=== PATIENT | male | born 1955 | race Caucasian/White ===

== ENCOUNTER 2024-01-09 12:30 | Outpatient (AMB) | payer OTHER, MEDICAID, SELFPAY ==
--- NOTE | 2024-01-09 12:41 | AM.OFFWIN_ITS ---
Intake Vital Signs 01/09/24 12:49 Height 5 ft 4 in Weight 212 lb BMI 36.4 BP 108/58 L Blood Pressure Location Lt brachial Position Sitting Pulse 68 Pulse Source Pulse Oximeter Temp 98.3 F Temp Source Oral Pulse Oximetry (%) 94 Oxygen Delivery Method Room Air Intake Visit Reasons: blurry vision Intake Note: Blurry vision. Blood sugar was 67 this morning. Daughter gave him sugar and lunch and glucose was 107 Accompanied by: Daughter Allergies shrimp Allergy (Unknown, Verified 01/09/24 12:43) Vomiting HPI HPI Comments History of Present Illness Details This is a 68-year-old male with a past medical history of type 2 diabetes, hypertension, hyperlipidemia and stroke presenting via the walk-in for blurry vision. Patient's daughter interprets. He was in his usual state of health until this morning at 10:45am. He noticed symptoms when he woke up. He called his daughter who rushed over to his house. She says his blood pressure was normal. She checked his blood sugar, and it was 67 so she made him a meal. Blood sugar went up to 107 and is currently 164. Vision did not improve after eating. He has 5/10 eye pain on the outside corners of the eyes. Both eyes are blurry though the right is worse than the left. No discharge. Both eyes appear redder than usual. No head or eye trauma. He wears glasses. He does not use contacts. Last seen by an eye doctor at [facility] for his glasses prescription. Upon further questioning he recalls somebody telling him he may have glaucoma in the past and he was supposed to see a retinal specialist, but they did not end up following through due to an insurance issue. Patient denies fevers, chills, headache, new weakness, new speech difficulty, new facial drooping or numbness or tingling. He has residual effects from a stroke 13 years ago including weakness of the right upper and lower extremity, some aphasia and facial asymmetry. No changes to this baseline per patient and daughter. ROS: Constitutional: No fevers or chills Eyes: No double vision, vision loss or discharge, see HPI ENT: No ear pain or congestion, sore throat or sinus congestion. Respiratory: No shortness of breath Cardiovascular: No chest pain Gastrointestinal: No nausea or vomiting. Neurologic: No headache, dizziness, syncope, see HPI Skin: No rash Physical exam: Constitutional: Alert, in no distress. Brace on right knee. Uses cane to walk. Eyes: +Aniscoria and sluggish right pupillary response to light (patient says right pupil has been like this since his stroke). Eyes are hyperemic. No periorbital swelling. No discharge. Extraocular muscles intact. Ear, Nose and Throat: Canals clear. TMs normal. Normal nasal mucosa. No nasal discharge. No oral lesions. Neck: Supple, Full range of motion. No lymphadenopathy. Respiratory: Clear to auscultation. Cardiovascular: S1 S2 regular. No murmurs. Neurologic: Facial asymmetry noted (drooping of the right side of the mouth) which again they say is baseline since his stroke. Hand tour consultant strength 4/5 bilaterally. Clear speech. Extremities: Warm and well perfused. FOR[facility]LY [facility], 1928[facility] Medical History (Updated 01/09/24 @ 13:38 by SAMINA Keating) Blurry vision, bilateral Blurry vision Physical Exam Vital Signs: Last Vital Signs Temp 98.3 F 01/09/24 12:49 Pulse 68 01/09/24 12:49 BP 108/58 L 01/09/24 12:49 Pulse Ox 94 01/09/24 12:49 Oxygen Delivery Method Room Air 01/09/24 12:49 BMI result Body Mass Index 36.4 Assessment & Plan Assessment & Plan (1) Blurry vision, bilateral: Code(s): H53.8 - Other visual disturbances (2) Pain of both eyes: Code(s): H57.13 - Ocular pain, bilateral (3) Eye redness: Code(s): H57.89 - Other specified disorders of eye and adnexa Plan I explained to the patient his daughter that these symptoms warrant emergent ophthalmological consult. Differential includes acute glaucoma, optic neuritis, infection. They report chronic neuro deficits are at baseline and symptoms are bilateral so I do not suspect acute CVA at this time. They are agreeable to go to [facility] ED for further evaluation. Coding Level of Care Code New Pt Level 4 (79885) Diagnoses Blurry vision, bilateral H53.8 Pain of both eyes H57.13 Eye redness H57.89
[2024-01-09 12:49] VITALS: BP 108/58; PULSE 68; TEMP 36.8; O2SAT 94; BMI 36.4
== END 2024-01-09 16:00 | disposition home or self-care (01) ==
PROVIDERS: Visit Provider Physician Assistant Medical
DX: H53.8 Other visual disturbances (principal); H57.13 Ocular pain, bilateral; H57.89 Other specified disorders of eye and adnexa; E11.649 Type 2 diabetes mellitus with hypoglycemia without coma
CPT/HCPCS: 82948; 99204

== ENCOUNTER 2024-02-10 11:06 | Outpatient (AMB) | payer OTHER, MEDICAID, SELFPAY ==
[2024-02-10 11:08] VITALS: BP 118/70; PULSE 54; O2SAT 96; BMI 35.9
--- NOTE | 2024-02-10 11:08 | A.OFFPC_ITS ---
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 Food Service Steward Required: Yes Food Service Steward Language: Correctional Food Service Supervisor Name: Daughter Accompanied by: Daughter Allergies shrimp Allergy (Unknown, Verified 02/10/24 11:12) Vomiting Tobacco use date assessed: 02/10/24 Fall risk assessment: 1 Fall in past year Last assessed Fall Risk: 02/10/24 Dental Screening Dental Screen Date: 02/10/24 Did you have a dental visit in the last 12 months?: Yes Did you have a dental problem in the last 6 months where you did not have access to dental care?: Yes Was dental information given to patient?: Patient has dentist HPI HPI Comments History of Present Illness Details This is a 68-year-old male with a past medical history of type 2 diabetes, hypertension, hyperlipidemia and stroke presenting for follow up Type 2 diabetes: On metformin 500ng twice daily, NPH, jardiance, acarbose. A1C 6.7%. CV: On norvasc, chlorthalidone, lisinopril. metoprolol. Controlled today. Denies chest pain, dizziness. Recent vision changes as noted in previous visit He was in his usual state of health until this morning at 10:45am. He noticed symptoms when he woke up. He called his daughter who rushed over to his house. She says his blood pressure was normal. She checked his blood sugar, and it was 67 so she made him a meal. Blood sugar went up to 107 and is currently 164. Vision did not improve after eating. He has 5/10 eye pain on the outside corners of the eyes. Both eyes are blurry though the right is worse than the left. No discharge. Both eyes appear redder than usual. No head or eye trauma. He wears glasses. He does not use contacts. Last seen by an eye doctor at [facility] for his glasses prescription. Upon further questioning he recalls somebody telling him he may have glaucoma in the past and he was supposed to see a retinal specialist, but they did not end up following through due to an insurance issue. Patient denies fevers, chills, headache, new weakness, new speech difficulty, new facial drooping or numbness or tingling. He has residual effects from a stroke 13 years ago including weakness of the right upper and lower extremity, some aphasia and facial asymmetry. No changes to this baseline per patient and daughter. ROS CONSTITUTIONAL: Denies weight loss, fever and chills. HEENT: Denies changes in vision and hearing. RESPIRATORY: Denies SOB and cough. CV: Denies palpitations and CP GI: Denies abdominal pain, nausea, vomiting and diarrhea. : Denies dysuria and urinary frequency. MSK: Denies new myalgia and joint pain. SKIN: Denies rash and pruritus. NEUROLOGICAL: Denies headache PSYCHIATRIC: Denies recent changes in mood. PHYSICAL EXAM: GENERAL: Alert and oriented x 3. NAD EYES: EOMI. Anicteric. HENT: Moist mucous membranes. No scleral icterus. No cervical lymphadenopathy. LUNGS: Clear to auscultation bilaterally. CARDIOVASCULAR: Regular rate and rhythm. No murmur. No JVD. ABDOMEN: Soft, non-tender +bs EXTREMITIES: No edema. Non-tender. SKIN: No rashes or lesions. Warm. NEUROLOGIC: No focal neurological deficits. CN II-XII grossly intact PSYCHIATRIC: Cooperative. Appropriate mood and affect FORMERLY [facility], [facility]–1983 Medical History Blurry vision, bilateral Blurry vision Surgical History Hx of hernia repair Hx of arthroscopy of left knee Social History Household Members: None Housing: Apartment Alcohol intake: never Patient Tobacco Use Status: Never used Tobacco e-Cigarette/Vaping Use: Never Used Current occupational status: retired Cognitive needs: No Hearing needs: No Vision needs: Yes Questionnaire PHQ-9 Over the last 2 weeks, how often have you been bothered by any of the following problems? 1. Little interest or pleasure in doing things: not at all 2. Feeling down, depressed, or hopeless: not at all 3. Trouble falling or staying asleep, or sleeping too much: not at all 4. Feeling tired or having little energy: not at all 5. Poor appetite or overeating: not at all 6. Feeling bad about yourself - or that you are a failure or have let yourself or your family down: not at all 7. Trouble concentrating on things, such as reading the newspaper or watching television: not at all 8. Moving or speaking so slowly that other people could have noticed. Or the opposite - being so fidgety or restless that you have been moving around a lot more than usual: not at all 9. Thoughts that you would be better off or of hurting yourself in some way: not at all Total score: 0 Depression Screening Interpretation: Negative (neg) Depression Screening Done: Yes 32701 - PHQ-9 Billing: Yes Source: Developed by Drs. David Troncoso, Maria Elena Montaño, Silvestre Shields and colleagues, with an educational taran from [employer]. Thrive Questionnaire I am a: Patient What is your living situation today?: I have a steady place to live Within the past 12 months, did the food you bought not last and you didn't have the money to get more?: Never true Within the past 12 months, did you worry whether your food would run out before you got money to buy more?: Never true Do you have trouble paying for medicines?: No Do you have trouble getting transportation to medical appointments?: No Do you have trouble paying your heating and electricity bill?: No Do you have trouble taking care of your child, family member or friend?: No Do you have trouble with day-to-day activities such as bathing, preparing meals, shopping, managing finances, etc.?: No Are you currently unemployed and looking for a job?: No Are you interested in more education?: No THRIVE Score: 0 AUDIT C Alcohol Use Questionnaire (AUDIT-C) 1. How often do you have a drink containing alcohol?: Never 3. How often do you have six or more drinks on one occasion?: Never Total Score: 0 LALA-7 AMB Questionnaire LALA-7 Date LALA - 7 assessed: 02/10/24 Feeling nervous, anxious, or on edge: 0 = Not at all Not being able to stop or control worryin = Not at all Worrying too much about different things: 0 = Not at all Trouble relaxin = Not at all Being so restless that it is hard to sit still: 0 = Not at all Becoming easily annoyed or irritable: 0 = Not at all Feeling afraid as if something awful might happen: 0 = Not at all Total LALA-7 score (0-4 normal; 5-9 mild; 10-14 moderate; 15-21 severe): 0 Source: Developed by Drs. David Troncoso, Maria Elena Montaño, Silvestre Shields and colleagues, with an educational taran from [employer]. LALA-7 Assessment Billing LALA-7 Assessment Tool: LALA-7 Assessment 60312 Physical exam (Primary Care) Vital Signs: Last Vital Signs Pulse 54 02/10/24 11:08 BP 118/70 02/10/24 11:08 Pulse Ox 96 02/10/24 11:08 Oxygen Delivery Method Room Air 02/10/24 11:08 BMI result Body Mass Index 35.9 Tobacco/Smoking Status: Tobacco use Status Tobacco use date assessed 02/10/24 02/10/24 11:19 Patient Tobacco Use Status Never used Tobacco 02/10/24 11:19 e-Cigarette/Vaping Use Never Used 02/10/24 11:19 PHQ-9: PHQ-9 Score PHQ-9: Total score 0 02/10/24 11:43 Depression Screening Interpretation: Negative (neg) Results AMB Hemoglobin A1c AMB Hemoglobin A1c 6.7 % Last Edit by Queenie Menezes CMA on 02/10/24 11:43 Results Reviewed Results Reviewed: Laboratory Last Values Hgb A1c (Clinic) 6.7 % (4.0-6.0) H 02/10/24 11:26 Assessment and Plan Assessment & Plan (1) Insulin long-term use: Code(s): Z79.4 - residential (current) use of insulin (2) Type 2 diabetes mellitus: Code(s): E11.9 - Type 2 diabetes mellitus without complications Qualifiers: Diabetes mellitus fpc insulin use: with fpc use Diabetes mellitus complication status: with neurologic complications Diabetes mellitus complication detail: with other neurological complication Qualified Code(s): E11.49 - Type 2 diabetes mellitus with other diabetic neurological complication; Z79.4 - watermelon inspector (current) use of insulin (3) Hypertension: Code(s): I10 - Essential (primary) hypertension Qualifiers: Hypertension type: primary hypertension Qualified Code(s): I10 - Essential (primary) hypertension (4) CAD (coronary artery disease): Code(s): I25.10 - Atherosclerotic heart disease of [place] coronary artery without angina pectoris Qualifiers: Coronary Disease-Associated Artery/Lesion type: [place] artery [place] vs. transplanted heart: [place] heart Associated angina: unspecified whether angina present Qualified Code(s): I25.10 - Atherosclerotic heart disease of [place] coronary artery without angina pectoris Orders: Orders AMB Hemoglobin A1c 02/10/24 E11.9 - Type 2 diabetes mellitus without complications Complete Blood Count Auto Diff 3 Months I25.10 - Atherosclerotic heart disease of [place] coronary artery without angina pectoris, I10 - Essential (primary) hypertension, E11.9 - Type 2 diabetes mellitus without complications, Z79.4 - residential (current) use of insulin Comprehensive Met. Panel 3 Months I25.10 - Atherosclerotic heart disease of [place] coronary artery without angina pectoris, I10 - Essential (primary) hypertension, E11.9 - Type 2 diabetes mellitus without complications, Z79.4 - residential (current) use of insulin Lipid Panel 3 Months I25.10 - Atherosclerotic heart disease of [place] coronary artery without angina pectoris, I10 - Essential (primary) hypertension, E11.9 - Type 2 diabetes mellitus without complications, Z79.4 - residential (current) use of insulin Microalbumin, Random (w Creat) 3 Months I25.10 - Atherosclerotic heart disease of [place] coronary artery without angina pectoris, I10 - Essential (primary) hypertension, E11.9 - Type 2 diabetes mellitus without complications, Z79.4 - residential (current) use of insulin Referrals Ophthalmology Referral Z79.4 - watermelon inspector (current) use of insulin, E11.9 - Type 2 diabetes mellitus without complications, I10 - Essential (primary) hypertension, I25.10 - Atherosclerotic heart disease of [place] coronary artery without angina pectoris Podiatry Referral L60.2 - Onychogryphosis Medications: New OneTouch Delica Plus Lancet (lancets) Four times daily 100 ea 3RF NS E11.9 - Type 2 diabetes mellitus without complications OneTouch Ultra Test (blood sugar diagnostic) four times daily 100 ea 3RF NS E11.9 - Type 2 diabetes mellitus without complications Discontinued OneTouch Ultra Test Discontinued Reason: Entered in error ONE TOUCH ULTRA TEST STRIPS four times daily 100 ea 3RF NS E11.9 - Type 2 diabetes mellitus without complications Coding Level of Care Code Est Pt Level 5 (81858) Diagnoses Insulin long-term use Z79.4 Type 2 diabetes mellitus with other neurologic complication, with long-term current use of insulin E11.49; Z79.4 Diabetes mellitus ferry terminal agent insulin use: with fpc use Diabetes mellitus complication status: with neurologic complications Diabetes mellitus complication detail: with other neurological complication Primary hypertension I10 Hypertension type: primary hypertension Coronary artery disease involving [place] coronary artery of [place] heart, unspecified whether angina present I25.10 Coronary Disease-Associated Artery/Lesion type: [place] artery [place] vs. transplanted heart: [place] heart Associated angina: unspecified whether angina present Additional Codes LALA-7 Assessment Billing - LALA-7 Assessment Tool: LALA-7 Assessment [id number] ([id number])
== END 2024-02-10 12:00 | disposition home or self-care (01) ==
PROVIDERS: PCP Internal Medicine; Visit Provider Internal Medicine
DX: E11.9 Type 2 diabetes mellitus without complications (principal)
CPT/HCPCS: 83036; 99214

== ENCOUNTER 2024-03-19 14:58 | Outpatient (AMB) | payer OTHER, MEDICAID, SELFPAY ==
--- NOTE | 2024-03-19 15:12 | A.OFFPC_ITS ---
Vital Signs 03/19/24 15:13 Height 5 ft 4 in Weight 209 lb 2 oz BMI 35.9 BP 136/70 Blood Pressure Location Lt brachial Position Sitting Respiration 14 Pulse 68 Pulse Source Pulse Oximeter Pulse Oximetry (%) 95 Oxygen Delivery Method Room Air Intake Visit Reasons: Small mass in upper left quadrant Intake Note: Mass on upper left quadrant Allergies shrimp Allergy (Unknown, Verified 03/19/24 15:12) Vomiting Tobacco use date assessed: 02/10/24 Dental Screening Dental Screen Date: 02/10/24 HPI HPI Comments History of Present Illness Details This is a 68-year-old male with a past medical history of coronary artery disease, hypertension and insulin-dependent type 2 diabetes presenting for evaluation of a ?mass? in his left upper quadrant. He is with his daughter who interprets. 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 The patient noticed a tender lump on the left lower chest about a week ago. He says it is near the scar of a prior lipoma removal about 10 years ago. It only hurts him if he presses on it. Otherwise he feels fine. No shortness a of breath, redness, trauma, nausea, vomiting. He is eating and drinking normally. Diabetes is well-controlled with a hemoglobin A1c of 6.7% 02/10/2024. ROS: Constitutional: No fevers or chills Respiratory: No shortness of breath Cardiovascular: No chest pain Gastrointestinal: No anorexia, nausea, vomiting or diarrhea. No abdominal pain or blood in stool. Skin: No rash Physical exam: Constitutional: Alert, in no distress. Neck: Supple, Full range of motion. No lymphadenopathy. Respiratory: Clear to auscultation. Cardiovascular: S1 S2 regular. No murmurs. Chest: Healed scar on left anterior low chest. Along the lateral scar and just below it the soft tissues are firm/lumpy but no discrete mass is felt today. This are is tender to palpation. No erythema, warmth or palpable fluid collection. [facility] [place] Medical History (Updated 03/19/24 @ 15:25 by SAMINA Keating) Swelling, mass, or lump in chest Blurry vision, bilateral Blurry vision Surgical History Hx of hernia repair Hx of arthroscopy of left knee Social History Household Members: None Housing: Apartment Alcohol intake: never Patient Tobacco Use Status: Never used Tobacco e-Cigarette/Vaping Use: Never Used Current occupational status: retired Cognitive needs: No Hearing needs: No Vision needs: Yes Questionnaire LALA-7 AMB Questionnaire LALA-7 Date LALA - 7 assessed: 02/10/24 Source: Developed by Drs. David Troncoso, Maria Elena Montaño, Silvestre Shields and colleagues, with an educational taran from [employer]. Physical exam (Primary Care) Vital Signs: Last Vital Signs Pulse 68 03/19/24 15:13 Resp 14 03/19/24 15:13 BP 136/70 03/19/24 15:13 Pulse Ox 95 03/19/24 15:13 Oxygen Delivery Method Room Air 03/19/24 15:13 BMI result Body Mass Index 35.9 Tobacco/Smoking Status: Tobacco use Status Tobacco use date assessed 02/10/24 03/19/24 15:12 Patient Tobacco Use Status Never used Tobacco 03/19/24 15:12 e-Cigarette/Vaping Use Never Used 03/19/24 15:12 Assessment and Plan Assessment & Plan (1) Swelling, mass, or lump in chest: Code(s): R22.2 - Localized swelling, mass and lump, trunk Plan: Differential includes recurrent lipoma versus scar tissue. U/S ordered and given to MA to fax to [facility] (patient's preference). Instructed to call if there is increased pain, redness or other change to symptoms. He agreed. T/C referral to plastic surgery vs general surgery pending results. Patient has a follow up scheduled with PCP in May. Orders: Orders US chest 03/19/24 R22.2 - Localized swelling, mass and lump, trunk Coding Level of Care Code Est Pt Level 3 (85482) Complex EM visit Add On G2211 Diagnoses Swelling, mass, or lump in chest R22.2
[2024-03-19 15:13] VITALS: BP 136/70; PULSE 68; RESP 14; O2SAT 95; BMI 35.9
== END 2024-03-19 17:11 | disposition home or self-care (01) ==
PROVIDERS: PCP Internal Medicine; Visit Provider Physician Assistant Medical
DX: R22.2 Localized swelling, mass and lump, trunk (principal)

== ENCOUNTER → 2024-03-19 14:58 | Outpatient (BNVA) | payer OTHER, MEDICAID, SELFPAY | PROVIDERS: PCP Internal Medicine; Visit Provider Physician Assistant Medical ==

== ENCOUNTER 2024-04-22 14:49 | Outpatient (REF) | payer MEDICARE, MEDICAID, SELFPAY | END 2024-04-22 14:50 | disposition home or self-care (01) | LOC: HO.BBR 14:49 | PROVIDERS: PCP Internal Medicine; Visit Provider Internal Medicine | DX: D45 Polycythemia vera (principal) | CPT/HCPCS: 85014; 85018; 99195 ==

== ENCOUNTER 2024-05-19 14:54 | Outpatient (AMB) | payer OTHER, MEDICAID, SELFPAY ==
--- NOTE | 2024-05-19 14:58 | MHC.PC.OV ---
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 A1C 7.5% from 6.7%. Neuropathy stable on gabapentin CV: On norvasc, chlorthalidone, lisinopril. metoprolol. Controlled today. Denies chest pain, dizziness. Recent vision changes as noted in previous visit. No interval MSK: Was following with ortho and getting [id number] steroid injections. He would like referral to continue doing so Colonoscopy: ROS CONSTITUTIONAL: Denies weight loss, fever and chills. HEENT: Denies changes in vision and hearing. RESPIRATORY: Denies SOB and cough. CV: Denies palpitations and CP GI: Denies abdominal pain, nausea, vomiting and diarrhea. : Denies dysuria and urinary frequency. MSK: Denies new myalgia and joint pain. SKIN: Denies rash and pruritus. NEUROLOGICAL: Denies headache PSYCHIATRIC: Denies recent changes in mood. PHYSICAL EXAM: GENERAL: Alert and oriented x 3. NAD EYES: EOMI. Anicteric. HENT: Moist mucous membranes. No scleral icterus. No cervical lymphadenopathy. LUNGS: Clear to auscultation bilaterally. CARDIOVASCULAR: Regular rate and rhythm. No murmur. No JVD. ABDOMEN: Soft, non-tender +bs EXTREMITIES: No edema. Non-tender. SKIN: No rashes or lesions. Warm. NEUROLOGIC: No focal neurological deficits. CN II-XII grossly intact PSYCHIATRIC: Cooperative. Appropriate mood and affect [facility] Medical History (Updated 05/20/24 @ 09:41 by Laxmi Christianson MD) Swelling, mass, or lump in chest Blurry vision, bilateral Blurry vision Surgical History Hx of hernia repair Hx of arthroscopy of left knee Social History (Updated 05/19/24 @ 15:08 by Vilma Chavez CMA) Household Members: None Housing: Apartment Alcohol intake: never Patient Tobacco Use Status: Never used Tobacco e-Cigarette/Vaping Use: Never Used Current occupational status: retired Cognitive needs: No Hearing needs: No Vision needs: Yes Questionnaire PHQ-9 Over the last 2 weeks, how often have you been bothered by any of the following problems? 1. Little interest or pleasure in doing things: not at all 2. Feeling down, depressed, or hopeless: not at all 3. Trouble falling or staying asleep, or sleeping too much: not at all 4. Feeling tired or having little energy: not at all 5. Poor appetite or overeating: not at all 6. Feeling bad about yourself - or that you are a failure or have let yourself or your family down: not at all 7. Trouble concentrating on things, such as reading the newspaper or watching television: not at all 8. Moving or speaking so slowly that other people could have noticed. Or the opposite - being so fidgety or restless that you have been moving around a lot more than usual: not at all 9. Thoughts that you would be better off or of hurting yourself in some way: not at all Total score: 0 Source: Developed by Drs. David Troncoso, Maria Elena Montaño, Silvestre Shields and colleagues, with an educational taran from [employer]. Thrive Questionnaire I am a: Patient What is your living situation today?: I have a steady place to live Within the past 12 months, did the food you bought not last and you didn't have the money to get more?: Sometimes True Within the past 12 months, did you worry whether your food would run out before you got money to buy more?: Never true Do you have trouble paying for medicines?: No Do you have trouble getting transportation to medical appointments?: No Do you have trouble paying your heating and electricity bill?: No Do you have trouble taking care of your child, family member or friend?: No Do you have trouble with day-to-day activities such as bathing, preparing meals, shopping, managing finances, etc.?: Yes Are you currently unemployed and looking for a job?: No Are you interested in more education?: No Please select the resources that you would like help with: None Currently or been in a relationship where the following occur: No concerns reported THRIVE Score: 1 AUDIT C Alcohol Use Questionnaire (AUDIT-C) 1. How often do you have a drink containing alcohol?: Never Total Score: 0 LALA-7 AMB Questionnaire LALA-7 Date LALA - 7 assessed: 02/10/24 Feeling nervous, anxious, or on edge: 0 = Not at all Not being able to stop or control worryin = Not at all Worrying too much about different things: 0 = Not at all Trouble relaxin = Not at all Being so restless that it is hard to sit still: 0 = Not at all Becoming easily annoyed or irritable: 0 = Not at all Feeling afraid as if something awful might happen: 0 = Not at all Total LALA-7 score (0-4 normal; 5-9 mild; 10-14 moderate; 15-21 severe): 0 Source: Developed by Drs. David Troncoso, Maria Elena Montaño, Silvestre Shields and colleagues, with an educational taran from [employer]. Physical exam (Primary Care) Vital Signs: Last Vital Signs Pulse 64 05/19/24 15:09 BP 124/66 05/19/24 15:09 Pulse Ox 96 05/19/24 15:09 Oxygen Delivery Method Room Air 05/19/24 15:09 BMI result Body Mass Index 36.3 Tobacco/Smoking Status: Tobacco use Status Tobacco use date assessed 02/10/24 05/19/24 14:59 Patient Tobacco Use Status Never used Tobacco 05/19/24 15:08 e-Cigarette/Vaping Use Never Used 05/19/24 15:08 PHQ-9: PHQ-9 Score PHQ-9: Total score 0 05/20/24 09:35 Currently or been in a relationship where the following occur: No concerns reported Coding Level of Care Code Est Pt Level 4 (41364) Complex EM visit Add On G2211 Diagnoses Type 2 diabetes mellitus with other neurologic complication, with long-term current use of insulin E11.49; Z79.4 Diabetes mellitus complication detail: with other neurological complication Diabetes mellitus complication status: with neurologic complications Diabetes mellitus residential insulin use: with geospatial intelligence analyst use Insulin long-term use Z79.4 Chronic pain of right knee M25.561; G89.29 Chronicity: chronic Assessment & Plan Assessment & Plan (1) Type 2 diabetes mellitus: Code(s): E11.9 - Type 2 diabetes mellitus without complications Category: Medical Qualifiers: Diabetes mellitus complication detail: with other neurological complication Diabetes mellitus complication status: with neurologic complications Diabetes mellitus residential insulin use: with residential use Qualified Code(s): E11.49 - Type 2 diabetes mellitus with other diabetic neurological complication; Z79.4 - podiatric technician (current) use of insulin Plan: suboptimal control with this recent A1C. Advised to increase his insulin to 30mg twice daily. (2) Insulin long-term use: Code(s): Z79.4 - podiatric technician (current) use of insulin Category: Medical Plan: see above Annual eye exams or more frequently as recommended. Neuropathy stable on current medications (3) Right knee pain: Code(s): M25.561 - Pain in right knee Category: Medical Qualifiers: Chronicity: chronic Qualified Code(s): M25.561 - Pain in right knee; G89.29 - Other chronic pain Plan: referral to orthopedics placed Orders: Orders Hemoglobin A1c 05/19/24 E11.49 - Type 2 diabetes mellitus with other diabetic neurological complication, Z79.4 - podiatric technician (current) use of insulin AMB Hemoglobin A1c 05/19/24 E11.49 - Type 2 diabetes mellitus with other diabetic neurological complication, Z79.4 - podiatric technician (current) use of insulin CT chest wo IV con 05/19/24 R22.2 - Localized swelling, mass and lump, trunk Referrals Orthopedics Referral M25.561 - Pain in right knee Medications: New gabapentin 300 mg PO TID 270 caps 3RF metoprolol succinate ER 50 mg PO DAILY 90 tabs 3RF Refilled acarbose 25 mg PO DAILY 90 tabs 3RF acetaminophen ER (Arthritis Pain Relief (acetaminophen) ER) 650 mg PO Q12H 100 tabs 3RF 90 days amlodipine 5 mg PO DAILY 90 tabs 3RF 90 days atorvastatin 40 mg PO DAILY 90 tabs 3RF chlorthalidone 50 mg PO DAILY 90 tabs 3RF lisinopril 40 mg PO DAILY 90 tabs 3RF 90 days cyanocobalamin (vitamin B-12) 1,000 mcg PO DAILY 90 tabs 3RF Humulin 70/30 U-100 Insulin 100 unit/mL (70-30) (insulin NPH and regular human) 30 units (0.3 mL) subcut BID 54 mL 3RF 90 days NS E11.49 - Type 2 diabetes mellitus with other diabetic neurological complication, Z79.4 - residential (current) use of insulin Jardiance (empagliflozin) 25 mg PO DAILY 90 tabs 3RF NS E11.49 - Type 2 diabetes mellitus with other diabetic neurological complication, Z79.4 - podiatric technician (current) use of insulin metformin 500 mg PO BID 180 tabs 3RF
[2024-05-19 15:09] VITALS: BP 124/66; PULSE 64; O2SAT 96; BMI 36.3
== END 2024-05-19 15:35 | disposition home or self-care (01) ==
PROVIDERS: PCP Internal Medicine; Visit Provider Internal Medicine
DX: E11.49 Type 2 diabetes mellitus with other diabetic neurological complication (principal); Z79.4 Long term (current) use of insulin; M25.561 Pain in right knee; G89.29 Other chronic pain

== ENCOUNTER 2024-06-30 10:40 | Outpatient (AMB) | payer OTHER, MEDICAID, SELFPAY ==
--- NOTE | 2024-06-30 10:54 | A.OFFVIS_ITS ---
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 The patient describes his pain as sharp in nature. Did undergo right knee arthroscopic surgery approximately 20 years ago. He got fairly good relief from that surgery initially. The patient states that he has gotten several cortisone injections given into his right knee over the last few years. He gets fairly good relief from the injections. He does walk with a cane. He wishes to hold off on further surgery for as long as possible. He has tried Tylenol which gives him only mild relief. He has also done physical therapy which aggravated his pain. Profiler Required: No Allergies shrimp Allergy (Unknown, Verified 06/30/24 10:58) Vomiting Medication List - Last Reconciled 06/30/24 by Arcadio Luu MD acarbose 25 mg PO DAILY acetaminophen ER (Arthritis Pain Relief (acetaminophen) ER) 650 mg PO Q12H 90 days amlodipine 5 mg PO DAILY 90 days atorvastatin 40 mg PO DAILY blood sugar diagnostic (Copanion Verio test strips) As directed to check blood glucose chlorthalidone 50 mg PO DAILY cyanocobalamin (vitamin B-12) 1,000 mcg PO DAILY gabapentin 300 mg PO TID Humulin 70/30 U-100 Insulin 100 unit/mL (70-30) (insulin NPH and regular human) 30 units (0.3 mL) subcut BID 90 days NS insulin syringe,safety needle (BD SafetyGlide Insulin Syringe) four times daily insulin syringe-needle U-100 (BD Insulin Syringe Ultra-Fine) four times daily Jardiance (empagliflozin) 25 mg PO DAILY NS lisinopril 40 mg PO DAILY 90 days metformin 500 mg PO BID metoprolol succinate ER 50 mg PO DAILY OneTouch Delica Plus Lancet (lancets) Four times daily NS triamcinolone acetonide 40 mg IM DAILY [facility] Medical History (Updated 06/30/24 @ 11:29 by Arcadio Luu MD) Swelling, mass, or lump in chest Blurry vision, bilateral Blurry vision Surgical History Hx of hernia repair Hx of arthroscopy of left knee Social History (Updated 05/19/24 @ 15:08 by Vilma Chavez CMA) Household Members: None Housing: Apartment Alcohol intake: never Patient Tobacco Use Status: Never used Tobacco e-Cigarette/Vaping Use: Never Used Current occupational status: retired Cognitive needs: No Hearing needs: No Vision needs: Yes Physical Exam Vital Signs: BMI result Body Mass Index 36.2 Const Other: Well-nourished well-developed very friendly male awake alert and oriented x3 in no acute distress Extrem Other: Bilateral lower extremity examination shows good capillary refill, no skin lesions noted, normal sensation light touch Right knee examination shows a minimal effusion, palpable crepitus with range of motion, pain with range of motion, no instability Office Procedures AMB Joint Injection/Aspiration Joint Injection/Aspiration Primary Site: right knee Prep: site was prepped using aseptic technique Injected: 40 mg of, DepoMedrol and 1% plain lidocaine Procedure: The patient tolerated the procedure well Coding - Large joint Procedure code (CPT) selection complete Results Reviewed Results Reviewed: X-rays of the patient's right knee show joint space narrowing, subchondral sclerosis, no acute bony abnormalities Assessment & Plan Assessment & Plan (1) Arthritis of right knee: Code(s): M17.11 - Unilateral primary osteoarthritis, right knee Category: Medical Plan Karsten presents with progressively worsening right knee pain due to degenerative joint disease. Risks and benefits of a right knee cortisone injection were discussed at length with the patient. The patient wished to proceed. He tolerated the injection well. He will continue with his home exercise program. He will contact me prior to his follow-up appointment in 6 months should any questions or concerns arise. Feel free to call me at any time should questions regarding his orthopedic management arise. Thank you very much for asking me to see this very friendly patient. I spent 21 minutes in reviewing the patient's records and imaging studies, seeing the patient and documenting in the medical record. Orders: Orders XR knee RT 3V Today G89.29 - Other chronic pain, M25.561 - Pain in right knee AMB Joint Injection/Aspiration Today M17.11 - Unilateral primary osteoarthritis, right knee Coding Level of Care Code New Pt Level 3 (92292) Complex EM visit Add On G2211 Diagnoses Arthritis of right knee M17.11 CPT Codes Coding - Large joint: 65207 - Large joint ([id number])
[2024-06-30 10:58] VITALS: BMI 36.2
--- OUTSIDE RECORDS SUMMARY | 2024-06-30 10:59 | XMS_ITS | Continuity of Care Document ---
Author Organization [facility] Address [address] [place] [address] Phone Care Team Providers Care Tufter Hand Name Role Phone Z-Converted, Provider Unavailable Unavailabl e Advance Directives Directive Yes / No Effective Date File Name No Information Encounters Encounter Description Practice Location Reason(s) For Visit Diagnoses Date Provider Providers Copied on Encounter [facility], [address] [place] [address],[address], [place], [place], [id number], [place] tel:[phone] 2 [facility] Unspecified chest pain Sep-2 8200 6 Z-Convert ed Provider. . Family History Family Member Type Diagnosis Age At Onset No Information Payers Payer name Insurance type Covered democrat ID Authoriza tion(s) No Information Social History [...]
== END 2024-06-30 11:22 | disposition home or self-care (01) ==
PROVIDERS: PCP Internal Medicine; Visit Provider Orthopaedic Surgery
DX: M17.11 Unilateral primary osteoarthritis, right knee (principal)
CPT/HCPCS: 20610; 99203

== ENCOUNTER 2024-06-30 12:48 | Outpatient (REF) | payer MEDICARE, MEDICAID, SELFPAY ==
--- NOTE | ~2024-06-30 | XR_ITS ---
EXAMINATION: XR KNEE 3 VIEWS RIGHT HISTORY: M25.561 - Pain in right knee COMPARISON: There are no prior studies available for comparison. FINDINGS: Three views of the right knee are submitted. Osseous mineralization is normal. A linear lucency is seen in the lateral aspect of the patella which demonstrates corticated margins and may represent an old fracture. The bones are otherwise intact. There is no dislocation. There is mild tricompartmental osteoarthritis. There are vascular calcifications. There is no joint effusion. XR/XR knee RT 3V IMPRESSION: Possible chronic fracture deformity of the patella. Clinical correlation is recommended. Mild tricompartmental osteoarthritis. Electronically signed by: David Bowen MD 07/07/2024 03:20 PM EST
--- OUTSIDE RECORDS SUMMARY | 2024-07-02 13:44 | XMS_ITS | Continuity of Care Document ---
Author Organization [facility] Address [address] [place] [address] Phone Care Team Providers Care Business Services Intern Name Role Phone Z-Converted, Provider Unavailable Unavailabl e Advance Directives Directive Yes / No Effective Date File Name No Information Encounters Encounter Description Practice Location Reason(s) For Visit Diagnoses Date Provider Providers Copied on Encounter [facility], [address] [place] [address],[address], [place], [place], [id number], [place] tel:[phone] 2 [facility] Unspecified chest pain Sep-2 8200 6 [...]
== END 2024-06-30 12:49 | disposition home or self-care (01) ==
LOC: HO.HOSX 12:48
PROVIDERS: Visit Provider Orthopaedic Surgery
DX: M25.561 Pain in right knee (principal); G89.29 Other chronic pain; M17.11 Unilateral primary osteoarthritis, right knee
CPT/HCPCS: 20610; 73562; J1010; J2003

== ENCOUNTER 2024-07-23 14:38 | Outpatient (REF) | payer MEDICARE, MEDICAID, SELFPAY ==
--- NOTE | ~2024-07-23 | CT_ITS ---
CLINICAL HISTORY: R22.2 - Localized swelling, mass and lump, trunk CT chest with contrast Comparison: None Findings: The heart size is normal. The visualized thyroid and mediastinum are unremarkable. The lungs are clear. The appearance of the liver suggests fatty infiltration. There are possible bilateral Bosniak 1 renal cysts. Consider nonemergent sonography for confirmation. The visualized upper abdomen is otherwise unremarkable. The bones are intact. IMPRESSION: 1. No acute findings in the chest. 2. Hepatic steatosis. This document has been electronically signed by: Brad Cantu MD on 07/25/2024 07:18:44
[2024-07-23] MEDS: iohexoL 350 MG/ML 100 ML INFUS..BTL IV (17:20)
[2024-07-23 18:19] LABS: Creatinine Urine 107.57 mg/dL
== END 2024-07-23 14:39 | disposition home or self-care (01) ==
LOC: HO.BBR 14:38
PROVIDERS: PCP Internal Medicine; Visit Provider Internal Medicine
DX: D45 Polycythemia vera (principal); R22.2 Localized swelling, mass and lump, trunk; I25.10 Atherosclerotic heart disease of native coronary artery without angina pectoris; I10 Essential (primary) hypertension; E11.9 Type 2 diabetes mellitus without complications; Z79.4 Long term (current) use of insulin
CPT/HCPCS: 71260; 82043; 82570; 85018; 99195

== ENCOUNTER 2024-07-23 15:21 | Outpatient (REF) | payer MEDICARE, MEDICAID, SELFPAY ==
[2024-07-23 15:35] LABS: MANUAL DIFF FLAG NO
[2024-07-23 15:49] LABS: Basophils Absolute Auto 0.1 X10*3/uL (0.0-0.2); Basophils Percent Auto 0.8 % (0-2); Eosinophils Absolute Auto 0.4 X10*3/uL (0.0-0.4); Eosinophils Percent Auto 4.4 % (0-4); Hematocrit 50.9 % (42.0-52.0); Hemoglobin 16.5 g/dl (14.0-18.0); Imm Gran Abs Auto 0.03 X10*3/uL (0.00-0.03); Imm Gran Pct Auto 0.3 % (0.0-0.4); Lymphocytes Absolute Auto 2.2 X10*3/uL (1.2-4.9); Lymphocytes Percent Auto 22.1 % (20-40); Mean Corpuscular HGB Conc 32.4 g/dl (31.0-36.0); Mean Corpuscular Hemoglobin 27.7 pg (27.0-33.0); Mean Corpuscular Volume 85.5 fL (80.0-98.0); Mean Platelet Volume 10.3 fL (9.4-12.4); Monocytes Absolute Auto 1.2 X10*3/uL (0.1-1.2); Monocytes Percent Auto 12.5 % (2-11); Neutrophils Absolute Auto 5.9 x10*3/uL (2.0-8.3); Neutrophils Percent Auto 59.9 % (45-73); Platelet Count 221 X10*3/uL (160-400); Red Blood Count 5.95 X10*6/uL (4.60-5.80); Red Cell Distribution Width 14.6 % (11.0-16.0); White Blood Count 9.9 X10*3/uL (4.8-10.8)
[2024-07-23 16:14] LABS: Alanine Aminotransferase 33 U/L (0-40); Albumin Level 4.2 g/dL (3.5-5.0); Alkaline Phosphatase 92 U/L (39-117); Anion Gap 10 (12-20); Aspartate Amino Transferase 21 U/L (5-37); Bilirubin Total 0.4 mg/dL (0.0-1.0); Blood Urea Nitrogen 23 mg/dL (9-16); Calcium 9.4 mg/dL (8.4-10.2); Carbon Dioxide 30 mmol/L (22-29); Chloride 102 mmol/L (96-108); Cholesterol 116 mg/dL (<200); Estimated Glomerular Filt Rate 54; Glucose Random 184 mg/dL (60-115); HDL Cholesterol 47 mg/dL (>40); LDL Cholesterol Calculated 43 mg/dL (<100); Potassium 3.9 mmol/L (3.3-5.1); Sodium 138 mmol/L (135-145); Total Protein 7.5 g/dL (6.5-8.0); Triglycerides 132 mg/dL (<150)
[2024-07-23 16:27] LABS: Estimated Average Glucose 166 mg/dL; Hemoglobin A1C 245.9842 umol/L; Hemoglobin A1c % 7.4 % (<6.0); Total Hemoglobin (HGBA1C) 4256.7254 umol/L
[2024-07-23] MEDS: iohexoL 350 MG/ML 100 ML INFUS..BTL IV (18:30)
== END 2024-07-23 15:22 | disposition home or self-care (01) ==
LOC: HO.CT 15:21
PROVIDERS: PCP Internal Medicine; Visit Provider Internal Medicine
DX: R22.2 Localized swelling, mass and lump, trunk (principal); I25.10 Atherosclerotic heart disease of native coronary artery without angina pectoris; I10 Essential (primary) hypertension; E11.49 Type 2 diabetes mellitus with other diabetic neurological complication; Z79.4 Long term (current) use of insulin
CPT/HCPCS: 36415; 80053; 80061; 83036; 85025; Q9967

== ENCOUNTER → 2024-07-23 15:47 | Outpatient (BNV) | payer MEDICARE, MEDICAID, SELFPAY | PROVIDERS: PCP Internal Medicine; Visit Provider Specialist | DX: R22.2 Localized swelling, mass and lump, trunk (principal) | CPT/HCPCS: 71260 ==

== ENCOUNTER → 2024-08-04 15:28 | Outpatient (BNVA) | payer MEDICARE, MEDICAID, SELFPAY | PROVIDERS: PCP Internal Medicine; Visit Provider Internal Medicine | DX: I10 Essential (primary) hypertension (principal); E78.5 Hyperlipidemia, unspecified; E11.49 Type 2 diabetes mellitus with other diabetic neurological complication; Z86.73 Personal history of transient ischemic attack (TIA), and cerebral infarction without residual deficits; R07.9 Chest pain, unspecified; R22.2 Localized swelling, mass and lump, trunk; Z79.4 Long term (current) use of insulin | CPT/HCPCS: 96127; 99212 ==

== ENCOUNTER → 2024-08-18 14:44 | Outpatient (BNVA) | payer OTHER, MEDICAID, SELFPAY | PROVIDERS: PCP Internal Medicine; Visit Provider Internal Medicine ==

== ENCOUNTER 2024-09-15 14:37 | Outpatient (AMB) | payer OTHER, MEDICAID, SELFPAY ==
--- NOTE | 2024-09-15 14:52 | A.OFFVIS_ITS ---
Vital Signs 3 09/15/24 15:06 Height 5 ft 4 in Weight 212 lb 6 oz BMI 36.5 BP 145/69 H Blood Pressure Location Lt brachial Position Sitting Pulse 78 Intake Visit Reasons: Localized swelling, mass and lump, trunk Intake Note: Patient is seen in office for evaluation and treatment of a lipoma. 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 by: Daughter Allergies shrimp Allergy (Unknown, Verified 09/15/24 15:05) Vomiting Medication List - Last Reconciled 09/15/24 by Juan Burch MD acarbose 25 mg PO DAILY acetaminophen ER (Arthritis Pain Relief (acetaminophen) ER) 650 mg PO Q12H 90 days amlodipine 5 mg PO DAILY 90 days atorvastatin 40 mg PO DAILY blood sugar diagnostic (FINDING ROVERTouch Verio test strips) As directed to check blood glucose chlorthalidone 50 mg PO DAILY cyanocobalamin (vitamin B-12) 1,000 mcg PO DAILY Dexcom G7 General Clerk (blood-glucose meter,continuous) As directed NS Dexcom G7 Sensor (blood-glucose sensor) every 10 days NS gabapentin 300 mg PO TID Humulin 70/30 U-100 Insulin 100 unit/mL (70-30) (insulin NPH and regular human) 30 units (0.3 mL) subcut BID 90 days NS insulin syringe,safety needle (BD SafetyGlide Insulin Syringe) four times daily insulin syringe-needle U-100 (BD Insulin Syringe Ultra-Fine) four times daily Jardiance (empagliflozin) 25 mg PO DAILY NS lisinopril 40 mg PO DAILY 90 days metformin 500 mg PO BID metoprolol succinate ER 50 mg PO DAILY OneTouch Delica Plus Lancet (lancets) Four times daily NS triamcinolone acetonide 40 mg IM DAILY HPI Comments Details: 68-year-old male patient presenting for evaluation of a lump located in the left chest wall. He reports a previous lipoma excision x2 at this location approximately 20 years ago at [facility]. He was well until approximately 6 months ago when he began to note pain in the left rib region. He reports swelling in this location and pain whenever the site is palpated. He feels the pain is getting worse and would like to have the lesion excised. He underwent evaluation with an ultrasound and CT of the chest neither of which showed any lesion in the location. He denies any skin changes of bleeding, redness or discharge. He denies a history of trauma of the location. He does have a history of a CVA with right-sided weakness. He also underwent cardiac stenting in his currently on baby aspirin daily. [facility] Medical History Swelling, mass, or lump in chest Blurry vision, bilateral Blurry vision Surgical History Hx of hernia repair Hx of arthroscopy of left knee Social History Household Members: None Housing: Apartment Alcohol intake: never Patient Tobacco Use Status: Never used Tobacco e-Cigarette/Vaping Use: Never Used Current occupational status: retired Cognitive needs: No Hearing needs: No Vision needs: Yes Review of Systems Const Unobtainable due to mental condition Physical Exam Const General: no acute distress Nutritional Appearance: well nourished Orientation/consciousness: patient oriented x3 Chest Chest/axillae images: 2 1. Area of previous excision below the left nipple. A slight area of fullness is noted below this with significant tenderness to palpation. No overlying skin changes are noted. GI Inspection: Yes normal to inspection and Yes Abdominal panniculus present Palpation (GI): Soft to palpation, not firm and nontender Skin General skin exam: no rashes or lesions noted Neuro General: patient oriented x3 Extrem General: Yes no clubbing, cyanosis or edema Assessment & Plan Assessment & Plan (1) Lipoma of anterior chest wall: Code(s): D17.1 - Benign lipomatous neoplasm of skin and subcutaneous tissue of trunk Category: Medical Plan 68-year-old male patient presenting with a previous history of a lipoma in the left anterior chest wall now with new symptoms of swelling and pain in the anterior chest wall at the same location. Patient has requested excision of this possible recurrent lipoma. I recommended an excision under local anesthesia as a minor surgery and after discussion of the procedure, risks, and alternatives, he consents to the surgery. Coding Level of Care Code New Pt Level 4 (19001) Diagnoses Lipoma of anterior chest wall D17.1
[2024-09-15 15:06] VITALS: BP 145/69; PULSE 78; BMI 36.5
--- OUTSIDE RECORDS SUMMARY | 2024-09-15 17:24 | XMS_ITS | Clinical Summary ---
Author Organization [facility] Address [address] [place] [address] Phone Care Team Providers Care Solder [employer]er [employer] Name Role Phone Laxmi Christianson MD Primary Care Provider [phone] Allergies Active Allergy Reactions Criticality Noted Date Comments Shrimp 04/02/2023 Medications metFORMIN (GLUCOPHAGE) 500 mg tablet TAKE 1 TABLET BY MOUTH TWICE DAILY WITH MEALS 180 tablet 4 Active atorvastatin (LIPITOR) 40 mg tablet TAKE 1 TABLET BY MOUTH DAILY 90 tablet 4 Active aspirin 81 mg EC tablet TAKE 1 TABLET BY MOUTH EVERY DAY 4 Active amLODIPine (NORVASC) 5 mg tablet Take 1 Tablet by mouth daily. 4 Active acarbose (PRECOSE) 25 mg tablet Take 1 Tablet by mouth daily. 4 Active empagliflozin (Jardiance) 25 mg tablet Take 25 mg by mouth daily. 4 Active cyanocobalamin (VITAMIN B-12) 1,000 mcg tablet Take 1 Tablet by mouth daily. 4 Active lisinopril (PRINIVIL,ZESTR IL) 40 mg tablet Take 1 Tablet by mouth daily. 4 Active insulin NPH-insulin regular (HumuLIN 70/30 U-100 Insulin) 100 unit/mL (70-30) injection 30 units BID 4 10/25/19 25 Active chlorthalidone (HYGROTON) 50 mg tablet Take 1 Tablet by mouth daily. 4 Active insulin syringe-needle U-100 0.3 mL 31 gauge x 5/16 syringe Use one syringe twice a day as directed 4 Active acetaminophen (TYLENOL 8 HOUR) 650 mg 8 hr tablet Take 1 Tablet by mouth 2 times daily. 4 Active gabapentin (NEURONTIN) 300 mg capsule Take 1 Capsule by mouth 3 times daily. 4 Active blood-glucose meter (ONETOUCH VERIO METER MISC) 1 Kit by Does not apply route daily. BC-99 Use to check blood sugar daily Dx code: E11.9 3 Active lancets 33 gauge misc 1 Each by Does not apply route daily. BC-99 Use to test blood sugar daily Dx code: E11.9 3 Active blood glucose control high,low (FreeStyle Control) solution Use to calibrate each new bottle of strips. E 11.9 3 Active metoprolol succinate (TOPROL-XL) 50 mg 24 hr tablet Take 1 tablet (50 mg total) by mouth 1 (one) time each day. Active Active Problems Problem Noted Date Diagnosed Date Class 2 severe obesity due t o excess calories with serious comorbidity and body mass index (BMI) of 35.0 to 35.9 in adult 06/04/2024 CAD (coronary artery disease) 04/02/2023 Overview (06/04/2024): Stents 2006 and 2008. LAD, RCA, LCX Assessment & Plan (08/05/2024 3:19 PM EST): Remote history of coronary disease. Supposedly stents in 2006 and 2008 in the LAD RCA and circumflex. We do not have records. He is asymptomatic we again discussed the need to contact us if he develops any further chest pain or discomfort or dyspnea. Patient is on appropriate medical therapy and risk factor modifications in place Orders: Ambulatory referral to Cardiology ECG 12 lead Essential (primary) hypertension 04/02/2023 Assessment & Plan (08/05/2024 3:19 PM EST): Patient is on aggressive medical management for hypertension blood pressure is borderline elevated systolically but no change in therapy at this time Mixed hyperlipidemia 04/02/2023 Assessment & Plan (08/05/2024 3:19 PM EST): Lipids are well-controlled at this time no change in treatment The above note was prepared with the help of voice recognition software. Please excuse any grammatical or spelling errors that may have occurred Osteoarthritis, knee 04/02/2023 Type 2 diabetes mellitus without complications 1 Encounters Date Type Department Care Team Description 08/18/2024 8:30 AM EST Office Visit [facility] Hematology Oncology [address] [place] [phone] Nohemi Ann MD Polycythemia (Primary Dx); Myeloproliferative neoplasm ([facility]/HCC) 08/05/2024 3:00 PM EST Office Visit [facility] Cardiology [address] [place] [phone] Scotty Naylor MD Essential (primary) hypertension (Primary Dx); CAD (coronary artery disease); Mixed hyperlipidemia from Last 3 Months Immunizations Name Administration Dates Next Due Influenza trivalent, 0.5mL ( Fluad) 65yo and older 06/28/2023 Moderna SARS-CoV-2 COVID-19, mRNA, LNP-S, preservative free 10/20/2021,05/18/2021,10/10/2020,2020 Surgical History Surgery Date Site/Laterality Comments CARDIAC CATHETERIZATION Left PROCEDURE: HISTORICAL CARDIAC CATH; COMMENT: 2008 Medical History Medical History Date Comments Essential (primary) hypertension DX:Essential (primary) hypertension Type 2 diabetes mellitus wit hout complications ([facility]) DX:Type 2 diabetes mellitus without complications ([facility]) CAD (coronary artery disease) DX :CAD (coronary artery disease); COMMENT: Stents 2006 and 2008. LAD, RCA, LCX Mixed hyperlipidemia DX:Mixed hy perlipidemia Osteoarthritis, knee DX:Osteoart hritis, knee Polycythemia vera (CMS/HCC) DX:P olycythemia vera (HCC) CVA (cerebral vascular accid ent) (CMS/HCC) 2021 DX:CVA (cerebral vascular ac cident) (HCC) Family History Medical History Relation Name Comments Throat cancer Brother 1 + trachea Coronary artery disease Brother 2 Diabetes Brother 2 No Known Problems Daughter 1 estranged Diabetes Daughter 2 Hypertension Father CABG Mother Diabetes Mother Hypertension Mother Colon cancer Sister 1 No Known Problems Sister 2 No Known Problems Son 1 estranged Diabetes Son 2 Relation Name Status Comments Brother 1 Brother 2 Daughter 1 Alive Daughter 2 Alive Father Maternal Grandfather Maternal Grandmother Mother Paternal Grandfather Paternal Grandmother Sister 1 Sister 2 Alive Son 1 Alive Son 2 Alive Social History Tobacco Use Types Packs/Day Years Used Date Smoking Tobacco: Never Smokeless Tobacco: Never Tobacco Cessation:Counseling Given: Not Answered Alcohol Use Standard Drinks/Week Comments Not Currently 0 (1 standard drink = 0.6 oz pur e alcohol) NO Sex and Gender Information Value Date Recorded Sex Assigned at Not on file Legal Sex Male 8:21 PM EST Gender Identity Not on file Sexual Orientation Not on file Obstetrics History Last Filed Vital Signs Vital Sign Reading Time Taken Comments Blood Pressure 139/67 08/18/2024 8:35 AM EST Pulse 74 08/18/2024 8:35 AM EST Temperature 36.8 ??C (98.3 ??F) 08/18/2024 8:35 AM ES T Respiratory Rate - - Oxygen Saturation 98% 08/18/2024 8:35 AM EST Inhaled Oxygen Concentration - - Weight 95.7 kg (211 lb) 08/18/2024 8:35 AM EST Height 162.6 cm (5' 4 ) 08/05/2024 2:40 PM EST Body Mass Index 36.22 08/05/2024 2:40 PM EST Plan of Treatment Upcoming Encounters Date Type Department Care Team (Late st Contact Info) Description 03/08/2025 3:45 PM EDT Office Visit [facility] Hematology Oncology [address] [place] [phone] Nohemi Ann MD [address] [place] [address] Health Maintenance Due Date Last Done Comments DTaP,Tdap,and Td Vaccines (1 - Tdap) 1973 Pneumococcal Vaccine: 50+ Years (1 of 2 - PCV) 1973 Zoster Vaccines (1 of 2) 1973 RSV Immunization Patients 60+ Years Old (1 - Risk 60-74 years 1-dose series) 2014 Colorectal Cancer Screening: Colonoscopy 07/25/2023 Depression Screening 07/25/2023 Falls Risk Assessment 07/25/2023 Medicare Annual Wellness Visit 07/25/2023 Social Influencers of Health Screening 07/25/2023 COVID-19 Vaccine ( season) 2024 10/20/2021, 05/18/2021, 10/10/2020, Additional history exists Influenza Vaccine (#1) 2024 06/28/2023 Diabetes: Blood Sugar Control Test (HGBA1C) 03/21/2024 09/19/2023 Diabetes: Annual Urine Albumin-Creatinine Ratio (uACR) 06/06/2024 06/06/2023 Diabetes: Annual Foot Exam 06/06/2024 06/06/2023 Diabetes: Annual Retina Eye Exam 06/25/2024 06/25/2023 Diabetes: Annual GFR (Glomerular Filtration Rate) 08/13/2025 08/13/2024, 04/04/2023 Hypertension/CHF/CAD Annual BMP Blood Test 08/13/2025 08/13/2024, 04/04/2023 Cholesterol Screening (Lipid Panel) 04/04/2028 04/04/2023 Hepatitis C Screening Completed 06/28/2023 HIB Vaccines Aged Out No longer eligi ble based on patient's age to complete this topic HPV Vaccines Aged Out No longer eligi ble based on patient's age to complete this topic Hepatitis A Vaccines Aged Out No long er eligible based on patient's age to complete this topic Hepatitis B Vaccines Aged Out No long er eligible based on patient's age to complete this topic IPV Vaccines Aged Out No longer eligi ble based on patient's age to complete this topic MMR Vaccines Aged Out No longer eligi ble based on patient's age to complete this topic Meningococcal ACWY Vaccine Aged Out N o longer eligible based on patient's age to complete this topic Meningococcal B Vacine Aged Out No lo nger eligible based on patient's age to complete this topic RSV Immunization Patients Under 20 months Aged Out No longer eligible based on patient's age to complete this topic Varicella Vaccines Aged Out No longer eligible based on patient's age to complete this topic Procedures Procedure Name Priority Date/Time Associated Diagnosis Comments ..MISCELLANEOUS REFERENCE LAB TEST 08/25/2024 RETICULOCYTE COUNT Routine 08/13/2024 1: 59 PM EST PV (polycythemia vera) ([facility]/HCC) ERYTHROPOIETIN Routine 08/13/2024 1:59 PM EST PV (polycythemia vera) (CMS/HCC) COMPLETE BLOOD COUNT Routine 08/13/2024 1:59 PM EST PV (polycythemia vera) (CMS/HCC) COMPREHENSIVE METABOLIC PANEL Routine 08/13/2024 1:59 PM EST PV (polycythemia vera) ([facility]) ECG 12-LEAD Routine 08/05/2024 2:49 PM EST CAD (coronary artery disease) HEMOGLOBIN A1C Routine 09/19/2023 HEPATITIS C SCREENING Routine 06/28/2023 DIABETES EYE EXAM Routine 06/25/2023 URINE ALBUMIN CREATININE RATIO Routine 06/06/2023 DIABETES FOOT EXAM Routine 06/06/2023 LIPID PANEL Routine 04/04/2023 from Last 3 Months or Most Recently Relevant to Health Maintenance Results * Miscellaneous reference lab test (08/25/2024) us Provider Onbase MD LAB BLOOD ORDERABLES Final Re sult * (ABNORMAL) Erythropoietin (08/13/2024 1:59 PM EST) Erythropoietin 19.2(H) 2.6 - 18.5 mIU/mL 08/17/2024 2:55 PM EST [facility] Comment: Test performed at [facility], [address], [place], [place] ??[address] ? [phone] Crissy Keller MD, PhD - Auto Parts Manager Blood Venous blood specimen / Unknown Venipuncture / Unknown 08/13/2024 1:59 PM EST 08/13/2024 4:39 PM EST Nohemi Ann MD LAB BLOOD ORDERABLES Final R esult [facility] [address] [place] [address] * (ABNORMAL) Reticulocyte count (08/13/2024 1:59 PM EST) [facility] Retic Ct Abs 0.100(H) 0.030 - 0.090 M/mcL LAB HEMETOLOGY METHOD 08/13/2024 4:52 PM EST [facility] Retic Ct Pct 1.7 0.7 - 1.7 % LAB HEMETOLOGY METHOD 08/13/2024 4:52 PM EST [facility] Immature Retic Fract 16.9(H) 2.3 - 15.9 % LAB HEMETOLOGY METHOD 08/13/2024 4:52 PM EST [facility] Reticulocyte Hemoglobin 27.3(L) >29.0 pcg LAB HEMETOLOGY METHOD 08/13/2024 4:52 PM EST [facility] Blood Venous blood specimen / Unknown Venipuncture / Unknown 08/13/2024 1:59 PM EST 08/13/2024 4:40 PM EST Nohemi Ann MD LAB BLOOD ORDERABLES Final R esult [facility] [address] [place] [address], * (ABNORMAL) Complete blood count (08/13/2024 1:59 PM EST) [facility] WBC 8.2 4.8 - 10.8 K/mcL LAB HEMETOLOGY METHOD 08/13/2024 4:[address] [facility] RBC 5.80(H) 4.50 - 5.50 M/mcL LAB HEMETOLOGY METHOD 08/13/2024 4:[address] [facility] Hemoglobin 15.7 13.5 - 17.5 g/dL LAB HEMETOLOGY METHOD 08/13/2024 4:[address] [facility] Hematocrit 50.1 42.0 - 54.0 % LAB HEMETOLOGY METHOD 08/13/2024 4:[address] [facility] MCV 86.8 79.0 - 98.0 FL LAB HEMETOLOGY METHOD 08/13/2024 4:[address] [facility] MCH 27.2 27.0 - 32.0 pcg LAB HEMETOLOGY METHOD 08/13/2024 4:[address] [facility] MCHC 31.3(L) 32.0 - 37.0 g/dL LAB HEMETOLOGY METHOD 08/13/2024 4:[address] [facility] RDW 14.6 11.0 - 15.0 % LAB HEMETOLOGY METHOD 08/13/2024 4:[address] [facility] Platelets 258 130 - 400 K/mcL LAB HEMETOLOGY METHOD 08/13/2024 4:[address] [facility] MPV 11.5(H) 7.0 - 11.0 FL LAB HEMETOLOGY METHOD 08/13/2024 4:[address] [facility] NRBC 0.0 <1.0 % LAB HEMETOLOGY METHOD 08/13/2024 4:[address] [facility] NRBC Absolute 0.00 <0.10 K/mcL LAB HEMETOLOGY METHOD 08/13/2024 4:[address] [facility] Blood Venous blood specimen / Unknown Venipuncture / Unknown 08/13/2024 1:59 PM EST 08/13/2024 4:40 PM EST Nohemi Ann MD LAB BLOOD ORDERABLES Final R esult [facility] [address] [place] [address], * (ABNORMAL) Comprehensive metabolic panel (08/13/2024 1:59 PM EST) Sodium 139 133 - 145 mmol/L LAB CHEMISTRY METHOD 08/13/2024 5:[address] [facility] Potassium 3.7 3.5 - 5.5 mmol/L LAB CHEMISTRY METHOD 08/13/2024 5:[address] [facility] Chloride 100 96 - 110 mmol/L LAB CHEMISTRY METHOD 08/13/2024 5:[address] [facility] CO2 34(H) 21 - 32 mmol/L LAB CHEMISTRY METHOD 08/13/2024 5:[address] [facility] Anion Gap 5 3 - 11 LAB CHEMISTRY METHOD 08/13/2024 5:[address] [facility] Glucose 174(H) 70 - 100 mg/dL LAB CHEMISTRY METHOD 08/13/2024 5:[address] [facility] BUN 29(H) 5 - 25 mg/dL LAB CHEMISTRY METHOD 08/13/2024 5:[address] [facility] Creatinine 1.31(H) 0.70 - 1.30 mg/dL LAB CHEMISTRY METHOD 08/13/2024 5:[address] [facility] eGFR 59(L) >=60 mL/min/1. 73m2 LAB CHEMISTRY METHOD 08/13/2024 5:[address] [facility] Comment:Calculation based on the??Chronic Kidney Disease Epidemiology Collaboration (CKD-EPI) equation refit??without adjustment for race. BUN/Creatinine Ratio 22.1 LAB CHEMISTRY METHOD 08/13/2024 5:[address] [facility] Calcium 9.7 8.5 - 10.5 mg/dL LAB CHEMISTRY METHOD 08/13/2024 5:[address] [facility] AST (SGOT) 15 10 - 42 unit/L LAB CHEMISTRY METHOD 08/13/2024 5:[address] [facility] ALT (SGPT) 32 10 - 60 unit/L LAB CHEMISTRY METHOD 08/13/2024 5:[address] [facility] Alkaline Phosphatase 102 42 - 121 unit/L LAB CHEMISTRY METHOD 08/13/2024 5:[address] [facility] Total Protein 7.4 6.0 - 8.0 g/dL LAB CHEMISTRY METHOD 08/13/2024 5:[address] [facility] Albumin 3.9 3.2 - 5.0 g/dL LAB CHEMISTRY METHOD 08/13/2024 5:[address] [facility] Total Bilirubin 0.3 0.0 - 1.4 mg/dL LAB CHEMISTRY METHOD 08/13/2024 5:[address] [facility] Blood Venous blood specimen / Unknown Venipuncture / Unknown 08/13/2024 1:59 PM EST 08/13/2024 4:39 PM EST us Nohemi Ann MD LAB BLOOD ORDERABLES Final R esult [facility] [address] [place] [address], * ECG 12 lead (08/05/2024 2:49 PM EST) Ventricular Rate ECG 65 BPM GEMUSE Atrial Rate 65 BPM GEMUSE P-R Interval 190 ms GEMUSE QRS Duration 84 ms GEMUSE Q-T Interval 374 ms GEMUSE QTc 388 ms GEMUSE P Wave Erick 52 degrees GEMUSE R Erick 78 degrees GEMUSE T Erick 31 degrees GEMUSE ECG Interpretation Sinus rhythm with occasional Premature ventricular complexes Poor R wave progression Abnormal ECG No previous ECGs available Confirmed by Ludivina NAYLOR JAMES ([id number]) on 08/05/2024 3:20:56 PM GEMUSE 08/05/2024 2:49 PM EST 08/05/2024 3:20 PM EST Result [facility] Scotty Naylor MD ECG ORDERABLES Final Result GEMUSE * Hemoglobin A1c (09/19/2023) [facility] Hemoglobin A1C 6.3 <=6.5 % Blood Venous blood specimen / Unknown Result [facility] Provider LAB BLOOD ORDERABLES Love l Result * Hepatitis C Screening (06/28/2023) [facility] Hepatitis C Screening Abstracted Result [facility] Provider HEALTH MAINTENANCE Final Result * Diabetes Eye Exam (06/25/2023) [facility] Diabetes: Annual Retina Eye Exam Abstracted Result [facility] Provider HEALTH MAINTENANCE Final Result * Urine Albumin Creatinine Ratio (06/06/2023) [facility] Urine Albumin Creatinine Ratio Abstracted Result [facility] Provider HEALTH MAINTENANCE Final Result * Diabetes Foot Exam (06/06/2023) [facility] Diabetes: Annual Foot Exam Abstracted Result [facility] HEALTH MAINTENANCE Final Result * Lipid panel (04/04/2023) [facility] LDL/HDL Ratio 2 0 - 4 Triglycerides 63 0 - 150 mg/dL Cholesterol 104 0 - 200 mg/dL HDL 43 >=40 mg/dL LDL Cholesterol 49 0 - 100 mg/dL Blood Venous blood specimen / Unknown Result [facility] Provider LAB BLOOD ORDERABLES Love l Result from Last 3 Months or Most Recently Relevant to Health Maintenance Insurance MEDICAID - [place] [employer] MEDICARE Care Teams S[employer] Relationship Specialty Start Date End Date Laxmi Christianson MD PCP - General Endocrinology 08/05/24
--- OUTSIDE RECORDS SUMMARY | 2024-09-15 17:24 | XMS_ITS | Clinical Summary ---
Author Organization [employer] Address [address] [place] [address] Care Team Providers Care Neurology Teacher Name Role Phone Unavailable Primary Care Provider Unavailabl e Allergies Active Allergy Reactions Criticality Noted Date Comments Shrimp Flavor Agent (Non-Screening) 09/24/2023 Medications amLODIPine (Norvasc) 5 MG tablet Take 5 mg by mouth in the morning. 4 Active Aspirin Low Dose 81 MG EC tablet Take 81 mg by mouth in the morning. 3 Active atorvastatin (Lipitor) 40 MG tablet Take 40 mg by mouth in the morning. 4 Active chlorthalidone (Hygroton) 50 MG tablet Take 50 mg by mouth in the morning. 4 Active Jardiance 25 MG Take 25 mg by mouth in the morning. 4 Active gabapentin (Neurontin) 300 MG capsule Take 300 mg by mouth 3 times daily. 3 Active HumuLIN 70/30 (70-30) 100 UNIT/ML injection INJECT 30 UNITS SUBCUTANEOUSLY TWICE DAILY DIRECTED 4 Active lisinopril 40 MG tablet Take 40 mg by mouth in the morning. 4 Active metFORMIN (Glucophage) 500 MG tablet Take 500 mg by mouth with breakfast and with evening meal. 4 Active metoprolol succinate XL (Toprol-XL) 50 MG 24 hr tablet Take 50 mg by mouth in the morning. 4 Active hydroxyurea (Hydrea) 500 MG capsule Take 500 mg by mouth 2 times daily. 4 Active acarbose (Precose) 25 MG tablet Take 25 mg by mouth in the morning. 3 Active cyanocobalamin (Vitamin B-12) 1000 MCG tablet Take 1,000 mcg by mouth in the morning. 4 Active Social History Tobacco Use Types Packs/Day Years Used Date Smoking Tobacco: Never Smokeless Tobacco: Never Tobacco Cessation:Counseling Given: Not Answered Sex and Gender Information Value Date Recorded Sex Assigned at Male 08/26/2023 10:20 AM EST Legal Sex Male 10:13 AM EST Gender Identity Male 08/26/2023 10:20 AM EST Sexual Orientation Choose not to disclose 2023 10:20 AM EST Last Filed Vital Signs Vital Sign Reading Time Taken Comments Blood Pressure 138/74 03/12/2024 2:51 PM EDT Pulse 64 09/24/2023 1:15 PM EDT Temperature - - Respiratory Rate - - Oxygen Saturation - - Inhaled Oxygen Concentration - - Weight - - Height - - Body Mass Index - - Plan of Treatment Health Maintenance Due Date Last Done Comments CT Colonography 1954 Colonoscopy 1954 Colorectal Cancer Screening 1954 Dental Prophylaxis 1954 Depression Screening 1954 FIT DNA/Cologuard 1954 FIT 1954 FOBT 1954 Lipid Panel 1954 SDOH Screening 1954 Sigmoidoscopy 1954 Alcohol/Substance Use Screening 1966 Hepatitis C Screening 1972 DTaP/Tdap/Td Vaccines (1 - Tdap) 1973 Pneumococcal Vaccine: 50+ Years (1 of 1 - PCV) 2004 Zoster Vaccines (1 of 2) 2004 COVID-19 Vaccine (5 - season) 2024 10/20/2021, 05/18/2021, 10/10/2020, Additional history exists Influenza Vaccine (#1) 2024 06/28/2023 Dental Oral Exam 03/27/2024 09/24/2023 Dental X-Ray: Bitewings 09/24/2024 09/24/2023 Tobacco Screening 03/12/2025 03/12/2024 Dental X-Ray: Full Mouth 09/24/2026 09/24/2023 RSV Patients and Patients Aged 60 years or older (1 - 1-dose 75+ series) 2029 HIB Vaccines Aged Out No longer eligi [...] patient's age to complete this topic Meningococcal Vaccine Aged Out No altagracia norris eligible based on patient's age to complete this topic RSV under 20 months Aged Out No longe r eligible based on patient's age to complete this topic Rotavirus Vaccines Aged Out No longer eligible based on patient's age to complete this topic Procedures Procedure Name Priority Date/Time Associated Diagnosis Comments INTRAORAL - COMPLETE SERIES OF RADIOGRAPHIC IMAGES Routine 09/24/2023 1:00 PM EDT COMPREHENSIVE ORAL EVALUATION - NEW OR ESTABLISHED PATIENT Routine 09/24/2023 1:00 PM EDT from Last 3 Months or Most Recently Relevant to Health Maintenance Insurance DENTAL [facility] D[facility] - N FULL (MEDICAID)
--- OUTSIDE RECORDS SUMMARY | 2024-09-15 17:24 | XMS_ITS | Encounter Summary ---
Author Organization [facility] Address [address] [place] [address] Care Team Providers Care Payable Processor Name Role Phone Laxmi Christianson MD Primary Care Provider [phone] Reason for Visit * Reason Comments Follow-up Encounter Details Date Type Department Care Team (Late st Contact Info) Description 08/18/2024 8:30 AM EST Office Visit [facility] Hematology Oncology [address] [place] [phone] Nohemi Ann MD [address] [place] [address] Polycythemia (Primary Dx); Myeloproliferative neoplasm (CMS/HCC) Social History Tobacco Use Types Packs/Day Years [...] on file Sexual Orientation Not on file documented as of this encounter Last Filed Vital Signs Vital Sign Reading Time Taken Comments Blood Pressure 139/67 08/18/2024 8:35 AM EST Pulse 74 08/18/2024 8:35 AM EST Temperature 36.8 ??C (98.3 ??F) 08/18/2024 8:35 AM ES T Respiratory Rate - - Oxygen Saturation 98% 08/18/2024 8:35 AM EST Inhaled Oxygen Concentration - - Weight 95.7 kg (211 lb) 08/18/2024 8:35 AM EST Height - - Body Mass Index 36.22 08/05/2024 2:40 PM EST documented in this encounter Progress Notes * Nohemi Ann MD - 08/18/2024 8:30 AM EST ONC CANCER FOLLOW UP CHIEF COMPLAINT: Follow-up IDENTIFIER:Karsten Estes is a 68 y.o. male. 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 Patient has been on peripheral marker every 3 months and taking baby aspirin. Patient had multiple medical issues including hypertension dyslipidemia type 2 diabetes and had CVA, patient is lately doing very well lately ROS: Has been feeling well Tolerating therapeutic phlebotomy without any problem No chest pain No shortness of breath No headache No unusual visual symptom or any neurological symptom PAST MEDICAL HISTORY: Patient Active Problem List Diagnosis CAD (coronary artery disease) Essential (primary) hypertension Mixed hyperlipidemia Osteoarthritis, knee Type 2 diabetes mellitus without complications ([facility]/HCC) Class 2 severe obesity due to excess calories with serious comorbidity and body mass index (BMI) of35.0 to 35.9 in adult ([facility]) Past Medical History: Diagnosis Date CAD (coronary artery disease) DX:CAD (coronary artery disease); COMMENT: Stents 2006 and 2008. LAD, RCA, LCX CVA (cerebral vascular accident) (CMS/HCC) 2021 DX:CVA (cerebral vascular accident) ([facility]) Essential (primary) hypertension DX:Essential (primary) hypertension Mixed hyperlipidemia DX:Mixed hyperlipidemia Osteoarthritis, knee DX:Osteoarthritis, knee Polycythemia vera (CMS/HCC) DX:Polycythemia vera (HCC) Type 2 diabetes mellitus without complications (CMS/HCC) DX:Type 2 diabetes mellitus without complications (HCC) SOCIAL HISTORY: Social History Tobacco Use Smoking status: Never Smokeless tobacco: Never Substance Use Topics Alcohol use: Not Currently Comment: NO FAMILY HISTORY: Family History Problem Relation Name Age of Onset Diabetes Mother Hypertension Mother CABG Mother Hypertension Father Colon cancer Sister No Known Problems Sister Throat cancer Brother + trachea Coronary artery disease Brother Diabetes Brother No Known Problems Son estranged Diabetes Son No Known Problems Daughter estranged Diabetes Daughter Family Status Relation Name Status Mother Father Sister Sister Alive Brother Brother Son Alive Son Alive Daughter Alive Daughter Alive MGM MGF PGM PGF No partnership data on file Current Outpatient Medications: acarbose (PRECOSE) 25 mg tablet, Take 1 Tablet by mouth daily., Disp: , Rfl: acetaminophen (TYLENOL 8 HOUR) 650 mg 8 hr tablet, Take 1 Tablet by mouth 2 times daily., Disp: , Rfl: amLODIPine (NORVASC) 5 mg tablet, Take 1 Tablet by mouth daily., Disp: , Rfl: aspirin 81 mg EC tablet, TAKE 1 TABLET BY MOUTH EVERY DAY, Disp: , Rfl: atorvastatin (LIPITOR) 40 mg tablet, TAKE 1 TABLET BY MOUTH DAILY, Disp: 90 tablet, Rfl: 0 blood glucose control high,low (FreeStyle Control) solution, Use to calibrate each new bottle of strips. E 11.9, Disp: , Rfl: blood-glucose meter (ONETOUCH VERIO METER [facility]), 1 Kit by Does not apply route daily. Use tocheck blood sugar daily Dx code: E11.9, Disp: , Rfl: chlorthalidone (HYGROTON) 50 mg tablet, Take 1 Tablet by mouth daily., Disp: , Rfl: cyanocobalamin (VITAMIN B-12) 1,000 mcg tablet, Take 1 Tablet by mouth daily., Disp: , Rfl: empagliflozin (Jardiance) 25 mg tablet, Take 25 mg by mouth daily., Disp: , Rfl: gabapentin (NEURONTIN) 300 mg capsule, Take 1 Capsule by mouth 3 times daily., Disp: , Rfl: insulin NPH-insulin regular (HumuLIN 70/30 U-100 Insulin) 100 unit/mL (70-30) injection, 30 units BID, Disp: , Rfl: insulin syringe-needle U-100 0.3 mL 31 gauge x 5/16 syringe, Use one syringe twice a day as directed, Disp: , Rfl: lancets 33 gauge [facility], 1 Each by Does not apply route daily. Use to test blood sugar daily Dx code: E11.9, Disp: , Rfl: lisinopril (PRINIVIL,ZESTRIL) 40 mg tablet, Take 1 Tablet by mouth daily., Disp: , Rfl: metFORMIN (GLUCOPHAGE) 500 mg tablet, TAKE 1 TABLET BY MOUTH TWICE DAILY WITH MEALS, Disp: 180 tablet, Rfl: 0 metoprolol succinate (TOPROL-XL) 50 mg 24 hr tablet, Take 1 tablet (50 mg total) by mouth 1 (one) time each day., Disp: , Rfl: Allergies Allergen Reactions Shrimp PHYSICAL EXAM: Visit Vitals BP 139/67 (BP Location: Left arm, Patient Position: Sitting, BP Cuff Size: Large adult) Pulse 74 Temp 36.8 ??C (98.3 ??F) (Temporal) Wt 95.7 kg (211 lb) SpO2 98% BMI 36.22 kg/m?? Smoking Status Never BSA 2 m?? APPEARANCE: Alert and oriented in no acute distress EYES: nonicteric sclera pink conjunctiva ORAL CAVITY: No erythema or exudates NECK: Neck supple, no significant adenopathy, HEART: normal S1 and S2 LUNG: clear to auscultation bilaterally LYMPH NODES: No palpable superficial adenopathy ABDOMEN: Obese soft, nontender and no organomegaly appreciated EXTREMITIES: No edema erythema tenderness NEURO: Oriented X 3, slight weakness of right extremities but significant improvement in motor strength LABS: WBC 8.2, hemoglobin 15.7 g, hematocrit 50.1% and platelet count 250 BUN 29 creatinine 1.31 0-15, SGPT 32 and alk phos 102 with normal total bilirubin 0.3 IMPRESSION: 1. Polycythemia 2. Myeloproliferative neoplasm (CMS/HCC) 68-year-old Hebrew-speaking man, history physical done with the help of interpretation who diagnosed with myeloproliferative neoplasm more than decade ago in [place] and he had a bone marrow biopsy for elevated hemoglobin hematocrit, patient has no history of smoking, patient has been on therapy phlebotomy every 3 months and taking areas., Patient used to be on hydroxyurea for many years discontinued, patient blood count has been very stable I explained patient about his myeloproliferativeneoplasm in detail, I also explained importance of therapeutic phlebotomy and baby aspirin PLAN: Patient will continue therapeutic erythema Patient continue baby aspirin every day Patient will continue to hold hydroxyurea I will see him back in 6 to 8 months, I will check labs prior to next visit Nohemi Ann MD documented in this encounter Plan of Treatment Upcoming Encounters Date Type Department Care Team (Late st Contact Info) Description 03/08/2025 3:45 PM EDT Office Visit [facility] Hematology Oncology [address] [place] [phone] Nohemi Ann MD [address] [place] [address] Scheduled Orders Name Type Priority Associated Diagnoses Orde r Schedule CBC and differential Lab Routine Polycythemia Myeloproliferative neoplasm (CMS/HCC) Expected: 02/15/2025, Expires: 08/18/2025 Comprehensive metabolic panel Lab Routine Polycythemia Myeloproliferative neoplasm (CMS/HCC) Expected: 02/15/2025, Expires: 08/18/2025 documented as of this encounter Visit Diagnoses Diagnosis Polycythemia- Primary Polycythemia, secondary Myeloproliferative neoplasm (CMS/HCC) Neoplasm of uncertain behavior of other lymphatic and hematopoietic tissues documented in this encounter Care Teams Payable Processor Relationship Specialty Start Date End Date Laxmi Christianson MD PCP - General Endocrinology 08/05/24 documented as of this encounter
--- OUTSIDE RECORDS SUMMARY | 2024-09-15 17:24 | XMS_ITS | Continuity of Care Document ---
Author Organization [facility] Address [address] [place] [address] Phone Care Team Providers Care Floor Coverer Apprentice Name Role Phone Z-Converted, Provider Unavailable Unavailabl e Advance Directives Directive Yes / No Effective Date File Name No Information Encounters Encounter Description Practice Location Reason(s) For Visit Diagnoses Date Provider Providers Copied on Encounter [facility], [address] [place] [address] [address], [place], [place], [id number], [place] tel:[phone] 2 [facility] Unspecified chest pain Sep-2 8200 6 [...]
--- OUTSIDE RECORDS SUMMARY | 2024-09-15 17:24 | XMS_ITS | Clinical Summary ---
Author Organization [facility] Address [address] [place] [address] Care Team Providers Care Branch Operations Specialist Name Role Phone Marie Luke MD Primary Care Prov ider Allergies Active Allergy Reactions Criticality Noted Date Comments Shrimp 10/31/2023 Medications Medication Sig Dispensed Refills Start Date End Date Status vitamin B-12 (CYANOCOBALAMIN) 500 MCG tablet Take 2 tablets (1,000 mcg total) by mouth daily. 0 Active amLODIPine (NORVASC) tablet 5 mg Take 1 tablet (5 mg total) by mouth daily. 0 Active lisinopril (PRINIVIL,ZESTRIL) tablet 40 mg Take 1 tablet (40 mg total) by mouth daily. 0 Active metoprolol succinate (TOPROL-XL) 24 hr tablet 50 mg Take by mouth daily. 0 Active metFORMIN (GLUCOPHAGE) tablet 500 mg Take 1 tablet (500 mg total) by mouth 2 (two) times a day with meals. 0 Active atorvastatin (LIPITOR) tablet 40 mg Take 1 tablet (40 mg total) by mouth daily. 0 Active insulin NPH-insulin regular (NovoLIN 70/30,HumuLIN 70/30) injection 100 units/mL Inject under the skin 2 (two) times a day before breakfast and dinner. 0 Active chlorthalidone (HYGROTON) 50 MG tablet Take 1 tablet (50 mg total) by mouth daily. 0 Active acetaminophen (TYLENOL) 650 MG CR tablet Take 1 tablet (650 mg total) by mouth every 8 (eight) hours as needed for pain. 0 Active gabapentin (NEURONTIN) 300 MG capsule Take 1 capsule (300 mg total) by mouth 3 (three) times a day. 0 Active aspirin EC 81 MG tablet Take 1 tablet (81 mg total) by mouth daily. 0 Active Empagliflozin 25 MG TABS Take by mouth. 0 Active Active Problems No known active problems Social History Tobacco Use Types Packs/Day Years Used Date Smoking Tobacco: Never Smokeless Tobacco: Never Tobacco Cessation:Counseling Given: Not Answered Alcohol Use Standard Drinks/Week Comments Yes 0 (1 standard drink = 0.6 oz pur e alcohol) oCCASIONAL Sex and Gender Information Value Date Recorded Sex Assigned at Not on file Gender Identity Not on file Sexual Orientation Not on file Job Start Date Occupation Industry Not on file Not on file Not on file Last Filed Vital Signs Vital Sign Reading Time Taken Comments Blood Pressure 136/75 04/07/2024 3:41 PM EDT Pulse 62 04/07/2024 3:41 PM EDT Temperature 36.5 ??C (97.7 ??F) 04/07/2024 3:41 PM ED T Respiratory Rate - - Oxygen Saturation 97% 04/07/2024 3:41 PM EDT Inhaled Oxygen Concentration - - Weight 95.3 kg (210 lb) 04/07/2024 3:41 PM EDT Height - - Body Mass Index - - Plan of Treatment Health Maintenance Due Date Last Done Comments Hepatitis C Screening 1955 COVID-19 Vaccine (#1) 12/06/1959 Pneumococcal Vaccine (1 of 2 - PCV) 1960 Depression Screening 1966 Preventative Health Evaluation 1972 DTap / Tdap / Td (1 - Tdap) 1973 Shingrix-Zoster Vaccine (1 of 2) 1973 Colon Cancer Screening (Colonoscopy) 12/06/1999 Fall Risk Assessment 12/06/2019 Influenza Vaccine (#1) 2024 06/28/2023 RSV Adult > 60+ Yrs or Pregn ant (1 - 1-dose 75+ series) 2029 Hepatitis B Vaccines Aged Out No long er eligible based on patient's age to complete this topic RSV Ped < 20 months Aged Out No longe r eligible based on patient's age to complete this topic Care Teams Branch Operations Specialist Relationship Specialty Start Date End Date Marie Luke MD [address] [place] [address] PCP - General Internal Medicine 10/31/23
== END 2024-09-15 15:45 | disposition home or self-care (01) ==
LOC: HO.HGS 14:38
PROVIDERS: PCP Internal Medicine; Visit Provider Surgery
DX: D17.1 Benign lipomatous neoplasm of skin and subcutaneous tissue of trunk (principal)
CPT/HCPCS: 99204

== ENCOUNTER → 2024-09-15 14:37 | Outpatient (BNVA) | payer OTHER, MEDICAID, SELFPAY | PROVIDERS: PCP Internal Medicine; Visit Provider Surgery ==

== ENCOUNTER 2024-09-17 09:10 | Outpatient (AMB) | payer OTHER, MEDICAID, SELFPAY ==
--- NOTE | 2024-09-17 09:26 | AM.OFFWIN_ITS ---
Intake Vital Signs 09/17/24 09:35 Height 5 ft 4 in Weight 213 lb 2 oz BMI 36.6 BP 122/68 Blood Pressure Location Rt brachial Position Sitting Respiration 12 Pulse 64 Pulse Source Pulse Oximeter Temp 98.2 F Temp Source Oral Pulse Oximetry (%) 95 Oxygen Delivery Method Room Air Intake Visit Reasons: EST/DIZZY/BLOOD SUGAR LEVELS OFF Intake Note: Patient complaining of dizzy, imbalance, and patient also had a episode of low blood sugar and nauseous x 2days ago Patient Tobacco Use Status: Never used Tobacco Pipe Stress Engineer Required: No Allergies shrimp Allergy (Unknown, Verified 09/17/24 09:53) Vomiting Medication List - Last Reconciled 09/17/24 by Yumiko Norris, TEAROOM HOSTESS-BC acarbose 25 mg PO DAILY acetaminophen ER (Arthritis Pain Relief (acetaminophen) ER) 650 mg PO Q12H 90 days amlodipine 5 mg PO DAILY 90 days atorvastatin 40 mg PO DAILY blood sugar diagnostic (IntrapaceTouch Verio test strips) As directed to check blood glucose chlorthalidone 50 mg PO DAILY cyanocobalamin (vitamin B-12) 1,000 mcg PO DAILY Dexcom G7 Carbon Coater Machine Operator (blood-glucose meter,continuous) As directed NS Dexcom G7 Sensor (blood-glucose sensor) every 10 days NS gabapentin 300 mg PO TID Humulin 70/30 U-100 Insulin 100 unit/mL (70-30) (insulin NPH and regular human) 30 units (0.3 mL) subcut BID 90 days NS insulin syringe,safety needle (BD SafetyGlide Insulin Syringe) four times daily insulin syringe-needle U-100 (BD Insulin Syringe Ultra-Fine) four times daily Jardiance (empagliflozin) 25 mg PO DAILY NS lisinopril 40 mg PO DAILY 90 days metformin 500 mg PO BID metoprolol succinate ER 50 mg PO DAILY OneTouch Delica Plus Lancet (lancets) Four times daily NS triamcinolone acetonide 40 mg IM DAILY Do you need a note to return to daycare/school/sports/work: No HPI HPI Comments History of Present Illness Details 68-year-old male with a past medical his tory of type 2 diabetes, hypertension, hyperlipidemia and stroke presenting with concerns regarding uncontrolled type 2 diabetes mellitus. - He reports experiencing low blood suga r events along with dizziness and nausea over the past two days. - The patient's diabetes is currently tr eated with a regimen including Acarbose, insulin, Jardiance, and Metformin. - He reports symptoms of dizziness, epis odes of vomiting, and sweating particularly at night. Sx come and go - Recent prescription of amoxicillin was followed by his nausea which led him to discontinue the medication independently. He was givent his for dental procedure. - His A1c today is 7.3%, random glucose 206 - Wears CGM, data reviewed. GMI 90 days 8.1%. Lowest reading 150mg/dl which is what he is referring to as a low blood sugar. - States taking all meds as directed. - Denies fever, chills, chest pain, sob, headache, abd pain, diarrhea. Reports normal urination. Eating and drinking WNL. - Dtr reports he needs an eye exam, firs t avail appt and of September... she wonders if this is causing any problems. - he is not active w/ endo Exam Awake alert NAD, accompanied by dtr Cataracts bilat, wearing glasses TM intact and clear Pharynx WNL RRR LS CTAB Abd round, normoactive bs, nontender Mentation wnl Results - Labs: - Random glucose: 206 mg/dL - A1c: 7.3% Discussion Notes During the visit, I discussed with the patient the importance of managing his diabetes more effectively and the necessity of consulting with a quality review specialist. I explained that his glucose readings and recent episodes suggest the current management regimen may need adjustment. The potential contribution of his recent antibiotic use to his nausea was considered, though not definitively concluded as the cause. We talked through specific lifestyle modifications and the importance of routine examinations for diabetic complications, including his upcoming eye examination. I strongly recommended rescheduling the eye exam for an earlier date to address potential cataract- related issues and discussed the initiation of bloodwork to evaluate electrolytes, assuring the patient about more specific recommendations following this data. I provided explanations for using a medication for dizziness as n eeded and ensured to inform him regarding follow-up protocols, including scheduling for labs and a subsequent visit. Assessment and Plan 1. Uncontrolled Type 2 Diabetes Mellitus : The patient continues to experience challenges with blood glucose control. A1c of 7.3%. A quality review specialist referral has been recommended for comprehensive management revision. In the interim, he is advised to adhere to existing medications and pursue further assessment with Dr. Christianson in one week. Cataracts: The patient's prominent cataracts necessitate an advance in his eye appointment, originally set for the end of September, to address any vision concerns impacting his stability. Dizziness & Nausea: The patient was advised to discontinue amoxicillin, which may alleviate nausea symptoms. Meclizine was prescribed for symptomatic management of dizziness, pending further evaluation. Labs ordered. Patient Instructions - Use CGM, take all meds as directed . - Use Meclizine only as needed to manage dizziness. - Schedule the eye exam sooner to addres s cataract-related vision concerns. - Follow the scheduled medications but b e attentive to symptoms. - Continue monitoring symptoms of dizzin ess or nausea and report any worsening. - Follow up with Dr. Christianson in one week as scheduled. - Await further instructions based on pl anned lab results. - Edu on reasons to seek additional care Consent Patient was informed and verbally consented to the use of an ambient scribe for clinic note documentation during this visit. Total time spent caring for the patient today was 41 minutes. This includes time spent before the visit reviewing the chart, time spent during the visit, and time spent after the visit on documentation, reviewing laboratory results, diagnostic imaging, medications, performing a medically necessary evaluation, counseling on diagnoses, care coordination, ordering appropriate tests, ordering appropriate medications, review of tests performed by other providers, reporting test results with the patient, communication with other healthcare providers. [facility] Medical History Swelling, mass, or lump in chest Blurry vision, bilateral Blurry vision Surgical History Hx of hernia repair Hx of arthroscopy of left knee Social History Household Members: None Housing: Apartment Alcohol intake: never Patient Tobacco Use Status: Never used Tobacco e-Cigarette/Vaping Use: Never Used Current occupational status: retired Cognitive needs: No Hearing needs: No Vision needs: Yes Physical Exam Vital Signs: Last Vital Signs Temp 98.2 F 09/17/24 09:35 Pulse 64 09/17/24 09:35 Resp 12 09/17/24 09:35 BP 122/68 09/17/24 09:35 Pulse Ox 95 09/17/24 09:35 Oxygen Delivery Method Room Air 09/17/24 09:35 BMI result Body Mass Index 36.6 Office Procedures Glucose Monitoring Details 28807 - Glucose monitoring, continuous-physician I&R Procedure code (CPT) selection complete Results AMB Random Glucose (hemocue) AMB Random Glucose (hemocue) 206 mg/dL Last Edit by Kinsey Hernández MA on 09/17/24 09:44 AMB Hemoglobin A1c AMB Hemoglobin A1c 7.3 % Last Edit by Kinsey Hernández MA on 09/17/24 10:06 Results Reviewed Results Reviewed: Laboratory Last Values Random Glu (Clinic) 206 mg/dL 09/17/24 09:13 Hgb A1c (Clinic) 7.3 % (4.0-6.0) H 09/17/24 09:13 Assessment & Plan Assessment & Plan (1) Type 2 diabetes mellitus: Code(s): E11.9 - Type 2 diabetes mellitus without complications Qualifiers: Diabetes mellitus complication detail: with other neurological complication Diabetes mellitus complication status: with neurologic complications Diabetes mellitus mcc insulin use: with salvage determiner use Qualified Code(s): E11.49 - Type 2 diabetes mellitus with other diabetic neurological complication; Z79.4 - penitentiary (current) use of insulin (2) Insulin long-term use: Code(s): Z79.4 - termite control representative (current) use of insulin (3) Dizziness: Code(s): R42 - Dizziness and giddiness (4) Nausea & vomiting: Code(s): R11.2 - Nausea with vomiting, unspecified Qualifiers: Vomiting type: unspecified Qualified Code(s): R11.2 - Nausea with vomiting, unspecified Plan . Orders: Orders AMB Random Glucose (hemocue) Today Z13.9 - Encounter for screening, unspecified Complete Blood Count no Diff Today E11.49 - Type 2 diabetes mellitus with other diabetic neurological complication, Z79.4 - termite control representative (current) use of insulin Comprehensive Met. Panel Today E11.49 - Type 2 diabetes mellitus with other diabetic neurological complication, Z79.4 - penitentiary (current) use of insulin AMB Hemoglobin A1c Today Z13.9 - Encounter for screening, unspecified Referrals Endocrinology Referral E11.49 - Type 2 diabetes mellitus with other diabetic neurological complication, Z79.4 - termite control representative (current) use of insulin Medications: New meclizine 12.5 mg PO TID PRN 30 tabs 0RF dizziness Coding Level of Care Code Est Pt Level 5 (29408) Diagnoses Type 2 diabetes mellitus with other neurologic complication, with long-term current use of insulin E11.49; Z79.4 Diabetes mellitus complication detail: with other neurological complication Diabetes mellitus complication status: with neurologic complications Diabetes mellitus mcc insulin use: with mcc use Insulin long-term use Z79.4 Dizziness R42 Nausea and vomiting, unspecified vomiting type R11.2 Vomiting type: unspecified CPT Codes Details - CPT: 36519 - Glucose monitoring, continuous-physician I&R ([id number])
[2024-09-17 09:35] VITALS: BP 122/68; PULSE 64; RESP 12; TEMP 36.8; O2SAT 95; BMI 36.6
--- OUTSIDE RECORDS SUMMARY | 2024-09-17 09:46 | XMS_ITS | Clinical Summary ---
Author Organization [facility] Address [address] [place] [address] Care Team Providers Care Segmental Paver Installer Name Role Phone Marie Luke MD Primary [...] age to complete this topic Care Teams Segmental Paver Installer Relationship Specialty Start Date End Date Marie Luke MD [address] [place] [address] PCP - General Internal Medicine 10/31/23
--- OUTSIDE RECORDS SUMMARY | 2024-09-17 09:46 | XMS_ITS | Continuity of Care Document ---
Author Organization [facility] Address [address] [place] [address] Phone Care Team Providers Care Body Artist Name Role Phone Z-Converted, Provider Unavailable Unavailabl e Advance Directives Directive Yes / No Effective Date File Name No Information Encounters Encounter Description Practice Location Reason(s) For Visit Diagnoses Date Provider Providers Copied on Encounter [facility], [address] [place] [address],[address], [place], [place], [id number], [place] tel:[phone] [facility] Unspecified chest pain Sep-2 8200 6 Z-Convert ed Provider. . Family History Family Member Type Diagnosis Age At Onset No Information Payers Payer name Insurance type Covered constitution party ID Authoriza tion(s) No Information Social [...]
--- OUTSIDE RECORDS SUMMARY | 2024-09-17 09:46 | XMS_ITS | Clinical Summary ---
Author Organization [employer] [employer] Address [address] [place] [address] Care Team Providers Care Swimming Pool Maintenance Supervisor Name Role Phone Unavailable Primary Care Provider [...] Recently Relevant to Health Maintenance Insurance DENTAL [facility] D[facility] - N FULL (MEDICAID)
--- OUTSIDE RECORDS SUMMARY | 2024-09-17 09:46 | XMS_ITS | Clinical Summary ---
Author Organization [facility] Address [address] [place] [address] Phone Care Team Providers Care Subassembler Name Role Phone Laxmi Christianson MD Primary Care Provider [phone] Allergies Active Allergy Reactions Criticality Noted Date [...] Description 08/18/2024 8:30 AM EST Office Visit [facility] Hematology Oncology [address] [place] [phone] Nohemi Ann MD Polycythemia (Primary Dx); Myeloproliferative neoplasm ([facility]/HCC) 08/05/2024 3:00 PM EST Office Visit [facility] Cardiology [address] [place] [phone] Scotty Naylor MD Essential (primary) hypertension (Primary [...] Type 2 diabetes mellitus wit hout complications ([facility]) DX:Type 2 diabetes mellitus without complications ([facility]) CAD (coronary artery disease) DX :CAD (coronary [...] Description 03/08/2025 3:45 PM EDT Office Visit [facility] Hematology Oncology [address] [place] [phone] Nohemi Ann MD [address] [place] [address] Health Maintenance Due Date Last Done Comments [...] 1: 59 PM EST PV (polycythemia vera) ([facility]/HCC) ERYTHROPOIETIN Routine 08/13/2024 1:59 PM EST PV (polycythemia vera) (CMS/HCC) COMPLETE BLOOD COUNT Routine 08/13/2024 1:59 PM EST PV (polycythemia vera) (CMS/HCC) COMPREHENSIVE METABOLIC PANEL Routine 08/13/2024 1:59 PM EST PV (polycythemia vera) ([facility]) ECG 12-LEAD Routine 08/05/2024 2:49 PM EST [...] [facility], [address], [place], [place] ??[address] ? [phone] Crissy Keller MD, PhD - Emissions Repair Technician Blood Venous blood specimen / Unknown Venipuncture / Unknown 08/13/2024 1:59 PM EST 08/13/2024 4:39 PM EST Nohemi Ann MD LAB BLOOD ORDERABLES Final R esult [facility] [address] [place] [address] * (ABNORMAL) Reticulocyte count (08/13/2024 1:59 PM EST) [facility] Retic Ct Abs 0.100(H) 0.030 - 0.090 M/mcL LAB HEMETOLOGY METHOD 08/13/2024 4:52 PM EST [facility] Retic Ct Pct 1.7 0.7 - 1.7 % LAB HEMETOLOGY METHOD 08/13/2024 4:52 PM EST [facility] Immature Retic Fract 16.9(H) 2.3 - 15.9 % LAB HEMETOLOGY METHOD 08/13/2024 4:52 PM EST [facility] Reticulocyte Hemoglobin 27.3(L) >29.0 pcg LAB HEMETOLOGY METHOD 08/13/2024 4:52 PM EST [facility] Blood Venous blood specimen / Unknown Venipuncture / Unknown 08/13/2024 1:59 PM EST 08/13/2024 4:40 PM EST Nohemi Ann MD LAB BLOOD ORDERABLES Final R esult [facility] [address] [place] [address], * (ABNORMAL) Complete blood count (08/13/2024 1:59 PM EST) [facility] WBC 8.2 4.8 - 10.8 K/mcL LAB HEMETOLOGY METHOD 08/13/2024 4:52 PM [facility] RBC 5.80(H) 4.50 - 5.50 M/mcL LAB HEMETOLOGY METHOD 08/13/2024 4:52 PM [facility] Hemoglobin 15.7 13.5 - 17.5 g/dL LAB HEMETOLOGY METHOD 08/13/2024 4:52 PM [facility] Hematocrit 50.1 42.0 - 54.0 % LAB HEMETOLOGY METHOD 08/13/2024 4:52 PM [facility] MCV 86.8 79.0 - 98.0 FL LAB HEMETOLOGY METHOD 08/13/2024 4:52 PM [facility] MCH 27.2 27.0 - 32.0 pcg LAB HEMETOLOGY METHOD 08/13/2024 4:52 PM [facility] MCHC 31.3(L) 32.0 - 37.0 g/dL LAB HEMETOLOGY METHOD 08/13/2024 4:52 PM [facility] RDW 14.6 11.0 - 15.0 % LAB HEMETOLOGY METHOD 08/13/2024 4:52 PM [facility] Platelets 258 130 - 400 K/mcL LAB HEMETOLOGY METHOD 08/13/2024 4:52 PM [facility] MPV 11.5(H) 7.0 - 11.0 FL LAB HEMETOLOGY METHOD 08/13/2024 4:52 PM [facility] NRBC 0.0 <1.0 % LAB HEMETOLOGY METHOD 08/13/2024 4:52 PM [facility] NRBC Absolute 0.00 <0.10 K/mcL LAB HEMETOLOGY METHOD 08/13/2024 4:52 PM [facility] Blood Venous blood specimen / Unknown Venipuncture / Unknown 08/13/2024 1:59 PM EST 08/13/2024 4:40 PM EST Nohemi Ann MD LAB BLOOD ORDERABLES Final R esult [facility] [address] [place] [address], * (ABNORMAL) Comprehensive metabolic panel (08/13/2024 1:59 PM EST) Sodium 139 133 - 145 mmol/L LAB CHEMISTRY METHOD 08/13/2024 5:03 PM [facility] Potassium 3.7 3.5 - 5.5 mmol/L LAB CHEMISTRY METHOD 08/13/2024 5:03 PM [facility] Chloride 100 96 - 110 mmol/L LAB CHEMISTRY METHOD 08/13/2024 5:03 PM [facility] CO2 34(H) 21 - 32 mmol/L LAB CHEMISTRY METHOD 08/13/2024 5:03 PM [facility] Anion Gap 5 3 - 11 LAB CHEMISTRY METHOD 08/13/2024 5:03 PM [facility] Glucose 174(H) 70 - 100 mg/dL LAB CHEMISTRY METHOD 08/13/2024 5:03 PM [facility] BUN 29(H) 5 - 25 mg/dL LAB CHEMISTRY METHOD 08/13/2024 5:03 PM [facility] Creatinine 1.31(H) 0.70 - 1.30 mg/dL LAB CHEMISTRY METHOD 08/13/2024 5:03 PM [facility] eGFR 59(L) >=60 mL/min/1. 73m2 LAB CHEMISTRY METHOD 08/13/2024 5:03 PM [facility] Comment:Calculation based on the??Chronic Kidney Disease Epidemiology Collaboration (CKD-EPI) equation refit??without adjustment for race. BUN/Creatinine Ratio 22.1 LAB CHEMISTRY METHOD 08/13/2024 5:03 PM [facility] Calcium 9.7 8.5 - 10.5 mg/dL LAB CHEMISTRY METHOD 08/13/2024 5:03 PM [facility] AST (SGOT) 15 10 - 42 unit/L LAB CHEMISTRY METHOD 08/13/2024 5:03 PM [facility] ALT (SGPT) 32 10 - 60 unit/L LAB CHEMISTRY METHOD 08/13/2024 5:03 PM [facility] Alkaline Phosphatase 102 42 - 121 unit/L LAB CHEMISTRY METHOD 08/13/2024 5:03 PM [facility] Total Protein 7.4 6.0 - 8.0 g/dL LAB CHEMISTRY METHOD 08/13/2024 5:03 PM [facility] Albumin 3.9 3.2 - 5.0 g/dL LAB CHEMISTRY METHOD 08/13/2024 5:03 PM [facility] Total Bilirubin 0.3 0.0 - 1.4 mg/dL LAB CHEMISTRY METHOD 08/13/2024 5:03 PM [facility] Blood Venous blood specimen / Unknown Venipuncture / Unknown 08/13/2024 1:59 PM EST 08/13/2024 4:39 PM EST us Nohemi Ann MD LAB BLOOD ORDERABLES Final R esult [facility] [address] [place] [address], * ECG 12 lead (08/05/2024 2:49 PM EST) Ventricular Rate ECG 65 BPM GEMUSE Atrial Rate 65 BPM GEMUSE P-R Interval 190 ms GEMUSE QRS Duration 84 ms GEMUSE Q-T Interval 374 ms GEMUSE QTc 388 ms GEMUSE P Wave [place] 52 degrees GEMUSE R [place] 78 degrees GEMUSE T [place] 31 degrees GEMUSE ECG Interpretation Sinus rhythm with occasional Premature ventricular complexes Poor R wave progression Abnormal ECG No previous ECGs available Confirmed by Ludivina NAYLOR JAMES ([id number]) on 08/05/2024 3:20:56 PM GEMUSE 08/05/2024 2:49 PM EST 08/05/2024 3:20 PM EST Result [facility] Scotty Naylor MD ECG ORDERABLES Final Result GEMUSE * Hemoglobin A1c (09/19/2023) [facility] Hemoglobin A1C 6.3 <=6.5 % Blood Venous blood specimen / Unknown Result [facility] Provider LAB BLOOD ORDERABLES Love l Result * Hepatitis C Screening (06/28/2023) [facility] Hepatitis C Screening Abstracted Result [facility] Provider HEALTH MAINTENANCE Final Result * Diabetes Eye Exam (06/25/2023) [facility] Diabetes: Annual Retina Eye Exam Abstracted Result [facility] Provider HEALTH MAINTENANCE Final Result * Urine Albumin Creatinine Ratio (06/06/2023) [facility] Urine Albumin Creatinine Ratio Abstracted Result [facility] Provider HEALTH MAINTENANCE Final Result * Diabetes Foot Exam (06/06/2023) [facility] Diabetes: Annual Foot Exam Abstracted Result [facility] HEALTH MAINTENANCE Final Result * Lipid panel (04/04/2023) [facility] LDL/HDL Ratio 2 0 - 4 Triglycerides 63 0 - 150 mg/dL Cholesterol 104 0 - 200 mg/dL HDL 43 >=40 mg/dL LDL Cholesterol 49 0 - 100 mg/dL Blood Venous blood specimen / Unknown Result [facility] Provider LAB BLOOD ORDERABLES Love l Result from Last 3 Months or Most Recently Relevant to Health Maintenance Insurance MEDICAID - [place] [employer] MEDICARE Care Teams Subassembler Relationship Specialty Start Date End Date Laxmi Christianson MD PCP - General Endocrinology 08/05/24
--- OUTSIDE RECORDS SUMMARY | 2024-09-17 09:46 | XMS_ITS | Encounter Summary ---
Author Organization [facility] Address [address] [place] [address] Care Team Providers Care Biology Specialist Name Role Phone Laxmi Christianson MD Primary Care Provider [phone] Reason for Visit * Reason Comments Follow-up Encounter Details Date Type Department Care Team (Late st Contact Info) Description 08/18/2024 8:30 AM EST Office Visit [facility] Hematology Oncology [address] [place] [phone] Nohemi Ann MD [address] [place] [address] Polycythemia (Primary Dx); Myeloproliferative neoplasm (CMS/HCC) Social [...] is a 68 y.o. male. HPI: 68-year-old Yoruba-speaking man, who diagnosed more than decade ago [...] knee Type 2 diabetes mellitus without complications ([facility]/HCC) Class 2 severe obesity due to excess calories with serious comorbidity and body mass index (BMI) of35.0 to 35.9 in adult ([facility]) Past Medical History: Diagnosis Date CAD (coronary artery disease) DX:CAD (coronary artery disease); COMMENT: Stents 2006 and 2008. LAD, RCA, LCX CVA (cerebral vascular accident) (CMS/HCC) 2021 DX:CVA (cerebral vascular accident) ([facility]) Essential (primary) hypertension DX:Essential (primary) hypertension Mixed [...] , Rfl: blood-glucose meter (ONETOUCH VERIO METER [facility]), 1 Kit by Does not apply route [...] directed, Disp: , Rfl: lancets 33 gauge [facility], 1 Each by Does not apply route [...] 1. Polycythemia 2. Myeloproliferative neoplasm (CMS/HCC) 68-year-old Yoruba-speaking man, history physical done with the help of interpretation who diagnosed with myeloproliferative neoplasm more than decade ago in [place] and he had a bone marrow biopsy [...] Description 03/08/2025 3:45 PM EDT Office Visit [facility] Hematology Oncology [address] [place] [phone] Nohemi Ann MD [address] [place] [address] Scheduled Orders Name Type Priority Associated Diagnoses [...] tissues documented in this encounter Care Teams Biology Specialist Relationship Specialty Start Date End Date Laxmi Christianson MD PCP - General Endocrinology 08/05/24 documented as of this encounter
== END 2024-09-17 10:13 | disposition home or self-care (01) ==
PROVIDERS: PCP Internal Medicine; Visit Provider Nurse Practitioner Family
DX: E11.49 Type 2 diabetes mellitus with other diabetic neurological complication (principal); Z79.4 Long term (current) use of insulin; R42 Dizziness and giddiness; R11.2 Nausea with vomiting, unspecified; Z13.9 Encounter for screening, unspecified

== ENCOUNTER → 2024-09-17 09:10 | Outpatient (BNVA) | payer OTHER, MEDICAID, SELFPAY | PROVIDERS: PCP Internal Medicine | DX: E11.49 Type 2 diabetes mellitus with other diabetic neurological complication (principal); R42 Dizziness and giddiness; R11.2 Nausea with vomiting, unspecified; Z79.4 Long term (current) use of insulin | CPT/HCPCS: 82948; 83036 ==

== ENCOUNTER 2024-09-17 10:25 | Outpatient (REF) | payer OTHER, MEDICAID, SELFPAY ==
[2024-09-17 14:17] LABS: MANUAL DIFF FLAG NO
[2024-09-17 14:40] LABS: Basophils Absolute Auto 0.1 X10*3/uL (0.0-0.2); Eosinophils Absolute Auto 0.3 X10*3/uL (0.0-0.4); Eosinophils Percent Auto 4.1 % (0-4); Hematocrit 51.9 % (42.0-52.0); Imm Gran Abs Auto 0.04 X10*3/uL (0.00-0.03); Imm Gran Pct Auto 0.5 % (0.0-0.4); Lymphocytes Absolute Auto 1.6 X10*3/uL (1.2-4.9); Lymphocytes Percent Auto 19.9 % (20-40); Mean Corpuscular HGB Conc 32.8 g/dl (31.0-36.0); Mean Corpuscular Hemoglobin 27.2 pg (27.0-33.0); Mean Corpuscular Volume 83.2 fL (80.0-98.0); Monocytes Absolute Auto 0.8 X10*3/uL (0.1-1.2); Monocytes Percent Auto 10.4 % (2-11); Neutrophils Absolute Auto 5.1 x10*3/uL (2.0-8.3); Neutrophils Percent Auto 64.1 % (45-73); Platelet Count 261 X10*3/uL (160-400); Red Blood Count 6.24 X10*6/uL (4.60-5.80)
[2024-09-17 14:46] LABS: Estimated Average Glucose 177 mg/dL; Hemoglobin A1c % 7.8 % (<6.0)
[2024-09-17 15:14] LABS: Albumin Level 4.2 g/dL (3.5-5.0); Alkaline Phosphatase 83 U/L (39-117); Anion Gap 14 (12-20); Aspartate Amino Transferase 27 U/L (5-37); Bilirubin Total 0.4 mg/dL (0.0-1.0); Blood Urea Nitrogen 23 mg/dL (9-16); Carbon Dioxide 30 mmol/L (22-29); Chloride 99 mmol/L (96-108); Estimated Glomerular Filt Rate 59; Glucose Random 177 mg/dL (60-115); Sodium 139 mmol/L (135-145); Total Protein 7.8 g/dL (6.5-8.0)
[2024-09-17 16:25] LABS: Alanine Aminotransferase 33 U/L (0-40)
== END 2024-09-17 10:26 | disposition home or self-care (01) ==
LOC: HO.WFDLDS 10:25
PROVIDERS: Referring Provider Nurse Practitioner Family; Visit Provider Internal Medicine
DX: E11.49 Type 2 diabetes mellitus with other diabetic neurological complication (principal); R22.2 Localized swelling, mass and lump, trunk; I10 Essential (primary) hypertension; Z79.4 Long term (current) use of insulin
CPT/HCPCS: 36415; 80053; 83036; 85025

== ENCOUNTER 2024-09-22 11:39 | Outpatient (REF) | payer OTHER, MEDICAID, SELFPAY ==
[2024-09-22 14:20] LABS: Appearance Urine Clear; Color Urine Yellow; Glucose Urine UA >=1000 mg/dL (Negative); Leukocyte Esterase Urine Negative (Negative); Nitrite Urine Negative (Negative); PH 5.5 (5.0-9.0); Specific Gravity - Urine >= 1.030 (1.005-1.025); UMIC TRIGGER UACC YES; Urine Blood Negative (Negative); Urine Ketones Trace mg/dL (Negative); Urine Protein Negative (Neg-Trace)
[2024-09-22 14:26] LABS: Bacteria Urine None Seen (None Seen); Hyaline Casts Urine 0-2 /LPF (0-2); RBC Urine 0-2 /HPF (0-2); Squamous Epithelial Cell Urine 0-2 /HPF (0-2); WBC Urine 0-5 /HPF (0-5)
== END 2024-09-22 11:40 | disposition home or self-care (01) ==
LOC: HO.LNP 11:39
PROVIDERS: PCP Internal Medicine; Visit Provider Internal Medicine
DX: Z09 Encounter for follow-up examination after completed treatment for conditions other than malignant neoplasm (principal); E11.49 Type 2 diabetes mellitus with other diabetic neurological complication; H53.9 Unspecified visual disturbance; R42 Dizziness and giddiness; I10 Essential (primary) hypertension; E78.5 Hyperlipidemia, unspecified; I69.320 Aphasia following cerebral infarction; I69.351 Hemiplegia and hemiparesis following cerebral infarction affecting right dominant side; Z79.4 Long term (current) use of insulin; Z79.84 Long term (current) use of oral hypoglycemic drugs; Z79.899 Other long term (current) drug therapy
CPT/HCPCS: 81001

== ENCOUNTER 2024-09-22 11:39 | Outpatient (AMB) | payer OTHER, MEDICAID, SELFPAY ==
--- NOTE | 2024-09-22 11:58 | A.OFFPC_ITS ---
Vital Signs 09/22/24 12:03 BP 104/58 L Blood Pressure Location Lt brachial Position Sitting Respiration 16 Pulse 71 Pulse Source Pulse Oximeter Pulse Oximetry (%) 93 Oxygen Delivery Method Room Air Intake Visit Reasons: Dr Holland f/u hyperglycemia, dizziness,nausea Intake Note: Follow up. Went to [facility] blurred vision. 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 Glucose 150s. Following day Saturday still felt dizzy, blurry vision. Seen here urgent care. Saturday wasn't feeling well and went to the ER. Patient was hospitalized 09/20-09/21/24. Presented with dizziness, vertigo and blurry vision x 6 days. Labs ok. A1C up to 8.4%. CTA, MRI negative acute findings. Meclizine increased to 25mg TID. No improvement on meds. Endorses vertigo/spinning with head movements continue changes in visions. UTD with eye exam [place]. They wanted him to see a retinal specialist. Has script for PT Type 2 diabetes: On metformin 500mg twice daily, NPH 30 bid, jardiance, acarbose. A1C at [facility] 8.4% 7.4% from 7.5% from 6.7%. Neuropathy stable on gabapentin. Does not want to increase medications. It makes him feel hypoglycemia. Denies hypoglycemic readings. Tried to order CGM today CV: On norvasc, chlorthalidone, lisinopril. metoprolol. Controlled today. Denies chest pain, dizziness. MSK: Following with ortho-recently had injection in the knee. continues to have left sided lower rib pain-saw surgery for consultation and requesting removal. Colonoscopy: ROS see HPI PHYSICAL EXAM: GENERAL: Alert and oriented x 3. NAD EYES: EOMI. Anicteric. HENT: Moist mucous membranes. No scleral icterus. b/l ear canals and TM normal. No cervical lymphadenopathy. LUNGS: Clear to auscultation bilaterally. CARDIOVASCULAR: Regular rate and rhythm. No murmur. No JVD. Left lower chest, upper abdomen fullness, tender to palpation ABDOMEN: Soft, non-tender +bs EXTREMITIES: No edema. Non-tender. SKIN: No rashes or lesions. Warm. NEUROLOGIC: No focal neurological deficits. CN II-XII grossly intact PSYCHIATRIC: Cooperative. Appropriate mood and affect [facility] Medical History Swelling, mass, or lump in chest Blurry vision, bilateral Blurry vision Surgical History Hx of hernia repair Hx of arthroscopy of left knee Social History Household Members: None Housing: Apartment Alcohol intake: never Patient Tobacco Use Status: Never used Tobacco e-Cigarette/Vaping Use: Never Used Current occupational status: retired Cognitive needs: No Hearing needs: No Vision needs: Yes Questionnaire Thrive Questionnaire Date Thrive assessed: 08/04/24 I am a: Patient What is your living situation today?: I have a steady place to live Within the past 12 months, did the food you bought not last and you didn't have the money to get more?: Sometimes True Within the past 12 months, did you worry whether your food would run out before you got money to buy more?: Sometimes True Do you have trouble paying for medicines?: No Do you have trouble getting transportation to medical appointments?: No Do you have trouble paying your heating and electricity bill?: No Do you have trouble taking care of your child, family member or friend?: No Do you have trouble with day-to-day activities such as bathing, preparing meals, shopping, managing finances, etc.?: Yes Are you currently unemployed and looking for a job?: No Are you interested in more education?: No Please select the resources that you would like help with: Food Currently or been in a relationship where the following occur: No concerns reported THRIVE Score: 2 LALA-7 AMB Questionnaire LALA-7 Date LALA - 7 assessed: 02/10/24 Source: Developed by Drs. Davdi Troncoso, Maria Elena Montaño, Silvestre Shields and colleagues, with an educational taran from [employer]. Physical exam (Primary Care) Vital Signs: Last Vital Signs Pulse 71 09/22/24 12:03 Resp 16 09/22/24 12:03 BP 104/58 L 09/22/24 12:03 Pulse Ox 93 09/22/24 12:03 Oxygen Delivery Method Room Air 09/22/24 12:03 Tobacco/Smoking Status: Tobacco use Status Tobacco use date assessed 08/04/24 09/22/24 12:00 Patient Tobacco Use Status Never used Tobacco 09/22/24 12:10 e-Cigarette/Vaping Use Never Used 09/22/24 12:10 Thrive Assessment: Date of Thrive Assessment Date Thrive assessed 08/04/24 09/22/24 12:00 Currently or been in a relationship where the following occur: No concerns reported Coding Level of Care Code TCM High MDM <= 7 Days Diagnoses Hospital discharge follow-up Z09 Type 2 diabetes mellitus with other neurologic complication, with long-term current use of insulin E11.49; Z79.4 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: with correction use Diabetes mellitus complication status: with neurologic complications Diabetes mellitus complication detail: with other neurological complication Dizziness R42 Assessment & Plan Assessment & Plan (1) Hospital discharge follow-up: Code(s): Z09 - Encounter for follow-up examination after completed treatment for conditions other than malignant neoplasm Category: Medical (2) Type 2 diabetes mellitus: Code(s): E11.9 - Type 2 diabetes mellitus without complications Category: Medical Qualifiers: Diabetes mellitus correction insulin use: with longshore equipment operator use Diabetes mellitus complication status: with neurologic complications Diabetes mellitus complication detail: with other neurological complication Qualified Code(s): E11.49 - Type 2 diabetes mellitus with other diabetic neurological complication; Z79.4 - terminal system operator (current) use of insulin (3) Dizziness: Code(s): R42 - Dizziness and giddiness Category: Medical Plan Hospitalization reviewed Vertigo-referral vestibular therapy. Daughter will go today to set up DM2 no actual hypoglycemia, in fact increasing hyperglycemia. No med changes at this time Blurry vision-Urgent referral to optho (already following) urged retinal specialist as previously recommended Urinalysis r/o UTI Orders: Orders UA CC w/rflx Micro + Cult Today E11.49 - Type 2 diabetes mellitus with other diabetic neurological complication, H53.9 - Unspecified visual disturbance, Z79.4 - penitentiary (current) use of insulin Referrals Ophthalmology Referral H53.8 - Other visual disturbances, H53.9 - Unspecified visual disturbance
[2024-09-22 12:03] VITALS: BP 104/58; PULSE 71; RESP 16; O2SAT 93
== END 2024-09-22 12:39 | disposition home or self-care (01) ==
LOC: HO.HMCFM 11:40
PROVIDERS: PCP Internal Medicine; Visit Provider Internal Medicine
DX: E11.49 Type 2 diabetes mellitus with other diabetic neurological complication (principal); Z79.4 Long term (current) use of insulin; Z09 Encounter for follow-up examination after completed treatment for conditions other than malignant neoplasm; R42 Dizziness and giddiness

== ENCOUNTER 2024-09-24 13:42 | Outpatient (REF) | payer OTHER, MEDICAID, SELFPAY ==
[2024-09-24 13:44] VITALS: BP 139/65; PULSE 70; RESP 19; TEMP 36.4; O2SAT 97
--- NOTE | 2024-09-24 14:37 | W.PM.OPN ---
Operative Note Operative Note Date of Service: 09/24/24 Narrative: Preoperative diagnosis: Lipoma left chest wall, recurrent Postoperative diagnosis: Same Procedure: Excision of recurrent left chest wall lipoma Surgeon: Juan Burch MD [place] Flat[place]: None Anesthesia: Lidocaine 1% with epinephrine Indications for procedure: 68-year-old male patient with a previous history of a lipoma in the left chest wall excised at an outside hospital several years ago. The patient reports persistent pain in this location slightly below the incision. Workup with an ultrasound was negative for any additional mass. On examination the patient has a tender mass located below the incision consistent with a recurrent lipoma. Operative findings: Recurrent lipoma located in the left chest wall approximately a cm below the previous incision Specimen: Recurrent lipoma Estimated blood loss: 2 mL Complications: None Procedure details: Patient was brought to the minor surgery suite and placed in a supine position. The site of surgery was confirmed by the patient in the left chest wall. After assuring informed consent the skin over the left chest was prepped with Betadine and draped in a sterile fashion. A surgical time-out was called. Skin was then infiltrated with lidocaine 1% several cm below and parallel to the previous incision. Incision was then made with a 15 blade and carried out through subcutaneous tissue up to the palpable lipoma. Allis clamp was used to grasped with lipoma in the a heavy scissors used to excise the lipoma from the surrounding subcutaneous tissue and scar tissue. This was sent to pathology for further examination. Light pressure was held to be maintain hemostasis. Dermis was then reapproximated using interrupted 3-0 Polysorb sutures. Skin was closed using a running subcuticular 4-0 Polysorb suture. Steri-Strips, 4 x 4 gauze and Tegaderm was applied. The patient tolerated the procedure well. He was discharged to home in stable condition.
== END 2024-09-24 13:43 | disposition home or self-care (01) ==
LOC: HO.MS 13:42
PROVIDERS: PCP Internal Medicine; Visit Provider Surgery
PROC: (CPT 11404; principal; 2024-09-24 14:00)
DX: D17.1 Benign lipomatous neoplasm of skin and subcutaneous tissue of trunk (principal)
CPT/HCPCS: 11404; 88304; J2004

== ENCOUNTER → 2024-09-24 13:42 | Outpatient (BNV) | payer OTHER, MEDICAID, SELFPAY | PROVIDERS: PCP Internal Medicine; Visit Provider Surgery | DX: D17.1 Benign lipomatous neoplasm of skin and subcutaneous tissue of trunk (principal) | CPT/HCPCS: 21552 ==

== ENCOUNTER 2024-10-06 14:45 | Outpatient (AMB) | payer OTHER, MEDICAID, SELFPAY ==
--- NOTE | 2024-10-06 14:48 | MHC.OFFVIS ---
Vital Signs 10/06/24 14:53 Height 5 ft 4 in Weight 211 lb 10.3 oz BMI 36.3 Respiration 16 Intake Visit Reasons: S/P exc. lipoma Lt. chest wall Intake Note: Patient is seen in office for post op assessment post excision of recurrent left chest wall lipoma. Pt c/o: admits to pain in the incision, denies any other concerns surgery:09/24/24 Operations Clerk Required: No Accompanied by: Other Relationship Allergies shrimp Allergy (Unknown, Verified 10/06/24 14:53) Vomiting HPI Comments Details: 68-year-old male patient returning 1 week following excision of a recurrent lipoma of the left chest wall. He was some soreness in the incision but generally feels well. Pathology confirmed a mature lobulated adipose tissue consistent with lipoma. [facility] Medical History Swelling, mass, or lump in chest Blurry vision, bilateral Blurry vision Surgical History S/P excision of lipoma (09/24/24) Hx of hernia repair Hx of arthroscopy of left knee Social History Household Members: None Housing: Apartment Alcohol intake: never Patient Tobacco Use Status: Never used Tobacco e-Cigarette/Vaping Use: Never Used Current occupational status: retired Cognitive needs: No Hearing needs: No Vision needs: Yes Physical Exam Vital Signs: Last Vital Signs Resp 16 10/06/24 14:53 BMI result Body Mass Index 36.3 Const General: comfortable Nutritional Appearance: well nourished Chest Chest/axillae images: 1. Well-healed incision in the left anterior lower chest wall. No hematoma or seroma noted. Resp Effort & Inspection: normal respiratory effort Skin Other: Warm, dry, no rash Assessment & Plan Assessment & Plan (1) Lipoma of anterior chest wall: Code(s): D17.1 - Benign lipomatous neoplasm of skin and subcutaneous tissue of trunk Category: Medical Plan 68-year-old male patient with a recurrent lipoma of the anterior chest wall left side. He tolerated the excision well his wounds are healing nicely. He should follow up as needed. Coding Level of Care Code Global (42406) Diagnoses Lipoma of anterior chest wall D17.1
[2024-10-06 14:53] VITALS: RESP 16; BMI 36.3
--- OUTSIDE RECORDS SUMMARY | 2024-10-06 17:50 | XMS_ITS | Clinical Summary ---
Author Organization [facility] Address [address] [place] [address] Care Team Providers Care Naval Architect Specialist Name Role Phone Marie Luke MD [...] age to complete this topic Care Teams Naval Architect Specialist Relationship Specialty Start Date End Date Marie Luke MD [address] [place] [address] PCP - General Internal Medicine 10/31/23
--- OUTSIDE RECORDS SUMMARY | 2024-10-06 17:50 | XMS_ITS | Continuity of Care Document ---
Author Organization [facility] Address [address] [place] [address] Phone Care Team Providers Care Electrical Integrator Name Role Phone Z-Converted, Provider Unavailable Unavailabl e Advance Directives Directive Yes / No Effective Date File Name No Information Encounters Encounter Description Practice Location Reason(s) For Visit Diagnoses Date Provider Providers Copied on Encounter [facility], [address] [place] [address],[address], [place], [place], [id number], [place] tel:[phone] [facility] Unspecified chest pain Sep-2 200 6 Z-Convert ed Provider. . Family History [...]
--- OUTSIDE RECORDS SUMMARY | 2024-10-06 17:50 | XMS_ITS | Clinical Summary ---
Author Organization [facility] Address [address] [place] [address] Phone Care Team Providers Care Cushion Former Name Role Phone Laxmi Christianson MD Primary Care Provider Allergies Active Allergy Reactions Criticality Noted Date [...] Description 08/18/2024 8:30 AM EST Office Visit [facility] Hematology Oncology [address] [place] [address] Nohemi Ann MD Polycythemia (Primary Dx); Myeloproliferative neoplasm ([facility]/HCC) 08/05/2024 3:00 PM EST Office Visit [facility] Cardiology [address] [place] [phone] Scotty Naylor MD Essential (primary) hypertension (Primary [...] Type 2 diabetes mellitus wit hout complications DX:Type 2 diabetes mellitus without complications (HCC) CAD (coronary artery disease) DX :CAD (coronary artery disease); COMMENT: Stents 2006 and 2008. LAD, RCA, LCX Mixed hyperlipidemia DX:Mixed hy perlipidemia Osteoarthritis, knee DX:Osteoart hritis, knee Polycythemia vera DX:Polycythemi a vera (HCC) CVA (cerebral vascular accid ent) (CMS/HCC) 2021 DX:CVA (cerebral vascular ac cident) ([facility]) Family History Medical History Relation Name Comments [...] Description 03/08/2025 3:45 PM EDT Office Visit [facility] Hematology Oncology [address] [place] [phone] Nohemi Ann MD [address] [place] [address] Health Maintenance Due Date Last Done Comments DTaP,Tdap,and Td Vaccines (1 - Tdap) 1973 Pneumococcal Vaccine: 50+ Years (1 of 2 - PCV) 1973 Zoster Vaccines (1 of 2) 1973 RSV Immunization Adult Patients (1 - Risk 60-74 years 1-dose series) [...] age to complete this topic Meningococcal B Vaccine Aged Out No l onger eligible based on patient's age to complete [...] 1: 59 PM EST PV (polycythemia vera) (CMS/HCC) ERYTHROPOIETIN Routine 08/13/2024 1:59 PM EST PV (polycythemia vera) (CMS/HCC) COMPLETE BLOOD COUNT Routine 08/13/2024 1:59 PM EST PV (polycythemia vera) (CMS/HCC) COMPREHENSIVE METABOLIC PANEL Routine 08/13/2024 1:59 PM EST PV (polycythemia vera) (CMS/HCC) ECG 12-LEAD Routine 08/05/2024 2:49 PM EST [...] EST [facility] Comment: Test performed at [facility], [address], [place], [place] ??[address] ? [phone] Crissy Keller MD, PhD - It Network Architect Blood Venous blood specimen / Unknown Venipuncture / Unknown 08/13/2024 1:59 PM EST 08/13/2024 4:39 PM EST Nohemi Ann MD LAB BLOOD ORDERABLES Final R esult [facility] [address] [place] [address] * (ABNORMAL) Reticulocyte count (08/13/2024 1:59 PM EST) Retic Ct Abs 0.100(H) 0.030 - 0.090 M/mcL LAB HEMETOLOGY METHOD 08/13/2024 4:52 PM EST [facility] Retic Ct Pct 1.7 0.7 - 1.7 % LAB HEMETOLOGY METHOD 08/13/2024 4:52 PM EST [facility] Immature Retic Fract 16.9(H) 2.3 - 15.9 % LAB HEMETOLOGY METHOD 08/13/2024 4:52 PM EST [facility] Reticulocyte Hemoglobin 27.3(L) >29.0 pcg LAB HEMETOLOGY METHOD 08/13/2024 4:52 PM EST [facility] Blood Venous blood specimen / Unknown Venipuncture / Unknown 08/13/2024 1:59 PM EST 08/13/2024 4:40 PM EST Nohemi Ann MD LAB BLOOD ORDERABLES Final R esult [facility] [address] [place] [address], [place] [phone] * (ABNORMAL) Complete blood count (08/13/2024 1:59 PM EST) WBC 8.2 4.8 - 10.8 K/mcL LAB HEMETOLOGY METHOD 08/13/2024 4:52 PM [facility] RBC 5.80(H) 4.50 - 5.50 M/mcL LAB HEMETOLOGY METHOD 08/13/2024 4:52 PM [facility] Hemoglobin 15.7 13.5 - 17.5 g/dL LAB HEMETOLOGY METHOD 08/13/2024 4:52 PM [facility] Hematocrit 50.1 42.0 - 54.0 % LAB HEMETOLOGY METHOD 08/13/2024 4:52 PM [facility] MCV 86.8 79.0 - 98.0 FL LAB HEMETOLOGY METHOD 08/13/2024 4:52 PM [facility] MCH 27.2 27.0 - 32.0 pcg LAB HEMETOLOGY METHOD 08/13/2024 4:52 PM [facility] MCHC 31.3(L) 32.0 - 37.0 g/dL LAB HEMETOLOGY METHOD 08/13/2024 4:52 PM [facility] RDW 14.6 11.0 - 15.0 % LAB HEMETOLOGY METHOD 08/13/2024 4:52 PM [facility] Platelets 258 130 - 400 K/mcL LAB HEMETOLOGY METHOD 08/13/2024 4:52 PM [facility] MPV 11.5(H) 7.0 - 11.0 FL LAB HEMETOLOGY METHOD 08/13/2024 4:52 PM [facility] NRBC 0.0 <1.0 % LAB HEMETOLOGY METHOD 08/13/2024 4:52 PM [facility] NRBC Absolute 0.00 <0.10 K/mcL LAB HEMETOLOGY METHOD 08/13/2024 4:52 PM [facility] Blood Venous blood specimen / Unknown Venipuncture / Unknown 08/13/2024 1:59 PM EST 08/13/2024 4:40 PM EST Nohemi Ann MD LAB BLOOD ORDERABLES Final R esult [facility] [address] [place] [address], [place] [phone] * (ABNORMAL) Comprehensive metabolic panel (08/13/2024 1:59 PM EST) Pathologist [facility] Sodium 139 133 - 145 mmol/L LAB CHEMISTRY METHOD 08/13/2024 5:03 PM [facility] Potassium 3.7 3.5 - 5.5 mmol/L LAB CHEMISTRY METHOD 08/13/2024 5:03 PM [facility] Chloride 100 96 - 110 mmol/L LAB CHEMISTRY METHOD 08/13/2024 5:03 PM [facility] CO2 34(H) 21 - 32 mmol/L LAB CHEMISTRY METHOD 08/13/2024 5:03 PM [facility] Anion Gap 5 3 - 11 LAB CHEMISTRY METHOD 08/13/2024 5:03 PM [facility] Glucose 174(H) 70 - 100 mg/dL LAB CHEMISTRY METHOD 08/13/2024 5:03 PM [facility] BUN 29(H) 5 - 25 mg/dL LAB CHEMISTRY METHOD 08/13/2024 5:03 PM [facility] Creatinine 1.31(H) 0.70 - 1.30 mg/dL LAB CHEMISTRY METHOD 08/13/2024 5:03 PM [facility] eGFR 59(L) >=60 mL/min/1. 73m2 LAB CHEMISTRY METHOD 08/13/2024 5:03 PM [facility] Comment:Calculation based on the??Chronic Kidney Disease Epidemiology Collaboration (CKD-EPI) equation refit??without adjustment for race. BUN/Creatinine Ratio 22.1 LAB CHEMISTRY METHOD 08/13/2024 5:03 PM [facility] Calcium 9.7 8.5 - 10.5 mg/dL LAB CHEMISTRY METHOD 08/13/2024 5:03 PM [facility] AST (SGOT) 15 10 - 42 unit/L LAB CHEMISTRY METHOD 08/13/2024 5:03 PM [facility] ALT (SGPT) 32 10 - 60 unit/L LAB CHEMISTRY METHOD 08/13/2024 5:03 PM [facility] Alkaline Phosphatase 102 42 - 121 unit/L LAB CHEMISTRY METHOD 08/13/2024 5:03 PM [facility] Total Protein 7.4 6.0 - 8.0 g/dL LAB CHEMISTRY METHOD 08/13/2024 5:03 PM [facility] Albumin 3.9 3.2 - 5.0 g/dL LAB CHEMISTRY METHOD 08/13/2024 5:03 PM [facility] Total Bilirubin 0.3 0.0 - 1.4 mg/dL LAB CHEMISTRY METHOD 08/13/2024 5:03 PM [facility] Blood Venous blood specimen / Unknown Venipuncture / Unknown 08/13/2024 1:59 PM EST 08/13/2024 4:39 PM EST us Nohemi Ann MD LAB BLOOD ORDERABLES Final R esult [facility] [address] [place] [address], * ECG 12 lead (08/05/2024 2:49 PM EST) Ventricular Rate ECG 65 BPM GEMUSE Atrial Rate 65 BPM GEMUSE P-R Interval 190 ms GEMUSE QRS Duration 84 ms GEMUSE Q-T Interval 374 ms GEMUSE QTc 388 ms GEMUSE P Wave [place] 52 degrees GEMUSE R [place] 78 degrees GEMUSE T [place] 31 degrees GEMUSE ECG Interpretation Sinus rhythm with occasional Premature ventricular complexes Poor R wave progression Abnormal ECG No previous ECGs available Confirmed by Ludivina NAYLOR JAMES ([id number]) on 08/05/2024 3:20:56 PM GEMUSE 08/05/2024 2:49 PM EST 08/05/2024 3:20 PM EST Result [facility] Scotty Naylor MD ECG ORDERABLES Final Result [facility] * Hemoglobin A1c (09/19/2023) [facility] Hemoglobin A1C 6.3 <=6.5 % Blood Venous blood specimen / Unknown Result [facility] LAB BLOOD ORDERABLES Love l Result * Hepatitis C Screening (06/28/2023) [facility] Hepatitis C Screening Abstracted Result [facility] HEALTH MAINTENANCE Final Result * Diabetes Eye Exam (06/25/2023) [facility] Diabetes: Annual Retina Eye Exam Abstracted Result [facility] HEALTH MAINTENANCE Final Result * Urine Albumin Creatinine Ratio (06/06/2023) [facility] Urine Albumin Creatinine Ratio Abstracted Result [facility] HEALTH MAINTENANCE Final Result * Diabetes Foot Exam (06/06/2023) [facility] Diabetes: Annual Foot Exam Abstracted Result [facility] HEALTH MAINTENANCE Final Result * Lipid panel (04/04/2023) [facility] LDL/HDL Ratio 2 0 - 4 Triglycerides 63 0 - 150 mg/dL Cholesterol 104 0 - 200 mg/dL HDL 43 >=40 mg/dL LDL Cholesterol 49 0 - 100 mg/dL Blood Venous blood specimen / Unknown Result [facility] Provider LAB BLOOD ORDERABLES Love l Result from Last 3 Months or Most Recently Relevant to Health Maintenance Insurance [address] [place] [address] MEDICAID - [place] [address] Care Teams Cushion Former Relationship Specialty Start Date End Date Laxmi Christianson MD PCP - General Endocrinology 08/05/24
== END 2024-10-06 15:04 | disposition home or self-care (01) ==
LOC: HO.HGS 14:45
PROVIDERS: PCP Internal Medicine; Visit Provider Surgery
DX: D17.1 Benign lipomatous neoplasm of skin and subcutaneous tissue of trunk (principal)
CPT/HCPCS: 99024

== ENCOUNTER → 2024-10-06 14:45 | Outpatient (BNVA) | payer OTHER, MEDICAID, SELFPAY | PROVIDERS: PCP Internal Medicine; Visit Provider Surgery ==

== ENCOUNTER 2024-10-16 07:54 | Outpatient (AMB) | payer OTHER, MEDICAID, SELFPAY ==
--- OUTSIDE RECORDS SUMMARY | 2024-10-16 07:57 | XMS_ITS | Continuity of Care Document ---
Author Organization [facility] Address [address] [place] [address] Phone Care Team Providers Care Combat Systems Operator Mine Warfare Name Role Phone Z-Converted, Provider Unavailable Unavailabl e Advance Directives Directive Yes / No Effective Date File Name No Information Encounters Encounter Description Practice Location Reason(s) For Visit Diagnoses Date Provider Providers Copied on Encounter [facility], [address] [place] [address] 2,[address], [place], [place], [id number], [place] tel:[phone] [facility] Unspecified chest pain Sep-2 [phone] [...]
--- OUTSIDE RECORDS SUMMARY | 2024-10-16 07:57 | XMS_ITS | Clinical Summary ---
Author Organization [employer] Address [address] [place] [address] Care Team Providers Care Complaint Investigations Officer Name Role Phone Unavailable Primary Care Provider [...] Recently Relevant to Health Maintenance Insurance DENTAL [facility] DENTAL - N FULL (MEDICAID)
--- OUTSIDE RECORDS SUMMARY | 2024-10-16 07:57 | XMS_ITS | Clinical Summary ---
Author Organization [facility] Address [address] [place] [address] Phone Care Team Providers Care Unloader Operator Name Role Phone Laxmi Christianson MD Primary Care Provider [phone] Allergies Active Allergy Reactions Criticality Noted Date [...] (BMI) of 35.0 to 35.9 in adult ([facility] V24, [facility] V28) 06/04/2024 CAD (coronary artery disease) 04/02/2023 Overview [...] Osteoarthritis, knee 04/02/2023 Type 2 diabetes mellitus wit hout complications ([facility] V24, [facility] V28) 04/02/2023 Encounters Date Type Department Care Team Description 08/18/2024 8:30 AM EST Office Visit [facility] Hematology Oncology [address] [place] [address] Nohemi Ann MD Polycythemia (Primary Dx); Myeloproliferative neoplasm ([facility] V24, [facility] V28) 08/05/2024 3:00 PM EST Office Visit [facility] Cardiology [facility] [address] [place] [phone] Scotty Naylor MD Essential (primary) hypertension (Primary [...] Type 2 diabetes mellitus wit hout complications ([facility] V24, [facility] V28) DX:Type 2 carolyn betes mellitus without complications (HCC) CAD (coronary artery disease) DX :CAD (coronary artery disease); COMMENT: Stents 2006 and 2008. LAD, RCA, LCX Mixed hyperlipidemia DX:Mixed hy perlipidemia Osteoarthritis, knee DX:Osteoart hritis, knee Polycythemia vera ([facility] V 24, [facility] V28) DX:Polycythemia vera ([facility]) CVA (cerebral vascular accid ent) ([facility] V24, [facility] V28) 2021 DX:CVA (cerebral vascular a ccident) ([facility]) Family History Medical History Relation Name Comments [...] Description 03/08/2025 3:45 PM EDT Office Visit [facility] Hematology Oncology [address] [place] [phone] Nohemi Ann MD [address] [place] [address] Health Maintenance Due Date Last Done Comments [...] 2024 10/20/2021, 05/18/2021, 10/10/2020, Additional history exists Diabetes: Blood Sugar Control Test (HGBA1C) 03/21/2024 09/19/2023 Diabetes: Annual Urine Albumin-Creatinine Ratio (uACR) 06/06/2024 06/06/2023 Diabetes: Annual Foot Exam 06/06/2024 06/06/2023 Diabetes: Annual Retina Eye Exam 06/25/2024 06/25/2023 Influenza Vaccine (Season Ended) 2025 06/28/2023 Diabetes: Annual GFR (Glomerular Filtration Rate) 08/13/2025 [...] 1: 59 PM EST PV (polycythemia vera) ([facility] V24, [facility] V28) ERYTHROPOIETIN Routine 08/13/2024 1:59 PM EST PV (polycythemia vera) ([facility] V24, [facility] V28) COMPLETE BLOOD COUNT Routine 08/13/2024 1:59 PM EST PV (polycythemia vera) ([facility] V24, [facility] V28) COMPREHENSIVE METABOLIC PANEL Routine 08/13/2024 1:59 PM EST PV (polycythemia vera) ([facility] V24, [facility] V28) ECG 12-LEAD Routine 08/05/2024 2:49 PM EST CAD (coronary artery disease) HEMOGLOBIN A1C Routine 09/19/2023 HEPATITIS C SCREENING Routine 06/28/2023 DIABETES EYE EXAM Routine 06/25/2023 URINE ALBUMIN CREATININE RATIO Routine 06/06/2023 DIABETES FOOT EXAM Routine 06/06/2023 LIPID PANEL Routine 04/04/2023 from Last 3 Months or Most Recently Relevant to Health Maintenance Results * Miscellaneous reference lab test (08/25/2024) us Provider [facility] LAB BLOOD ORDERABLES Final Re sult * (ABNORMAL) Erythropoietin (08/13/2024 1:59 PM EST) Pathologist [facility] Erythropoietin 19.2(H) 2.6 - 18.5 mIU/mL 08/17/2024 2:55 PM EST [facility] Comment: Test performed at [facility], [address] , [place], [place] ??[address] ? [phone] Crissy Keller MD, PhD - Head Of Physics Blood Venous blood specimen / Unknown Venipuncture / Unknown 08/13/2024 1:59 PM EST 08/13/2024 4:39 PM EST [facility] Pietro Ann MD LAB BLOOD ORDERABLES Final R esult [facility] [address] [place] [address] * (ABNORMAL) Reticulocyte count (08/13/2024 1:59 PM EST) Pathologist [facility] Retic Ct Abs 0.100(H) 0.030 - 0.090 M/mcL LAB HEMETOLOGY METHOD 08/13/2024 4:52 PM EST [facility] Retic Ct Pct 1.7 0.7 - 1.7 % LAB HEMETOLOGY METHOD 08/13/2024 4:52 PM [facility] Immature Retic Fract 16.9(H) 2.3 - 15.9 % LAB HEMETOLOGY METHOD 08/13/2024 4:52 PM EST [facility] Reticulocyte Hemoglobin 27.3(L) >29.0 pcg LAB HEMETOLOGY METHOD 08/13/2024 4:52 PM [facility] Blood Venous blood specimen / Unknown Venipuncture / Unknown 08/13/2024 1:59 PM EST 08/13/2024 4:40 PM EST [facility] Pietro Ann MD LAB BLOOD ORDERABLES Final R esult [facility] [address] [place] [address], * (ABNORMAL) Complete blood count (08/13/2024 1:59 PM EST) [facility] WBC 8.2 4.8 - 10.8 K/mcL LAB HEMETOLOGY METHOD 08/13/2024 4:52 PM [facility] RBC 5.80(H) 4.50 - 5.50 M/mcL LAB HEMETOLOGY METHOD 08/13/2024 4:52 PM [facility] Hemoglobin 15.7 13.5 - 17.5 g/dL LAB HEMETOLOGY METHOD 08/13/2024 4:52 PM [facility] Hematocrit 50.1 42.0 - 54.0 % LAB HEMETOLOGY METHOD 08/13/2024 4:52 PM EST [facility] MCV 86.8 79.0 - 98.0 FL LAB HEMETOLOGY METHOD 08/13/2024 4:52 PM [facility] MCH 27.2 27.0 - 32.0 pcg LAB HEMETOLOGY METHOD 08/13/2024 4:52 PM [facility] MCHC 31.3(L) 32.0 - 37.0 g/dL LAB HEMETOLOGY METHOD 08/13/2024 4:52 PM EST [facility] RDW 14.6 11.0 - 15.0 % LAB HEMETOLOGY METHOD 08/13/2024 4:52 PM [facility] Platelets 258 130 - 400 K/mcL LAB HEMETOLOGY METHOD 08/13/2024 4:52 PM [facility] MPV 11.5(H) 7.0 - 11.0 FL LAB HEMETOLOGY METHOD 08/13/2024 4:52 PM [facility] NRBC 0.0 <1.0 % LAB HEMETOLOGY METHOD 08/13/2024 4:52 PM EST [facility] NRBC Absolute 0.00 <0.10 K/mcL LAB HEMETOLOGY METHOD 08/13/2024 4:52 PM [facility] Blood Venous blood specimen / Unknown Venipuncture / Unknown 08/13/2024 1:59 PM EST 08/13/2024 4:40 PM EST Nohemi Ann MD LAB BLOOD ORDERABLES Final R esult [facility] [address] [place] [address], [place] [phone] * (ABNORMAL) Comprehensive metabolic panel (08/13/2024 1:59 PM EST) Sodium 139 133 - 145 mmol/L LAB CHEMISTRY METHOD 08/13/2024 5:03 PM [facility] Potassium 3.7 3.5 - 5.5 mmol/L LAB CHEMISTRY METHOD 08/13/2024 5:03 PM [facility] Chloride 100 96 - 110 mmol/L LAB CHEMISTRY METHOD 08/13/2024 5:03 PM [facility] CO2 34(H) 21 - 32 mmol/L LAB CHEMISTRY METHOD 08/13/2024 5:03 PM [facility] Anion Gap 5 3 - 11 LAB CHEMISTRY METHOD 08/13/2024 5:03 PM [facility] Glucose 174(H) 70 - 100 mg/dL LAB CHEMISTRY METHOD 08/13/2024 5:03 PM [facility] BUN 29(H) 5 - 25 mg/dL LAB CHEMISTRY METHOD 08/13/2024 5:03 PM [facility] Creatinine 1.31(H) 0.70 - 1.30 mg/dL LAB CHEMISTRY METHOD 08/13/2024 5:03 PM [facility] eGFR 59(L) >=60 mL/min/1. 73m2 LAB CHEMISTRY METHOD 08/13/2024 5:03 PM [facility] Comment:Calculation based on the??Chronic Kidney Disease Epidemiology Collaboration (CKD-EPI) equation refit??without adjustment for race. BUN/Creatinine Ratio 22.1 LAB CHEMISTRY METHOD 08/13/2024 5:03 PM [facility] Calcium 9.7 8.5 - 10.5 mg/dL LAB CHEMISTRY METHOD 08/13/2024 5:03 PM [facility] AST (SGOT) 15 10 - 42 unit/L LAB CHEMISTRY METHOD 08/13/2024 5:03 PM [facility] ALT (SGPT) 32 10 - 60 unit/L LAB CHEMISTRY METHOD 08/13/2024 5:03 PM [facility] Alkaline Phosphatase 102 42 - 121 unit/L LAB CHEMISTRY METHOD 08/13/2024 5:03 PM [facility] Total Protein 7.4 6.0 - 8.0 g/dL LAB CHEMISTRY METHOD 08/13/2024 5:03 PM [facility] Albumin 3.9 3.2 - 5.0 g/dL LAB CHEMISTRY METHOD 08/13/2024 5:03 PM [facility] Total Bilirubin 0.3 0.0 - 1.4 mg/dL LAB CHEMISTRY METHOD 08/13/2024 5:03 PM [facility] Blood Venous blood specimen / Unknown Venipuncture / Unknown 08/13/2024 1:59 PM EST 08/13/2024 4:39 PM EST us Nohemi Ann MD LAB BLOOD ORDERABLES Final R esult [facility] [address] [place] [address], * ECG 12 lead (08/05/2024 2:49 PM EST) [facility] Ventricular Rate ECG 65 BPM GEMUSE Atrial Rate 65 BPM GEMUSE P-R Interval 190 ms GEMUSE QRS Duration 84 ms GEMUSE Q-T Interval 374 ms GEMUSE QTc 388 ms GEMUSE P Wave [place] 52 degrees GEMUSE R [place] 78 degrees GEMUSE T [place] 31 degrees GEMUSE ECG Interpretation Sinus rhythm with occasional Premature ventricular complexes Poor R wave progression Abnormal ECG No previous ECGs available Confirmed by Ludivina NAYLOR JAMES ([id number]) on 08/05/2024 3:20:56 PM GEMUSE 08/05/2024 2:49 PM EST 08/05/2024 3:20 PM EST Result [facility] Scotty Naylor MD ECG ORDERABLES Final Result [facility] * Hemoglobin A1c (09/19/2023) [facility] Hemoglobin A1C 6.3 <=6.5 % Blood Venous blood specimen / Unknown Result [facility] Provider LAB BLOOD ORDERABLES Love l Result * Hepatitis C Screening (06/28/2023) [facility] Hepatitis C Screening Abstracted Result [facility] Provider HEALTH MAINTENANCE Final Result * Diabetes Eye Exam (06/25/2023) [facility] Diabetes: Annual Retina Eye Exam Abstracted Result [facility] Provider HEALTH MAINTENANCE Final Result * Urine Albumin Creatinine Ratio (06/06/2023) [facility] Urine Albumin Creatinine Ratio Abstracted Result [facility] Provider HEALTH MAINTENANCE Final Result * Diabetes Foot Exam (06/06/2023) [facility] Diabetes: Annual Foot Exam Abstracted Result [facility] Provider HEALTH MAINTENANCE Final Result * Lipid panel (04/04/2023) LDL/HDL Ratio 2 0 - 4 Triglycerides 63 0 - 150 mg/dL Cholesterol 104 0 - 200 mg/dL HDL 43 >=40 mg/dL LDL Cholesterol 49 0 - 100 mg/dL Blood Venous blood specimen / Unknown us Historical Provider LAB BLOOD ORDERABLES Love l Result from Last 3 Months or Most Recently Relevant to Health Maintenance Insurance MEDICAID - [place] [employer] MEDICARE Care Teams Unloader Operator Relationship Specialty Start Date End Date Laxmi Christianson MD PCP - General Endocrinology 08/05/24
--- OUTSIDE RECORDS SUMMARY | 2024-10-16 07:58 | XMS_ITS | Clinical Summary ---
Author Organization [facility] Address [address] [place] [address] Care Team Providers Care Records Supervisor Name Role Phone Marie Luke MD Primary [...] age to complete this topic Care Teams Records Supervisor Relationship Specialty Start Date End Date Marie Luke MD [address] [place] [address] PCP - General Internal Medicine 10/31/23
--- NOTE | 2024-10-16 07:59 | MHC.OFFVIS ---
Vital Signs 10/16/24 08:04 Height 5 ft 4 in Weight 212 lb 11.937 oz BMI 36.5 BP 120/74 Blood Pressure Location Rt brachial Position Sitting Pulse 65 Pulse Source Pulse Oximeter Pulse Oximetry (%) 96 Oxygen Delivery Method Room Air Intake Visit Reasons: T2DM Intake Note: Last Diabetic Eye exam: 10/26/24 Last Podiatry Visit: needs a referral Most Recent HgA1c: 7.3% 09/17/24 Random Glucose: _128___ mg/dL, Today Bran Mixer Required: Yes Bran Mixer Services: Bran Mixer Present Bran Mixer Name: daughter Accompanied by: Daughter Allergies shrimp Allergy (Unknown, Verified 10/16/24 08:06) Vomiting Medication List - Last Reconciled 10/16/24 by Maylin Chen NP acetaminophen ER (Arthritis Pain Relief (acetaminophen) ER) 650 mg PO Q12H 90 days amlodipine 5 mg PO DAILY 90 days aspirin (Adult Low Dose Aspirin) 81 mg PO DAILY atorvastatin 40 mg PO DAILY blood sugar diagnostic ([employer] Verio test strips) As directed to check blood glucose blood-glucose sensor (NuCana BioMedStyle Mayra 3 Plus Sensor device) As directed every 15 days chlorthalidone 50 mg PO DAILY cyanocobalamin (vitamin B-12) 1,000 mcg PO DAILY gabapentin 300 mg PO TID insulin lispro protamin-lispro 100 unit/mL (75-25) (Humalog Mix 75-25 KwikPen) 30 units (0.3 mL) subcut BID 90 days Jardiance (empagliflozin) 25 mg PO DAILY NS lisinopril 40 mg PO DAILY 90 days metformin 500 mg PO BID metoprolol succinate ER 50 mg PO DAILY OneTouch Delica Plus Lancet (lancets) Four times daily NS pen needle, diabetic As directed bid NS triamcinolone acetonide 40 mg IM DAILY HPI Comments Details: [age] YO male who is seen in consultation for T2DM at the request of PCP. Initially diagnosed with T2DM in his youth. Was started initially on metformin/glucotrol Started on insulin in middle school. Current regimen: Humulin 70/30 30 units b.i.d. Metformin 500 mg b.i.d. Jardiance 25 mg daily Acarbose 25 mg daily He was previously using a Dexcom sensor but it was not staying on for the full 10 days in often failed after 3-4. He tests once or twice daily but does not have his meter today. He recalls that his morning sugars are 150-160 Family history of T2DM in mother, siblings, Has retinopathy followed by [facility] and has been referred to retinal specialist He has an appt end of September with [facility] and his daughter we will request the referral again to the retinal specialist. Has neuropathy. Symptoms relieved with the gabapentin. Desires podiatry referral. Last foot exam today in the office. Has nephropathy 09/17/2024 creatinine 59 07/2024 microalbumin 27 Has HLD on statin last LDL 07/2024 43 Prior history of CVA 2010 Has CAD [facility] Medical History (Updated 10/16/24 @ 09:00 by Maylin Chen NP) CVA (cerebral vascular accident) Swelling, mass, or lump in chest Blurry vision, bilateral Blurry vision Surgical History S/P excision of lipoma (09/24/24) Hx of hernia repair Hx of arthroscopy of left knee Social History Household Members: None Housing: Apartment Alcohol intake: never Patient Tobacco Use Status: Never used Tobacco e-Cigarette/Vaping Use: Never Used Current occupational status: retired Cognitive needs: No Hearing needs: No Vision needs: Yes Physical Exam Vital Signs: Last Vital Signs Pulse 65 10/16/24 08:04 BP 120/74 10/16/24 08:04 Pulse Ox 96 10/16/24 08:04 Oxygen Delivery Method Room Air 10/16/24 08:04 BMI result Body Mass Index 36.5 Absence of Cushingoid features. Absence of acromegalic features. Neck exam reveals nl size thyroid about 15 gms. No thyroid nodules palpable. No carotid bruits present. Lungs CTA. Heart S1 S2, Reg R/R. No M/R/ G. Skin exam reveals absence of vitiligo or acanthosis nigricans. Abdominal exam reveals Soft NT/ND with NA BS. No organomegaly present. Const Other: Absence of Cushingoid features. Absence of acromegalic features. Neck exam reveals nl size thyroid about 15 gms. No thyroid nodules palpable. No carotid bruits present. Lungs CTA. Heart S1 S2, Reg R/R. No M/R G. Skin exam reveals absence of vitiligo or acanthosis nigricans. No edema. aphasia Uses cane for ambulation, write brace for foot drop. exam of foot performed. No ulcerations or open lesions. No inter digit maceration or fissuring. + onychomycosis, no callouses. Sensation intact to monofilament exam. Vibratory sensation is normal with 128 Hz tuning fork. Pulses positive. Neck Other: . Extrem Other: Visual exam of foot performed. No ulcerations or open lesions. No onchomycosis, no callouses.Pulses 2 + distally Sensation intact to monofilament exam. Vibratory sensation sensed is intact with 128 Hz tuning fork Results Reviewed Results Reviewed: Laboratory Last Values Glucose (Clinic) 128 mg/dL (60-115) H 10/16/24 08:14 Assessment & Plan Assessment & Plan (1) Type 2 diabetes mellitus: Code(s): E11.9 - Type 2 diabetes mellitus without complications Category: Medical Qualifiers: Diabetes mellitus complication detail: with other neurological complication Diabetes mellitus complication status: with neurologic complications Diabetes mellitus termite control servicer insulin use: with termite control servicer use Qualified Code(s): E11.49 - Type 2 diabetes mellitus with other diabetic neurological complication; Z79.4 - senior care (current) use of insulin Plan: 68-year-old with diabetes with cad, cva,retinopathy, neuropathy and nephropathy with recent A1c of 7.8%. He was diagnosed in his youth. check C-peptide, gada and insulin antibodies. If type 2, will start on pioglitazone 15 mg which can reduce the risk of a 2nd CVA and can also consider starting him on a GLP 1 agonist for better diabetes control and weight control as he is not at his target A1c. For now will stop acarbose, change Humulin 70 30 to Humalog mix same dosing at 30 units and we will continue metformin b.i.d. I have sent a prescription for a DoTheGlobeyle Mayra 3+. He is on multiple daily doses of insulin and would benefit from having continuous glucose readings particularly because he has suffered a stroke in could easily fall if he had a hypoglycemic episode. He would like to use his android phone for this. He has been on Dexcom in the past but the sensor did not last more than a few days and would stop working. Orders: Orders C Peptide Today E11.49 - Type 2 diabetes mellitus with other diabetic neurological complication, Z79.4 - terminal block assembler (current) use of insulin Islet Cell Antibody Scrn/Titer Today E11.49 - Type 2 diabetes mellitus with other diabetic neurological complication, Z79.4 - terminal block assembler (current) use of insulin Glutamic acid decarboxylase Ab Today E11.49 - Type 2 diabetes mellitus with other diabetic neurological complication, Z79.4 - senior care (current) use of insulin Referrals Podiatry Referral E11.49 - Type 2 diabetes mellitus with other diabetic neurological complication, Z79.4 - terminal block assembler (current) use of insulin Diabetes Education Referral E11.49 - Type 2 diabetes mellitus with other diabetic neurological complication, Z79.4 - senior care (current) use of insulin Nutrition/Dietitian Referral E11.49 - Type 2 diabetes mellitus with other diabetic neurological complication, Z79.4 - terminal block assembler (current) use of insulin Medications: New blood-glucose sensor (FreeStyle Mayra 3 Plus Sensor device) As directed every 15 days 6 ea 3RF insulin lispro protamin-lispro 100 unit/mL (75-25) (Humalog Mix 75-25 KwikPen) before breakfast and supper 30 units (0.3 mL) subcut BID 54 mL 3RF 90 days pen needle, diabetic As directed bid 200 ea 6RF NS Refilled Jardiance (empagliflozin) 25 mg PO DAILY 90 tabs 3RF NS E11.49 - Type 2 diabetes mellitus with other diabetic neurological complication, Z79.4 - terminal block assembler (current) use of insulin metoprolol succinate ER 50 mg PO DAILY 90 tabs 3RF Discontinued insulin syringe-needle U-100 (BD Insulin Syringe Ultra-Fine) Discontinued Reason: Doctor's Order four times daily 400 ea 3RF E11.49 - Type 2 diabetes mellitus with other diabetic neurological complication, Z79.4 - terminal block assembler (current) use of insulin insulin syringe,safety needle (BD SafetyGlide Insulin Syringe) Discontinued Reason: Doctor's Order four times daily 400 ea 3RF acarbose Discontinued Reason: Doctor's Order 25 mg PO DAILY 90 tabs 3RF Dexcom G7 Film Numberer (blood-glucose,software applications engineer,cont) Discontinued Reason: Doctor's Order As directed 1 ea 0RF NS E11.49 - Type 2 diabetes mellitus with other diabetic neurological complication, Z79.4 - senior care (current) use of insulin Dexcom G7 Sensor (blood-glucose sensor) Discontinued Reason: Change Referral Type every 10 days 9 ea 3RF NS E11.49 - Type 2 diabetes mellitus with other diabetic neurological complication, Z79.4 - terminal block assembler (current) use of insulin Humulin 70/30 U-100 Insulin 100 unit/mL (70-30) (insulin NPH and regular human) Discontinued Reason: Doctor's Order 30 units (0.3 mL) subcut BID 90 days 54 mL 3RF NS E11.49 - Type 2 diabetes mellitus with other diabetic neurological complication, Z79.4 - senior care (current) use of insulin Coding Level of Care Code New Pt Level 4 (26520) Complex EM visit Add On G2211 Diagnoses Type 2 diabetes mellitus with other neurologic complication, with long-term current use of insulin E11.49; Z79.4 Diabetes mellitus complication detail: with other neurological complication Diabetes mellitus complication status: with neurologic complications Diabetes mellitus shelter insulin use: with termite control servicer use Time Spent (min) 60 Comment Time spent reviewing labs/provider notes, face to face, chart doc
[2024-10-16 08:04] VITALS: BP 120/74; PULSE 65; O2SAT 96; BMI 36.5
[2024-10-16 08:21] LABS: Glucose, Whole Blood 128 mg/dL (60-115)
== END 2024-10-16 08:51 | disposition home or self-care (01) ==
LOC: HO.ENCR 07:55
PROVIDERS: PCP Internal Medicine; Visit Provider Nurse Practitioner Adult Health
DX: E11.49 Type 2 diabetes mellitus with other diabetic neurological complication (principal); Z79.4 Long term (current) use of insulin
CPT/HCPCS: 99204

== ENCOUNTER 2024-10-16 07:54 | Outpatient (REF) | payer OTHER, MEDICAID, SELFPAY ==
--- OUTSIDE RECORDS SUMMARY | 2024-10-16 09:36 | XMS_ITS | Clinical Summary ---
Author Organization [facility] Address [address] [place] [address] Phone Care Team Providers Care Prop Maker Name Role Phone Laxmi Christianson MD Primary Care Provider [phone] Allergies Active Allergy Reactions Criticality Noted Date [...] (BMI) of 35.0 to 35.9 in adult ([facility] V24, [facility] V28) 06/04/2024 CAD (coronary artery disease) 04/02/2023 [...] Type 2 diabetes mellitus wit hout complications ([facility] V24, [facility] V28) 04/02/2023 Encounters Date Type Department Care Team Description 08/18/2024 8:30 AM EST Office Visit [facility] Hematology Oncology [address] [place] [address] Nohemi Ann MD Polycythemia (Primary Dx); Myeloproliferative neoplasm ([facility] V24, [facility] V28) 08/05/2024 3:00 PM EST Office Visit [facility] Cardiology [facility] [address] [place] [id number] Scotty Naylor MD Essential (primary) hypertension (Primary [...] Type 2 diabetes mellitus wit hout complications ([facility] V24, [facility] V28) DX:Type 2 carolyn betes mellitus without complications (HCC) CAD (coronary artery disease) DX :CAD (coronary artery disease); COMMENT: Stents 2006 and 2008. LAD, RCA, LCX Mixed hyperlipidemia DX:Mixed hy perlipidemia Osteoarthritis, knee DX:Osteoart hritis, knee Polycythemia vera ([facility] V 24, [facility] V28) DX:Polycythemia vera ([facility]) CVA (cerebral vascular accid ent) ([facility] V24, [facility] V28) 2021 DX:CVA (cerebral vascular a ccident) ([facility]) Family History Medical History Relation Name Comments [...] Description 03/08/2025 3:45 PM EDT Office Visit [facility] Hematology Oncology [address] [place] [phone] Nohemi Ann MD [address] [place] [address] Health Maintenance Due Date Last Done Comments [...] 1: 59 PM EST PV (polycythemia vera) ([facility] V[facility], [facility] V28) ERYTHROPOIETIN Routine 08/13/2024 1:59 PM EST PV (polycythemia vera) ([facility] V[facility], [facility] V28) COMPLETE BLOOD COUNT Routine 08/13/2024 1:59 PM EST PV (polycythemia vera) ([facility] V24, [facility] V28) COMPREHENSIVE METABOLIC PANEL Routine 08/13/2024 1:59 PM EST PV (polycythemia vera) ([facility] V24, [facility] V28) ECG 12-LEAD Routine 08/05/2024 2:49 PM [...] (ABNORMAL) Erythropoietin (08/13/2024 1:59 PM EST) Pathologist [facility] Erythropoietin 19.2(H) 2.6 - 18.5 mIU/mL 08/17/2024 2:55 PM EST [facility] Comment: Test performed at [facility], [address] , [place], [place] ??[address] ? [phone] Crissy Keller MD, PhD - Fruit Vendor Blood Venous blood specimen / Unknown Venipuncture / Unknown 08/13/2024 1:59 PM EST 08/13/2024 4:39 PM EST [facility] Pietro Ann MD LAB BLOOD ORDERABLES Final R esult [facility] [address] [place] [address] * (ABNORMAL) Reticulocyte count (08/13/2024 1:59 PM EST) Pathologist [facility] Retic Ct Abs 0.100(H) 0.030 - 0.090 M/mcL LAB HEMETOLOGY METHOD 08/13/2024 4:52 PM EST [facility] Retic Ct Pct 1.7 0.7 - 1.7 % LAB HEMETOLOGY METHOD 08/13/2024 4:52 PM [facility] Immature Retic Fract 16.9(H) 2.3 - 15.9 % LAB HEMETOLOGY METHOD 08/13/2024 4:52 PM EST [facility] Reticulocyte Hemoglobin 27.3(L) >29.0 pcg LAB HEMETOLOGY METHOD 08/13/2024 4:52 PM [facility] Blood Venous blood specimen / Unknown Venipuncture / Unknown 08/13/2024 1:59 PM EST 08/13/2024 4:40 PM EST [facility] Pietro Ann MD LAB BLOOD ORDERABLES Final R esult [facility] [address] [place] [address], * (ABNORMAL) Complete blood count (08/13/2024 1:59 PM EST) [facility] WBC 8.2 4.8 - 10.8 K/mcL LAB HEMETOLOGY METHOD 08/13/2024 4:52 PM [facility] RBC 5.80(H) 4.50 - 5.50 M/mcL LAB HEMETOLOGY METHOD 08/13/2024 4:52 PM [facility] Hemoglobin 15.7 13.5 - 17.5 g/dL LAB HEMETOLOGY METHOD 08/13/2024 4:52 PM [facility] Hematocrit 50.1 42.0 - 54.0 % LAB HEMETOLOGY METHOD 08/13/2024 4:52 PM EST [facility] MCV 86.8 79.0 - 98.0 FL LAB HEMETOLOGY METHOD 08/13/2024 4:52 PM [facility] MCH 27.2 27.0 - 32.0 pcg LAB HEMETOLOGY METHOD 08/13/2024 4:52 PM [facility] MCHC 31.3(L) 32.0 - 37.0 g/dL LAB HEMETOLOGY METHOD 08/13/2024 4:52 PM EST [facility] RDW 14.6 11.0 - 15.0 % LAB HEMETOLOGY METHOD 08/13/2024 4:52 PM [facility] Platelets 258 130 - 400 K/mcL LAB HEMETOLOGY METHOD 08/13/2024 4:52 PM [facility] MPV 11.5(H) 7.0 - 11.0 FL LAB HEMETOLOGY METHOD 08/13/2024 4:52 PM [facility] NRBC 0.0 <1.0 % LAB HEMETOLOGY METHOD 08/13/2024 4:52 PM EST [facility] NRBC Absolute 0.00 <0.10 K/mcL LAB HEMETOLOGY METHOD 08/13/2024 4:52 PM [facility] Blood Venous blood specimen / Unknown Venipuncture / Unknown 08/13/2024 1:59 PM EST 08/13/2024 4:40 PM EST Nohemi Ann MD LAB BLOOD ORDERABLES Final R esult [facility] [address] [place] [address], [place] [phone] * (ABNORMAL) Comprehensive metabolic panel (08/13/2024 1:59 PM EST) Sodium 139 133 - 145 mmol/L LAB CHEMISTRY METHOD 08/13/2024 5:03 PM [facility] Potassium 3.7 3.5 - 5.5 mmol/L LAB CHEMISTRY METHOD 08/13/2024 5:03 PM [facility] Chloride 100 96 - 110 mmol/L LAB CHEMISTRY METHOD 08/13/2024 5:03 PM [facility] CO2 34(H) 21 - 32 mmol/L LAB CHEMISTRY METHOD 08/13/2024 5:03 PM [facility] Anion Gap 5 3 - 11 LAB CHEMISTRY METHOD 08/13/2024 5:03 PM [facility] Glucose 174(H) 70 - 100 mg/dL LAB CHEMISTRY METHOD 08/13/2024 5:03 PM [facility] BUN 29(H) 5 - 25 mg/dL LAB CHEMISTRY METHOD 08/13/2024 5:03 PM [facility] Creatinine 1.31(H) 0.70 - 1.30 mg/dL LAB CHEMISTRY METHOD 08/13/2024 5:03 PM [facility] eGFR 59(L) >=60 mL/min/1. 73m2 LAB CHEMISTRY METHOD 08/13/2024 5:03 PM [facility] Comment:Calculation based on the??Chronic Kidney Disease Epidemiology Collaboration (CKD-EPI) equation refit??without adjustment for race. BUN/Creatinine Ratio 22.1 LAB CHEMISTRY METHOD 08/13/2024 5:03 PM [facility] Calcium 9.7 8.5 - 10.5 mg/dL LAB CHEMISTRY METHOD 08/13/2024 5:03 PM [facility] AST (SGOT) 15 10 - 42 unit/L LAB CHEMISTRY METHOD 08/13/2024 5:03 PM [facility] ALT (SGPT) 32 10 - 60 unit/L LAB CHEMISTRY METHOD 08/13/2024 5:03 PM [facility] Alkaline Phosphatase 102 42 - 121 unit/L LAB CHEMISTRY METHOD 08/13/2024 5:03 PM [facility] Total Protein 7.4 6.0 - 8.0 g/dL LAB CHEMISTRY METHOD 08/13/2024 5:03 PM [facility] Albumin 3.9 3.2 - 5.0 g/dL LAB CHEMISTRY METHOD 08/13/2024 5:03 PM [facility] Total Bilirubin 0.3 0.0 - 1.4 mg/dL LAB CHEMISTRY METHOD 08/13/2024 5:03 PM [facility] Blood Venous blood specimen / Unknown Venipuncture / Unknown 08/13/2024 1:59 PM EST 08/13/2024 4:39 PM EST us Nohemi Ann MD LAB BLOOD ORDERABLES Final R esult [facility] [address] [place] [address], * ECG 12 lead (08/05/2024 2:49 PM EST) [facility] Ventricular Rate ECG 65 BPM GEMUSE Atrial Rate 65 BPM GEMUSE P-R Interval 190 ms GEMUSE QRS Duration 84 ms GEMUSE Q-T Interval 374 ms GEMUSE QTc 388 ms GEMUSE P Wave [place] 52 degrees GEMUSE R [place] 78 degrees GEMUSE T [place] 31 degrees GEMUSE ECG Interpretation Sinus rhythm with occasional Premature ventricular complexes Poor R wave progression Abnormal ECG No previous ECGs available Confirmed by Ludivina NAYLOR JAMES ([id number]) on 08/05/2024 3:20:56 PM GEMUSE 08/05/2024 2:49 PM EST 08/05/2024 3:20 PM EST Result [facility] Scotty Naylor MD ECG ORDERABLES Final Result GEMUSE * Hemoglobin A1c (09/19/2023) [facility] Hemoglobin A1C 6.3 <=6.5 % Blood Venous blood specimen / Unknown Result [facility] Provider LAB BLOOD ORDERABLES Love l Result * Hepatitis C Screening (06/28/2023) [facility] Hepatitis C Screening Abstracted Result [facility] Provider HEALTH MAINTENANCE Final Result * Diabetes Eye Exam (06/25/2023) [facility] Diabetes: Annual Retina Eye Exam Abstracted Result [facility] Provider HEALTH MAINTENANCE Final Result * Urine Albumin Creatinine Ratio (06/06/2023) [facility] Urine Albumin Creatinine Ratio Abstracted Result [facility] Provider HEALTH MAINTENANCE Final Result * Diabetes Foot Exam (06/06/2023) [facility] Diabetes: Annual Foot Exam Abstracted Result [facility] Provider HEALTH MAINTENANCE Final Result * Lipid [...] - [place] [employer] MEDIC[place] Care Teams Prop Maker Relationship Specialty Start Date End Date Laxmi Christianson MD PCP - General Endocrinology 08/05/24
--- OUTSIDE RECORDS SUMMARY | 2024-10-16 09:36 | XMS_ITS | Clinical Summary ---
Author Organization [facility] Address [address] [place] [address] Care Team Providers Care Medical Dosimetrist Name Role Phone Marie Luke MD Primary [...] age to complete this topic Care Teams Medical Dosimetrist Relationship Specialty Start Date End Date Marie Luke MD [address] [place] [address] PCP - General Internal Medicine 10/31/23
--- OUTSIDE RECORDS SUMMARY | 2024-10-16 09:36 | XMS_ITS | Continuity of Care Document ---
Author Organization [facility] Address [address] [place] [address] Phone Care Team Providers Care Deep Tissue Massage Therapist Name Role Phone Z-Converted, Provider Unavailable Unavailabl e Advance Directives Directive Yes / No Effective Date File Name No Information Encounters Encounter Description Practice Location Reason(s) For Visit Diagnoses Date Provider Providers Copied on Encounter [facility], [address] [place] [address],[address], [place], [place], [id number], [place] tel:[phone] [facility] Unspecified chest pain Sep-2 8200 6 [...]
--- OUTSIDE RECORDS SUMMARY | 2024-10-16 09:36 | XMS_ITS | Clinical Summary ---
Author Organization [email or web address] Address [address] [place] [address] Care Team Providers Care In Service Educator Name Role Phone Unavailable Primary Care Provider [...] Recently Relevant to Health Maintenance Insurance [facility] N FULL (MEDICAID)
[2024-10-17 08:59] LABS: C Peptide 2.17 ng/mL (0.80-3.85)
[2024-10-22 17:43] LABS: Glutamic acid decarboxylase Ab <5 IU/mL (<5)
[2024-10-24 00:53] LABS: Islet Cell Antibody Screen NEGATIVE (NEGATIVE)
== END 2024-10-16 07:55 | disposition home or self-care (01) ==
LOC: HO.LAB 07:54
PROVIDERS: PCP Internal Medicine; Visit Provider Nurse Practitioner Adult Health
DX: E11.49 Type 2 diabetes mellitus with other diabetic neurological complication (principal); Z79.4 Long term (current) use of insulin
CPT/HCPCS: 36415; 82947; 84681; 86341

== ENCOUNTER 2024-10-22 14:56 | Outpatient (REF) | payer OTHER, MEDICAID, SELFPAY ==
--- OUTSIDE RECORDS SUMMARY | 2024-10-22 17:40 | XMS_ITS | Clinical Summary ---
Author Organization [facility] Address [address] [place] [address] Phone Care Team Providers Care Machine Pack Assembler Name Role Phone Laxmi Christianson MD Primary Care Provider [phone] Allergies Active Allergy Reactions Criticality Noted Date [...] (BMI) of 35.0 to 35.9 in adult ([facility] V24, [facility] V28) 06/04/2024 CAD (coronary artery disease) 04/02/2023 [...] Type 2 diabetes mellitus wit hout complications ([facility] V24, [facility] V28) 04/02/2023 Encounters Date Type Department Care Team Description 08/18/2024 8:30 AM EST Office Visit [facility] Hematology Oncology [address] [place] [address] Nohemi Ann MD Polycythemia (Primary Dx); Myeloproliferative neoplasm ([facility] V24, [facility] V28) 08/05/2024 3:00 PM EST Office Visit [facility] Cardiology [facility] [address] [place] [id number] Scotty Naylor MD Essential (primary) hypertension (Primary [...] Type 2 diabetes mellitus wit hout complications ([facility] V24, [facility] V28) DX:Type 2 carolyn betes mellitus without complications (HCC) CAD (coronary artery disease) DX :CAD (coronary artery disease); COMMENT: Stents 2006 and 2008. LAD, RCA, LCX Mixed hyperlipidemia DX:Mixed hy perlipidemia Osteoarthritis, knee DX:Osteoart hritis, knee Polycythemia vera ([facility] V 24, [facility] V28) DX:Polycythemia vera ([facility]) CVA (cerebral vascular accid ent) ([facility] V24, [facility] V28) 2021 DX:CVA (cerebral vascular a ccident) ([facility]) Family History Medical History Relation Name Comments [...] 03/08/2025 3:45 PM EDT Office Visit [facility] Hematology Oncology [address] [place] [phone] Nohemi Ann MD [address] [place] [address] Health Maintenance Due Date Last Done Comments [...] 1: 59 PM EST PV (polycythemia vera) ([facility] V24, [facility] V28) ERYTHROPOIETIN Routine 08/13/2024 1:59 PM EST PV (polycythemia vera) ([facility] V24, [facility] V28) COMPLETE BLOOD COUNT Routine 08/13/2024 1:59 PM EST PV (polycythemia vera) ([facility] V24, [facility] V28) COMPREHENSIVE METABOLIC PANEL Routine 08/13/2024 1:59 PM EST PV (polycythemia vera) ([facility] V24, [facility] V28) ECG 12-LEAD Routine 08/05/2024 2:49 PM [...] Erythropoietin (08/13/2024 1:59 PM EST) Pathologist [facility] Erythropoietin 19.2(H) 2.6 - 18.5 mIU/mL 08/17/2024 2:55 PM EST [facility] Comment: Test performed at [facility], [address] , [place], [place] ??[address] ? [phone] Crissy Keller MD, PhD - Tan Room Supervisor Blood Venous blood specimen / Unknown Venipuncture / Unknown 08/13/2024 1:59 PM EST 08/13/2024 4:39 PM EST [facility] Pietro Ann MD LAB BLOOD ORDERABLES Final R esult [facility] [address] [place] [address] * (ABNORMAL) Reticulocyte count (08/13/2024 1:59 PM EST) Pathologist [facility] Retic Ct Abs 0.100(H) 0.030 - 0.090 M/mcL LAB HEMETOLOGY METHOD 08/13/2024 4:52 PM EST [facility] Retic Ct Pct 1.7 0.7 - 1.7 % LAB HEMETOLOGY METHOD 08/13/2024 4:52 PM [facility] Immature Retic Fract 16.9(H) 2.3 - 15.9 % LAB HEMETOLOGY METHOD 08/13/2024 4:52 PM EST [facility] Reticulocyte Hemoglobin 27.3(L) >29.0 pcg LAB HEMETOLOGY METHOD 08/13/2024 4:52 PM [facility] Blood Venous blood specimen / Unknown Venipuncture / Unknown 08/13/2024 1:59 PM EST 08/13/2024 4:40 PM EST [facility] Pietro Ann MD LAB BLOOD ORDERABLES Final R esult [facility] [address] [place] [address], * (ABNORMAL) Complete blood count (08/13/2024 1:59 PM EST) [facility] WBC 8.2 4.8 - 10.8 K/mcL LAB HEMETOLOGY METHOD 08/13/2024 4:52 PM [facility] RBC 5.80(H) 4.50 - 5.50 M/mcL LAB HEMETOLOGY METHOD 08/13/2024 4:52 PM [facility] Hemoglobin 15.7 13.5 - 17.5 g/dL LAB HEMETOLOGY METHOD 08/13/2024 4:52 PM [facility] Hematocrit 50.1 42.0 - 54.0 % LAB HEMETOLOGY METHOD 08/13/2024 4:52 PM EST [facility] MCV 86.8 79.0 - 98.0 FL LAB HEMETOLOGY METHOD 08/13/2024 4:52 PM [facility] MCH 27.2 27.0 - 32.0 pcg LAB HEMETOLOGY METHOD 08/13/2024 4:52 PM [facility] MCHC 31.3(L) 32.0 - 37.0 g/dL LAB HEMETOLOGY METHOD 08/13/2024 4:52 PM EST [facility] RDW 14.6 11.0 - 15.0 % LAB HEMETOLOGY METHOD 08/13/2024 4:52 PM [facility] Platelets 258 130 - 400 K/mcL LAB HEMETOLOGY METHOD 08/13/2024 4:52 PM [facility] MPV 11.5(H) 7.0 - 11.0 FL LAB HEMETOLOGY METHOD 08/13/2024 4:52 PM [facility] NRBC 0.0 <1.0 % LAB HEMETOLOGY METHOD 08/13/2024 4:52 PM EST [facility] NRBC Absolute 0.00 <0.10 K/mcL LAB HEMETOLOGY METHOD 08/13/2024 4:52 PM [facility] Blood Venous blood specimen / Unknown Venipuncture / Unknown 08/13/2024 1:59 PM EST 08/13/2024 4:40 PM EST Nohemi Ann MD LAB BLOOD ORDERABLES Final R esult [facility] [address] [place] [address], [place] [phone] * (ABNORMAL) Comprehensive metabolic panel (08/13/2024 1:59 PM EST) Sodium 139 133 - 145 mmol/L LAB CHEMISTRY METHOD 08/13/2024 5:03 PM [facility] Potassium 3.7 3.5 - 5.5 mmol/L LAB CHEMISTRY METHOD 08/13/2024 5:03 PM [facility] Chloride 100 96 - 110 mmol/L LAB CHEMISTRY METHOD 08/13/2024 5:03 PM [facility] CO2 34(H) 21 - 32 mmol/L LAB CHEMISTRY METHOD 08/13/2024 5:03 PM [facility] Anion Gap 5 3 - 11 LAB CHEMISTRY METHOD 08/13/2024 5:03 PM [facility] Glucose 174(H) 70 - 100 mg/dL LAB CHEMISTRY METHOD 08/13/2024 5:03 PM [facility] BUN 29(H) 5 - 25 mg/dL LAB CHEMISTRY METHOD 08/13/2024 5:03 PM [facility] Creatinine 1.31(H) 0.70 - 1.30 mg/dL LAB CHEMISTRY METHOD 08/13/2024 5:03 PM [facility] eGFR 59(L) >=60 mL/min/1. 73m2 LAB CHEMISTRY METHOD 08/13/2024 5:03 PM [facility] Comment:Calculation based on the??Chronic Kidney Disease Epidemiology Collaboration (CKD-EPI) equation refit??without adjustment for race. BUN/Creatinine Ratio 22.1 LAB CHEMISTRY METHOD 08/13/2024 5:03 PM [facility] Calcium 9.7 8.5 - 10.5 mg/dL LAB CHEMISTRY METHOD 08/13/2024 5:03 PM [facility] AST (SGOT) 15 10 - 42 unit/L LAB CHEMISTRY METHOD 08/13/2024 5:03 PM [facility] ALT (SGPT) 32 10 - 60 unit/L LAB CHEMISTRY METHOD 08/13/2024 5:03 PM [facility] Alkaline Phosphatase 102 42 - 121 unit/L LAB CHEMISTRY METHOD 08/13/2024 5:03 PM [facility] Total Protein 7.4 6.0 - 8.0 g/dL LAB CHEMISTRY METHOD 08/13/2024 5:03 PM [facility] Albumin 3.9 3.2 - 5.0 g/dL LAB CHEMISTRY METHOD 08/13/2024 5:03 PM [facility] Total Bilirubin 0.3 0.0 - 1.4 mg/dL LAB CHEMISTRY METHOD 08/13/2024 5:03 PM [facility] Blood Venous blood specimen / Unknown Venipuncture / Unknown 08/13/2024 1:59 PM EST 08/13/2024 4:39 PM EST us Nohemi Ann MD LAB BLOOD ORDERABLES Final R esult [facility] [address] [place] [address], * ECG 12 lead (08/05/2024 2:49 PM EST) [facility] Ventricular Rate ECG 65 BPM GEMUSE Atrial Rate 65 BPM GEMUSE P-R Interval 190 ms GEMUSE QRS Duration 84 ms GEMUSE Q-T Interval 374 ms GEMUSE QTc 388 ms GEMUSE P Wave Codorus 52 degrees GEMUSE R Codorus 78 degrees GEMUSE T Codorus 31 degrees GEMUSE ECG Interpretation Sinus rhythm with occasional Premature ventricular complexes Poor R wave progression Abnormal ECG No previous ECGs available Confirmed by Ludivina NAYLOR JAMES ([id number]) on 08/05/2024 3:20:56 PM GEMUSE 08/05/2024 2:49 PM EST 08/05/2024 3:20 PM EST Result [facility] Scotty Naylor MD ECG ORDERABLES Final Result GEMUSE * Hemoglobin A1c (09/19/2023) [facility] Hemoglobin A1C 6.3 <=6.5 % Blood Venous blood specimen / Unknown Result [facility] Provider LAB BLOOD ORDERABLES Love l Result * Hepatitis C Screening (06/28/2023) [facility] Hepatitis C Screening Abstracted Result [facility] Provider HEALTH MAINTENANCE Final Result * Diabetes Eye Exam (06/25/2023) [facility] Diabetes: Annual Retina Eye Exam Abstracted Result [facility] Provider HEALTH MAINTENANCE Final Result * Urine Albumin Creatinine Ratio (06/06/2023) [facility] Urine Albumin Creatinine Ratio Abstracted Result [facility] Provider HEALTH MAINTENANCE Final Result * Diabetes Foot Exam (06/06/2023) [facility] Diabetes: Annual Foot Exam Abstracted Result [facility] Provider HEALTH MAINTENANCE Final Result [...] - [place] [employer] MEDICARE Care Teams Machine Pack Assembler Relationship Specialty Start Date End Date Laxmi Christianson MD PCP - General Endocrinology 08/05/24
--- OUTSIDE RECORDS SUMMARY | 2024-10-22 17:40 | XMS_ITS | Clinical Summary ---
Author Organization [employer] Address [address] [place] [address] Care Team Providers Care Surveillance Operator Name Role Phone Unavailable Primary Care Provider [...] Recently Relevant to Health Maintenance Insurance DENTAL [facility] DENTAL - N FULL (MEDICAID)
--- OUTSIDE RECORDS SUMMARY | 2024-10-22 17:40 | XMS_ITS | Clinical Summary ---
Author Organization [facility] Address [address] [place] [address] Care Team Providers Care Wastewater Manager Name Role Phone Marie Luke MD Primary [...] age to complete this topic Care Teams Wastewater Manager Relationship Specialty Start Date End Date Marie Luke MD [address] [place] [address] PCP - General Internal Medicine 10/31/23
--- OUTSIDE RECORDS SUMMARY | 2024-10-22 17:40 | XMS_ITS | Continuity of Care Document ---
Author Organization [facility] Address [address] [place] [address] Phone Care Team Providers Care Financial Aid Name Role Phone Z-Converted, Provider Unavailable Unavailabl e Advance Directives Directive Yes / No Effective Date File Name No Information Encounters Encounter Description Practice Location Reason(s) For Visit Diagnoses Date Provider Providers Copied on Encounter [facility], [address] [place] [address],[address], [place], [place], [id number], [place] tel:[phone] [facility] Unspecified chest pain Sep-2 8200 6 [...]
== END 2024-10-22 14:57 | disposition home or self-care (01) ==
LOC: HO.BBR 14:56
PROVIDERS: PCP Internal Medicine; Visit Provider Internal Medicine
DX: D45 Polycythemia vera (principal)
CPT/HCPCS: 85014; 85018; 99195

== ENCOUNTER 2024-11-03 10:06 | Outpatient (AMB) | payer OTHER, MEDICAID, SELFPAY ==
--- NOTE | 2024-11-03 10:40 | MHC.AMDMED ---
Intake Intake Visit Reasons: DM Tank Truck Engine Mechanic Required: Yes Tank Truck Engine Mechanic Language: Armenian Accompanied by: Self / Same As Patient Allergies shrimp Allergy (Unknown, Verified 10/16/24 08:06) Vomiting HPI Comprehensive Diabetes Asmnt Most Recent Diabetes Results: Microalb/Creat Ratio 25.0 ug/mg cr (<30) 07/23/24 Cholesterol 116 mg/dL (<200) 07/23/24 HDL Cholesterol 47 mg/dL (>40) 07/23/24 Triglycerides 132 mg/dL (<150) 07/23/24 Creatinine 1.21 mg/dL (0.5-1.4) 09/17/24 Blood Urea Nitrogen 23 mg/dL (9-16) H 09/17/24 Sodium 139 mmol/L (135-145) 09/17/24 Potassium 4.0 mmol/L (3.3-5.1) 09/17/24 Chloride 99 mmol/L (96-108) 09/17/24 Carbon Dioxide 30 mmol/L (22-29) H 09/17/24 Calcium 10.0 mg/dL (8.4-10.2) 09/17/24 AST 27 U/L (5-37) 09/17/24 ALT 33 U/L (0-40) 09/17/24 Total Protein 7.8 g/dL (6.5-8.0) 09/17/24 Albumin 4.2 g/dL (3.5-5.0) 09/17/24 [facility] Medical History (Updated 10/16/24 @ 09:00 by Maylin Chen NP) CVA (cerebral vascular accident) Swelling, mass, or lump in chest Blurry vision, bilateral Blurry vision Surgical History S/P excision of lipoma (09/24/24) Hx of hernia repair Hx of arthroscopy of left knee Social History Household Members: None Housing: Apartment Alcohol intake: never Patient Tobacco Use Status: Never used Tobacco e-Cigarette/Vaping Use: Never Used Current occupational status: retired Cognitive needs: No Hearing needs: No Vision needs: Yes Assessment & Plan Assessment & Plan (1) Type 2 diabetes mellitus: Code(s): E11.9 - Type 2 diabetes mellitus without complications Qualifiers: Diabetes mellitus setter automatic spinning lathe insulin use: with setter automatic spinning lathe use Diabetes mellitus complication status: with neurologic complications Diabetes mellitus complication detail: with other neurological complication Qualified Code(s): E11.49 - Type 2 diabetes mellitus with other diabetic neurological complication; Z79.4 - assisted (current) use of insulin Plan: Patient at visit to set up an sample Mayra 3+ sensor with reader Instructed patient sensors water proof you can shower, or swim do not submerge sensor in water for over 30 minutes Is sensor falls off cannot put back in you need to replace sensor, customer service number given to patient for sensor replacement Sensor placed on the back of Left arm Patient left visit with sensor in warmup Reviewed how to interpret trend arrows Discussed lag time between finger stick and sensor data.? Instructed patient the importance of having blood glucometer for backup testing if needed Reviewed delay of CGM from fingersticks Reminded Pt that if symptoms do not match sensor still needs to check fingersticks. Patient waiting on approval for Mayra 3+ sensors from pharmacy Reviewed Introduction to Nutrition Importance of healthy diet in managing DM Diet is personalized to individual preference Review patient?s regular diet/food preferences Who prepares meals/does food shopping/ Dining out?/ Barriers? How diet effects glucose Eating 3 balanced meals a day with small, healthy snacks between meals Review food groups Carbohydrates: What is a carbohydrate/Which food/food groups are considered carbohydrates Effect of carbohydrates on blood glucose Portion sizes Plate method Meal planning Recommendations: Follow plate method, consistent carbs and read nutritional labels. Educational Materials: The patient was provided with the following written educational materials: Planning Healthy Meals Handout Portions of this note were created using voice recognition software, please excuse any words or phrases that may have been misinterpreted. Patient Instructions: Instrucciones para el paciente: CGM proporciona informaci?n sobre el control de la glucosa en jannie a lo vincent del d?a, incluidas la hiperglucemia y la hipoglucemia. Contin?e controlando la glucosa en jannie seg?n las instrucciones. Siga las pautas de nutrici?n proporcionadas. Informe cualquier molestia de inmediato al proveedor de atenci?n m?dica. Mantente edna hidratado. Puede ba?arse, ducharse, nadar y hacer ejercicio mientras usa el sensor de glucosa. No sumerja el sensor de glucosa en agua kim m?s de 30 minutos. Retire el sensor para angela resonancia magn?ana o angela tomograf?a computarizada. Evite la m?quina de tank X en los aeropuertos: retire el sensor o solicite la varita Coding Level of Care Code Est Pt Level 1 (46599) Diagnoses Type 2 diabetes mellitus with other neurologic complication, with long-term current use of insulin E11.49; Z79.4 Diabetes mellitus senior care insulin use: with setter automatic spinning lathe use Diabetes mellitus complication status: with neurologic complications Diabetes mellitus complication detail: with other neurological complication
--- OUTSIDE RECORDS SUMMARY | 2024-11-03 11:30 | XMS_ITS | Continuity of Care Document ---
Author Organization [facility] Address [address] [place] [address] Phone Care Team Providers Care Traffic Engineering Director Name Role Phone Z-Converted, Provider Unavailable Unavailabl e Advance Directives Directive Yes / No Effective Date File Name No Information Encounters Encounter Description Practice Location Reason(s) For Visit Diagnoses Date Provider Providers Copied on Encounter [facility], [address] [place] [address],[address], [place], [place], [id number], [place] tel:[phone] [facility] Unspecified chest pain Sep-2 8200 6 [...]
--- OUTSIDE RECORDS SUMMARY | 2024-11-03 11:30 | XMS_ITS | Clinical Summary ---
Author Organization [employer] Address [address] [place] [address] Care Team Providers Care Computer Processing Scheduler Name Role Phone Unavailable Primary Care Provider [...] Recently Relevant to Health Maintenance Insurance DENTAL [facility] DENTAL - N FULL (MEDICAID)
--- OUTSIDE RECORDS SUMMARY | 2024-11-03 11:30 | XMS_ITS | Clinical Summary ---
Author Organization [facility] Address [address] [place] [address] Phone Care Team Providers Care First Aid Director Name Role Phone Laxmi Christianson MD Primary Care Provider [phone] Allergies Active Allergy Reactions Criticality Noted Date [...] unit/mL (70-30) injection 30 units BID 4 Active chlorthalidone (HYGROTON) 50 mg tablet Take [...] (BMI) of 35.0 to 35.9 in adult ([facility] V24, [facility] V28) 06/04/2024 CAD (coronary artery disease) 04/02/2023 [...] Type 2 diabetes mellitus wit hout complications ([facility] V24, [facility] V28) 04/02/2023 Encounters Date Type Department Care Team Description 08/18/2024 8:30 AM EST Office Visit [facility] Hematology Oncology [address] [place] [address] Nohemi Ann MD Polycythemia (Primary Dx); Myeloproliferative neoplasm ([facility] V24, [facility] V28) from Last 3 Months Immunizations Name Administration Dates Next Due Influenza trivalent, 0.5mL ( Fluad) 65yo and older 06/28/2023 Moderna SARS-CoV-2 COVID-19, mRNA, LNP-S, preservative free 10/20/2021,05/18/2021,10/10/2020,2020 Surgical History Surgery Date Site/Laterality Comments CARDIAC CATHETERIZATION Left PROCEDURE: HISTORICAL CARDIAC CATH; COMMENT: 2006, 2008 Medical History Medical History Date Comments Essential (primary) hypertension DX:Essential (primary) hypertension Type 2 diabetes mellitus wit hout complications ([facility] V24, [facility] V28) DX:Type 2 carolyn betes mellitus without complications (HCC) CAD (coronary artery disease) DX :CAD (coronary artery disease); COMMENT: Stents 2006 and 2008. LAD, RCA, LCX Mixed hyperlipidemia DX:Mixed hy perlipidemia Osteoarthritis, knee DX:Osteoart hritis, knee Polycythemia vera ([facility] V 24, [facility] V28) DX:Polycythemia vera (HCC) CVA (cerebral vascular accid ent) ([facility] V24, [facility] V28) 2021 DX:CVA (cerebral vascular a ccident) ([facility]) Family History Medical History Relation Name Comments [facility] [address] [place] [phone] Nohemi Ann MD [address] [place] [address] Health Maintenance Due Date Last Done Comments [...] 1: 59 PM EST PV (polycythemia vera) ([facility] V24, [facility] V28) ERYTHROPOIETIN Routine 08/13/2024 1:59 PM EST PV (polycythemia vera) ([facility] V24, [facility] V28) COMPLETE BLOOD COUNT Routine 08/13/2024 1:59 PM EST PV (polycythemia vera) ([facility] V24, [facility] V28) COMPREHENSIVE METABOLIC PANEL Routine 08/13/2024 1:59 PM EST PV (polycythemia vera) ([facility] V24, [facility] V28) HEMOGLOBIN A1C Routine 09/19/2023 HEPATITIS C SCREENING [...] EST [facility] Comment: Test performed at [facility], [address], [place], [place] ??[address] ? [phone] Crissy Keller MD, PhD - Explosives Detonator Blood Venous blood specimen / Unknown Venipuncture / Unknown 08/13/2024 1:59 PM EST 08/13/2024 4:39 PM EST Nohemi Ann MD LAB BLOOD ORDERABLES Final R esult [facility] [address] [place] [address] * (ABNORMAL) Reticulocyte count (08/13/2024 1:59 PM EST) Retic Ct Abs 0.100(H) 0.030 - 0.090 M/mcL LAB HEMETOLOGY METHOD 08/13/2024 4:52 PM EST [facility] Retic Ct Pct 1.7 0.7 - 1.7 % LAB HEMETOLOGY METHOD 08/13/2024 4:52 PM EST [facility] Immature Retic Fract 16.9(H) 2.3 - 15.9 % LAB HEMETOLOGY METHOD 08/13/2024 4:52 PM EST [facility] Reticulocyte Hemoglobin 27.3(L) >29.0 pcg LAB HEMETOLOGY METHOD 08/13/2024 4:52 PM EST [facility] Blood Venous blood specimen / Unknown Venipuncture / Unknown 08/13/2024 1:59 PM EST 08/13/2024 4:40 PM EST us Nohemi Ann MD LAB BLOOD ORDERABLES Final R esult [facility] [address] [place] [address], * (ABNORMAL) Complete blood count (08/13/2024 1:59 PM EST) WBC 8.2 4.8 - 10.8 K/mcL LAB HEMETOLOGY METHOD 08/13/2024 4:52 PM [facility] RBC 5.80(H) 4.50 - 5.50 M/mcL LAB HEMETOLOGY METHOD 08/13/2024 4:52 PM [facility] Hemoglobin 15.7 13.5 - 17.5 g/dL LAB HEMETOLOGY METHOD 08/13/2024 4:52 PM [facility] Hematocrit 50.1 42.0 - 54.0 % LAB HEMETOLOGY METHOD 08/13/2024 4:52 PM [facility] MCV 86.8 79.0 - 98.0 FL LAB HEMETOLOGY METHOD 08/13/2024 4:52 PM [facility] MCH 27.2 27.0 - 32.0 pcg LAB HEMETOLOGY METHOD 08/13/2024 4:52 PM [facility] MCHC 31.3(L) 32.0 - 37.0 g/dL LAB HEMETOLOGY METHOD 08/13/2024 4:52 PM [facility] RDW 14.6 11.0 - 15.0 % LAB HEMETOLOGY METHOD 08/13/2024 4:52 PM [facility] Platelets 258 130 - 400 K/mcL LAB HEMETOLOGY METHOD 08/13/2024 4:52 PM [facility] MPV 11.5(H) 7.0 - 11.0 FL LAB HEMETOLOGY METHOD 08/13/2024 4:52 PM [facility] NRBC 0.0 <1.0 % LAB HEMETOLOGY METHOD 08/13/2024 4:52 PM [facility] NRBC Absolute 0.00 <0.10 K/mcL LAB HEMETOLOGY METHOD 08/13/2024 4:52 PM [facility] Blood Venous blood specimen / Unknown Venipuncture / Unknown 08/13/2024 1:59 PM EST 08/13/2024 4:40 PM EST Nohemi Ann MD LAB BLOOD ORDERABLES Final R esult [facility] [address] [place] [address], [place] [phone] * (ABNORMAL) Comprehensive metabolic panel (08/13/2024 1:59 PM EST) Sodium 139 133 - 145 mmol/L LAB CHEMISTRY METHOD 08/13/2024 5:03 PM [facility] Potassium 3.7 3.5 - 5.5 mmol/L LAB CHEMISTRY METHOD 08/13/2024 5:03 PM [facility] Chloride 100 96 - 110 mmol/L LAB CHEMISTRY METHOD 08/13/2024 5:03 PM [facility] CO2 34(H) 21 - 32 mmol/L LAB CHEMISTRY METHOD 08/13/2024 5:03 PM [facility] Anion Gap 5 3 - 11 LAB CHEMISTRY METHOD 08/13/2024 5:03 PM [facility] Glucose 174(H) 70 - 100 mg/dL LAB CHEMISTRY METHOD 08/13/2024 5:03 PM [facility] BUN 29(H) 5 - 25 mg/dL LAB CHEMISTRY METHOD 08/13/2024 5:03 PM [facility] Creatinine 1.31(H) 0.70 - 1.30 mg/dL LAB CHEMISTRY METHOD 08/13/2024 5:03 PM [facility] eGFR 59(L) >=60 mL/min/1. 73m2 LAB CHEMISTRY METHOD 08/13/2024 5:03 PM [facility] Comment:Calculation based on the??Chronic Kidney Disease Epidemiology Collaboration (CKD-EPI) equation refit??without adjustment for race. BUN/Creatinine Ratio 22.1 LAB CHEMISTRY METHOD 08/13/2024 5:03 PM [facility] Calcium 9.7 8.5 - 10.5 mg/dL LAB CHEMISTRY METHOD 08/13/2024 5:03 PM [facility] AST (SGOT) 15 10 - 42 unit/L LAB CHEMISTRY METHOD 08/13/2024 5:03 PM [facility] ALT (SGPT) 32 10 - 60 unit/L LAB CHEMISTRY METHOD 08/13/2024 5:03 PM [facility] Alkaline Phosphatase 102 42 - 121 unit/L LAB CHEMISTRY METHOD 08/13/2024 5:03 PM [facility] Total Protein 7.4 6.0 - 8.0 g/dL LAB CHEMISTRY METHOD 08/13/2024 5:03 PM [facility] Albumin 3.9 3.2 - 5.0 g/dL LAB CHEMISTRY METHOD 08/13/2024 5:03 PM [facility] Total Bilirubin 0.3 0.0 - 1.4 mg/dL LAB CHEMISTRY METHOD 08/13/2024 5:03 PM [facility] Blood Venous blood specimen / Unknown Venipuncture / Unknown 08/13/2024 1:59 PM EST 08/13/2024 4:39 PM EST Nohemi Ann MD LAB BLOOD ORDERABLES Final R esult [facility] [address] [place] [address], * Hemoglobin A1c (09/19/2023) Pathologist [facility] Hemoglobin A1C 6.3 <=6.5 % Blood Venous blood specimen / Unknown [facility] Provider LAB BLOOD ORDERABLES Love l Result * Hepatitis C Screening (06/28/2023) Pathologist [facility] Hepatitis C Screening Abstracted Historical Provider HEALTH MAINTENANCE Final Result * Diabetes Eye Exam (06/25/2023) Pathologist [facility] Diabetes: Annual Retina Eye Exam Abstracted [facility] Provider HEALTH MAINTENANCE Final Result * Urine Albumin Creatinine Ratio (06/06/2023) Pathologist [facility] Urine Albumin Creatinine Ratio Abstracted [facility] Provider HEALTH MAINTENANCE Final Result * Diabetes Foot Exam (06/06/2023) Pathologist [facility] Diabetes: Annual Foot Exam Abstracted [facility] Provider HEALTH MAINTENANCE Final Result * Lipid panel (04/04/2023) [facility] LDL/HDL Ratio 2 0 - 4 Triglycerides 63 0 - 150 mg/dL Cholesterol 104 0 - 200 mg/dL HDL 43 >=40 mg/dL LDL Cholesterol 49 0 - 100 mg/dL Blood Venous blood specimen / Unknown Result [facility] Provider LAB BLOOD ORDERABLES Love l Result from Last 3 Months or Most Recently Relevant to Health Maintenance Insurance [place]ICAID - [place] [employer] MEDICARE Care Teams First Aid Director Relationship Specialty Start Date End Date Laxmi Christianson MD PCP - General Endocrinology 08/05/24
--- OUTSIDE RECORDS SUMMARY | 2024-11-03 11:30 | XMS_ITS | Clinical Summary ---
Author Organization [facility] Address [address] [place] [address] Care Team Providers Care Utility Systems Repairer Operator Name Role Phone Marie Luke MD Primary [...] age to complete this topic Care Teams Utility Systems Repairer Operator Relationship Specialty Start Date End Date Marie Luke MD [address] [place] [address] PCP - General Internal Medicine 10/31/23
== END 2024-11-03 10:49 | disposition home or self-care (01) ==
LOC: HO.ENCR 10:07
PROVIDERS: PCP Internal Medicine; Visit Provider Registered Nurse Diabetes Educator
DX: E11.49 Type 2 diabetes mellitus with other diabetic neurological complication (principal); Z79.4 Long term (current) use of insulin

== ENCOUNTER → 2024-11-03 10:06 | Outpatient (BNVA) | payer OTHER, MEDICAID, SELFPAY | PROVIDERS: PCP Internal Medicine; Visit Provider Registered Nurse Diabetes Educator | DX: E11.49 Type 2 diabetes mellitus with other diabetic neurological complication (principal); Z79.4 Long term (current) use of insulin | CPT/HCPCS: 99211 ==

== ENCOUNTER 2024-11-09 08:53 | Outpatient (AMB) | payer OTHER, MEDICAID, SELFPAY ==
--- OUTSIDE RECORDS SUMMARY | 2024-11-09 08:59 | XMS_ITS | Clinical Summary ---
Author Organization [employer] Address [address] [place] [address] Care Team Providers Care Home Care Physical Therapist Name Role Phone Unavailable Primary Care Provider [...] Recently Relevant to Health Maintenance Insurance DENTAL [facility] DENTAL - N FULL (MEDICAID)
--- OUTSIDE RECORDS SUMMARY | 2024-11-09 08:59 | XMS_ITS | Clinical Summary ---
Author Organization [facility] Address [address] [place] [address] Care Team Providers Care Puff Ironer Name Role Phone Marie Luke MD Primary [...] age to complete this topic Care Teams Puff Ironer Relationship Specialty Start Date End Date Marie Luke MD [address] [place] [address] PCP - General Internal Medicine 10/31/23
--- OUTSIDE RECORDS SUMMARY | 2024-11-09 08:59 | XMS_ITS | Continuity of Care Document ---
Author Organization [facility] Address [address] [place] [address] Phone Care Team Providers Care Professional Employer Consultant Name Role Phone Z-Converted, Provider Unavailable Unavailabl e Advance Directives Directive Yes / No Effective Date File Name No Information Encounters Encounter Description Practice Location Reason(s) For Visit Diagnoses Date Provider Providers Copied on Encounter [facility], [address] [place] [address] 2,[address], [place], [place], [id number], [place] tel:[phone] 2 [facility] Unspecified chest pain Sep-2 [phone] [...]
--- OUTSIDE RECORDS SUMMARY | 2024-11-09 08:59 | XMS_ITS | Clinical Summary ---
Author Organization [facility] Address [address] [place] [address] Phone Care Team Providers Care Prosthodontist/Owner Name Role Phone Laxmi Christianson MD Primary Care Provider [phone] Allergies Active Allergy Reactions Criticality Noted Date [...] (BMI) of 35.0 to 35.9 in adult ([facility] V24, [facility] V28) 06/04/2024 CAD (coronary artery disease) 04/02/2023 [...] Type 2 diabetes mellitus wit hout complications ([facility] V24, [facility] V28) 04/02/2023 Encounters Date Type Department Care Team Description 08/18/2024 8:30 AM EST Office Visit [facility] Hematology Oncology [address] [place] [address] Nohemi Ann MD Polycythemia (Primary Dx); Myeloproliferative neoplasm ([facility] V24, [facility] V28) from Last 3 Months Immunizations Name Administration Dates Next Due Influenza trivalent, 0.5mL ( Fluad) 65yo and older 06/28/2023 Moderna SARS-CoV-2 COVID-19, mRNA, LNP-S, preservative free 10/20/2021,05/18/2021,10/10/2020,2020 Surgical History Surgery Date Site/Laterality Comments CARDIAC CATHETERIZATION Left PROCEDURE: HISTORICAL CARDIAC CATH; COMMENT: 2006, 2008 Medical History Medical History Date Comments Essential (primary) hypertension DX:Essential (primary) hypertension Type 2 diabetes mellitus wit hout complications ([facility] V24, [facility] V28) DX:Type 2 carolyn betes mellitus without complications (HCC) CAD (coronary artery disease) DX :CAD (coronary artery disease); COMMENT: Stents 2006 and 2008. LAD, RCA, LCX Mixed hyperlipidemia DX:Mixed hy perlipidemia Osteoarthritis, knee DX:Osteoart hritis, knee Polycythemia vera ([facility] V 24, [facility] V28) DX:Polycythemia vera (HCC) CVA (cerebral vascular accid ent) ([facility] V24, [facility] V28) 2021 DX:CVA (cerebral vascular a ccident) ([facility]) Family History Medical History Relation Name [...] Description 03/08/2025 3:45 PM EDT Office Visit [facility] Hematology Oncology [address] [place] [phone] Nohemi Ann MD [address] [place] [address] Health Maintenance Due Date Last Done Comments [...] 1: 59 PM EST PV (polycythemia vera) ([facility] V24, [facility] V28) ERYTHROPOIETIN Routine 08/13/2024 1:59 PM EST PV (polycythemia vera) ([facility] V24, [facility] V28) COMPLETE BLOOD COUNT Routine 08/13/2024 1:59 PM EST PV (polycythemia vera) ([facility] V24, [facility] V28) COMPREHENSIVE METABOLIC PANEL Routine 08/13/2024 1:59 PM EST PV (polycythemia vera) ([facility] V24, [facility] V28) HEMOGLOBIN A1C Routine 09/19/2023 HEPATITIS C [...] EST [facility] Comment: Test performed at [facility], [address], [place], [place] ??[address] ? [phone] Crissy Keller MD, PhD - Pigskin Trimmer Blood Venous blood specimen / Unknown Venipuncture / Unknown 08/13/2024 1:59 PM EST 08/13/2024 4:39 PM EST Nohemi Ann MD LAB BLOOD ORDERABLES Final R esult [facility] [address] [place] [address] * (ABNORMAL) Reticulocyte count (08/13/2024 1:59 PM [...] esult [facility] [address] [place] [address], * (ABNORMAL) Complete blood count (08/13/2024 1:59 PM EST) WBC 8.2 4.8 - 10.8 K/mcL LAB HEMETOLOGY METHOD 08/13/2024 4:[address] [facility] RBC 5.80(H) 4.50 - 5.50 M/mcL LAB HEMETOLOGY METHOD 08/13/2024 4:[address] [facility] Hemoglobin 15.7 13.5 - 17.5 g/dL LAB HEMETOLOGY METHOD 08/13/2024 4:[address] [facility] Hematocrit 50.1 42.0 - 54.0 % LAB HEMETOLOGY METHOD 08/13/2024 4:[address] [facility] MCV 86.8 79.0 - 98.0 FL LAB HEMETOLOGY METHOD 08/13/2024 4:[address] [facility] MCH 27.2 27.0 - 32.0 pcg LAB HEMETOLOGY METHOD 08/13/2024 4:[address] [facility] MCHC 31.3(L) 32.0 - 37.0 g/dL LAB HEMETOLOGY METHOD 08/13/2024 4:[address] [facility] RDW 14.6 11.0 - 15.0 % LAB HEMETOLOGY METHOD 08/13/2024 4:[address] [facility] Platelets 258 130 - 400 K/mcL LAB HEMETOLOGY METHOD 08/13/2024 4:[address] [facility] MPV 11.5(H) 7.0 - 11.0 FL LAB HEMETOLOGY METHOD 08/13/2024 4:[address] [facility] NRBC 0.0 <1.0 % LAB HEMETOLOGY METHOD 08/13/2024 4:[address] [facility] NRBC Absolute 0.00 <0.10 K/mcL LAB HEMETOLOGY METHOD 08/13/2024 4:[address] [facility] Blood Venous blood specimen / Unknown Venipuncture / Unknown 08/13/2024 1:59 PM EST 08/13/2024 4:40 PM EST Nohemi Ann MD LAB BLOOD ORDERABLES Final R esult [facility] [address] [place] [address], [place] [phone] * (ABNORMAL) Comprehensive metabolic panel (08/13/2024 1:59 PM EST) Sodium 139 133 - 145 mmol/L LAB CHEMISTRY METHOD 08/13/2024 5:[address] [facility] Potassium 3.7 3.5 - 5.5 mmol/L LAB CHEMISTRY METHOD 08/13/2024 5:[address] [facility] Chloride 100 96 - 110 mmol/L LAB CHEMISTRY METHOD 08/13/2024 5:[address] [facility] CO2 34(H) 21 - 32 mmol/L LAB CHEMISTRY METHOD 08/13/2024 5:[address] [facility] Anion Gap 5 3 - 11 LAB CHEMISTRY METHOD 08/13/2024 5:[address] [facility] Glucose 174(H) 70 - 100 mg/dL LAB CHEMISTRY METHOD 08/13/2024 5:[address] [facility] BUN 29(H) 5 - 25 mg/dL LAB CHEMISTRY METHOD 08/13/2024 5:[address] [facility] Creatinine 1.31(H) 0.70 - 1.30 mg/dL LAB CHEMISTRY METHOD 08/13/2024 5:[address] [facility] eGFR 59(L) >=60 mL/min/1. 73m2 LAB CHEMISTRY METHOD 08/13/2024 5:[address] [facility] Comment:Calculation based on the??Chronic Kidney Disease Epidemiology Collaboration (CKD-EPI) equation refit??without adjustment for race. BUN/Creatinine Ratio 22.1 LAB CHEMISTRY METHOD 08/13/2024 5:[address] [facility] Calcium 9.7 8.5 - 10.5 mg/dL LAB CHEMISTRY METHOD 08/13/2024 5:[address] [facility] AST (SGOT) 15 10 - 42 unit/L LAB CHEMISTRY METHOD 08/13/2024 5:[address] [facility] ALT (SGPT) 32 10 - 60 unit/L LAB CHEMISTRY METHOD 08/13/2024 5:[address] [facility] Alkaline Phosphatase 102 42 - 121 unit/L LAB CHEMISTRY METHOD 08/13/2024 5:[address] [facility] Total Protein 7.4 6.0 - 8.0 g/dL LAB CHEMISTRY METHOD 08/13/2024 5:[address] [facility] Albumin 3.9 3.2 - 5.0 g/dL LAB CHEMISTRY METHOD 08/13/2024 5:[address] [facility] Total Bilirubin 0.3 0.0 - 1.4 mg/dL LAB CHEMISTRY METHOD 08/13/2024 5:[address] [facility] Blood Venous blood specimen / Unknown Venipuncture / Unknown 08/13/2024 1:59 PM EST 08/13/2024 4:39 PM EST Nohemi Ann MD LAB BLOOD ORDERABLES Final R esult [facility] [address] [place] [address], * Hemoglobin A1c (09/19/2023) Pathologist [facility] Hemoglobin A1C 6.3 <=6.5 % Blood Venous blood specimen / Unknown [facility] Provider LAB BLOOD ORDERABLES Love l Result * Hepatitis C Screening (06/28/2023) Pathologist [facility] Hepatitis C Screening Abstracted Historical Provider HEALTH MAINTENANCE Final Result * Diabetes Eye Exam (06/25/2023) Pathologist [facility] Diabetes: Annual Retina Eye Exam Abstracted [facility] Provider HEALTH MAINTENANCE Final Result * Urine Albumin Creatinine Ratio (06/06/2023) Pathologist [facility] Urine Albumin Creatinine Ratio Abstracted [facility] Provider HEALTH MAINTENANCE Final Result * Diabetes Foot Exam (06/06/2023) Pathologist [facility] Diabetes: Annual Foot Exam Abstracted [facility] Provider HEALTH MAINTENANCE Final Result * Lipid panel (04/04/2023) [facility] LDL/HDL Ratio 2 0 - 4 Triglycerides 63 0 - 150 mg/dL Cholesterol 104 0 - 200 mg/dL HDL 43 >=40 mg/dL LDL Cholesterol 49 0 - 100 mg/dL Blood Venous blood specimen / Unknown [facility] [employer] [facility] [employer] Provider LAB BLOOD ORDERABLES Love l Result from Last 3 Months or Most Recently Relevant to Health Maintenance Insurance [place] [address] Care Teams Prosthodontist/Owner Relationship Specialty Start Date End Date Laxmi Christianson MD PCP - General Endocrinology 08/05/24
--- NOTE | 2024-11-09 09:07 | A.OFFVIS_ITS ---
VS Expanded 11/09/24 09:09 11/09/24 09:27 Height 5 ft 4 in 5 ft 4 in Weight 214 lb 11.684 oz 215 lb BMI 36.9 36.9 Intake Visit Reasons: DM Allergies shrimp Allergy (Unknown, Verified 11/09/24 11:43) Vomiting Nutrition Presentation Details: Pt presents for MNT for T2DM with neurological manifestation Pt presents with daughter to this appointment. Pt has multiple questions regarding meal planning for DM BS Monitoring Most Recent Diabetes Results: No Data to Display JVK-Kqueuex-Oh.Jeor Equation Height: 5 ft 4 in Weight: 215 lb Resting Metabolic Rate: 1655.77 Calculated Activity Level: Sedentary Calories Needed to Maintain Weight: 1986.92 Diagnosis Nutrition problem #1: altered nutrition labs As related to (etiology) #1: diagnosis As evidenced by (sign/symptom) #1: knowledge deficit of diet [facility] Medical History CVA (cerebral vascular accident) Swelling, mass, or lump in chest Blurry vision, bilateral Blurry vision Surgical History S/P excision of lipoma (09/24/24) Hx of hernia repair Hx of arthroscopy of left knee Social History Household Members: None Housing: Apartment Alcohol intake: never Patient Tobacco Use Status: Never used Tobacco e-Cigarette/Vaping Use: Never Used Current occupational status: retired Cognitive needs: No Hearing needs: No Vision needs: Yes Assessment & Plan Assessment & Plan (1) Type 2 diabetes mellitus: Code(s): E11.9 - Type 2 diabetes mellitus without complications Category: Medical Qualifiers: Diabetes mellitus complication detail: with other neurological complication Diabetes mellitus complication status: with neurologic complications Diabetes mellitus technician terminal and repeater insulin use: with retirement use Qualified Code(s): E11.49 - Type 2 diabetes mellitus with other diabetic neurological complication; Z79.4 - 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 operator 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 yard (current) use of insulin Plan: Wt: 98 Kg ( 11/22 ) Est kcal needs as per MSJ:2000 (40% carb, 30% protein/fat) Est fluid needs as per 25-30 ml/d: 3000 Est prot per day as per 1 g/kg bw: 98 Recommend fiber intake : 8-10 g per day and gradually increase to 25-28 g per day for women and 35-38 g for men or as tolerated Recommend sodium intake per day : less than 2000 mg Educated patient on: ( R = reviewed V = verbalizes understanding N/R = needs review N/A = not applicable * Food sources of carbohydrate, adequate serving sizes and its role in various health conditions: R * Differences between complex carbohydrates a simple carbohydrates, role of fiber in diet: R * Lean protein sources of foods: R * Differences between types of fats and role in diet (mono on saturated fat fatty acids, saturated fatty acids, trans fats): R * Food sources of sodium in salt and healthy modifications for heart health in kidney health: R V R/V * Vitamins and minerals: R V N/R * Healthy plate method concept: R V N/R * Physical activity: Benefits a precaution: R V N/R * Hypoglycemia protocol (rule of 15): R V N/R * Dietary prevention of Hyperglycemia: R V R/V Patient Instructions: Follow healthy plate method at dinner reducing total carb to 60 g Reduce on sugars from beverages/pastries and similar foods/snacks see list of lower sugar options Coding Level of Care Code Nutr Indiv Intake (22411) Diagnoses Type 2 diabetes mellitus with other neurologic complication, with long-term current use of insulin E11.49; Z79.4 Diabetes mellitus complication detail: with other neurological complication Diabetes mellitus complication status: with neurologic complications Diabetes mellitus technician terminal and repeater insulin use: with retirement use Time Spent (min) 30
[2024-11-09 09:09] VITALS: BMI 36.9
[2024-11-11 09:51] VITALS: BMI 36.9
== END 2024-11-09 09:45 | disposition home or self-care (01) ==
LOC: HO.ENCR 08:53
PROVIDERS: PCP Internal Medicine; Visit Provider Dietitian, Registered
DX: E11.49 Type 2 diabetes mellitus with other diabetic neurological complication (principal); Z79.4 Long term (current) use of insulin

== ENCOUNTER → 2024-11-09 08:53 | Outpatient (BNVA) | payer OTHER, MEDICAID, SELFPAY | PROVIDERS: PCP Internal Medicine; Visit Provider Dietitian, Registered | DX: Z01.810 Encounter for preprocedural cardiovascular examination (principal); E11.49 Type 2 diabetes mellitus with other diabetic neurological complication; E78.5 Hyperlipidemia, unspecified; I10 Essential (primary) hypertension; Z86.73 Personal history of transient ischemic attack (TIA), and cerebral infarction without residual deficits; Z79.4 Long term (current) use of insulin; Z79.899 Other long term (current) drug therapy; Z71.3 Dietary counseling and surveillance | CPT/HCPCS: 97802 ==

== ENCOUNTER 2024-11-09 11:36 | Outpatient (AMB) | payer OTHER, MEDICAID, SELFPAY ==
--- NOTE | 2024-11-09 11:40 | MHC.PC.OV ---
Vital Signs 11/09/24 11:50 Weight 217 lb 2 oz BP 108/58 L Blood Pressure Location Rt brachial Position Sitting Respiration 14 Pulse 66 Pulse Source Pulse Oximeter Pulse Oximetry (%) 96 Oxygen Delivery Method Room Air Intake Visit Reasons: dm Intake Note: Diabetes follow up Handbag Parts Cutter Required: No Accompanied by: Daughter Allergies shrimp Allergy (Unknown, Verified 11/09/24 11:43) Vomiting Tobacco use date assessed: 11/09/24 Fall risk assessment: No Falls in past year Last assessed Fall Risk: 11/09/24 Dental Screening Dental Screen Date: 11/09/24 Did you have a dental visit in the last 12 months?: Yes Did you have a dental problem in the last 6 months where you did not have access to dental care?: No Was dental information given to patient?: Patient has dentist HPI HPI Comments History of Present Illness Details This is a 68-year-old male with a past medical history of type 2 diabetes, hypertension, hyperlipidemia and 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 Has tolerated anesthesia in the past Denies chest pain, dizziness Able to climb stairs. Type 2 diabetes: Following with endocrinology. Last A1C 7.8%. Neuropathy stable on gabapentin. UTD with eye exam [employer]. He will be getting injections with the retinal specialist. CV: On norvasc, chlorthalidone, lisinopril. metoprolol. Blood pressure has been controlled Denies chest pain, dizziness. MSK: Following with ortho-recently had injection in the knee. continues to have left sided lower rib pain-saw surgery for consultation and requesting removal. Neuro: History of CVA with residual right hemiplegia, aphasia. In August was having dizziness-CTA, MRI negative acute findings. Vestibular therapy resolved his dizziness Colonoscopy: ROS see HPI PHYSICAL EXAM: GENERAL: Alert and oriented x 3. NAD EYES: EOMI. Anicteric. HENT: Moist mucous membranes. No scleral icterus. LUNGS: Clear to auscultation bilaterally. CARDIOVASCULAR: Regular rate and rhythm. No murmur ABDOMEN: Soft, non-tender +bs EXTREMITIES: No edema. Non-tender. SKIN: No rashes or lesions. Warm. NEUROLOGIC: No focal neurological deficits. CN II-XII grossly intact PSYCHIATRIC: Cooperative. Appropriate mood and affect [facility] Medical History CVA (cerebral vascular accident) Swelling, mass, or lump in chest Blurry vision, bilateral Blurry vision Surgical History S/P excision of lipoma (09/24/24) Hx of hernia repair Hx of arthroscopy of left knee Social History Household Members: None Housing: Apartment Alcohol intake: never Patient Tobacco Use Status: Never used Tobacco e-Cigarette/Vaping Use: Never Used Current occupational status: retired Cognitive needs: No Hearing needs: No Vision needs: Yes Questionnaire Thrive Questionnaire Date Thrive assessed: 08/04/24 I am a: Patient What is your living situation today?: I have a steady place to live Within the past 12 months, did the food you bought not last and you didn't have the money to get more?: Sometimes True Within the past 12 months, did you worry whether your food would run out before you got money to buy more?: Sometimes True Do you have trouble paying for medicines?: No Do you have trouble getting transportation to medical appointments?: No Do you have trouble paying your heating and electricity bill?: No Do you have trouble taking care of your child, family member or friend?: No Do you have trouble with day-to-day activities such as bathing, preparing meals, shopping, managing finances, etc.?: Yes Are you currently unemployed and looking for a job?: No Are you interested in more education?: No Please select the resources that you would like help with: Food Currently or been in a relationship where the following occur: No concerns reported THRIVE Score: 2 AUDIT C Alcohol Use Questionnaire (AUDIT-C) 1. How often do you have a drink containing alcohol?: Never 3. How often do you have six or more drinks on one occasion?: Never Total Score: 0 LALA-7 AMB Questionnaire LALA-7 Date LALA - 7 assessed: 02/10/24 Source: Developed by Drs. David Troncoso, Maria Elena Montaño, Silvestre Shields and colleagues, with an educational taran from [employer]. Physical exam (Primary Care) Tobacco/Smoking Status: Tobacco use Status Tobacco use date assessed 08/04/24 11/09/24 11:41 Patient Tobacco Use Status Never used Tobacco 11/09/24 11:41 e-Cigarette/Vaping Use Never Used 11/09/24 11:41 Thrive Assessment: Date of Thrive Assessment Date Thrive assessed 08/04/24 11/09/24 11:41 Currently or been in a relationship where the following occur: No concerns reported Coding Level of Care Code Est Pt Level 4 (53447) Diagnoses Preop cardiovascular exam Z01.810 Type 2 diabetes mellitus with other neurologic complication, with long-term current use of insulin E11.49; Z79.4 Diabetes mellitus manager intermediate insulin use: with prison use Diabetes mellitus complication status: with neurologic complications Diabetes mellitus complication detail: with other neurological complication Cerebrovascular accident (CVA), unspecified mechanism I63.9 CVA mechanism: unspecified Assessment & Plan Assessment & Plan (1) Preop cardiovascular exam: Code(s): Z01.810 - Encounter for preprocedural cardiovascular examination Category: Medical (2) Type 2 diabetes mellitus: Code(s): E11.9 - Type 2 diabetes mellitus without complications Category: Medical Qualifiers: Diabetes mellitus prison insulin use: with prison use Diabetes mellitus complication status: with neurologic complications Diabetes mellitus complication detail: with other neurological complication Qualified Code(s): E11.49 - Type 2 diabetes mellitus with other diabetic neurological complication; Z79.4 - nursing home (current) use of insulin (3) CVA (cerebral vascular accident): Code(s): I63.9 - Cerebral infarction, unspecified Category: Medical Qualifiers: CVA mechanism: unspecified Qualified Code(s): I63.9 - Cerebral infarction, unspecified Plan 68 year old for preoperative cardiac risk assessment Diabetic with h/o CVA, htn. Blood pressure is well controlled. A1C has been < 8%. He is on insulin therapy and is following with endocrinology METS=4. EG without acute changes. Labs pending Okay to proceed with dental work without further cardiac work up Orders: Orders Complete Blood Count Auto Diff Today Z01.810 - Encounter for preprocedural cardiovascular examination AMB EKG-In Office Today Z01.810 - Encounter for preprocedural cardiovascular examination Prothrombin Time INR Today Z01.810 - Encounter for preprocedural cardiovascular examination Basic Metabolic Panel Today Z01.810 - Encounter for preprocedural cardiovascular examination
[2024-11-09 11:50] VITALS: BP 108/58; PULSE 66; RESP 14; O2SAT 96
--- OUTSIDE RECORDS SUMMARY | 2024-11-09 12:24 | XMS_ITS | Continuity of Care Document ---
Author Organization [facility] Address [address] [place] [address] Phone Care Team Providers Care Summer Babysitter Name Role Phone Z-Converted, Provider Unavailable Unavailabl e Advance Directives Directive Yes / No Effective Date File Name No Information Encounters Encounter Description Practice Location Reason(s) For Visit Diagnoses Date Provider Providers Copied on Encounter [facility], [address] [place] [address] 2,[address], [place], [place], [id number], [place] tel:[phone] [facility] Unspecified chest pain Sep-2 8200 6 [...]
--- OUTSIDE RECORDS SUMMARY | 2024-11-09 12:25 | XMS_ITS | Clinical Summary ---
Author Organization [facility] Address [address] [place] [address] Phone Care Team Providers Care Pinion Polisher Name Role Phone Laxmi Christianson MD Primary Care Provider [phone] Allergies Active Allergy Reactions Criticality Noted Date [...] (BMI) of 35.0 to 35.9 in adult ([facility] V24, [facility] V28) 06/04/2024 CAD (coronary artery [...] Type 2 diabetes mellitus wit hout complications ([facility] V24, [facility] V28) 04/02/2023 Encounters Date Type Department Care Team Description 08/18/2024 8:30 AM EST Office Visit [facility] Hematology Oncology [address] [place] [address] Nohemi Ann MD Polycythemia (Primary Dx); Myeloproliferative neoplasm ([facility] V24, [facility] V28) from Last 3 Months Immunizations Name Administration Dates Next Due Influenza trivalent, 0.5mL ( Fluad) 65yo and older 06/28/2023 Moderna SARS-CoV-2 COVID-19, mRNA, LNP-S, preservative free 10/20/2021,05/18/2021,10/10/2020,2020 Surgical History Surgery Date Site/Laterality Comments CARDIAC CATHETERIZATION Left PROCEDURE: HISTORICAL CARDIAC CATH; COMMENT: 2006, 2008 Medical History Medical History Date Comments Essential (primary) hypertension DX:Essential (primary) hypertension Type 2 diabetes mellitus wit hout complications ([facility] V24, [facility] V28) DX:Type 2 carolyn betes mellitus without complications (HCC) CAD (coronary artery disease) DX :CAD (coronary artery disease); COMMENT: Stents 2006 and 2008. LAD, RCA, LCX Mixed hyperlipidemia DX:Mixed hy perlipidemia Osteoarthritis, knee DX:Osteoart hritis, knee Polycythemia vera ([facility] V 24, [facility] V28) DX:Polycythemia vera (HCC) CVA (cerebral vascular accid ent) ([facility] V24, [facility] V28) 2021 DX:CVA (cerebral vascular a ccident) ([facility]) Family History Medical History Relation [...] Description 03/08/2025 3:45 PM EDT Office Visit [facility] Hematology Oncology [address] [place] [phone] Nohemi Ann MD [address] [place] [address] Health Maintenance Due Date Last Done Comments [...] 1: 59 PM EST PV (polycythemia vera) ([facility] V24, [facility] V28) ERYTHROPOIETIN Routine 08/13/2024 1:59 PM EST PV (polycythemia vera) ([facility] V24, [facility] V28) COMPLETE BLOOD COUNT Routine 08/13/2024 1:59 PM EST PV (polycythemia vera) ([facility] V24, [facility] V28) COMPREHENSIVE METABOLIC PANEL Routine 08/13/2024 1:59 PM EST PV (polycythemia vera) ([facility] V24, [facility] V28) HEMOGLOBIN A1C Routine 09/19/2023 HEPATITIS C [...] LAB Comment: Test performed at [facility], [address], [place], [place] ??[address] ? [phone] Crissy Keller MD, PhD - [employer] Blood Venous blood specimen / Unknown Venipuncture / Unknown 08/13/2024 1:59 PM EST 08/13/2024 4:39 PM EST Nohemi Ann MD LAB BLOOD ORDERABLES Final R esult [facility] [address] [place] [address] * (ABNORMAL) Reticulocyte count (08/13/2024 1:59 PM EST) Retic Ct Abs 0.100(H) 0.030 - 0.090 M/mcL LAB HEMETOLOGY METHOD 08/13/2024 4:52 PM EST [facility] Retic Ct Pct 1.7 0.7 - 1.7 % LAB HEMETOLOGY METHOD 08/13/2024 4:52 PM EST [facility] Immature Retic Fract 16.9(H) 2.3 - 15.9 % LAB HEMETOLOGY METHOD 08/13/2024 4:52 PM EST [facility] Reticulocyte Hemoglobin 27.3(L) >29.0 pcg LAB HEMETOLOGY METHOD 08/13/2024 4:52 PM EST [facility] Blood Venous blood specimen / Unknown Venipuncture / Unknown 08/13/2024 1:59 PM EST 08/13/2024 4:40 PM EST us Nohemi Ann MD LAB BLOOD ORDERABLES Final R esult [facility] [address] [place] [address], * (ABNORMAL) Complete blood count (08/13/2024 1:59 PM EST) WBC 8.2 4.8 - 10.8 K/mcL LAB HEMETOLOGY METHOD 08/13/2024 4:52 PM [facility] RBC 5.80(H) 4.50 - 5.50 M/mcL LAB HEMETOLOGY METHOD 08/13/2024 4:52 PM [facility] Hemoglobin 15.7 13.5 - 17.5 g/dL LAB HEMETOLOGY METHOD 08/13/2024 4:52 PM [facility] Hematocrit 50.1 42.0 - 54.0 % LAB HEMETOLOGY METHOD 08/13/2024 4:52 PM [facility] MCV 86.8 79.0 - 98.0 FL LAB HEMETOLOGY METHOD 08/13/2024 4:52 PM [facility] MCH 27.2 27.0 - 32.0 pcg LAB HEMETOLOGY METHOD 08/13/2024 4:52 PM [facility] MCHC 31.3(L) 32.0 - 37.0 g/dL LAB HEMETOLOGY METHOD 08/13/2024 4:52 PM [facility] RDW 14.6 11.0 - 15.0 % LAB HEMETOLOGY METHOD 08/13/2024 4:52 PM [facility] Platelets 258 130 - 400 K/mcL LAB HEMETOLOGY METHOD 08/13/2024 4:52 PM [facility] MPV 11.5(H) 7.0 - 11.0 FL LAB HEMETOLOGY METHOD 08/13/2024 4:52 PM [facility] NRBC 0.0 <1.0 % LAB HEMETOLOGY METHOD 08/13/2024 4:52 PM [facility] NRBC Absolute 0.00 <0.10 K/mcL LAB HEMETOLOGY METHOD 08/13/2024 4:52 PM [facility] Blood Venous blood specimen / Unknown Venipuncture / Unknown 08/13/2024 1:59 PM EST 08/13/2024 4:40 PM EST Nohemi Ann MD LAB BLOOD ORDERABLES Final R esult [facility] [address] [place] [address], [place] [phone] * (ABNORMAL) Comprehensive metabolic panel (08/13/2024 1:59 PM EST) Sodium 139 133 - 145 mmol/L LAB CHEMISTRY METHOD 08/13/2024 5:03 PM [facility] Potassium 3.7 3.5 - 5.5 mmol/L LAB CHEMISTRY METHOD 08/13/2024 5:03 PM [facility] Chloride 100 96 - 110 mmol/L LAB CHEMISTRY METHOD 08/13/2024 5:03 PM [facility] CO2 34(H) 21 - 32 mmol/L LAB CHEMISTRY METHOD 08/13/2024 5:03 PM [facility] Anion Gap 5 3 - 11 LAB CHEMISTRY METHOD 08/13/2024 5:03 PM [facility] Glucose 174(H) 70 - 100 mg/dL LAB CHEMISTRY METHOD 08/13/2024 5:03 PM [facility] BUN 29(H) 5 - 25 mg/dL LAB CHEMISTRY METHOD 08/13/2024 5:03 PM [facility] Creatinine 1.31(H) 0.70 - 1.30 mg/dL LAB CHEMISTRY METHOD 08/13/2024 5:03 PM [facility] eGFR 59(L) >=60 mL/min/1. 73m2 LAB CHEMISTRY METHOD 08/13/2024 5:03 PM [facility] Comment:Calculation based on the??Chronic Kidney Disease Epidemiology Collaboration (CKD-EPI) equation refit??without adjustment for race. BUN/Creatinine Ratio 22.1 LAB CHEMISTRY METHOD 08/13/2024 5:03 PM [facility] Calcium 9.7 8.5 - 10.5 mg/dL LAB CHEMISTRY METHOD 08/13/2024 5:03 PM [facility] AST (SGOT) 15 10 - 42 unit/L LAB CHEMISTRY METHOD 08/13/2024 5:03 PM [facility] ALT (SGPT) 32 10 - 60 unit/L LAB CHEMISTRY METHOD 08/13/2024 5:03 PM [facility] Alkaline Phosphatase 102 42 - 121 unit/L LAB CHEMISTRY METHOD 08/13/2024 5:03 PM [facility] Total Protein 7.4 6.0 - 8.0 g/dL LAB CHEMISTRY METHOD 08/13/2024 5:03 PM [facility] Albumin 3.9 3.2 - 5.0 g/dL LAB CHEMISTRY METHOD 08/13/2024 5:03 PM [facility] Total Bilirubin 0.3 0.0 - 1.4 mg/dL LAB CHEMISTRY METHOD 08/13/2024 5:03 PM [facility] Blood Venous blood specimen / Unknown Venipuncture / Unknown 08/13/2024 1:59 PM EST 08/13/2024 4:39 PM EST Nohemi Ann MD LAB BLOOD ORDERABLES Final R esult [facility] [address] [place] [address], * Hemoglobin A1c (09/19/2023) Pathologist [facility] Hemoglobin A1C 6.3 <=6.5 % Blood Venous blood specimen / Unknown [facility] Provider LAB BLOOD ORDERABLES Love l Result * Hepatitis C Screening (06/28/2023) Pathologist [facility] Hepatitis C Screening Abstracted Historical Provider HEALTH MAINTENANCE Final Result * Diabetes Eye Exam (06/25/2023) Pathologist [facility] Diabetes: Annual Retina Eye Exam Abstracted [facility] Provider HEALTH MAINTENANCE Final Result * Urine Albumin Creatinine Ratio (06/06/2023) Pathologist [facility] Urine Albumin Creatinine Ratio Abstracted [facility] Provider HEALTH MAINTENANCE Final Result * Diabetes Foot Exam (06/06/2023) Pathologist [facility] Diabetes: Annual Foot Exam Abstracted [facility] Provider HEALTH MAINTENANCE Final Result * Lipid panel (04/04/2023) [facility] LDL/HDL Ratio 2 0 - 4 Triglycerides 63 0 - 150 mg/dL Cholesterol 104 0 - 200 mg/dL HDL 43 >=40 mg/dL LDL Cholesterol 49 0 - 100 mg/dL Blood Venous blood specimen / Unknown Result [facility] Provider LAB BLOOD ORDERABLES Love l Result from Last 3 Months or Most Recently Relevant to Health Maintenance Insurance MEDICAID - [place] [employer] [place] [address] Care Teams Pinion Polisher Relationship Specialty Start Date End Date Laxmi Christianson MD PCP - General Endocrinology 08/05/24
--- OUTSIDE RECORDS SUMMARY | 2024-11-09 12:25 | XMS_ITS | Clinical Summary ---
Author Organization [employer] Address [address] [place] [address] Care Team Providers Care Fishing Lure Assembler Name Role Phone Unavailable Primary Care Provider [...] Recently Relevant to Health Maintenance Insurance DENTAL [facility] DENTAL - N FULL (MEDICAID)
--- OUTSIDE RECORDS SUMMARY | 2024-11-09 12:25 | XMS_ITS | Clinical Summary ---
Author Organization [facility] Address [address] [place] [address] Care Team Providers Care Lifts And Cranes Inspector Name Role Phone Marie Luke MD Primary [...] age to complete this topic Care Teams Lifts And Cranes Inspector Relationship Specialty Start Date End Date Marie Luke MD [address] [place] [address] PCP - General Internal Medicine 10/31/23
== END 2024-11-09 12:10 | disposition home or self-care (01) ==
LOC: HO.HMCFM 11:37
PROVIDERS: PCP Internal Medicine; Visit Provider Internal Medicine
DX: Z01.810 Encounter for preprocedural cardiovascular examination (principal); E11.49 Type 2 diabetes mellitus with other diabetic neurological complication; Z79.4 Long term (current) use of insulin; I63.9 Cerebral infarction, unspecified

== ENCOUNTER 2024-11-12 08:55 | Outpatient (AMB) | payer OTHER, MEDICAID, SELFPAY ==
--- NOTE | 2024-11-12 08:05 | A.OFFVIS_ITS ---
Vital Signs 11/12/24 08:59 Height 5 ft 4 in Weight 216 lb 0.848 oz BMI 37.1 BP 118/64 Blood Pressure Location Rt brachial Position Sitting Pulse 56 Pulse Source Pulse Oximeter Pulse Oximetry (%) 96 Oxygen Delivery Method Room Air Intake Visit Reasons: DM Intake Note: Patient presents today for a follow-up on Type 2 Diabetes Mellitus: Last Diabetic eye exam was on: 10/30/2024 at [facility] Last Podiatry exam was on: Patient does not see a Windows Vmware Engineer Most recent HbA1c: 7.8%, 09/17/2024 Random Glucose- 140 mg/dL, Today Barber Stylist Required: Yes Barber Stylist Language: Wire Photo Operator News Services: Barber Stylist Offered & Declined Barber Stylist Name: DAUGHTER Information Interpreted: non-clinical & clinical Accompanied by: Daughter Allergies shrimp Allergy (Unknown, Verified 11/12/24 09:00) Vomiting Medication List - Last Reconciled 11/12/24 by Maylin Chen NP acetaminophen ER (Arthritis Pain Relief (acetaminophen) ER) 650 mg PO Q12H 90 days amlodipine 5 mg PO DAILY 90 days aspirin (Adult Low Dose Aspirin) 81 mg PO DAILY atorvastatin 40 mg PO DAILY blood sugar diagnostic (Nowell DevelopmentTouch Verio test strips) As directed to check blood glucose blood-glucose sensor (FreeStyle Mayra 3 Plus Sensor device) As directed every 15 days chlorthalidone 50 mg PO DAILY cyanocobalamin (vitamin B-12) 1,000 mcg PO DAILY gabapentin 300 mg PO TID insulin lispro protamin-lispro 100 unit/mL (75-25) (Humalog Mix 75-25 KwikPen) 30 units (0.3 mL) subcut BID 90 days Jardiance (empagliflozin) 25 mg PO DAILY NS lisinopril 40 mg PO DAILY 90 days metformin 500 mg PO BID metoprolol succinate ER 50 mg PO DAILY OneTouch Delica Plus Lancet (lancets) Four times daily NS pen needle, diabetic As directed bid NS semaglutide (Ozempic) 0.25 mg (0.368 mL) subcut QWEEK 28 days triamcinolone acetonide 40 mg IM DAILY HPI Comments Details: [age] YO male who is seen in f/u for T2DM. He is followed by Dr. Latisha Oglesby of the primary care Diabetes Team and was last seen 11/09/2024. Most recent A1c 7.8% in August. blood work done 09/2024 C-peptide 2.7 joseluis D <5 islet cell antibodies negative Initially diagnosed with T2DM in his youth. Was started initially on metformin/glucotrol Started on insulin at age 38 Current regimen: Humalog 75/25 30 units b.i.d. Metformin 500 mg b.i.d. Jardiance 25 mg daily Freestyle mayra sensor 3 average glucose: 175 14 day continuous glucose sensor report reviewed Glucose Management indicator 7.5 % Time CGM active 95 % TIme in ranges: Twelve % very high (above 250) 22 % high (181-250) 66 % in range (70-180] 0 % low (69-55) 0 % very low (below 54) 34.5 Glucose variability (target <36%) Interpretation of CGMS; significant postprandial excursion after lunch Family history of T2DM in mother, siblings, Has retinopathy followed by [facility] and has been referred to retinal specialist Has mod non proliferative retinopathy Has neuropathy. Symptoms relieved with the gabapentin. Desires podiatry referral. Last foot exam today in the office. Has nephropathy 09/17/2024 creatinine 59 07/2024 microalbumin 27 Has HLD on statin last LDL 07/2024 43 Prior history of CVA 2010 [facility] History CVA (cerebral vascular accident) Swelling, mass, or lump in chest Blurry vision, bilateral Blurry vision Surgical History S/P excision of lipoma (09/24/24) Hx of hernia repair Hx of arthroscopy of left knee Social History Household Members: None Housing: Apartment Alcohol intake: never Patient Tobacco Use Status: Never used Tobacco e-Cigarette/Vaping Use: Never Used Current occupational status: retired Cognitive needs: No Hearing needs: No Vision needs: Yes Physical Exam Vital Signs: Oxygen Delivery Method Room Air 11/12/24 08:59 Const Other: Absence of Cushingoid features. Absence of acromegalic features. Neck exam reveals nl size thyroid about 15 gms. No thyroid nodules palpable. Heart S1 S2, Reg R/R. No M/R G. Skin exam reveals absence of vitiligo or acanthosis nigricans. right hemiparesis uses cane to walk and has device for footdrop. aphasia speaks in 1-2 words Visual exam of foot performed. No ulcerations or open lesions. No inter digit maceration or fissuring. No onychomycosis, no callouses. Sensation intact to monofilament exam. Vibratory sensation is normal with 128 Hz tuning fork. Office Procedures Glucose Monitoring Details Details: see [facility] [address] - Glucose monitoring, continuous-physician I&R Procedure code (CPT) selection complete Assessment & Plan Assessment & Plan (1) Type 2 diabetes mellitus: Code(s): E11.9 - Type 2 diabetes mellitus without complications Category: Medical Qualifiers: Diabetes mellitus detention insulin use: with detention use Diabetes mellitus complication status: with neurologic complications Diabetes mellitus complication detail: with other neurological complication Qualified Code(s): E11.49 - Type 2 diabetes mellitus with other diabetic neurological complication; Z79.4 - keno terminal operator (current) use of insulin Plan: 68-year-old type 2 diabetic with nephropathy, neuropathy, moderate nonproliferative retinopathy, CAD and history of CVA followed by primary care Diabetes Team. Recent blood work confirms he has type 2. With a history of CVA adding pioglitazone 15 mg once daily may provide some additional stroke prevention. We discussed this and also GLP 1 agonist. Because of the weight loss potential with a GLP 1 agonist the patient prefers to start on this. We reviewed potential side effects. His daughter is on this and developed pancreatic insufficiency which is fairly rare. Would recommend increasing morning dose of 7/ 30 due to large postprandial excursion after lunch Side effects of GLP-1 agonist were reviewed: Nausea, vomiting, diarrhea, headache, dehydration or low blood sugar. Rare acute kidney injury which can result from dehydration. Pancreatitis and gallstones. Contraindicated in MEN or family history of thyroid medullary cancer. New dosing Humulin 70/30 30 units b.i.d. Metformin 500 mg b.i.d. Jardiance 25 mg daily Ozempic 0.25mg weekly The patient had an opportunity to ask questions regarding treatment plan. The patient expressed understanding and agreement with the above treatment plan. The patient is aware they should contact our office by phone for worsening glucose readings or for any low blood sugars which may warrant a change in diabetes medication. Compliance is encouraged with medications and any followup testing/consults which may have been ordered. He will follow back up with Dr. Latisha Oglesby in 6 weeks and has an appointment with the black studies professor. We will revise his podiatry referral which was sent last time. He was advised for upcoming travel to bring extra insulin and supplies in particular to bring in extra sensor glucometer test strips and lancets on board the plane. Orders: Orders AMB Glucose Monitoring Today E11.49 - Type 2 diabetes mellitus with other diabetic neurological complication, Z79.4 - keno terminal operator (current) use of insulin Medications: New semaglutide (Ozempic) for 4 weeks 0.25 mg (0.368 mL) subcut QWEEK 28 days 3 mL 11RF Coding Level of Care Code Est Pt Level 4 (24033) Complex EM visit Add On G2211 Diagnoses Type 2 diabetes mellitus with other neurologic complication, with long-term current use of insulin E11.49; Z79.4 Diabetes mellitus detention insulin use: with detention use Diabetes mellitus complication status: with neurologic complications Diabetes mellitus complication detail: with other neurological complication CPT Codes Details - CPT: 19648 - Glucose monitoring, continuous-physician I&R ([id number]) Time Spent (min) 30 Comment Time spent reviewing labs/provider notes, glucose,sensor reports, face to face, chart doc
[2024-11-12 08:59] VITALS: BP 118/64; PULSE 56; O2SAT 96; BMI 37.1
[2024-11-12 09:15] LABS: Glucose, Whole Blood 140 mg/dL (60-115)
--- OUTSIDE RECORDS SUMMARY | 2024-11-12 09:25 | XMS_ITS | Continuity of Care Document ---
Author Organization sapphire Nelson [facility] Address [address] [place] [address] Phone Care Team Providers Care Grinder And Plater Name Role Phone Z-Converted, Provider Unavailable Unavailabl e Advance Directives Directive Yes / No Effective Date File Name No Information Encounters Encounter Description Practice Location Reason(s) For Visit Diagnoses Date Provider Providers Copied on Encounter Blade Nelson [facility], [address] [place] [address] 2,[address], [place], [place], [id number], [place] tel:[phone] 2 [facility] Unspecified chest pain Sep-2 8200 6 [...]
--- OUTSIDE RECORDS SUMMARY | 2024-11-12 09:25 | XMS_ITS | Clinical Summary ---
Author Organization [employer] Address [address] [place] [address] Care Team Providers Care Chef Concierge Name Role Phone Unavailable Primary Care Provider [...] Recently Relevant to Health Maintenance Insurance DENTAL [facility] DENTAL - N FULL (MEDICAID)
--- OUTSIDE RECORDS SUMMARY | 2024-11-12 09:25 | XMS_ITS | Clinical Summary ---
Author Organization [facility] Address [address] [place] [address] Care Team Providers Care Machine Design Engineer Name Role Phone Marie Luke MD Primary [...] age to complete this topic Care Teams Machine Design Engineer Relationship Specialty Start Date End Date Marie Luke MD [address] [place] [address] PCP - General Internal Medicine 10/31/23
--- OUTSIDE RECORDS SUMMARY | 2024-11-12 09:25 | XMS_ITS | Clinical Summary ---
Author Organization [facility] Address [address] [place] [address] Phone Care Team Providers Care Dresser Tender Name Role Phone Laxmi Christianson MD Primary Care Provider [phone] Allergies Active Allergy Reactions Criticality Noted Date [...] (BMI) of 35.0 to 35.9 in adult ([facility] V24, [facility] V28) 06/04/2024 CAD (coronary artery disease) [...] Type 2 diabetes mellitus wit hout complications ([facility] V24, [facility] V28) 04/02/2023 Encounters Date Type Department Care Team Description 08/18/2024 8:30 AM EST Office Visit [facility] Hematology Oncology [address] [place] [address] Nohemi Ann MD Polycythemia (Primary Dx); Myeloproliferative neoplasm ([facility] V24, [facility] V28) from Last 3 Months Immunizations [...] Type 2 diabetes mellitus wit hout complications ([facility] V24, [facility] V28) DX:Type 2 carolyn betes mellitus without complications (HCC) CAD (coronary artery disease) DX :CAD (coronary artery disease); COMMENT: Stents 2006 and 2008. LAD, RCA, LCX Mixed hyperlipidemia DX:Mixed hy perlipidemia Osteoarthritis, knee DX:Osteoart hritis, knee Polycythemia vera ([facility] V 24, [facility] V28) DX:Polycythemia vera (HCC) CVA (cerebral vascular accid ent) ([facility] V24, [facility] V28) 2021 DX:CVA (cerebral vascular a ccident) ([facility]) Family History Medical History Relation Name [...] [facility] [address] [place] [phone] Nohemi Ann MD [address] [place] [address] Health Maintenance Due Date Last Done Comments [...] Diagnosis Comments ..MISCELLANEOUS REFERENCE LAB TEST 08/25/2024 COMPREHENSIVE METABOLIC PANEL Routine 08/13/2024 1:59 PM EST PV (polycythemia vera) (CMS/HCC V24, CMS/HCC V28) HEMOGLOBIN A1C Routine 09/19/2023 HEPATITIS C SCREENING Routine 06/28/2023 DIABETES EYE EXAM Routine 06/25/2023 HM URINE ALBUMIN CREATININE RATIO Routine 06/06/2023 HM DIABETES FOOT EXAM Routine 06/06/2023 LIPID PANEL Routine 04/04/2023 from Last 3 Months or Most Recently Relevant to Health Maintenance Results * Miscellaneous reference lab test (08/25/2024) us Provider Onbase MD LAB BLOOD ORDERABLES Final Re sult * (ABNORMAL) Comprehensive metabolic panel (08/13/2024 1:59 PM EST) Sodium 139 133 - 145 mmol/L LAB CHEMISTRY METHOD 08/13/2024 5:03 PM [facility] Potassium 3.7 3.5 - 5.5 mmol/L LAB CHEMISTRY METHOD 08/13/2024 5:03 PM [facility] Chloride 100 96 - 110 mmol/L LAB CHEMISTRY METHOD 08/13/2024 5:03 PM [facility] CO2 34(H) 21 - 32 mmol/L LAB CHEMISTRY METHOD 08/13/2024 5:03 PM [facility] Anion Gap 5 3 - 11 LAB CHEMISTRY METHOD 08/13/2024 5:03 PM [facility] Glucose 174(H) 70 - 100 mg/dL LAB CHEMISTRY METHOD 08/13/2024 5:03 PM [facility] BUN 29(H) 5 - 25 mg/dL LAB CHEMISTRY METHOD 08/13/2024 5:03 PM [facility] Creatinine 1.31(H) 0.70 - 1.30 mg/dL LAB CHEMISTRY METHOD 08/13/2024 5:03 PM [facility] eGFR 59(L) >=60 mL/min/1. 73m2 LAB CHEMISTRY METHOD 08/13/2024 5:03 PM [facility] Comment:Calculation based on the??Chronic Kidney Disease Epidemiology Collaboration (CKD-EPI) equation refit??without adjustment for race. BUN/Creatinine Ratio 22.1 LAB CHEMISTRY METHOD 08/13/2024 5:03 PM [facility] Calcium 9.7 8.5 - 10.5 mg/dL LAB CHEMISTRY METHOD 08/13/2024 5:03 PM [facility] AST (SGOT) 15 10 - 42 unit/L LAB CHEMISTRY METHOD 08/13/2024 5:03 PM [facility] ALT (SGPT) 32 10 - 60 unit/L LAB CHEMISTRY METHOD 08/13/2024 5:03 PM [facility] Alkaline Phosphatase 102 42 - 121 unit/L LAB CHEMISTRY METHOD 08/13/2024 5:03 PM [facility] Total Protein 7.4 6.0 - 8.0 g/dL LAB CHEMISTRY METHOD 08/13/2024 5:03 PM [facility] Albumin 3.9 3.2 - 5.0 g/dL LAB CHEMISTRY METHOD 08/13/2024 5:03 PM [facility] Total Bilirubin 0.3 0.0 - 1.4 mg/dL LAB CHEMISTRY METHOD 08/13/2024 5:03 PM [facility] Blood Venous blood specimen / Unknown Venipuncture / Unknown 08/13/2024 1:59 PM EST 08/13/2024 4:39 PM EST us Nohemi Ann MD LAB BLOOD ORDERABLES Final R esult [facility] [address] [place] [address], * Hemoglobin A1c (09/19/2023) [facility] Hemoglobin A1C 6.3 <=6.5 % Blood Venous blood specimen / Unknown Result [facility] Historical Provider LAB BLOOD ORDERABLES Love l Result * Hepatitis C Screening (06/28/2023) [facility] Hepatitis C Screening Abstracted Result [facility] Historical Provider HEALTH MAINTENANCE Final Result * Diabetes Eye Exam (06/25/2023) [facility] Diabetes: Annual Retina Eye Exam Abstracted Result [facility] Provider HEALTH MAINTENANCE Final Result * Urine Albumin Creatinine Ratio (06/06/2023) [facility] Urine Albumin Creatinine Ratio Abstracted Result [facility] Provider HEALTH MAINTENANCE Final Result * Diabetes Foot Exam (06/06/2023) [facility] Diabetes: Annual Foot Exam Abstracted Result [facility] Provider HEALTH MAINTENANCE Final Result * Lipid panel (04/04/2023) [facility] LDL/HDL Ratio 2 0 - 4 Triglycerides 63 0 - 150 mg/dL Cholesterol 104 0 - 200 mg/dL HDL 43 >=40 mg/dL LDL Cholesterol 49 0 - 100 mg/dL Blood Venous blood specimen / Unknown Result [facility] Historical Provider LAB BLOOD ORDERABLES Love l Result from Last 3 Months or Most Recently Relevant to [place] [address] MEDICAID - [place] [employer] MEDICARE Care Teams Dresser Tender Relationship Specialty Start Date End Date Laxmi Christianson MD PCP - General Endocrinology 08/05/24
== END 2024-11-12 09:37 | disposition home or self-care (01) ==
LOC: HO.ENCR 08:56
PROVIDERS: PCP Internal Medicine; Visit Provider Nurse Practitioner Adult Health
DX: E11.49 Type 2 diabetes mellitus with other diabetic neurological complication (principal); Z79.4 Long term (current) use of insulin
CPT/HCPCS: 95251; 99214

== ENCOUNTER → 2024-11-12 08:55 | Outpatient (BNVA) | payer OTHER, MEDICAID, SELFPAY | PROVIDERS: PCP Internal Medicine; Visit Provider Nurse Practitioner Adult Health | DX: E11.9 Type 2 diabetes mellitus without complications (principal) | CPT/HCPCS: 82947 ==

== ENCOUNTER 2024-11-12 09:41 | Outpatient (REF) | payer OTHER, MEDICAID, SELFPAY ==
[2024-11-12 09:58] LABS: MANUAL DIFF FLAG NO
--- OUTSIDE RECORDS SUMMARY | 2024-11-12 10:32 | XMS_ITS | Continuity of Care Document ---
Author Organization [facility] Address [address] [place] [address] Phone Care Team Providers Care Alarm Installation Technician Name Role Phone Z-Converted, Provider Unavailable Unavailabl e Advance Directives Directive Yes / No Effective Date File Name No Information Encounters Encounter Description Practice Location Reason(s) For Visit Diagnoses Date Provider Providers Copied on Encounter Blade Nelson [facility], [address] [place] [address] 2,[address], [place], [place], [id number], [place] tel:[phone] 2 [facility] Unspecified chest pain Sep-2 8200 6 [...]
--- OUTSIDE RECORDS SUMMARY | 2024-11-12 10:32 | XMS_ITS | Clinical Summary ---
Demographics Address [address] [place] [address] Home Phone Mobile Phone Email Address Preferred Language es Marital Status Orthodox Affiliation Unknown Race Other Race Ethnic Group or Author Organization [facility] Address [address] [place] [address] Phone Care Team Providers Care Disposition Clerk Name Role Phone Laxmi Christianson MD Primary Care Provider [phone] Allergies Active Allergy Reactions Criticality Noted Date [...] (BMI) of 35.0 to 35.9 in adult ([facility] V24, [facility] V28) 06/04/2024 CAD (coronary artery disease) [...] Type 2 diabetes mellitus wit hout complications ([facility] V24, [facility] V28) 04/02/2023 Encounters Date Type Department Care Team Description 08/18/2024 8:30 AM EST Office Visit [facility] Hematology Oncology [address] [place] [address] Nohemi Ann MD Polycythemia (Primary Dx); Myeloproliferative neoplasm ([facility] V24, [facility] V28) from Last 3 Months Immunizations [...] Type 2 diabetes mellitus wit hout complications ([facility] V24, [facility] V28) DX:Type 2 carolyn betes mellitus without complications (HCC) CAD (coronary artery disease) DX :CAD (coronary artery disease); COMMENT: Stents 2006 and 2008. LAD, RCA, LCX Mixed hyperlipidemia DX:Mixed hy perlipidemia Osteoarthritis, knee DX:Osteoart hritis, knee Polycythemia vera ([facility] V 24, [facility] V28) DX:Polycythemia vera (HCC) CVA (cerebral vascular accid ent) ([facility] V24, [facility] V28) 2021 DX:CVA (cerebral vascular a ccident) ([facility]) Family History Medical History Relation Name [...] Description 03/08/2025 3:45 PM EDT Office Visit [facility] Hematology Oncology [address] [place] [phone] Nohemi Ann MD [address] [place] [address] Health Maintenance Due Date Last Done Comments [...] mmol/L LAB CHEMISTRY METHOD 08/13/2024 5:03 PM [facility] Potassium 3.7 3.5 - 5.5 mmol/L LAB CHEMISTRY METHOD 08/13/2024 5:03 PM [facility] Chloride 100 96 - 110 mmol/L LAB CHEMISTRY METHOD 08/13/2024 5:03 PM [facility] CO2 34(H) 21 - 32 mmol/L LAB CHEMISTRY METHOD 08/13/2024 5:03 PM [facility] Anion Gap 5 3 - 11 LAB CHEMISTRY METHOD 08/13/2024 5:03 PM [facility] Glucose 174(H) 70 - 100 mg/dL LAB CHEMISTRY METHOD 08/13/2024 5:03 PM [facility] BUN 29(H) 5 - 25 mg/dL LAB CHEMISTRY METHOD 08/13/2024 5:03 PM [facility] Creatinine 1.31(H) 0.70 - 1.30 mg/dL LAB CHEMISTRY METHOD 08/13/2024 5:03 PM [facility] eGFR 59(L) >=60 mL/min/1. 73m2 LAB CHEMISTRY METHOD 08/13/2024 5:03 PM [facility] Comment:Calculation based on the??Chronic Kidney Disease Epidemiology Collaboration (CKD-EPI) equation refit??without adjustment for race. BUN/Creatinine Ratio 22.1 LAB CHEMISTRY METHOD 08/13/2024 5:03 PM [facility] Calcium 9.7 8.5 - 10.5 mg/dL LAB CHEMISTRY METHOD 08/13/2024 5:03 PM [facility] AST (SGOT) 15 10 - 42 unit/L LAB CHEMISTRY METHOD 08/13/2024 5:03 PM [facility] ALT (SGPT) 32 10 - 60 unit/L LAB CHEMISTRY METHOD 08/13/2024 5:03 PM [facility] Alkaline Phosphatase 102 42 - 121 unit/L LAB CHEMISTRY METHOD 08/13/2024 5:03 PM [facility] Total Protein 7.4 6.0 - 8.0 g/dL LAB CHEMISTRY METHOD 08/13/2024 5:03 PM [facility] Albumin 3.9 3.2 - 5.0 g/dL LAB CHEMISTRY METHOD 08/13/2024 5:03 PM [facility] Total Bilirubin 0.3 0.0 - 1.4 mg/dL LAB CHEMISTRY METHOD 08/13/2024 5:03 PM [facility] Blood Venous blood specimen / Unknown Venipuncture / Unknown 08/13/2024 1:59 PM EST 08/13/2024 4:39 PM EST us Nohemi Ann MD LAB BLOOD ORDERABLES Final R esult [facility] [address] [place] [address], * Hemoglobin A1c (09/19/2023) [facility] Hemoglobin A1C 6.3 <=6.5 % Blood Venous blood specimen / Unknown Result [facility] Historical Provider LAB BLOOD ORDERABLES Love l Result * Hepatitis C Screening (06/28/2023) [facility] Hepatitis C Screening Abstracted Result [facility] Historical Provider HEALTH MAINTENANCE Final Result * Diabetes Eye Exam (06/25/2023) [facility] Diabetes: Annual Retina Eye Exam Abstracted Result [facility] Provider HEALTH MAINTENANCE Final Result * Urine Albumin Creatinine Ratio (06/06/2023) [facility] Urine Albumin Creatinine Ratio Abstracted Result [facility] Provider HEALTH MAINTENANCE Final Result * Diabetes Foot Exam (06/06/2023) [facility] Diabetes: Annual Foot Exam Abstracted Result [facility] Provider HEALTH MAINTENANCE Final Result * Lipid panel (04/04/2023) [facility] LDL/HDL Ratio 2 0 - 4 Triglycerides 63 0 - 150 mg/dL Cholesterol 104 0 - 200 mg/dL HDL 43 >=40 mg/dL LDL Cholesterol 49 0 - 100 mg/dL Blood Venous blood specimen / Unknown Result [facility] Historical Provider LAB BLOOD ORDERABLES Love l Result from Last 3 Months or Most Recently Relevant [place] [address] MEDICAID - [place] [employer] MEDICARE Care Teams Disposition Clerk Relationship Specialty Start Date End Date Laxmi Christianson MD PCP - General Endocrinology 08/05/24
--- OUTSIDE RECORDS SUMMARY | 2024-11-12 10:33 | XMS_ITS | Clinical Summary ---
Author Organization [employer] Address [address] [place] [address] Care Team Providers Care Service Delivery Analyst Name Role Phone Unavailable Primary Care Provider [...] Recently Relevant to Health Maintenance Insurance DENTAL [facility] DENTAL - N FULL (MEDICAID)
--- OUTSIDE RECORDS SUMMARY | 2024-11-12 10:33 | XMS_ITS | Clinical Summary ---
Author Organization [facility] Address [address] [place] [address] Care Team Providers Care Technical Marketing Consultant Name Role Phone Marie Luke MD Primary [...] age to complete this topic Care Teams Technical Marketing Consultant Relationship Specialty Start Date End Date Marie Luke MD [address] [place] [address] PCP - General Internal Medicine 10/31/23
[2024-11-12 10:46] LABS: INTERNATIONAL NORM RATIO 1.1 (0.9-1.1); Prothrombin Time 12.4 SEC (10.9-12.4)
[2024-11-12 10:47] LABS: Basophils Absolute Auto 0.1 X10*3/uL (0.0-0.2); Basophils Percent Auto 0.9 % (0-2); Eosinophils Absolute Auto 0.4 X10*3/uL (0.0-0.4); Eosinophils Percent Auto 3.7 % (0-4); Hematocrit 49.6 % (42.0-52.0); Hemoglobin 15.6 g/dl (14.0-18.0); Imm Gran Abs Auto 0.04 X10*3/uL (0.00-0.03); Imm Gran Pct Auto 0.4 % (0.0-0.4); Lymphocytes Absolute Auto 2.1 X10*3/uL (1.2-4.9); Lymphocytes Percent Auto 19.6 % (20-40); Mean Corpuscular HGB Conc 31.5 g/dl (31.0-36.0); Mean Corpuscular Volume 82.8 fL (80.0-98.0); Mean Platelet Volume 10.9 fL (9.4-12.4); Monocytes Absolute Auto 1.3 X10*3/uL (0.1-1.2); Monocytes Percent Auto 11.9 % (2-11); Neutrophils Absolute Auto 6.9 x10*3/uL (2.0-8.3); Neutrophils Percent Auto 63.5 % (45-73); Platelet Count 281 X10*3/uL (160-400); Red Blood Count 5.99 X10*6/uL (4.60-5.80); Red Cell Distribution Width 15.3 % (11.0-16.0); White Blood Count 10.8 X10*3/uL (4.8-10.8)
[2024-11-12 11:14] LABS: Anion Gap 14 (12-20); Blood Urea Nitrogen 23 mg/dL (9-16); Calcium 9.4 mg/dL (8.4-10.2); Carbon Dioxide 31 mmol/L (22-29); Chloride 101 mmol/L (96-108); Estimated Glomerular Filt Rate > 60; Glucose Random 118 mg/dL (60-115); Potassium 3.9 mmol/L (3.3-5.1); Sodium 142 mmol/L (135-145)
== END 2024-11-12 09:42 | disposition home or self-care (01) ==
LOC: HO.10HDL 09:41
PROVIDERS: Visit Provider Internal Medicine
DX: Z01.810 Encounter for preprocedural cardiovascular examination (principal)
CPT/HCPCS: 36415; 80048; 85025; 85610

== ENCOUNTER 2024-12-22 08:32 | Outpatient (AMB) | payer OTHER, MEDICAID, SELFPAY ==
--- OUTSIDE RECORDS SUMMARY | 2006-03-27 20:00 | XMS_ITS | Continuity of Care Document ---
Author Organization sapphire Nelson [facility] Address [address] [place] [address] Phone Care Team Providers Care Greige Goods Examiner Name Role Phone Z-Converted, Provider Unavailable Unavailabl e Advance Directives Directive Yes / No Effective Date File Name No Information Encounters Encounter Description Practice Location Reason(s) For Visit Diagnoses Date Provider Providers Copied on Encounter Blade Nelson [facility], [address] [place] [address] 2,[address], [place], [place], [id number], [place] tel:[phone] [facility] Unspecified chest pain Sep-2 8200 6 [...]
--- NOTE | 2024-12-22 08:34 | MHC.OFFVIS ---
Vital Signs 12/22/24 08:38 Height 5 ft 4 in Weight 215 lb 2.738 oz BMI 36.9 BP 128/64 Blood Pressure Location Lt brachial Position Sitting Pulse 84 Pulse Source Pulse Oximeter Pulse Oximetry (%) 96 Oxygen Delivery Method Room Air Intake Visit Reasons: T2DM Intake Note: Patient present today to follow up on Type 2 Diabetes Mellitus. Last seen by Maylin Chen on 11/12/2024. 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 Services: Con[employer] Sleeping Car Offered & Declined Accompanied by: Daughter Allergies shrimp Allergy (Unknown, Verified 12/22/24 08:38) Vomiting Medication List - Last Reconciled 12/22/24 by SAMINA Keating acetaminophen ER (Arthritis Pain Relief (acetaminophen) ER) 650 mg PO Q12H 90 days amlodipine 5 mg PO DAILY 90 days aspirin (Adult Low Dose Aspirin) 81 mg PO DAILY atorvastatin 40 mg PO DAILY blood sugar diagnostic (OpenPlacement Verio test strips) As directed to check blood glucose blood-glucose sensor (FaithStreetStyle Mayra 3 Plus Sensor device) As directed every 15 days chlorthalidone 50 mg PO DAILY cyanocobalamin (vitamin B-12) 1,000 mcg PO DAILY gabapentin 300 mg PO TID glucose (Dex4 Glucose Quick Dissolve) 16 grams (4 x 4 gram) PO Q15M PRN insulin lispro protamin-lispro 100 unit/mL (75-25) (Humalog Mix 75-25 KwikPen) 30 units (0.3 mL) subcut BID 90 days Jardiance (empagliflozin) 25 mg PO DAILY NS lisinopril 40 mg PO DAILY 90 days metformin 500 mg PO BID metoprolol succinate ER 50 mg PO DAILY OneTouch Delica Plus Lancet (lancets) Four times daily NS pen needle, diabetic As directed bid NS semaglutide (Ozempic) 0.5 mg (0.736 mL) subcut QWEEK triamcinolone acetonide 40 mg IM DAILY HPI Comments Details: This is a 69-year-old male presenting for diabetic management. He is accompanied by his daughter. He was last seen 11/12/2024 by my colleague. He was initially diagnosed with type 2 diabetes in his youth. He began insulin at age 38. C-peptide 2.7 and LALA antibodies negative. Hemoglobin a1c today 12/22/24 8.6%. Current regimen: Humulin 75/25 30 units twice daily Metformin 500 mg twice daily Jardiance 25 mg daily Ozempic 0.25 mg weekly. He started this 2 weeks ago. Reviewed Symwave 3 data for the past two weeks Sensor use 92% >250 7% 181-250 30% Target range 63% hypolgycemia 0% GMI 7.4% There is a pattern of post prandial hyperglycemia Past medications: Glipizide, Lantus, Acarbose Complications: Retinopathy followed by [facility] and [facility] and sees retinal specialist for injections in both eyes. Neuropathy. Nephropathy (CKD). Coronary artery disease and history of CVA in 2010. He has hyperlipidemia on a statin. He is working on his diet. He is incorporating more vegetables. He still drinks regular coca cola. ROS: Constitutional: No unexplained weight loss, fever, chills, fatigue or night sweats. Respiratory: No shortness of breath, cough or sputum production. Cardiovascular: No chest pain, chest pressure or chest discomfort. No palpitations or pedal edema. Gastrointestinal: No anorexia, nausea, vomiting or diarrhea. No abdominal pain or blood Physical exam: Constitutional: Alert, in no distress. Head: Normocephalic. Neck: Supple, Full range of motion. No lymphadenopathy. No palpable thyroid masses. Respiratory: Clear to auscultation. Cardiovascular: S1 S2 regular. No murmurs. Right foot: Warm and well perfused. No clubbing, cyanosis or edema. Intact DP pulse. Decreased vibratory sensation. Intact sensation to monofilament. No open wounds. Left foot: Warm and well perfused. No clubbing, cyanosis or edema. Intact DP pulse. Decreased vibratory sensation. Intact sensation to monofilament. No open wounds. [facility] Medical History (Updated 12/22/24 @ 09:24 by SAMINA Keating) CKD (chronic kidney disease) stage 2, GFR 60-89 ml/min CVA (cerebral vascular accident) Swelling, mass, or lump in chest Blurry vision, bilateral Blurry vision Surgical History S/P excision of lipoma (09/24/24) Hx of hernia repair Hx of arthroscopy of left knee Social History Household Members: None Housing: Apartment Alcohol intake: never Patient Tobacco Use Status: Never used Tobacco e-Cigarette/Vaping Use: Never Used Current occupational status: retired Cognitive needs: No Hearing needs: No Vision needs: Yes Physical Exam Vital Signs: Last Vital Signs Pulse 84 12/22/24 08:38 BP 128/64 12/22/24 08:38 Pulse Ox 96 12/22/24 08:38 Oxygen Delivery Method Room Air 12/22/24 08:38 BMI result Body Mass Index 36.9 Office Procedures Glucose Monitoring Details Details: See HPI 55699 - Glucose monitoring, continuous-physician I&R Procedure code (CPT) selection complete Results AMB Hemoglobin A1c AMB Hemoglobin A1c 8.6 % Last Edit by ALEJANDRA Olivo on 12/22/24 08:56 Results Reviewed Results Reviewed: Laboratory Last Values Glucose (Clinic) 159 mg/dL (60-115) H 12/22/24 08:44 Laboratory Tests 07/23/24 07/23/24 09/17/24 15:34 16:35 10:27 Plt Count AST 27 ALT 33 Triglycerides 132 Cholesterol 116 LDL Cholesterol, Calc 43 HDL Cholesterol 47 Urine Creatinine 107.57 Urine Microalbumin 27.0 Microalb/Creat Ratio 25.0 11/12/24 09:45 Plt Count 281 AST ALT Triglycerides Cholesterol LDL Cholesterol, Calc HDL Cholesterol Urine Creatinine Urine Microalbumin Microalb/Creat Ratio Assessment & Plan Assessment & Plan (1) Type 2 diabetes mellitus: Code(s): E11.9 - Type 2 diabetes mellitus without complications Category: Medical Qualifiers: Diabetes mellitus longterm insulin use: with longterm use Diabetes mellitus complication status: with neurologic complications Diabetes mellitus complication detail: with other neurological complication Qualified Code(s): E11.49 - Type 2 diabetes mellitus with other diabetic neurological complication; 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 His 14 day GMI shows improvement in glycemic control since starting Ozempic. He is tolerating it well. We also reviewed his recent lab work which shows improved renal function and LDL at target. Hypertension is controlled. We discussed lifestyle modifications at length. He has an appointment today to see the dietitian. He needs to stop drinking Coca-Cola. We reviewed complications of type 2 diabetes. Target A1c is less than 7%. Reviewed written instructions for hypoglycemia management. If you experience low blood sugar, treat this by eating a chewable fruit candy like skittles or jelly beans (about 8 pieces), 4 ounces (1/2 cup) of fruit juice (not diet), 1 tablespoon of honey or 4 glucose tablets. If your blood sugar is under 55, take double the amount of one of the above. Recheck your blood sugar in 15 minutes. Take Ozempic 0.25 mg once weekly for two more weeks (2 more doses) then increase to 0.5 mg weekly. Continue your other medications: Humulin 75/25 30 units twice daily Metformin 500 mg twice daily Jardiance 25 mg daily Follow up in 6 weeks. 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 AMB Glucose Monitoring Today E11.9 - Type 2 diabetes mellitus without complications Medications: New semaglutide (Ozempic) 0.5 mg (0.736 mL) subcut QWEEK 3 mL 1RF glucose (Dex4 Glucose Quick Dissolve) until symptoms of low blood sugar are controlled 16 grams (4 x 4 gram) PO Q15M PRN 10 tabs 3RF hypoglycemia Discontinued semaglutide (Ozempic) for 4 weeks Discontinued Reason: Doctor's Order 0.25 mg (0.368 mL) subcut QWEEK 28 days 3 mL 11RF Patient Instructions: If you experience low blood sugar, treat this by eating a chewable fruit candy like skittles or jelly beans (about 8 pieces), 4 ounces (1/2 cup) of fruit juice (not diet), 1 tablespoon of honey or 4 glucose tablets. If your blood sugar is under 55, take double the amount of one of the above. Recheck your blood sugar in 15 minutes. Take Ozempic 0.25 mg once weekly for two more weeks (2 more doses) then increase to 0.5 mg weekly. Continue your other medications: Humulin 75/25 30 units twice daily Metformin 500 mg twice daily Jardiance 25 mg daily Si tiene un nivel bajo de az?car en la jannie, tr?telo comiendo un caramelo masticable de fruta zaria Skittles o Jelly Beans (aproximadamente 8 piezas), 113 ml (1/2 taza) de jugo de fruta (no de dieta), 1 cucharada de miel o 4 tabletas de glucosa. Si thacker nivel de az?car en la jannie es inferior a 55, tome el doble de la cantidad de nati de los anteriores. Vuelva a medir thacker nivel de az?car en la jannie en 15 minutos. Antares Ozempic 0.25 mg angela vez a la semana kim dos semanas m?s (2 dosis m?s) y luego aumente a 0.5 mg a la semana. Contin?e con ye otros medicamentos: Humulin 75/25 30 unidades dos veces al d?a Metformina 500 mg dos veces al d?a Jardiance 25 mg al d?a Coding Level of Care Code Est Pt Level 4 (91865) Diagnoses Type 2 diabetes mellitus with other neurologic complication, with long-term current use of insulin E11.49; Z79.4 Diabetes mellitus longterm insulin use: with longterm use Diabetes mellitus complication status: with neurologic complications Diabetes mellitus complication detail: with other neurological complication Primary hypertension I10 Hypertension type: primary hypertension CKD (chronic kidney disease) stage 2, GFR 60-89 ml/min N18.2 CPT Codes Details - CPT: 97061 - Glucose monitoring, continuous-physician I&R ([id number])
[2024-12-22 08:38] VITALS: BP 128/64; PULSE 84; O2SAT 96; BMI 36.9
[2024-12-22 08:48] LABS: Glucose, Whole Blood 159 mg/dL (60-115)
== END 2024-12-22 09:54 | disposition home or self-care (01) ==
LOC: HO.ENCR 08:33
PROVIDERS: PCP Internal Medicine; Visit Provider Physician Assistant Medical
DX: E11.49 Type 2 diabetes mellitus with other diabetic neurological complication (principal); Z79.4 Long term (current) use of insulin; I12.9 Hypertensive chronic kidney disease with stage 1 through stage 4 chronic kidney disease, or unspecified chronic kidney disease; N18.2 Chronic kidney disease, stage 2 (mild)

== ENCOUNTER 2024-12-22 08:32 | Outpatient (AMB) | payer OTHER, MEDICAID, SELFPAY ==
[2024-12-22 09:22] VITALS: BMI 36.6
--- NOTE | 2024-12-22 09:22 | A.OFFVIS_ITS ---
VS Expanded 12/22/24 09:22 Height 5 ft 4 in Weight 213 lb 2.992 oz BMI 36.6 Intake Visit Reasons: T2DM with neurological Allergies shrimp Allergy (Unknown, Verified 12/22/24 08:38) Vomiting Nutrition Presentation Details: Pt presents for MNT f/u for T2DM Pt reports he was in [place] for a couple of weeks and diet modifications were challenging Pt reports doing recent grocery shopping and including veg/lower carb starch option and omitting pastries/desserts contemplating switching to lower sugar soda physical activity- tries to walk hallway (has a brace on right leg to support knee and uses cane for support) per glucose sensor: 14 day BG average 7.6% (63% whinin range), no low BG . Highest bg after meals BS Monitoring Most Recent Diabetes Results: Creatinine, (0.5-1.4) 1.03 mg/dL 11/12/24 BUN, (9-16) 23 mg/dL H 11/12/24 Sodium, (135-145) 142 mmol/L 11/12/24 Potassium, (3.3-5.1) 3.9 mmol/L 11/12/24 Chloride, (96-108) 101 mmol/L 11/12/24 Carbon Dioxide, (22-29) 31 mmol/L H 11/12/24 Calcium, (8.4-10.2) 9.4 mg/dL 11/12/24 [facility] Medical History CVA (cerebral vascular accident) Swelling, mass, or lump in chest Blurry vision, bilateral Blurry vision Surgical History S/P excision of lipoma (09/24/24) Hx of hernia repair Hx of arthroscopy of left knee Social History Household Members: None Housing: Apartment Alcohol intake: never Patient Tobacco Use Status: Never used Tobacco e-Cigarette/Vaping Use: Never Used Current occupational status: retired Cognitive needs: No Hearing needs: No Vision needs: Yes Assessment & Plan Assessment & Plan (1) Type 2 diabetes mellitus: Code(s): E11.9 - Type 2 diabetes mellitus without complications Category: Medical Qualifiers: 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 marine 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 Diabetes mellitus complication status: with neurologic complications Diabetes mellitus complication detail: with other neurological complication Qualified Code(s): E11.49 - Type 2 diabetes mellitus with other diabetic neurological complication; Z79.4 - senior care (current) use of insulin Plan: Wt: 98 Kg ( 11/22 ), 97 kg (12/23) Est kcal needs as per MSJ:2000 (40% carb, 30% protein/fat) Est fluid needs as per 25-30 ml/d: 3000 Est prot per day as per 1 g/kg bw: 98 Recommend fiber intake : 8-10 g per day and gradually increase to 25-28 g per day for women and 35-38 g for men or as tolerated Recommend sodium intake per day : less than 2000 mg Educated patient on: ( R = reviewed V = verbalizes understanding N/R = needs review N/A = not applicable * Food sources of carbohydrate, adequate serving sizes and its role in various health conditions: R * Differences between complex carbohydrates a simple carbohydrates, role of fiber in diet: R * Lean protein sources of foods: R * Differences between types of fats and role in diet (mono on saturated fat fatty acids, saturated fatty acids, trans fats): R * Food sources of sodium in salt and healthy modifications for heart health in kidney health: R V R/V * Vitamins and minerals: R V N/R * Healthy plate method concept: R * Physical activity: Benefits a precaution: R V N/R * Hypoglycemia protocol (rule of 15): R V N/R * Dietary prevention of Hyperglycemia: R Patient Instructions: Switch to lower sugar beverages see list of options Choose celery, raw peppers or carrots as snack Coding Level of Care Code Nutr Indiv Subseq (88356) Diagnoses Type 2 diabetes mellitus with other neurologic complication, with long-term current use of insulin E11.49; Z79.4 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
== END 2024-12-22 10:13 | disposition home or self-care (01) ==
LOC: HO.ENCR 08:33
PROVIDERS: PCP Internal Medicine; Visit Provider Dietitian, Registered
DX: E11.49 Type 2 diabetes mellitus with other diabetic neurological complication (principal); Z79.4 Long term (current) use of insulin

== ENCOUNTER → 2024-12-22 08:32 | Outpatient (BNVA) | payer OTHER, MEDICAID, SELFPAY | PROVIDERS: PCP Internal Medicine; Visit Provider Physician Assistant Medical | DX: E11.49 Type 2 diabetes mellitus with other diabetic neurological complication (principal); Z79.4 Long term (current) use of insulin | CPT/HCPCS: 82947; 83036; 97803 ==

== ENCOUNTER 2024-12-28 14:40 | Outpatient (AMB) | payer OTHER, MEDICAID, SELFPAY ==
--- OUTSIDE RECORDS SUMMARY | 2006-03-27 20:00 | XMS_ITS | Continuity of Care Document ---
Author Organization sa[facility] Nelson [facility] Address [address] [place] [address] Phone Care Team Providers Care Oil Lease Broker Name Role Phone Z-Converted, Provider Unavailable Unavailabl e Advance Directives Directive Yes / No Effective Date File Name No Information Encounters Encounter Description Practice Location Reason(s) For Visit Diagnoses Date Provider Providers Copied on Encounter Blade Nelson [facility], [address] [place] [address] 2,[address], [place], [place], [id number], [place] tel:[phone] [facility] Unspecified chest pain Sep-2 8200 6 [...]
--- NOTE | 2024-12-28 14:55 | A.OFFPC_ITS ---
Vital Signs 12/28/24 14:58 Height 5 ft 4 in Weight 214 lb 8 oz BMI 36.8 BP 122/66 Blood Pressure Location Rt brachial Position Sitting Respiration 14 Pulse 74 Pulse Source Pulse Oximeter Pulse Oximetry (%) 97 Oxygen Delivery Method Room Air Intake Visit Reasons: CPE - see comments Intake Note: Physical Installment Loan Collector Required: No Installment Loan Collector Name: tutoring manager declined Accompanied by: Daughter Allergies shrimp Allergy (Unknown, Verified 12/28/24 14:56) Vomiting Tobacco use date assessed: 12/28/24 Fall risk assessment: 1 Fall in past year Last assessed Fall Risk: 12/28/24 Dental Screening Dental Screen Date: 11/09/24 HPI HPI Comments History of Present Illness Details This is a 68-year-old male with a past medical history of type 2 diabetes, hypertension, hyperlipidemia and 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 Accompanied by daughter. 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 Meter reviewed-overall improving glycemic control on ozempic. Has had two lows in past 3 months. Daughter tells me he wants to stop the ozempic because of the two lows despite improved overall control. He is eating smaller meals. He is willing to decrease to humulin to see if the lows can be avoided while getting used to the ozempic. He will see endocrine again in december. He has an upcoming podiatry appt. eye exam utd Current regimen: Humulin 75/25 30 units twice daily -decreased today 12/28 from 30 bid to 20 bid, can go up to 25 bid as tolerated. Metformin 500 mg twice daily Jardiance 25 mg daily Ozempic 0.25 mg weekly. He started this 2 weeks ago. CV: On norvasc, chlorthalidone, lisinopril. metoprolol. Blood pressure has been controlled Denies chest pain, dizziness. MSK: Following with ortho-Has had knee injections. Left sided rib pain improved after gen surgery lipoma removal Neuro: History of CVA with residual right hemiplegia, aphasia. In August was having dizziness-CTA, MRI negative acute findings. Vestibular therapy resolved his dizziness Colonoscopy: [place] prior to move 2021/2022. Does not want further PSA ordered ROS see HPI PHYSICAL EXAM: GENERAL: Alert and oriented x 3. NAD EYES: EOMI. Anicteric. HENT: Moist mucous membranes. No scleral icterus. LUNGS: Clear to auscultation bilaterally. CARDIOVASCULAR: Regular rate and rhythm. No murmur ABDOMEN: Soft, non-tender +bs EXTREMITIES: No edema. Non-tender. SKIN: No rashes or lesions. Warm. NEUROLOGIC: No focal neurological deficits. CN II-XII grossly intact PSYCHIATRIC: Cooperative. Appropriate mood and affect [facility] Medical History CKD (chronic kidney disease) stage 2, GFR 60-89 ml/min CVA (cerebral vascular accident) Swelling, mass, or lump in chest Blurry vision, bilateral Blurry vision Surgical History S/P excision of lipoma (09/24/24) Hx of hernia repair Hx of arthroscopy of left knee Social History Household Members: None Housing: Apartment Alcohol intake: never Patient Tobacco Use Status: Never used Tobacco e-Cigarette/Vaping Use: Never Used Current occupational status: retired Cognitive needs: No Hearing needs: No Vision needs: Yes Questionnaire Thrive Questionnaire Date Thrive assessed: 08/04/24 I am a: Patient What is your living situation today?: I have a steady place to live Within the past 12 months, did the food you bought not last and you didn't have the money to get more?: Sometimes True Within the past 12 months, did you worry whether your food would run out before you got money to buy more?: Sometimes True Do you have trouble paying for medicines?: No Do you have trouble getting transportation to medical appointments?: No Do you have trouble paying your heating and electricity bill?: No Do you have trouble taking care of your child, family member or friend?: No Do you have trouble with day-to-day activities such as bathing, preparing meals, shopping, managing finances, etc.?: Yes Are you currently unemployed and looking for a job?: No Are you interested in more education?: No Please select the resources that you would like help with: Food Currently or been in a relationship where the following occur: No concerns reported THRIVE Score: 2 AUDIT C Alcohol Use Questionnaire (AUDIT-C) 1. How often do you have a drink containing alcohol?: Never 3. How often do you have six or more drinks on one occasion?: Never Total Score: 0 LALA-7 AMB Questionnaire LALA-7 Date LALA - 7 assessed: 02/10/24 Source: Developed by Drs. David Troncoso, Maria Elena Montaño, Silvestre Shields and colleagues, with an educational taran from [employer]. Physical exam (Primary Care) Vital Signs: Last Vital Signs Pulse 74 12/28/24 14:58 Resp 14 12/28/24 14:58 BP 122/66 12/28/24 14:58 Pulse Ox 97 12/28/24 14:58 Oxygen Delivery Method Room Air 12/28/24 14:58 BMI result Body Mass Index 36.8 Tobacco/Smoking Status: Tobacco use Status Tobacco use date assessed 12/28/24 12/28/24 14:58 Patient Tobacco Use Status Never used Tobacco 12/28/24 14:58 e-Cigarette/Vaping Use Never Used 12/28/24 14:58 Thrive Assessment: Date of Thrive Assessment Date Thrive assessed 08/04/24 12/28/24 14:58 Currently or been in a relationship where the following occur: No concerns reported Coding Level of Care Code Est Pt Prev Care >65y(62302) Diagnoses Physical exam Z00.00 Type 2 diabetes mellitus with other neurologic complication, with long-term current use of insulin E11.49; Z79.4 Diabetes mellitus complication detail: with other neurological complication Diabetes mellitus complication status: with neurologic complications Diabetes mellitus snf insulin use: with long term care phlebotomist use Primary hypertension I10 Hypertension type: primary hypertension Assessment & Plan Assessment & Plan (1) Physical exam: Code(s): Z00.00 - Encounter for general adult medical examination without abnormal findings (2) Type 2 diabetes mellitus: Code(s): E11.9 - Type 2 diabetes mellitus without complications Category: Medical Qualifiers: Diabetes mellitus complication detail: with other neurological complication Diabetes mellitus complication status: with neurologic complications Diabetes mellitus long term care phlebotomist insulin use: with long term care phlebotomist use Qualified Code(s): E11.49 - Type 2 diabetes mellitus with other diabetic neurological complication; Z79.4 - terminal supervisor (current) use of insulin (3) Hypertension: Code(s): I10 - Essential (primary) hypertension Category: Medical Qualifiers: Hypertension type: primary hypertension Qualified Code(s): I10 - Essential (primary) hypertension Plan 69 year old for CPE Interval history reviewed Preventive measures for age reviewed Overall improved glycemic control but with a few episodes of hypoglycemia. Decrease humulin to 20 bid from 30 bid. May need to increase slowly as tolerated for improved glucose with hypoglycemia. Labs ordered Orders: Orders Complete Blood Count Auto Diff Today E11.49 - Type 2 diabetes mellitus with other diabetic neurological complication, I10 - Essential (primary) hypertension, I25.10 - Atherosclerotic heart disease of [place] coronary artery without angina pectoris, Z13.0 - Encounter for screening for diseases of the blood and blood-forming organs and certain disorders involving the immune mechanism, Z79.4 - terminal supervisor (current) use of insulin IRON PROFILE Today E11.49 - Type 2 diabetes mellitus with other diabetic neurological complication, I10 - Essential (primary) hypertension, I25.10 - Atherosclerotic heart disease of [place] coronary artery without angina pectoris, Z13.0 - Encounter for screening for diseases of the blood and blood-forming organs and certain disorders involving the immune mechanism, Z79.4 - snf (current) use of insulin Lipid Panel Today E11.49 - Type 2 diabetes mellitus with other diabetic neur ological complication, I10 - Essential (primary) hypertension, I25.10 - Atherosclerotic heart disease of [place] coronary artery without angina pectoris, Z13.0 - Encounter for screening for diseases of the blood and blood-forming organs and certain disorders involving the immune mechanism, Z79.4 - snf (current) use of insulin Prostate Specific Antigen Today Z12.5 - Encounter for screening for malignant neoplasm of prostate Medications: Changed From insulin lispro protamin-lispro 100 unit/mL (75-25) (Humalog Mix 75-25 KwikPen) before breakfast and supper 30 units (0.3 mL) subcut BID 90 days 54 mL 3RF To insulin lispro protamin-lispro 100 unit/mL (75-25) (Humalog Mix 75-25 KwikPen) before breakfast and supper 20 units (0.2 mL) subcut BID 36 mL 3RF 90 days
[2024-12-28 14:58] VITALS: BP 122/66; PULSE 74; RESP 14; O2SAT 97; BMI 36.8
--- OUTSIDE RECORDS SUMMARY | 2024-12-28 15:12 | XMS_ITS | Clinical Summary ---
Author Organization [employer] Address [address] [place] [address] Care Team Providers Care Statistical Consultant Name Role Phone Unavailable Primary Care Provider [...] Vaccines (1 of 2) 2004 COVID-19 Vaccine ( - season) 2024 10/20/2021, 05/18/2021, 10/10/2020, Additional history exists Dental Oral Exam 03/27/2024 09/24/2023 Dental X-Ray: Bitewings 09/24/2024 09/24/2023 Influenza Vaccine (Season Ended) 2025 06/28/2023 Tobacco Screening 03/12/2025 03/12/2024 Dental X-Ray: Full [...] Recently Relevant to Health Maintenance Insurance DENTAL [facility] - N FULL (MEDICAID)
--- OUTSIDE RECORDS SUMMARY | 2024-12-28 15:12 | XMS_ITS | Clinical Summary ---
Author Organization [facility] Address [address] [place] [address] Phone Care Team Providers Care Senior Marketing Analyst Name Role Phone Laxmi Christianson MD Primary Care Provider [phone] Allergies Active Allergy Reactions Criticality Noted Date [...] 100 unit/mL (70-30) injection 30 units BID 04/01/202 4 Active chlorthalidone (HYGROTON) 50 mg tablet [...] (BMI) of 35.0 to 35.9 in adult ([facility] V24, [facility] V28) 06/04/2024 CAD (coronary artery [...] Type 2 diabetes mellitus wit hout complications ([facility] V24, [facility] V28) 04/02/2023 Immunizations Name Administration Dates Next Due Influenza trivalent, 0.5mL ( Fluad) 65yo and older 06/28/2023 Moderna SARS-CoV-2 COVID-19, mRNA, LNP-S, preservative free 10/20/2021,05/18/2021,10/10/2020,2020 Surgical History Surgery Date Site/Laterality Comments CARDIAC CATHETERIZATION Left PROCEDURE: HISTORICAL CARDIAC CATH; COMMENT: 2006, 2008 Medical History Medical History Date Comments Essential (primary) hypertension DX:Essential (primary) hypertension Type 2 diabetes mellitus wit hout complications ([facility] V24, [facility] V28) DX:Type 2 carolyn betes mellitus without complications (HCC) CAD (coronary artery disease) DX :CAD (coronary artery disease); COMMENT: Stents 2006 and 2008. LAD, RCA, LCX Mixed hyperlipidemia DX:Mixed hy perlipidemia Osteoarthritis, knee DX:Osteoart hritis, knee Polycythemia vera ([facility] V 24, [facility] V28) DX:Polycythemia vera ([facility]) CVA (cerebral vascular accid ent) ([facility] V24, [facility] V28) 2021 DX:CVA (cerebral vascular a ccident) ([facility]) Family History Medical History Relation [...] 74 08/18/2024 8:35 AM EST Temperature 36.8 C (98.3 F) 08/18/2024 8:35 AM EST Respiratory Rate - - Oxygen Saturation 98% 08/18/2024 8:35 AM EST Inhaled Oxygen Concentration - - Weight 95.7 kg (211 lb) 08/18/2024 8:35 AM EST Height 162.6 cm (5' 4 ) 08/05/2024 2:40 PM EST Body Mass Index 36.22 08/05/2024 2:40 PM EST Plan of Treatment Upcoming Encounters Date Type Department Care Team (Late st Contact Info) Description 01/28/2025 9:00 AM EDT Consult Orthopedic Surgery - [place] [id number] [phone] Tariq Wilson DPM [address] [address] 03/08/2025 3:45 PM EDT Office Visit [facility] Hematology Oncology [address] [place] [phone] Nohemi Ann MD [address] [place] [address] Health Maintenance Due Date Last Done Comments [...] Procedure Name Priority Date/Time Associated Diagnosis Comments COMPREHENSIVE METABOLIC PANEL Routine 08/13/2024 1:59 PM EST PV (polycythemia vera) ([facility] V24, [facility] V28) HEMOGLOBIN A1C Routine 09/19/2023 HEPATITIS C SCREENING Routine 06/28/2023 DIABETES EYE EXAM Routine 06/25/2023 URINE ALBUMIN CREATININE RATIO Routine 06/06/2023 DIABETES FOOT EXAM Routine 06/06/2023 LIPID PANEL Routine 04/04/2023 from Last 3 Months or Most Recently Relevant to Health Maintenance Results * (ABNORMAL) Comprehensive metabolic panel (08/13/2024 1:59 PM EST) Sodium 139 133 - 145 mmol/L LAB CHEMISTRY METHOD 08/13/2024 5:03 PM [facility] Potassium 3.7 3.5 - 5.5 mmol/L LAB CHEMISTRY METHOD 08/13/2024 5:03 PM [facility] Chloride 100 96 - 110 mmol/L LAB CHEMISTRY METHOD 08/13/2024 5:03 PM [facility] CO2 34(H) 21 - 32 mmol/L LAB CHEMISTRY METHOD 08/13/2024 5:03 PM [facility] Anion Gap 5 3 - 11 LAB CHEMISTRY METHOD 08/13/2024 5:03 PM [facility] Glucose 174(H) 70 - 100 mg/dL LAB CHEMISTRY METHOD 08/13/2024 5:03 PM [facility] BUN 29(H) 5 - 25 mg/dL LAB CHEMISTRY METHOD 08/13/2024 5:03 PM [facility] Creatinine 1.31(H) 0.70 - 1.30 mg/dL LAB CHEMISTRY METHOD 08/13/2024 5:03 PM [facility] eGFR 59(L) >=60 mL/min/1. 73m2 LAB CHEMISTRY METHOD 08/13/2024 5:03 PM [facility] Comment:Calculation based on the Chronic Kidney Disease Epidemiology Collaboration (CKD-EPI) equation refit without adjustment for race. BUN/Creatinine Ratio 22.1 LAB CHEMISTRY METHOD 08/13/2024 5:03 PM [facility] Calcium 9.7 8.5 - 10.5 mg/dL LAB CHEMISTRY METHOD 08/13/2024 5:03 PM [facility] AST (SGOT) 15 10 - 42 unit/L LAB CHEMISTRY METHOD 08/13/2024 5:03 PM [facility] ALT (SGPT) 32 10 - 60 unit/L LAB CHEMISTRY METHOD 08/13/2024 5:03 PM [facility] Alkaline Phosphatase 102 42 - 121 unit/L LAB CHEMISTRY METHOD 08/13/2024 5:03 PM [facility] Total Protein 7.4 6.0 - 8.0 g/dL LAB CHEMISTRY METHOD 08/13/2024 5:03 PM [facility] Albumin 3.9 3.2 - 5.0 g/dL LAB CHEMISTRY METHOD 08/13/2024 5:03 PM [facility] Total Bilirubin 0.3 0.0 - 1.4 mg/dL LAB CHEMISTRY METHOD 08/13/2024 5:03 PM [facility] Blood Venous blood specimen / Unknown Venipuncture / Unknown 08/13/2024 1:59 PM EST 08/13/2024 4:39 PM EST us Nohemi Ann MD LAB BLOOD ORDERABLES Final R esult [facility] [address], [place] [address] [phone] * Hemoglobin A1c (09/19/2023) [facility] Hemoglobin A1C 6.3 <=6.5 % Blood Venous blood specimen / Unknown Result [facility] Provider LAB BLOOD ORDERABLES Love l Result * Hepatitis C Screening (06/28/2023) [facility] Hepatitis C Screening Abstracted Result [facility] HEALTH MAINTENANCE Final Result * Diabetes Eye Exam (06/25/2023) [facility] Diabetes: Annual Retina Eye Exam Abstracted Result [facility] HEALTH MAINTENANCE Final Result * Urine Albumin Creatinine Ratio (06/06/2023) [facility] Urine Albumin Creatinine Ratio Abstracted Result [facility] HEALTH MAINTENANCE Final Result * Diabetes Foot Exam (06/06/2023) [facility] Diabetes: Annual Foot Exam Abstracted Result [facility] HEALTH MAINTENANCE Final Result * Lipid panel (04/04/2023) [facility] LDL/HDL Ratio 2 0 - 4 Triglycerides 63 0 - 150 mg/dL Cholesterol 104 0 - 200 mg/dL HDL 43 >=40 mg/dL LDL Cholesterol 49 0 - 100 mg/dL Blood Venous blood specimen / Unknown Result [facility] LAB BLOOD ORDERABLES Love l Result from Last 3 Months or Most Recently Relevant to Health Maintenance Insurance [place]ICAID - [place] [employer] MEDICARE Care Teams Senior Marketing Analyst Relationship Specialty Start Date End Date Laxmi Christianson MD PCP - General Endocrinology 08/05/24
--- OUTSIDE RECORDS SUMMARY | 2024-12-28 15:12 | XMS_ITS | Clinical Summary ---
Author Organization [facility] Address [address] [place] [address] Care Team Providers Care Injector Assembler Name Role Phone Marie Luke MD Primary [...] 62 04/07/2024 3:41 PM EDT Temperature 36.5 C (97.7 F) 04/07/2024 3:41 PM EDT Respiratory Rate - - Oxygen Saturation 97% [...] 12/06/1999 Fall Risk Assessment 12/06/2019 Influenza Vaccine (Season Ended) 2025 06/28/20 23 RSV Adult > 60+ Yrs or Pregn ant (1 - 1-dose 75+ series) 2029 Hepatitis B Vaccines Aged Out No long er eligible based on patient's age to complete this topic RSV Ped < 20 months Aged Out No longe r eligible based on patient's age to complete this topic Care Teams Injector Assembler Relationship Specialty Start Date End Date Marie Luke MD [address] [place] [address] PCP - General Internal Medicine 10/31/23
== END 2024-12-28 15:25 | disposition home or self-care (01) ==
LOC: HO.HMCFM 14:41
PROVIDERS: PCP Internal Medicine; Visit Provider Internal Medicine
DX: Z00.00 Encounter for general adult medical examination without abnormal findings (principal); E11.49 Type 2 diabetes mellitus with other diabetic neurological complication; Z79.4 Long term (current) use of insulin; I10 Essential (primary) hypertension

== ENCOUNTER 2025-01-04 09:53 | Outpatient (REF) | payer MEDICARE, MEDICAID, SELFPAY ==
[2025-01-04 10:56] LABS: MANUAL DIFF FLAG NO
[2025-01-04 11:55] LABS: Hematocrit 50.7 % (42.0-52.0); Hemoglobin 15.8 g/dl (14.0-18.0); Imm Gran Abs Auto 0.02 X10*3/uL (0.00-0.03); Imm Gran Pct Auto 0.2 % (0.0-0.4); Lymphocytes Absolute Auto 2.4 X10*3/uL (1.2-4.9); Mean Corpuscular HGB Conc 31.2 g/dl (31.0-36.0); Mean Corpuscular Hemoglobin 24.8 pg (27.0-33.0); Mean Corpuscular Volume 79.6 fL (80.0-98.0); NRBC Abs Auto 0.000 X10*3/uL (0.0-0.012); NRBC Pct Auto 0.0 /100WBC (0.0-0.2); Platelet Count 286 X10*3/uL (160-400); Red Blood Count 6.37 X10*6/uL (4.60-5.80); White Blood Count 9.4 X10*3/uL (4.8-10.8)
[2025-01-04 12:53] LABS: Prostate Specific Antigen 0.58 ng/mL (<0.05-4.0)
[2025-01-04 14:50] LABS: Cholesterol 116 mg/dL (<200); HDL Cholesterol 44 mg/dL (>40); Iron 35 mcg/dL (45-160); Percent Iron Saturation 11 % (15-50); Total Iron Binding Capacity 329 mcg/dL (228-428); Triglycerides 79 mg/dL (<150); Unsaturated Iron Binding 294 ug/dL
== END 2025-01-04 09:54 | disposition home or self-care (01) ==
LOC: HO.LAB 09:53
PROVIDERS: Absent Provider Internal Medicine; PCP Internal Medicine; Visit Provider Registered Nurse Diabetes Educator
DX: E11.49 Type 2 diabetes mellitus with other diabetic neurological complication (principal); I10 Essential (primary) hypertension; I25.10 Atherosclerotic heart disease of native coronary artery without angina pectoris; Z79.4 Long term (current) use of insulin; Z13.0 Encounter for screening for diseases of the blood and blood-forming organs and certain disorders involving the immune mechanism; Z12.5 Encounter for screening for malignant neoplasm of prostate
CPT/HCPCS: 36415; 80061; 83540; 84153; 85025; 99211

== ENCOUNTER 2025-01-04 09:53 | Outpatient (AMB) | payer OTHER, MEDICAID, SELFPAY ==
--- OUTSIDE RECORDS SUMMARY | 2006-03-27 20:00 | XMS_ITS | Continuity of Care Document ---
Author Organization sa[facility] Nelson [facility] Address [address] [place] [address] Phone Care Team Providers Care Riding Coach Name Role Phone Z-Converted, Provider Unavailable Unavailabl e Advance Directives Directive Yes / No Effective Date File Name No Information Encounters Encounter Description Practice Location Reason(s) For Visit Diagnoses Date Provider Providers Copied on Encounter Blade Nelson [facility], [address] [place] [address] 2,[address], [place], [place], [id number], [place] tel:[phone] [facility] Unspecified chest pain Sep-2 8200 6 [...]
--- OUTSIDE RECORDS SUMMARY | 2025-01-04 10:26 | XMS_ITS | Clinical Summary ---
Author Organization [facility] Address [address] [place] [address] Phone Care Team Providers Care Terrestrial Ecologist Name Role Phone Laxmi Christianson MD Primary Care Provider [phone] Allergies Active Allergy Reactions Criticality Noted Date [...] (BMI) of 35.0 to 35.9 in adult ([facility] V24, [facility] V28) 06/04/2024 CAD (coronary artery disease) [...] Type 2 diabetes mellitus wit hout complications ([facility] V24, [facility] V28) 04/02/2023 Immunizations Name Administration Dates Next Due Influenza trivalent, 0.5mL ( Fluad) 65yo and older 06/28/2023 Moderna SARS-CoV-2 COVID-19, mRNA, LNP-S, preservative free 10/20/2021,05/18/2021,10/10/2020,2020 Surgical History Surgery Date Site/Laterality Comments CARDIAC CATHETERIZATION Left PROCEDURE: HISTORICAL CARDIAC CATH; COMMENT: 2006, 2008 Medical History Medical History Date Comments Essential (primary) hypertension DX:Essential (primary) hypertension Type 2 diabetes mellitus wit hout complications ([facility] V24, [facility] V28) DX:Type 2 carolyn betes mellitus without complications (HCC) CAD (coronary artery disease) DX :CAD (coronary artery disease); COMMENT: Stents 2006 and 2008. LAD, RCA, LCX Mixed hyperlipidemia DX:Mixed hy perlipidemia Osteoarthritis, knee DX:Osteoart hritis, knee Polycythemia vera ([facility] V 24, [facility] V28) DX:Polycythemia vera ([facility]) CVA (cerebral vascular accid ent) ([facility] V24, [facility] V28) 2021 DX:CVA (cerebral vascular a ccident) ([facility]) Family History Medical History Relation Name [...] 9:00 AM EDT Consult Orthopedic Surgery - [place] [id number] [phone] Tariq Wilson DPM [address] [address] 03/08/2025 3:45 PM EDT Office Visit [facility] Hematology Oncology [address] [place] [phone] Nohemi Ann MD [address] [place] [address] Health Maintenance Due Date Last Done Comments [...] 08/13/2024 1:59 PM EST PV (polycythemia vera) ([facility] V24, [facility] V28) HEMOGLOBIN A1C Routine 09/19/2023 HEPATITIS [...] [facility] Comment:Calculation based on the Chronic Kidney [...] R esult [facility] [address] [place], [place] [address] [phone] * Hemoglobin A1c (09/19/2023) [facility] Hemoglobin A1C 6.3 <=6.5 % Blood Venous blood specimen / Unknown Result [facility] Provider LAB BLOOD ORDERABLES Love l Result * Hepatitis C Screening (06/28/2023) [facility] Hepatitis C Screening Abstracted Result [facility] HEALTH MAINTENANCE Final Result * Diabetes Eye Exam (06/25/2023) [facility] Diabetes: Annual Retina Eye Exam Abstracted Result [facility] HEALTH MAINTENANCE Final Result * Urine Albumin Creatinine Ratio (06/06/2023) [facility] Urine Albumin Creatinine Ratio Abstracted Result [facility] HEALTH MAINTENANCE Final Result * Diabetes Foot Exam (06/06/2023) [facility] Diabetes: Annual Foot Exam Abstracted Result [facility] HEALTH MAINTENANCE Final Result * Lipid panel (04/04/2023) [facility] LDL/HDL Ratio 2 0 - 4 Triglycerides 63 0 - 150 mg/dL Cholesterol 104 0 - 200 mg/dL HDL 43 >=40 mg/dL LDL Cholesterol 49 0 - 100 mg/dL Blood Venous blood specimen / Unknown Result [facility] LAB BLOOD ORDERABLES Love l Result from Last 3 Months or Most Recently Relevant to Health Maintenance Insurance [place] - [place] [employer] MEDICARE Care Teams Terrestrial Ecologist Relationship Specialty Start Date End Date Laxmi Christianson MD PCP - General Endocrinology 08/05/24
--- OUTSIDE RECORDS SUMMARY | 2025-01-04 10:27 | XMS_ITS | Clinical Summary ---
Author Organization [facility] Address [address] [place] [address] Care Team Providers Care Sem Manager Name Role Phone Marie Luke MD [...] age to complete this topic Care Teams Sem Manager Relationship Specialty Start Date End Date Marie Luke MD [address] [place] [address] PCP - General Internal Medicine 10/31/23
--- OUTSIDE RECORDS SUMMARY | 2025-01-04 10:27 | XMS_ITS | Clinical Summary ---
Author Organization [employer] Address [address] [facility] [address] [place] [address] Care Team Providers Care Imaging Aide Name Role Phone Unavailable Primary Care Provider [...] Dental X-Ray: [facility] 09/24/2024 09/24/2023 Influenza Vaccine (#1) 2025 06/28/2023 Tobacco Screening 03/12/2025 03/12/2024 Dental [...] Recently Relevant to Health Maintenance Insurance DENTAL [facility] DENTAL - N FULL (MEDICAID)
--- NOTE | 2025-01-04 10:28 | A.OFFVIS_ITS ---
Intake Intake Visit Reasons: 60 min Compensation Intern Required: Yes Compensation Intern Language: Clerk Name: Pt Daughter Accompanied by: Daughter Allergies shrimp Allergy (Unknown, Verified 12/28/24 14:56) Vomiting HPI Comprehensive Diabetes Asmnt Most Recent Diabetes Results: Creatinine, (0.5-1.4) 1.03 mg/dL 11/12/24 BUN, (9-16) 23 mg/dL H 11/12/24 Sodium, (135-145) 142 mmol/L 11/12/24 Potassium, (3.3-5.1) 3.9 mmol/L 11/12/24 Chloride, (96-108) 101 mmol/L 11/12/24 Carbon Dioxide, (22-29) 31 mmol/L H 11/12/24 Calcium, (8.4-10.2) 9.4 mg/dL 11/12/24 [facility] Medical History CKD (chronic kidney disease) stage 2, GFR 60-89 ml/min CVA (cerebral vascular accident) Swelling, mass, or lump in chest Blurry vision, bilateral Blurry vision Surgical History S/P excision of lipoma (09/24/24) Hx of hernia repair Hx of arthroscopy of left knee Social History Household Members: None Housing: Apartment Alcohol intake: never Patient Tobacco Use Status: Never used Tobacco e-Cigarette/Vaping Use: Never Used Current occupational status: retired Cognitive needs: No Hearing needs: No Vision needs: Yes Assessment & Plan Assessment & Plan (1) Type 2 diabetes mellitus: Code(s): E11.9 - Type 2 diabetes mellitus without complications Qualifiers: Diabetes mellitus long-term insulin use: with long-term use Diabetes mellitus complication status: with neurologic complications Diabetes mellitus complication detail: with other neurological complication Qualified Code(s): E11.49 - Type 2 diabetes mellitus with other diabetic neurological complication; 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 2= needs review? 3= comprehend keep point? 4= demonstrates understanding/ competent? NC= Not Covered Topics Learning Objective: Initial visit Initial or post srvc Initial or post srvc Initial or post srvc Initial or post srvc Initial or post srvc Post srvc Comments Pre Edu-assessment/plan Outcome or reassess Outcome or reassess Outcome or reassess Outcome or reassess Outcome or reassess Outcome or reassess Diabetes pathophysiology 1 Healthy eating 2 Being active 1 Taking medication 1 Monitoring glucose 2 Acute complication 1 Chronic complicated 1 Lifestyle and healthy coping 1 Diabetes distress in support 1 A ?Diabetes pathophysiology: ?Defined diabetes med identify own type of diabetes; list 3 options for treating diabetes Healthy eating: ?Described effect of type, amount and ?timing of food on blood glucose; list 3 methods for planning meal Being active: ?State effect of exercise on blood glucose level Taking medication: ?State effect of diabetes medications on diabetes; name diabetes medications taking, action and side effects Monitoring glucose: ?Identify recommended blood glucose targets and personal target Acute complication: ?List symptoms and treatment of hyper and hypoglycemia, DKA, sick day guidelines and guidelines for severe weather or situations of crisis and diabetes supply manage Chronic complication: ?To find the relationship of blood glucose levels to long- term complications of diabetes in screening and preventative measures Lifestyle and healthy coping: ?Described lifestyle and healthy coping strategies to rule out diabetes self-management Diabetes to stress and support: ?Recognize Diabetes to stress and be able to identified support options Learning objectives: The patient was provided with verbal and written education on the following topics as outlined below. Assess patient education level/literacy/barriers, bhutanese speaking Pt, lives alone, his daughter is his primary nurse wound care. [place]. A1c on 12/22/24 8.6% Taking Ozempic 0.25 mg weekly, at today's visit agreed to increase Ozempic to 0.5 mg Jardiance 25 mg Metformin 500 mg BID 75/25 Humalog mix 20 units BID The patient met all learning objectives and was able to verbalize understanding and provide teach back of education topics discussed . The patient was provided with the opportunity to ask questions and all questions were answered. Topics covered in today?s session included: Medications (If applicable) * Name of medication? * Dosing/administration instructions? * Mechanism of action? * Potential side effects? * Potential adverse reaction and appropriate treatment? * Review onset, peak, duration Assess for concerns re: insurance coverage, cost, barriers to compliance Insulin/Injectables (If applicable) * Storage/care of insulin?? * Injection sites? * Site rotation? * Onset, peak, duration * Drawing up insulin? * Injecting insulin/other injectables? * Sharps disposal Continuous blood glucose monitoring (if applicable) Hypoglycemia and Hyperglycemia * Signs and symptoms? * Causes?? * Treatment? * Preventing hypoglycemia? * When to seek medical attention Target Goals: * Blood glucose targets and how you feel when your blood glucose is in and out of your target ranges. * Monitoring and knowing your A1C. * What can make blood glucose go up and down and preventing high and low blood glucose. * Review of blood sugar targets in expected goal range and outside of expected goal range. * Problem solving and preventing hyper/hypoglycemia. * Using blood sugar results in decision making process in managing diabetes. ?Patient was receptive to information provided and participated in the discussion. Asked?appropriate questions and demonstrated good understanding of the topics discussed.? ? Educational Materials: The patient was provided with the following written educational materials: Target Goal, Hypoglycemia handout Smart Goal:? Pt will use rule of 15s to treat hypoglycemia Patient Response to instructions: Comprehension of Instructions: fair Readiness to make changes:? contemplation How confident they feel about making changes: fair Portions of this note were created using voice recognition software, please excuse any words or phrases that may have been misinterpreted. 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
== END 2025-01-04 10:30 | disposition home or self-care (01) ==
LOC: HO.ENCR 09:54
PROVIDERS: PCP Internal Medicine; Visit Provider Registered Nurse Diabetes Educator
DX: E11.49 Type 2 diabetes mellitus with other diabetic neurological complication (principal); Z79.4 Long term (current) use of insulin

== ENCOUNTER 2025-01-21 11:12 | Outpatient (REF) | payer MEDICARE, MEDICAID, SELFPAY ==
--- OUTSIDE RECORDS SUMMARY | 2006-03-27 20:00 | XMS_ITS | Continuity of Care Document ---
Author Organization sapphire Nelson [facility] Address [address] [place] [address] Phone Care Team Providers Care Sticker On Name Role Phone Z-Converted, Provider Unavailable Unavailabl e Advance Directives Directive Yes / No Effective Date File Name No Information Encounters Encounter Description Practice Location Reason(s) For Visit Diagnoses Date Provider Providers Copied on Encounter Blade Nelson [facility], [address] [place] [address] 2,[address], [place], [place], [id number], [place] tel:[phone] [facility] Unspecified chest pain Sep-2 8200 6 [...]
--- OUTSIDE RECORDS SUMMARY | 2025-01-21 12:07 | XMS_ITS | Clinical Summary ---
Author Organization [facility] Address [address] [place] [address] Phone Care Team Providers Care Bottle Inspector Name Role Phone Laxmi Christianson MD Primary Care Provider [phone] Allergies Active Allergy Reactions Criticality Noted Date [...] (BMI) of 35.0 to 35.9 in adult ([facility] V24, [facility] V28) 06/04/2024 CAD (coronary artery disease) 04/02/2023 [...] Type 2 diabetes mellitus wit hout complications ([facility] V24, [facility] V28) 04/02/2023 Immunizations Name Administration Dates Next Due Influenza trivalent, 0.5mL ( Fluad) 65yo and older 06/28/2023 Moderna SARS-CoV-2 COVID-19, mRNA, LNP-S, preservative free 10/20/2021,05/18/2021,10/10/2020,2020 Surgical History Surgery Date Site/Laterality Comments CARDIAC CATHETERIZATION Left PROCEDURE: HISTORICAL CARDIAC CATH; COMMENT: 2006, 2008 Medical History Medical History Date Comments Essential (primary) hypertension DX:Essential (primary) hypertension Type 2 diabetes mellitus wit hout complications ([facility] V24, [facility] V28) DX:Type 2 carolyn betes mellitus without complications (HCC) CAD (coronary artery disease) DX :CAD (coronary artery disease); COMMENT: Stents 2006 and 2008. LAD, RCA, LCX Mixed hyperlipidemia DX:Mixed hy perlipidemia Osteoarthritis, knee DX:Osteoart hritis, knee Polycythemia vera ([facility] V 24, [facility] V28) DX:Polycythemia vera ([facility]) CVA (cerebral vascular accid ent) ([facility] V24, [facility] V28) 2021 DX:CVA (cerebral vascular a ccident) ([facility]) Family History Medical History Relation Name Comments [...] 9:00 AM EDT Consult Orthopedic Surgery - [place] [id number] [phone] Tariq Wilson DPM [address] [address] 03/08/2025 3:45 PM EDT Office Visit [facility] Hematology Oncology [address] [place] [phone] Nohemi Ann MD [address] [place] [address] Health Maintenance Due Date Last Done Comments DTaP,Tdap,and Td Vaccines (1 - Tdap) 1973 Pneumococcal Vaccine: 50+ Years (1 of 2 - PCV) 1973 Zoster Vaccines (1 of 2) 1973 RSV Immunization Adult Patients (1 - Risk 60-74 years 1-dose series) 2014 Colorectal Cancer Screening: Colonoscopy 07/25/2023 Falls Risk Assessment 07/25/2023 Medicare Annual Wellness Visit 07/25/2023 Social Influencers of Health Screening 07/25/2023 COVID-19 Vaccine ( season) 2024 10/20/2021, 05/18/2021, 10/10/2020, Additional history exists Diabetes: Blood Sugar Control Test (HGBA1C) 03/21/2024 09/19/2023 Diabetes: Annual Urine Albumin-Creatinine Ratio (uACR) 06/06/2024 06/06/2023 Diabetes: Annual Foot Exam 06/06/2024 06/06/2023 Diabetes: Annual Retina Eye Exam 06/25/2024 06/25/2023 Depression Screening 07/01/2024 Influenza Vaccine (#1) 2025 06/28/2023 Diabetes: Annual GFR (Glomerular Filtration [...] 08/13/2024 1:59 PM EST PV (polycythemia vera) ([facility] V24, [facility] V28) HEMOGLOBIN A1C Routine 09/19/2023 HEPATITIS C SCREENING Routine 06/28/2023 DIABETES EYE EXAM Routine 06/25/2023 URINE ALBUMIN CREATININE RATIO Routine 06/06/2023 DIABETES FOOT EXAM Routine 06/06/2023 LIPID PANEL Routine 04/04/2023 from Last 3 Months or Most Recently Relevant to Health Maintenance Results * (ABNORMAL) Comprehensive metabolic panel (08/13/2024 1:59 PM EST) Sodium 139 133 - 145 mmol/L LAB CHEMISTRY METHOD 08/13/2024 5:03 PM [facility] Potassium 3.7 3.5 - 5.5 mmol/L LAB CHEMISTRY METHOD 08/13/2024 5:03 PM [facility] Chloride 100 96 - 110 mmol/L LAB CHEMISTRY METHOD 08/13/2024 5:03 PM [facility] CO2 34(H) 21 - 32 mmol/L LAB CHEMISTRY METHOD 08/13/2024 5:03 PM [facility] Anion Gap 5 3 - 11 LAB CHEMISTRY METHOD 08/13/2024 5:03 PM [facility] Glucose 174(H) 70 - 100 mg/dL LAB CHEMISTRY METHOD 08/13/2024 5:03 PM [facility] BUN 29(H) 5 - 25 mg/dL LAB CHEMISTRY METHOD 08/13/2024 5:03 PM [facility] Creatinine 1.31(H) 0.70 - 1.30 mg/dL LAB CHEMISTRY METHOD 08/13/2024 5:03 PM [facility] eGFR 59(L) >=60 mL/min/1. 73m2 LAB CHEMISTRY METHOD 08/13/2024 5:03 PM [facility] Comment:Calculation based on the Chronic Kidney Disease Epidemiology Collaboration (CKD-EPI) equation refit without adjustment for race. BUN/Creatinine Ratio 22.1 LAB CHEMISTRY METHOD 08/13/2024 5:03 PM [facility] Calcium 9.7 8.5 - 10.5 mg/dL LAB CHEMISTRY METHOD 08/13/2024 5:03 PM [facility] AST (SGOT) 15 10 - 42 unit/L LAB CHEMISTRY METHOD 08/13/2024 5:03 PM [facility] ALT (SGPT) 32 10 - 60 unit/L LAB CHEMISTRY METHOD 08/13/2024 5:03 PM [facility] Alkaline Phosphatase 102 42 - 121 unit/L LAB CHEMISTRY METHOD 08/13/2024 5:03 PM [facility] Total Protein 7.4 6.0 - 8.0 g/dL LAB CHEMISTRY METHOD 08/13/2024 5:03 PM [facility] Albumin 3.9 3.2 - 5.0 g/dL LAB CHEMISTRY METHOD 08/13/2024 5:03 PM [facility] Total Bilirubin 0.3 0.0 - 1.4 mg/dL LAB CHEMISTRY METHOD 08/13/2024 5:03 PM [facility] Blood Venous blood specimen / Unknown Venipuncture / Unknown 08/13/2024 1:59 PM EST 08/13/2024 4:39 PM EST us Nohemi Ann MD LAB BLOOD ORDERABLES Final R esult [facility] [address] [place], [place] [address] [phone] * Hemoglobin A1c (09/19/2023) [facility] Hemoglobin A1C 6.3 <=6.5 % Blood Venous blood specimen / Unknown Result [facility] Provider LAB BLOOD ORDERABLES Love l Result * Hepatitis C Screening (06/28/2023) [facility] Hepatitis C Screening Abstracted Result [facility] HEALTH MAINTENANCE Final Result * Diabetes Eye Exam (06/25/2023) [facility] Diabetes: Annual Retina Eye Exam Abstracted Result [facility] HEALTH MAINTENANCE Final Result * Urine Albumin Creatinine Ratio (06/06/2023) [facility] Urine Albumin Creatinine Ratio Abstracted Result [facility] HEALTH MAINTENANCE Final Result * Diabetes Foot Exam (06/06/2023) [facility] Diabetes: Annual Foot Exam Abstracted Result Count includes the [facility] HEALTH MAINTENANCE Final Result * Lipid panel (04/04/2023) [facility] LDL/HDL Ratio 2 0 - 4 Triglycerides 63 0 - 150 mg/dL Cholesterol 104 0 - 200 mg/dL HDL 43 >=40 mg/dL LDL Cholesterol 49 0 - 100 mg/dL Blood Venous blood specimen / Unknown Result [facility] LAB BLOOD ORDERABLES Love l Result from Last 3 Months or Most Recently Relevant to Health Maintenance Insurance MEDICAID - [place] [employer] MEDICARE Care Teams Bottle Inspector Relationship Specialty Start Date End Date Laxmi Christianson MD PCP - General Endocrinology 08/05/24
--- OUTSIDE RECORDS SUMMARY | 2025-01-21 12:07 | XMS_ITS | Clinical Summary ---
Author Organization [employer] Address [address] [facility] [address] [place] [address] Care Team Providers Care Race Relations Adviser Name Role Phone Unavailable Primary Care Provider [...] Recently Relevant to Health Maintenance Insurance DENTAL [facility] DENTAL - N FULL (MEDICAID)
--- OUTSIDE RECORDS SUMMARY | 2025-01-21 12:07 | XMS_ITS | Clinical Summary ---
Author Organization [facility] Address [address] [place] [address] Care Team Providers Care Horticultural Farmer Name Role Phone Marie Luke MD Primary [...] Fall Risk Assessment 12/06/2019 Influenza Vaccine (#1) 2025 06/28/2023 RSV Adult > 60+ Yrs or Pregn ant (1 - 1-dose 75+ series) 2029 Hepatitis B Vaccines Aged Out No long er eligible based on patient's age to complete this topic RSV Ped < 20 months Aged Out No longe r eligible based on patient's age to complete this topic Care Teams Horticultural Farmer Relationship Specialty Start Date End Date Marie Luke MD [address] [place] [address] PCP - General Internal Medicine 10/31/23
== END 2025-01-21 11:13 | disposition home or self-care (01) ==
LOC: HO.BBR 11:12
PROVIDERS: PCP Internal Medicine; Visit Provider Internal Medicine
DX: D45 Polycythemia vera (principal)
CPT/HCPCS: 85018; 99195

== ENCOUNTER 2025-01-29 08:25 | Outpatient (AMB) | payer OTHER, MEDICAID, SELFPAY ==
--- OUTSIDE RECORDS SUMMARY | 2006-03-27 20:00 | XMS_ITS | Continuity of Care Document ---
Author Organization sapphire Nelson [facility] Address [address] [place] [address] Phone Care Team Providers Care Dental Practitioner Name Role Phone Z-Converted, Provider Unavailable Unavailabl e Advance Directives Directive Yes / No Effective Date File Name No Information Encounters Encounter Description Practice Location Reason(s) For Visit Diagnoses Date Provider Providers Copied on Encounter Blade Nelson [facility], [address] [place] [address] [address], [place], [place], [id number], [place] tel:[phone] [facility] Unspecified chest pain Sep-2 8200 6 [...]
--- OUTSIDE RECORDS SUMMARY | 2025-01-28 09:00 | XMS_ITS | Encounter Summary ---
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 * Consultation (Routine) - Authorized Specialty Diagnoses / Procedures Referred By Caio white Referred To Contact Podiatry / Orthopaedic Surgery Diagnoses Encounter for diabetic foot exam ([facility] V24, [facility] V28) Maylin Chen NP [address] [place] [address] Phone: tel: Tariq Wilson DPM [address] [address] Phone: tel: fax: Referral ID Status Reason Start Date Expiration Date Visits Requested Visits Authorized [id number] Authorized Specialty Services Required 11/07/2024 11/07/2025 1 1 Encounter Details Date Type Department Care Team (Late st Contact Info) Description 01/28/2025 9:00 AM EDT Consult Orthopedic Surgery - [place] [address] [phone] Tariq Wilson DPM [address] [address] Controlled type 2 diabetes with neuropathy ([facility] V24, [facility] V28) (Primary Dx); Arthritis of both feet; Foot drop, left; PVD (peripheral vascular disease) ([facility] V24); Xerosis cutis; Dermatophytosis, nail Social History Tobacco Use Types Packs/Day Years Used Date Smoking Tobacco: Never Smokeless Tobacco: Never Alcohol Use Standard Drinks/Week Comments Not Currently 0 (1 standard drink = 0.6 oz pur e alcohol) NO Sex and Gender Information Value Date Recorded Sex Assigned at Not on file Legal Sex Male 8:21 PM EST Gender Identity Not on file Sexual Orientation Not on file documented as of this encounter Ordered Prescriptions Prescription Sig Dispense Quantity Refills Last Filled Start Date End Date ammonium lactate (AmLactin) 12 % lotion Apply topically if needed for dry skin. 400 g 2 01/28/2025 documented in this encounter Progress Notes * Tariq Wilson DPM - 01/28/2025 9:00 AM EDT Referring MD: Maylin Chen NP Last PCP visit: 11/22/2024 IDENTIFIER: Jamaal Estes is a 69 y.o. year old male who presents for consultation. CC: Pain in feet HPI: Patient presents to office today for initial diabetic foot evaluation as recommended by their primary care physician. Patient states that they have been diabetic for the past few years and has some tingling in his feet bilaterally Patient had a history of stroke in 2010 and has resulting dropfoot from this Denies any history of ulceration, or infection. Patient would like to inquire about their pedal hygiene, as their toenails have become elongated and painful. Patient is not using antifungals at this time. Patient is wearing good supportive shoes at this time. Patient reports mild calluses that are becoming bothersome. Patient with minimal other pedal complaints at this time. Patient's FBS this AM was 151 Recent A1C is %. 8.6 ROS: GENERAL: Pt denies nausea, fever, vomiting, chills, or shortness of breath. Pt in NAD. CARDIOLOGY: pt denies chest pain, palpitations LUNGS: pt denies shortness of breath MUSCULOSKELETAL: See HPI, otherwise no joint pain or swelling, back pain, or muscle pain. SKIN: see HPI, otherwise no lesions, rash or itching NEURO: No persistent headache, weakness or numbness The remainder of the review of systems is noncontributory PAST MEDICAL HISTORY: Patient Active Problem List Diagnosis CAD (coronary artery disease) Essential (primary) hypertension Mixed hyperlipidemia Osteoarthritis, knee Type 2 diabetes mellitus without complications ([facility] V24, [facility] V28) Class 2 severe obesity due to excess calories with serious comorbidity and body mass index (BMI) of35.0 to 35.9 in adult ([facility] V24, [facility] V28) SOCIAL HISTORY: Social History Tobacco Use Smoking status: Never Smokeless tobacco: Never Substance Use Topics Alcohol use: Not Currently Comment: NO ACTIVE MEDICATIONS: Outpatient Medications Marked as Taking for the 01/28/25 encounter (Consult) with Tariq Wilson DPM Medication Sig Dispense Refill acarbose (PRECOSE) 25 mg tablet Take 1 Tablet by mouth daily. acetaminophen (TYLENOL 8 HOUR) 650 mg 8 hr tablet Take 1 Tablet by mouth 2 times daily. amLODIPine (NORVASC) 5 mg tablet Take 1 Tablet by mouth daily. aspirin 81 mg EC tablet TAKE 1 TABLET BY MOUTH EVERY DAY atorvastatin (LIPITOR) 40 mg tablet TAKE 1 TABLET BY MOUTH DAILY 90 tablet 0 blood glucose control high,low (FreeStyle Control) solution Use to calibrate each new bottle of strips. E 11.9 blood-glucose meter (ONETOUCH VERIO METER MISC) 1 Kit by Does not apply route daily. BC-99 Use to check blood sugar daily Dx code: E11.9 chlorthalidone (HYGROTON) 50 mg tablet Take 1 Tablet by mouth daily. cyanocobalamin (VITAMIN B-12) 1,000 mcg tablet Take 1 Tablet by mouth daily. empagliflozin (Jardiance) 25 mg tablet Take 25 mg by mouth daily. gabapentin (NEURONTIN) 300 mg capsule Take 1 Capsule by mouth 3 times daily. insulin syringe-needle U-100 0.3 mL 31 gauge x 5/16 syringe Use one syringe twice a day as directed lancets 33 gauge misc 1 Each by Does not apply route daily. BC-99 Use to test blood sugar daily Dx code: E11.9 lisinopril (PRINIVIL,ZESTRIL) 40 mg tablet Take 1 Tablet by mouth daily. metFORMIN (GLUCOPHAGE) 500 mg tablet TAKE 1 TABLET BY MOUTH TWICE DAILY WITH MEALS 180 tablet 0 metoprolol succinate (TOPROL-XL) 50 mg 24 hr tablet Take 1 tablet (50 mg total) by mouth 1 (one) time each day. ALLERGIES: Shrimp PHYSICAL EXAM: There were no vitals taken for this visit. PODIATRIC EXAMINATION: GENERAL: Patient appears well nourished, with NAD. VASCULAR: Dorsalis pedis pulses are 1/4 bilaterally and Posterior tibial pulses are 0/4 bilaterally. Capillary filling time within normal limits the digits. No pallor on elevation or rubor on dependency. Positive hair growth. Few varicosities. +1 pitting edema bilateral legs. Denies rest pain or claudication pain. NEUROLOGICAL: Sharp/dull sensation intact, protective sensation intact On [place]. Peripheral neuropathy throughout the feet bilaterally ORTHOPEDIC: Good muscle strength 5/5 of all flexors and extensors. Dorsi flexion of ankle ,10 degrees, plantar flexion WNL. No muscle atrophy on the right side. Arthritic changes to midfoot bilaterally with dorsal associates that are palpable. Loss of dorsiflexor strength in the left foot secondaryto dropfoot. Compression to digits 2 through 5 bilaterally DERMATOLOGICAL:.Multiple areas of xerosis. Normal skin temperature, normal skin turgor. Nails are elongated dystrophic discolored x 10 with subungual debris BIOMECHANICS: STJ ROM wnl, MTJ ROM wnl, 1st MPJ ROM wnl. IMPRESSION: 1. Controlled type 2 diabetes with neuropathy ([facility] V24, CMS/HCC V28) 2. Arthritis of both feet 3. Foot drop, left 4. PVD (peripheral vascular disease) ([facility] V24) 5. Xerosis cutis 6. Dermatophytosis, nail PLAN: Pt was seen and examined, history reviewed. Patient educated on the importance of good pedal hygiene and tight blood glucose control. Patient encouraged to maintain a healthy lifestyle with a well-balanced diet. Patient should never go barefoot and wear supportive shoe gear. Patient should aim for A1c less than 7% every month. Continue with regular appointments with PMD or guide rail cleaner for tight medical management Patient with symptoms of arthritic changes in the pedal joints. Patient showed good understanding of etiology of arthritis. Patient is aware that conservative options include padding, over the counter products, orthotics, and shoes. Patient aware that they are other treatments available such as oral anti- inflammatories, injections, and steroid dose packs. Patient understands that these measures are conservative measures to help handle the osteoarthritic flares. Patient was educated on decreased pulses bilateral feet. Patient was encouraged to ambulate as often as possible to limit complications associated with decreased blood flow Patient has foot drop to left lower extremity with posterior compartment contracture; patient has minimal anterior or lateral muscle group fasciculations. Patient is to continue ambulating in brace patient educated that he will continue to get calluses to the outsides of the submet region due to equinovarus position of foot Patient with diffuse Xerosis to bilateral feet. Patient will benefit from additional moisture to feet to prevent fissures and crack which could lead to pain or even infection. Patient has moisturizers in their possession. Patient encouraged to apply lotion to lightly moistened skin to allow for better absorption. Nail debridement performed to nails 1-5 bilateral as nails were described to be causing pain and difficulty for walking while in shoegear at their previous length. Ammonium lactate 12% to be applied to the feet daily prescription. Clinical evidence of mycosis is documented which required active treatment. Patient expressed immediate relief. Patient is to RTC in 9 weeks Tariq Wilson DPM documented in this encounter Plan of Treatment Upcoming Encounters Date Type Department Care Team (Late st Contact Info) Description 03/08/2025 3:45 PM EDT Office Visit [facility] Hematology Oncology [address] [place] [phone] Nohemi Ann MD [address] [place] [address] 04/05/2025 9:00 AM EDT Office Visit Orthopedic Surgery - [place] [address] [phone] Tariq Wilson DPM [address] [address] documented as of this encounter Visit Diagnoses Diagnosis Controlled type 2 diabetes with neuropathy (CMS/HCC V24, CMS/HCC V28)- Primary Type II or unspecified type diabetes mellitus with neurological manifestations, not stated as uncontrolled Arthritis of both feet Foot drop, left Other acquired deformity of ankle and foot PVD (peripheral vascular disease) ([facility] V24) Unspecified peripheral vascular disease Xerosis cutis Other specified disease of sebaceous glands Dermatophytosis, nail Dermatophytosis of nail documented in this encounter Orders Outpatient Referral Count Last Ordered Date Fir st Ordered Date AMB REFERRAL TO ORTHOPEDIC SURGERY 2024 documented in this encounter Care Teams Vision Therapist Relationship Specialty Start Date End Date Laxmi Christianson MD [address] [place] [phone] PCP - General Endocrinology 08/05/24 documented as of this encounter
[2025-01-29 08:29] VITALS: BP 104/50; PULSE 74; O2SAT 97; BMI 36.1
--- NOTE | 2025-01-29 08:29 | MHC.OFFVIS ---
Vital Signs 01/29/25 08:29 Height 5 ft 4 in Weight 210 lb 8.663 oz BMI 36.1 BP 104/50 L Blood Pressure Location Rt brachial Position Sitting Pulse 74 Pulse Source Pulse Oximeter Pulse Oximetry (%) 97 Oxygen Delivery Method Room Air Intake Visit Reasons: DMT2 Follow-up Intake Note: Patient present today to follow up on Type 2 Diabetes Mellitus. Patient receives DME supplies through: [employer] Last Diabetic Eye exam: 10/30/2024 [facility] Last Podiatry Visit: 01/27/2025 Random Glucose: 154 mg/dl HgA1C: 8.6% 12/22/2024 Boot Turner Required: Yes Boot Turner Language: Anatomic Pathology Assistant Services: Boot Turner Offered & Declined Accompanied by: Daughter Allergies shrimp Allergy (Unknown, Verified 01/29/25 08:35) Vomiting Medication List - Last Reconciled 01/29/25 by SAMINA Keating acetaminophen ER (Arthritis Pain Relief (acetaminophen) ER) 650 mg PO Q12H 90 days amlodipine 5 mg PO DAILY 90 days aspirin (Adult Low Dose Aspirin) 81 mg PO DAILY atorvastatin 40 mg PO DAILY blood sugar diagnostic ([employer] Verio test strips) As directed to check blood glucose blood-glucose sensor (VidaPakStyle Mayra 3 Plus Sensor device) As directed every 15 days chlorthalidone 25 mg PO DAILY cyanocobalamin (vitamin B-12) 1,000 mcg PO DAILY [Diabetic shoes 1 pair diabetic shoes] gabapentin 300 mg PO TID glucose (Dex4 Glucose Quick Dissolve) 16 grams (4 x 4 gram) PO Q15M PRN insulin lispro protamin-lispro 100 unit/mL (75-25) (Humalog Mix 75-25 KwikPen) 10 units (0.1 mL) subcut BID 90 days Jardiance (empagliflozin) 25 mg PO DAILY NS lisinopril 40 mg PO DAILY 90 days metformin 500 mg PO BID metoprolol succinate ER 50 mg PO DAILY OneTouch Delica Plus Lancet (lancets) Four times daily NS pen needle, diabetic As directed bid NS semaglutide (Ozempic) 1 mg (0.75 mL) subcut QWEEK triamcinolone acetonide 40 mg IM DAILY HPI Comments Details: This is a 69-year-old male with a past medical history of type 2 diabetes, hypertension, coronary artery disease, CVA with residual deficits, CKD stage II and obesity presenting for diabetic management. He was diagnosed with type 2 diabetes in his youth. Lab work September 2024 C-peptide 2.7, LALA less than 5, islet cell antibodies negative. There is a family history of type 2 diabetes in his mother and siblings. Hemoglobin A1c 8.6% 12/26/2024. Reviewed CGM data for January 16 to January 29 CGM active 90% Average glucose 179 G ID 7.6% Very high 8% High 34% Target range 58% 0% hypoglycemia He has a pattern of hyperglycemia in the afternoon and evening. Current regimen: Humulin 75/25 15 twice daily Metformin 500 mg twice daily Jardiance 25 mg daily Ozempic 0.5 mg weekly. He started this 2 weeks ago. Down 6-7 pounds since starting GlP1. Denies side effects. Complications: He has retinopathy followed by [facility] and a retinal specialist. He receives intravitreal injections. He has neuropathy. He has a history of nephropathy, but his recent test for microalbumin is negative, and his creatinine and GFR were normal. Prior history of CVA and CAD. Denies symptoms of hypoglycemia and hyperglycemia. Hypertension is treated with amlodipine, chlorthalidone, lisinopril, and metoprolol succinate ER. His blood pressure is 104/50 today. Denies dizziness. ROS: Constitutional: No unexplained weight loss, fever, chills, fatigue or night sweats. Respiratory: No shortness of breath Cardiovascular: No chest pain, chest Gastrointestinal: No anorexia, nausea, vomiting or diarrhea. No abdominal pain or blood in stool. Neurologic: No headache, dizziness, syncope Endocrine: No cold or heat intolerance. No polyuria or polydipsia. Physical exam: Constitutional: Alert, in no distress. Head: Normocephalic. Neck: Supple, Full range of motion. No lymphadenopathy. No palpable thyroid enlargement or masses. Respiratory: Clear to auscultation. Cardiovascular: S1 S2 regular. No murmurs Psychiatric: Normal mood and affect [facility] Medical History (Updated 01/29/25 @ 09:21 by SAMINA Keating) Uncontrolled type 2 diabetes mellitus with hyperglycemia CKD (chronic kidney disease) stage 2, GFR 60-89 ml/min CVA (cerebral vascular accident) Swelling, mass, or lump in chest Blurry vision, bilateral Blurry vision Surgical History S/P excision of lipoma (09/24/24) Hx of hernia repair Hx of arthroscopy of left knee Social History Household Members: None Housing: Apartment Alcohol intake: never Patient Tobacco Use Status: Never used Tobacco e-Cigarette/Vaping Use: Never Used Current occupational status: retired Cognitive needs: No Hearing needs: No Vision needs: Yes Physical Exam Vital Signs: Last Vital Signs Pulse 74 01/29/25 08:29 BP 104/50 L 01/29/25 08:29 Pulse Ox 97 01/29/25 08:29 Oxygen Delivery Method Room Air 01/29/25 08:29 BMI result Body Mass Index 36.1 Office Procedures Glucose Monitoring Details Details: see [facility] [address] - Glucose monitoring, continuous-physician I&R Procedure code (CPT) selection complete Results Reviewed Results Reviewed: Laboratory Tests 07/23/24 09/17/24 10/16/24 16:35 10:27 09:23 Creatinine Estimated GFR Hgb A1c (Clinic) C-Peptide 2.17 AST 27 ALT 33 Triglycerides Cholesterol LDL Cholesterol, Calc HDL Cholesterol Urine Creatinine 107.57 Urine Microalbumin 27.0 Microalb/Creat Ratio 25.0 Islet Cell Ab Screen NEGATIVE LALA Antibody <5 11/12/24 12/22/24 01/04/25 09:45 08:50 10:54 Creatinine 1.03 Estimated GFR > 60 Hgb A1c (Clinic) 8.6 H C-Peptide AST ALT Triglycerides 79 Cholesterol 116 LDL Cholesterol, Calc 57 HDL Cholesterol 44 Urine Creatinine Urine Microalbumin Microalb/Creat Ratio Islet Cell Ab Screen LALA Antibody Assessment & Plan Assessment & Plan (1) Uncontrolled type 2 diabetes mellitus with hyperglycemia: Code(s): E11.65 - Type 2 diabetes mellitus with hyperglycemia Category: Medical Plan: In summary this is a 69-year-old male with a past medical history of uncontrolled type 2 diabetes albeit improved glycemic control since initiating GLP 1 agonist. We reviewed lifestyle modifications and reinforced a diabetic diet. Reviewed complications of type 2 diabetes. Congratulated on weight loss. Continue Metformin 500 mg twice daily Continue Jardiance 25 mg daily Decrease Humalog mix to 10 units twice daily Increase Ozempic to 1 mg weekly If you experience low blood sugar, treat this by eating a chewable fruit candy like skittles or jelly beans (about 8 pieces), 4 ounces (1/2 cup) of fruit juice (not diet), 1 tablespoon of honey or 4 glucose tablets. If your blood sugar is under 50, take double the amount of one of the above. Recheck your blood sugar in 15 minutes. (2) Hypertension: Code(s): I10 - Essential (primary) hypertension Category: Medical Qualifiers: Hypertension type: primary hypertension Qualified Code(s): I10 - Essential (primary) hypertension Plan: Continue current dosages of lisinopril, metoprolol succinate ER and amlodipine. Reduce chlorthalidone to 25 mg daily. Recheck in 1 month. (3) CKD (chronic kidney disease) stage 2, GFR 60-89 ml/min: Code(s): N18.2 - Chronic kidney disease, stage 2 (mild) Category: Medical Plan: Blood pressure is well-controlled. Diabetic control is improving. Continue AKIT inhibitor. Avoid nephrotoxic medications. Plan Follow up in 1 month. Orders: Orders AMB Glucose Monitoring Today E11.9 - Type 2 diabetes mellitus without complications Medications: New semaglutide (Ozempic) 1 mg (0.75 mL) subcut QWEEK 3 mL 3RF chlorthalidone 25 mg PO DAILY 90 tabs 0RF blood sugar diagnostic (OneTouch Verio test strips) Use as directed to check blood glucose three times daily. 100 ea 5RF E11.49 - Type 2 diabetes mellitus with other diabetic neurological complication, Z79.4 - computer terminal operator (current) use of insulin Changed From insulin lispro protamin-lispro 100 unit/mL (75-25) (Humalog Mix 75-25 KwikPen) before breakfast and supper 20 units (0.2 mL) subcut BID 90 days 36 mL 3RF To insulin lispro protamin-lispro 100 unit/mL (75-25) (Humalog Mix 75-25 KwikPen) before breakfast and supper 10 units (0.1 mL) subcut BID 18 mL 3RF 90 days From OneTouch Delica Plus Lancet (lancets) Four times daily 100 ea 3RF NS E11.9 - Type 2 diabetes mellitus without complications To OneTouch Delica Plus Lancet (lancets) 3 times daily 100 ea 3RF NS E11.9 - Type 2 diabetes mellitus without complications Discontinued chlorthalidone Discontinued Reason: Doctor's Order 50 mg PO DAILY 90 tabs 3RF semaglutide (Ozempic) Discontinued Reason: Doctor's Order 0.5 mg (0.736 mL) subcut QWEEK 3 mL 1RF Patient Instructions: Continue Metformin 500 mg twice daily Continue Jardiance 25 mg daily Decrease Humalog mix to 10 units twice daily Increase Ozempic to 1 mg weekly Decrease Chlorthalidone to 25 mg daily. If you experience low blood sugar, treat this by eating a chewable fruit candy like skittles or jelly beans (about 8 pieces), 4 ounces (1/2 cup) of fruit juice (not diet), 1 tablespoon of honey or 4 glucose tablets. If your blood sugar is under 50, take double the amount of one of the above. Recheck your blood sugar in 15 minutes. Coding Level of Care Code Est Pt Level 4 (73116) Complex EM visit Add On G2211 Diagnoses Uncontrolled type 2 diabetes mellitus with hyperglycemia E11.65 Primary hypertension I10 Hypertension type: primary hypertension CKD (chronic kidney disease) stage 2, GFR 60-89 ml/min N18.2 CPT Codes Details - CPT: 09100 - Glucose monitoring, continuous-physician I&R ([id number])
--- OUTSIDE RECORDS SUMMARY | 2025-01-29 08:38 | XMS_ITS | Clinical Summary ---
Author Organization [employer] Address [address] [place] [address] Care Team Providers Care Operators Teacher Name Role Phone Unavailable Primary Care [...] Recently Relevant to Health Maintenance Insurance DENTAL [facility] DENTAL - N FULL (MEDICAID)
--- OUTSIDE RECORDS SUMMARY | 2025-01-29 08:38 | XMS_ITS | Clinical Summary ---
Author Organization [facility] Address [address] [place] [address] Care Team Providers Care Mallet Cutter Name Role Phone Marie Luke MD Primary [...] age to complete this topic Care Teams Mallet Cutter Relationship Specialty Start Date End Date Marie Luke MD [address] [place] [address] PCP - General Internal Medicine 10/31/23
[2025-01-29 08:52] LABS: Glucose, Whole Blood 154 mg/dL (60-115)
== END 2025-01-29 09:06 | disposition home or self-care (01) ==
LOC: HO.ENCR 08:26
PROVIDERS: PCP Internal Medicine; Visit Provider Physician Assistant Medical
DX: E11.65 Type 2 diabetes mellitus with hyperglycemia (principal); I12.9 Hypertensive chronic kidney disease with stage 1 through stage 4 chronic kidney disease, or unspecified chronic kidney disease; N18.2 Chronic kidney disease, stage 2 (mild)

== ENCOUNTER → 2025-01-29 08:25 | Outpatient (BNVA) | payer OTHER, MEDICAID, SELFPAY | PROVIDERS: PCP Internal Medicine; Visit Provider Physician Assistant Medical | DX: E11.65 Type 2 diabetes mellitus with hyperglycemia (principal) | CPT/HCPCS: 82947 ==

== ENCOUNTER 2025-02-09 09:55 | Outpatient (AMB) | payer OTHER, MEDICAID, SELFPAY ==
[2025-02-09 10:17] VITALS: BMI 36.3
--- NOTE | 2025-02-09 10:17 | MHC.AMNUTRGE ---
VS Expanded 02/09/25 10:17 Height 5 ft 4 in Weight 211 lb 10.3 oz BMI 36.3 Intake Visit Reasons: DM Allergies shrimp Allergy (Unknown, Verified 01/29/25 08:35) Vomiting Nutrition Presentation Details: Pt presents for MNT f/u for T2DM Pt reports doing well, feeling well Reports having 2-3 meals/day nnd often omits insulin leading to bg level over 300s B:sand with ham/cheese or egg or oatmeal , coffee no sugar added lunch: baked chicken and rice, water Dinner bistec and baked potato, water enjoys fried foods BS Monitoring Most Recent Diabetes Results: Cholesterol, (<200) 116 mg/dL 01/04/25 HDL Cholesterol, (>40) 44 mg/dL 01/04/25 Triglycerides, (<150) 79 mg/dL 01/04/25 [facility] Medical History (Updated 01/29/25 @ 10:59 by Laxmi Christianson MD) Uncontrolled type 2 diabetes mellitus with hyperglycemia CKD (chronic kidney disease) stage 2, GFR 60-89 ml/min CVA (cerebral vascular accident) Swelling, mass, or lump in chest Blurry vision, bilateral Blurry vision Surgical History S/P excision of lipoma (09/24/24) Hx of hernia repair Hx of arthroscopy of left knee Social History Household Members: None Housing: Apartment Alcohol intake: never Patient Tobacco Use Status: Never used Tobacco e-Cigarette/Vaping Use: Never Used Current occupational status: retired Cognitive needs: No Hearing needs: No Vision needs: Yes Assessment & Plan Assessment & Plan (1) Type 2 diabetes mellitus: Code(s): E11.9 - Type 2 diabetes mellitus without complications Category: Medical Qualifiers: Diabetes mellitus complication detail: with other neurological complication Diabetes mellitus complication status: with neurologic complications Diabetes mellitus ad terminal makeup operator insulin use: with shelter use Qualified Code(s): E11.49 - Type 2 diabetes mellitus with other diabetic neurological complication; Z79.4 - halfway (current) use of insulin Plan: Wt: 98 Kg ( 11/22 ), 97 kg (12/23), 96 kg(02/22) Est kcal needs as per MSJ: 2000 (40% carb, 30% protein/fat) Est fluid needs as per 25-30 ml/d: 3000 Est prot per day as per 1 g/kg bw: 98 Recommend fiber intake : 8-10 g per day and gradually increase to 25-28 g per day for women and 35-38 g for men or as tolerated Recommend sodium intake per day : less than 2000 mg Educated patient on: ( R = reviewed V = verbalizes understanding N/R = needs review N/A = not applicable Food sources of carbohydrate, adequate serving sizes and its role in various health conditions: R Differences between complex carbohydrates a simple carbohydrates, role of fiber in diet: R Lean protein sources of foods: R Differences between types of fats and role in diet (mono on saturated fat fatty acids, saturated fatty acids, trans fats): R Food sources of sodium in salt and healthy modifications for heart health in kidney health: R Vitamins and minerals: R V N/R Healthy plate method concept: R Physical activity: Benefits a precaution: R V N/R Hypoglycemia protocol (rule of 15): R V N/R Dietary prevention of Hyperglycemia: R Patient Instructions: Switch to smaller plate and follow healthy plate at lunch time Try baking /broiling steaming /air fryer to reduce on fat intake take diabetes medications as prescribed by your doctor Coding Level of Care Code Nutr Indiv Subseq (45287) Diagnoses Type 2 diabetes mellitus with other neurologic complication, with long-term current use of insulin E11.49; Z79.4 Diabetes mellitus complication detail: with other neurological complication Diabetes mellitus complication status: with neurologic complications Diabetes mellitus shelter insulin use: with ad terminal makeup operator use Time Spent (min) 30
--- OUTSIDE RECORDS SUMMARY | 2025-02-09 10:46 | XMS_ITS | Clinical Summary ---
Author Organization [employer] Address [address] [address] [place] [address] Care Team Providers Care English Tutor Name Role Phone Unavailable Primary Care Provider [...] Recently Relevant to Health Maintenance Insurance DENTAL [facility] DENTAL - N FULL (MEDICAID)
--- OUTSIDE RECORDS SUMMARY | 2025-02-09 10:46 | XMS_ITS | Clinical Summary ---
Author Organization [facility] Address [address] [place] [address] Care Team Providers Care Phlebotomy Technologist Name Role Phone Marie Luke MD Primary [...] age to complete this topic Care Teams Phlebotomy Technologist Relationship Specialty Start Date End Date Marie Luke MD [address] [place] [address] PCP - General Internal Medicine 10/31/23
--- OUTSIDE RECORDS SUMMARY | 2025-02-09 10:46 | XMS_ITS | Clinical Summary ---
Author Organization [facility] Address [address] [place] [address] Phone Care Team Providers Care Hand Quilter Name Role Phone Laxmi Christianson MD Primary Care Provider [phone] Allergies Active Allergy Reactions Criticality Noted Date [...] mouth 1 (one) time each day. Active ammonium lactate (AmLactin) 12 % lotion Apply topically if needed for dry skin. 400 g 2 5 01/29/20 26 Active Active Problems Problem Noted Date Diagnosed Date Class 2 severe obesity due t o excess calories with serious comorbidity and body mass index (BMI) of 35.0 to 35.9 in adult ([facility] V24, [facility] V28) 06/04/2024 CAD (coronary artery [...] Type 2 diabetes mellitus wit hout complications ([facility] V24, [facility] V28) 04/02/2023 Encounters Date Type Department Care Team Description 01/28/2025 9:00 AM EDT Consult Orthopedic Surgery - [address] [address] Tariq Wilson, JAVED Controlled type 2 diabetes with neuropathy ([facility] V24, [facility] V28) (Primary Dx); Arthritis of both feet; Foot drop, left; PVD (peripheral vascular disease) ([facility] V24); Xerosis cutis; Dermatophytosis, nail from Last 3 Months Immunizations Name Administration Dates Next Due Influenza trivalent, 0.5mL ( Fluad) 65yo and older 06/28/2023 Moderna SARS-CoV-2 COVID-19, mRNA, LNP-S, preservative free 10/20/2021,05/18/2021,10/10/2020,2020 Surgical History Surgery Date Site/Laterality Comments CARDIAC CATHETERIZATION Left PROCEDURE: HISTORICAL CARDIAC CATH; COMMENT: 2008 Medical History Medical History Date Comments Essential (primary) hypertension DX:Essential (primary) hypertension Type 2 diabetes mellitus wit hout complications ([facility] V24, [facility] V28) DX:Type 2 carolyn betes mellitus without complications (HCC) CAD (coronary artery disease) DX :CAD (coronary artery disease); COMMENT: Stents 2006 and 2008. LAD, RCA, LCX Mixed hyperlipidemia DX:Mixed hy perlipidemia Osteoarthritis, knee DX:Osteoart hritis, knee Polycythemia vera ([facility] V 24, [facility] V28) DX:Polycythemia vera ([facility]) CVA (cerebral vascular accid ent) (CMS/HCC V24, CMS/[facility] V28) 2021 DX:CVA (cerebral vascular a ccident) ([facility]) Family History Medical History Relation [...] Description 03/08/2025 3:45 PM EDT Office Visit [facility] Hematology Oncology [address] [place] [phone] Nohemi Ann MD [address] [place] [address] 04/05/2025 9:00 AM EDT Office Visit Orthopedic Surgery - [place] [address] [phone] Tariq Wilson, DPM [address] [address] Health Maintenance Due Date Last Done Comments [...] 08/13/2024 1:59 PM EST PV (polycythemia vera) ([facility] V24, [facility] V28) HEMOGLOBIN A1C Routine 09/19/2023 [...] mmol/L LAB CHEMISTRY METHOD 08/13/2024 5:03 PM EST [facility] Potassium 3.7 3.5 - 5.5 mmol/L LAB CHEMISTRY METHOD 08/13/2024 5:03 PM EST [facility] Chloride 100 96 - 110 mmol/L LAB CHEMISTRY METHOD 08/13/2024 5:03 PM EST [facility] CO2 34(H) 21 [...] [facility] Comment:Calculation based on the [...] g/dL LAB CHEMISTRY METHOD 08/13/2024 5:03 PM EST [facility] Total Bilirubin 0.3 0.0 - 1.4 mg/dL LAB CHEMISTRY METHOD 08/13/2024 5:03 PM EST [facility] Blood Venous blood specimen / Unknown Venipuncture / Unknown 08/13/2024 1:59 PM EST 08/13/2024 4:39 PM EST Nohemi Ann MD LAB BLOOD ORDERABLES Final R esult [facility] [address] [place] [address], * Hemoglobin A1c (09/19/2023) [facility] Hemoglobin A1C 6.3 <=6.5 % Blood Venous blood specimen / Unknown Result [facility] Provider LAB BLOOD ORDERABLES Love l Result * Hepatitis C Screening (06/28/2023) [facility] Hepatitis C Screening Abstracted Result [facility] Provider HEALTH MAINTENANCE Final Result * Diabetes Eye Exam (06/25/2023) [facility] Diabetes: Annual Retina Eye Exam Abstracted Result [facility] Provider HEALTH MAINTENANCE Final Result * Urine Albumin Creatinine Ratio (06/06/2023) [facility] Urine Albumin Creatinine Ratio Abstracted Result [facility] Provider HEALTH MAINTENANCE Final Result * Diabetes Foot Exam (06/06/2023) [facility] Diabetes: Annual Foot Exam Abstracted Result [facility] Provider HEALTH MAINTENANCE Final Result * Lipid panel (04/04/2023) [facility] LDL/HDL Ratio 2 0 - 4 Triglycerides 63 0 - 150 mg/dL Cholesterol 104 0 - 200 mg/dL HDL 43 >=40 mg/dL LDL Cholesterol 49 0 - 100 mg/dL Blood Venous blood specimen / Unknown us Historical Provider LAB BLOOD ORDERABLES Love l Result from Last 3 Months or Most Recently Relevant to Health Maintenance Insurance [place] Member Subscriber Plan / Payer (Ef fective 2024-Present) Name:AMBIKA LUNAIS Relation to Subscriber:Self Name:Ambika Lunais Payer ID:[id number] Group ID:Not on file Type:Not on file Address: [facility] ATTN:[employer] [address] [place] [id number] [employer] MEDICARE Care Teams Hand Quilter Relationship Specialty Start Date End Date Laxmi Christianson MD [address] [place] [phone] PCP - General Endocrinology 08/05/24
== END 2025-02-09 10:51 | disposition home or self-care (01) ==
LOC: HO.ENCR 09:56
PROVIDERS: PCP Internal Medicine; Visit Provider Dietitian, Registered
DX: E11.49 Type 2 diabetes mellitus with other diabetic neurological complication (principal); Z79.4 Long term (current) use of insulin

== ENCOUNTER → 2025-02-09 09:55 | Outpatient (BNVA) | payer OTHER, MEDICAID, SELFPAY | PROVIDERS: PCP Internal Medicine; Visit Provider Dietitian, Registered | DX: E11.65 Type 2 diabetes mellitus with hyperglycemia (principal); E11.49 Type 2 diabetes mellitus with other diabetic neurological complication; E11.22 Type 2 diabetes mellitus with diabetic chronic kidney disease; N18.2 Chronic kidney disease, stage 2 (mild); Z79.4 Long term (current) use of insulin; Z71.3 Dietary counseling and surveillance | CPT/HCPCS: 97803 ==

== ENCOUNTER 2025-03-02 08:28 | Outpatient (AMB) | payer OTHER, MEDICAID, SELFPAY ==
--- OUTSIDE RECORDS SUMMARY | 2006-03-27 20:00 | XMS_ITS | Continuity of Care Document ---
Author Organization sapp[facility] Nelson [facility] Address [address] [place] [address] Phone Care Team Providers Care Stockfeed Miller Name Role Phone Z-Converted, Provider Unavailable Unavailabl e Advance Directives Directive Yes / No Effective Date File Name No Information Encounters Encounter Description Practice Location Reason(s) For Visit Diagnoses Date Provider Providers Copied on Encounter Blade Nelson [facility], [address] [place] [address] 2,[address], [place], [place], [id number], [place] tel:[phone] [facility] Unspecified chest pain Sep-2 8200 6 [...]
--- NOTE | 2025-03-02 08:29 | MHC.OFFVIS ---
Vital Signs 03/02/25 08:32 Height 5 ft 4 in Weight 208 lb 1.862 oz BMI 35.7 BP 104/62 Blood Pressure Location Rt brachial Position Sitting Pulse 77 Pulse Source Pulse Oximeter Pulse Oximetry (%) 97 Oxygen Delivery Method Room Air Intake Visit Reasons: Type II diabetes Intake Note: Patient present today to follow up on Type 2 Diabetes Mellitus. Patient receives DME supplies through: [employer] Last Diabetic Eye exam: 10/30/2024 [facility] Last Podiatry Visit: 01/27/2025 Random Glucose: 161 mg/dl HgA1C: 8.6% 12/22/2024 Facility Security Officer Required: Yes Facility Security Officer Language: Boomswing Operator Services: Facility Security Officer Offered & Declined Facility Security Officer Name: Daughter Accompanied by: Daughter Allergies shrimp Allergy (Unknown, Verified 03/02/25 08:34) Vomiting Medication List - Last Reconciled 03/02/25 by SAMINA Keating acetaminophen ER (Arthritis Pain Relief (acetaminophen) ER) 650 mg PO Q12H 90 days amlodipine 5 mg PO DAILY 90 days aspirin (Adult Low Dose Aspirin) 81 mg PO DAILY atorvastatin 40 mg PO DAILY blood sugar diagnostic (OneTouch Verio test strips) As directed to check blood glucose blood sugar diagnostic (OneTouch Verio test strips) Use as directed to check blood glucose three times daily. blood-glucose sensor (FreeStyle Mayra 3 Plus Sensor device) As directed every 15 days chlorthalidone 25 mg PO DAILY cyanocobalamin (vitamin B-12) 1,000 mcg PO DAILY [Diabetic insert (pair) 3 pairs] [Diabetic shoes 1 pair diabetic shoes] gabapentin 300 mg PO TID glucose (Dex4 Glucose Quick Dissolve) 16 grams (4 x 4 gram) PO Q15M PRN insulin lispro protamin-lispro 100 unit/mL (75-25) (Humalog Mix 75-25 KwikPen) 15 units subcut BID Jardiance (empagliflozin) 25 mg PO DAILY NS lisinopril 40 mg PO DAILY 90 days metformin 500 mg PO BID metoprolol succinate ER 50 mg PO DAILY OneTouch Delica Plus Lancet (lancets) 3 times daily NS pen needle, diabetic As directed bid NS tirzepatide (Mounjaro) 2.5 mg (0.5 mL) subcut QWEEK triamcinolone acetonide 40 mg IM DAILY HPI Comments Details: This is a 69-year-old male with a past medical history of type 2 diabetes, hypertension, coronary artery disease, CVA with residual deficits, CKD stage II and obesity presenting for diabetic management. He is accompanied by his daughter. Declined park interpreter. Daughter interpreted. He was diagnosed with type 2 diabetes in his youth. Lab work September 2024 C-peptide 2.7, LALA less than 5, islet cell antibodies negative. There is a family history of type 2 diabetes in his mother and siblings. Hemoglobin A1c 8.6% 12/26/2024. Reviewed CGM data for the past 14 days G SC 7.4% Very high 3% High 33% Target range 64% 0% hypoglycemia He has a pattern of hyperglycemia in the afternoon and early evening. Current regimen: Humulin 75/25 15 twice daily Metformin 500 mg twice daily Jardiance 25 mg daily Ozempic 1 mg weekly. He endorses frequent nausea and vomiting since increasing the dose of Ozempic. Complications: He has retinopathy followed by [facility] and a retinal specialist. He receives intravitreal injections. He has neuropathy. He has a history of nephropathy, but his recent test for microalbumin is negative, and his creatinine and GFR were normal. Prior history of CVA and CAD. Denies symptoms of hypoglycemia and hyperglycemia. Hypertension is treated with amlodipine, chlorthalidone, lisinopril, and metoprolol succinate ER. ROS: Constitutional: No unexplained weight loss, fever, chills, fatigue or night sweats. Respiratory: No shortness of breath Cardiovascular: No chest pain, chest Gastrointestinal: No anorexia, nausea, vomiting or diarrhea. No abdominal pain or blood in stool. Neurologic: No headache, dizziness, syncope Endocrine: No cold or heat intolerance. No polyuria or polydipsia. Physical exam: Constitutional: Alert, in no distress. Head: Normocephalic. Neck: Supple, Full range of motion. No lymphadenopathy. No palpable thyroid enlargement or masses. Respiratory: Clear to auscultation. Cardiovascular: S1 S2 regular. No murmur. Psychiatric: Normal mood and affect [facility] Medical History (Updated 01/29/25 @ 10:59 by Laxmi Christianson MD) Uncontrolled type 2 diabetes mellitus with hyperglycemia CKD (chronic kidney disease) stage 2, GFR 60-89 ml/min CVA (cerebral vascular accident) Swelling, mass, or lump in chest Blurry vision, bilateral Blurry vision Surgical History S/P excision of lipoma (09/24/24) Hx of hernia repair Hx of arthroscopy of left knee Family History Mother Diabetes Heart problem History of hypertension Father History of hypertension Heart attack Social History Household Members: None Housing: Apartment Alcohol intake: never Patient Tobacco Use Status: Never used Tobacco e-Cigarette/Vaping Use: Never Used Current occupational status: retired Cognitive needs: No Hearing needs: No Vision needs: Yes Physical Exam Vital Signs: Last Vital Signs Pulse 77 03/02/25 08:32 BP 104/62 03/02/25 08:32 Pulse Ox 97 03/02/25 08:32 Oxygen Delivery Method Room Air 03/02/25 08:32 BMI result Body Mass Index 35.7 Office Procedures Glucose Monitoring Details Details: See [facility] [address] - Glucose monitoring, continuous-physician I&R Procedure code (CPT) selection complete Results Reviewed Results Reviewed: Laboratory Tests 07/23/24 09/17/24 10/16/24 16:35 10:27 09:23 Creatinine Estimated GFR Hgb A1c (Clinic) C-Peptide 2.17 AST 27 ALT 33 Triglycerides Cholesterol LDL Cholesterol, Calc HDL Cholesterol Urine Creatinine 107.57 Urine Microalbumin 27.0 Microalb/Creat Ratio 25.0 Islet Cell Ab Screen NEGATIVE LALA Antibody <5 11/12/24 12/22/24 01/04/25 09:45 08:50 10:54 Creatinine 1.03 Estimated GFR > 60 Hgb A1c (Clinic) 8.6 H C-Peptide AST ALT Triglycerides 79 Cholesterol 116 LDL Cholesterol, Calc 57 HDL Cholesterol 44 Urine Creatinine Urine Microalbumin Microalb/Creat Ratio Islet Cell Ab Screen LALA Antibody Assessment & Plan Assessment & Plan (1) Uncontrolled type 2 diabetes mellitus with hyperglycemia: Code(s): E11.65 - Type 2 diabetes mellitus with hyperglycemia Category: Medical Plan: In summary this is a 69-year-old male with a past medical history of uncontrolled type 2 diabetes albeit improved glycemic control since initiating GLP 1 agonist. We reviewed lifestyle modifications and reinforced a diabetic diet. Reviewed complications of type 2 diabetes. Congratulated on weight loss. Humulin 75/25 15 twice daily Metformin 500 mg twice daily Jardiance 25 mg daily Stop Ozempic and start Mounjaro 2.5 mg weekly one week after last dose of Ozempic. If you experience low blood sugar, treat this by eating a chewable fruit candy like skittles or jelly beans (about 8 pieces), 4 ounces (1/2 cup) of fruit juice (not diet), 1 tablespoon of honey or 4 glucose tablets. If your blood sugar is under 50, take double the amount of one of the above. Recheck your blood sugar in 15 minutes. (2) CKD (chronic kidney disease) stage 2, GFR 60-89 ml/min: Code(s): N18.2 - Chronic kidney disease, stage 2 (mild) Category: Medical Plan: Blood pressure is well-controlled. Diabetic control is improving. Continue KAIT inhibitor. Avoid nephrotoxic medications. Plan Follow up in 1 month. Orders: Orders AMB Glucose Monitoring Today E11.9 - Type 2 diabetes mellitus without complications Medications: New tirzepatide (Mounjaro) for 4 weeks 2.5 mg (0.5 mL) subcut QWEEK 2 mL 0RF Changed From insulin lispro protamin-lispro 100 unit/mL (75-25) (Humalog Mix 75-25 KwikPen) before breakfast and supper 10 units (0.1 mL) subcut BID 90 days 18 mL 3RF To insulin lispro protamin-lispro 100 unit/mL (75-25) (Humalog Mix 75-25 KwikPen) before breakfast and supper 15 units subcut BID Discontinued semaglutide (Ozempic) Discontinued Reason: Doctor's Order 1 mg (0.75 mL) subcut QWEEK 3 mL 3RF Patient Instructions: Medication instructions: Humulin 75/25 15 twice daily Metformin 500 mg twice daily Jardiance 25 mg daily Stop Ozempic and start Mounjaro 2.5 mg weekly one week after last dose of Ozempic. If you experience low blood sugar, treat this by eating a chewable fruit candy like skittles or jelly beans (about 8 pieces), 4 ounces (1/2 cup) of fruit juice (not diet), 1 tablespoon of honey or 4 glucose tablets. If your blood sugar is under 50, take double the amount of one of the above. Recheck your blood sugar in 15 minutes. Instrucciones de medicaci?n: Humulin 75/25 15 mg dos veces al d?a Metformina 500 mg dos veces al d?a Jardiance 25 mg al d?a Suspender Ozempic y comenzar Mounjaro 2.5 mg semanalmente angela semana despu?s de la ?ltima dosis de Ozempic. Si experimenta niveles bajos de az?car en la jannie, tr?telo con un caramelo masticable de fruta zaria Skittles o Jelly Beans (aproximadamente 8 piezas), 113 ml (1/2 taza) de jugo de fruta (no light), 1 cucharada de miel o 4 tabletas de glucosa. Si thacker nivel de az?car en la jannie es inferior a 50, tome el doble de la dosis de nati de los medicamentos mencionados. Vuelva a medir thacker nivel de az?car en la jannie en 15 minutos. Coding Level of Care Code Est Pt Level 4 (15679) Diagnoses Uncontrolled type 2 diabetes mellitus with hyperglycemia E11.65 CKD (chronic kidney disease) stage 2, GFR 60-89 ml/min N18.2 CPT Codes Details - CPT: 36060 - Glucose monitoring, continuous-physician I&R ([id number])
[2025-03-02 08:32] VITALS: BP 104/62; PULSE 77; O2SAT 97; BMI 35.7
[2025-03-02 08:54] LABS: Glucose, Whole Blood 161 mg/dL (60-115)
--- OUTSIDE RECORDS SUMMARY | 2025-03-02 09:07 | XMS_ITS | Clinical Summary ---
Author Organization [facility] Address [address] [place] [address] Care Team Providers Care Press Technician Name Role Phone Marie Luke MD Primary [...] age to complete this topic Care Teams Press Technician Relationship Specialty Start Date End Date Marie Luke MD [address] [place] [address] PCP - General Internal Medicine 10/31/23
--- OUTSIDE RECORDS SUMMARY | 2025-03-02 09:07 | XMS_ITS | Clinical Summary ---
Author Organization [employer] Address [address] [place] [address] Care Team Providers Care Tubular Splitting Machine Tender Name Role Phone Unavailable Primary Care Provider [...]
--- OUTSIDE RECORDS SUMMARY | 2025-03-02 09:07 | XMS_ITS | Clinical Summary ---
Author Organization [facility] Address [address] [place] [address] Phone Care Team Providers Care Quirk Sander Name Role Phone Laxmi Christianson MD Primary Care Provider [phone] Allergies Active Allergy Reactions Criticality Noted Date [...] 35.0 to 35.9 in adult ([facility] V24, [facility] V28) 06/04/2024 CAD (coronary artery [...] diabetes mellitus wit hout complications ([facility] V24, [facility] V28) 04/02/2023 Encounters Date Type Department Care Team Description 01/28/2025 9:00 AM EDT Consult Orthopedic Surgery - [address] [phone] Tariq Wilson, JAVED Controlled type 2 diabetes with neuropathy ([facility] V24, [facility] V28) (Primary Dx); Arthritis of both feet; Foot drop, left; PVD (peripheral vascular disease) ([facility] V24); Xerosis cutis; Dermatophytosis, nail [...] diabetes mellitus wit hout complications ([facility] V24, [facility] V28) DX:Type 2 carolyn betes mellitus without complications (HCC) CAD (coronary artery disease) DX :CAD (coronary artery disease); COMMENT: Stents 2006 and 2008. LAD, RCA, LCX Mixed hyperlipidemia DX:Mixed hy perlipidemia Osteoarthritis, knee DX:Osteoart hritis, knee Polycythemia vera ([facility] V 24, [facility] V28) DX:Polycythemia vera ([facility]) CVA (cerebral vascular accid ent) (CMS/HCC V24, CMS/[facility] V28) 2021 DX:CVA (cerebral vascular a ccident) ([facility]) Family History Medical History Relation [...] Description 03/08/2025 3:45 PM EDT Office Visit [facility] Hematology Oncology [address] [place] [phone] Nohemi Ann MD [address] [place] [address] 04/05/2025 9:00 AM EDT Office Visit Orthopedic Surgery - [place] [address] [place] [phone] Tariq Wilson DPM [address] [place] [address] Health Maintenance Due Date Last Done Comments DTaP,Tdap,and Td Vaccines (1 - Tdap) 1973 Pneumococcal Vaccine: 50+ Years (1 of 2 - PCV) 1973 Zoster Vaccines (1 of 2) 1973 RSV Immunization Adult Patients (1 - Risk 60-74 years 1-dose series) 2014 Colorectal Cancer Screening: Colonoscopy 07/25/2023 Falls Risk Assessment 07/25/2023 Medicare Annual Wellness Visit 07/25/2023 Social Influencers of Health Screening 07/25/2023 Diabetes: Blood Sugar Control Test (HGBA1C) 03/21/2024 09/19/2023 Diabetes: Annual Urine Albumin-Creatinine Ratio (uACR) 06/06/2024 06/06/2023 Diabetes: Annual Foot Exam 06/06/2024 06/06/2023 Diabetes: Annual Retina Eye Exam 06/25/2024 06/25/2023 Depression Screening 07/01/2024 COVID-19 Vaccine ( season) 2025 10/20/2021, 05/18/2021, 10/10/2020, Additional history exists Influenza Vaccine (#1) 2025 06/28/2023 Diabetes: Annual [...] 08/13/2024 1:59 PM EST PV (polycythemia vera) ([facility] V24, [facility] V28) HEMOGLOBIN A1C Routine 09/19/2023 [...] LAB CHEMISTRY METHOD 08/13/2024 5:03 PM EST [facility] Potassium 3.7 3.5 - 5.5 mmol/L LAB CHEMISTRY METHOD 08/13/2024 5:03 PM EST [facility] Chloride 100 96 - 110 mmol/L LAB CHEMISTRY METHOD 08/13/2024 5:03 PM EST [facility] CO2 34(H) 21 - 32 mmol/L LAB CHEMISTRY METHOD 08/13/2024 5:03 PM [facility] Anion Gap 5 3 - 11 LAB CHEMISTRY METHOD 08/13/2024 5:03 PM [facility] Glucose 174(H) 70 - 100 mg/dL LAB CHEMISTRY METHOD 08/13/2024 5:03 PM [facility] BUN 29(H) 5 - 25 mg/dL LAB CHEMISTRY METHOD 08/13/2024 5:03 PM [facility] Creatinine 1.31(H) 0.70 - 1.30 mg/dL LAB CHEMISTRY METHOD 08/13/2024 5:03 PM [facility] eGFR 59(L) >=60 mL/min/1. 73m2 LAB CHEMISTRY METHOD 08/13/2024 5:03 PM [facility] Comment:Calculation based on the Chronic Kidney Disease Epidemiology Collaboration (CKD-EPI) equation refit without adjustment for race. BUN/Creatinine Ratio 22.1 LAB CHEMISTRY METHOD 08/13/2024 5:03 PM [facility] Calcium 9.7 8.5 - 10.5 mg/dL LAB CHEMISTRY METHOD 08/13/2024 5:03 PM [facility] AST (SGOT) 15 10 - 42 unit/L LAB CHEMISTRY METHOD 08/13/2024 5:03 PM [facility] ALT (SGPT) 32 10 - 60 unit/L LAB CHEMISTRY METHOD 08/13/2024 5:03 PM [facility] Alkaline Phosphatase 102 42 - 121 unit/L LAB CHEMISTRY METHOD 08/13/2024 5:03 PM [facility] Total Protein 7.4 6.0 - 8.0 g/dL LAB CHEMISTRY METHOD 08/13/2024 5:03 PM [facility] Albumin 3.9 3.2 - 5.0 g/dL LAB CHEMISTRY METHOD 08/13/2024 5:03 PM [facility] Total Bilirubin 0.3 0.0 - 1.4 mg/dL LAB CHEMISTRY METHOD 08/13/2024 5:03 PM EST [facility] Blood Venous blood specimen / Unknown Venipuncture / Unknown 08/13/2024 1:59 PM EST 08/13/2024 4:39 PM EST Result [facility] Nohemi Ann MD LAB BLOOD ORDERABLES Final R esult [facility] [address] [place] [address], [place] [phone] * Hemoglobin A1c (09/19/2023) [facility] Hemoglobin A1C 6.3 <=6.5 % Blood Venous blood specimen / Unknown Result [facility] LAB BLOOD ORDERABLES Love l Result * Hepatitis C Screening (06/28/2023) [facility] Hepatitis C Screening Abstracted Result [facility] Provider HEALTH MAINTENANCE Final Result * Diabetes Eye Exam (06/25/2023) [facility] Diabetes: Annual Retina Eye Exam Abstracted Result [facility] Provider HEALTH MAINTENANCE Final Result * Urine Albumin Creatinine Ratio (06/06/2023) [facility] Urine Albumin Creatinine Ratio Abstracted Result [facility] Provider HEALTH MAINTENANCE Final Result * Diabetes Foot Exam (06/06/2023) [facility] Diabetes: Annual Foot Exam Abstracted Result [facility] Provider HEALTH MAINTENANCE Final Result * Lipid panel (04/04/2023) [facility] LDL/HDL Ratio 2 0 - 4 Triglycerides 63 0 - 150 mg/dL Cholesterol 104 0 - 200 mg/dL HDL 43 >=40 mg/dL LDL Cholesterol 49 0 - 100 mg/dL Blood Venous blood specimen / Unknown Result [facility] Historical Provider LAB BLOOD ORDERABLES Love l Result from Last 3 Months or Most Recently Relevant to Health Maintenance Insurance MEDICAID - [place] [employer] MEDICARE Care Teams Quirk Sander Relationship Specialty Start Date End Date Laxmi Christianson MD [address] [place] [phone] PCP - General Endocrinology 08/05/24
== END 2025-03-02 09:00 | disposition home or self-care (01) ==
LOC: HO.ENCR 08:29
PROVIDERS: PCP Internal Medicine; Visit Provider Physician Assistant Medical
DX: E11.65 Type 2 diabetes mellitus with hyperglycemia (principal); N18.2 Chronic kidney disease, stage 2 (mild)

== ENCOUNTER → 2025-03-02 08:28 | Outpatient (BNVA) | payer OTHER, MEDICAID, SELFPAY | PROVIDERS: PCP Internal Medicine; Visit Provider Physician Assistant Medical | DX: E11.65 Type 2 diabetes mellitus with hyperglycemia (principal) | CPT/HCPCS: 82947 ==

== ENCOUNTER 2025-04-02 08:53 | Outpatient (AMB) | payer OTHER, MEDICAID, SELFPAY ==
--- OUTSIDE RECORDS SUMMARY | 2006-03-27 20:00 | XMS_ITS | Continuity of Care Document ---
Author Organization [facility] Nelson [facility] Address [address] [place] [address] Phone Care Team Providers Care Supervisor [employer] Name Role Phone Z-Converted, Provider Unavailable Unavailabl e Advance Directives Directive Yes / No Effective Date File Name No Information Encounters Encounter Description Practice Location Reason(s) For Visit Diagnoses Date Provider Providers Copied on Encounter Blade Nelson [facility], [address] [place] [address] 2,[address], [place], [place], [id number], [place] tel:[phone] 2 [facility] Unspecified chest pain Sep-2 8200 6 Z-Convert ed Provider. . Family History Family Member Type Diagnosis Age At Onset No Information Payers Payer name Insurance type Covered republican ID Authoriza tion(s) No Information Social History [...]
--- NOTE | 2025-04-02 09:01 | MHC.OFFVIS ---
Vital Signs 04/02/25 09:06 Height 5 ft 4 in Weight 205 lb 0.478 oz BMI 35.2 BP 102/58 L Blood Pressure Location Lt brachial Position Sitting Pulse 72 Pulse Source Pulse Oximeter Pulse Oximetry (%) 96 Oxygen Delivery Method Room Air Intake Visit Reasons: Type II diabetes Intake Note: Patient present today to follow up on Type 2 Diabetes Mellitus. Patient receives DME supplies through: [employer] Last Diabetic Eye exam: 10/30/2024 [facility] Last Podiatry Visit: 01/27/2025 Random Glucose: 193 mg/dl HgA1C: 8.9% 04/02/2025 Land Checker Required: Yes Land Checker Language: Telegraph Dispatcher Services: Land Checker Offered & Declined Land Checker Name: Daughter will interpret Accompanied by: Daughter, Grandchild Allergies shrimp Allergy (Unknown, Verified 03/02/25 08:34) Vomiting Medication List - Last Reconciled 04/02/25 by SAMINA Keating acetaminophen ER (Arthritis Pain Relief (acetaminophen) ER) 650 mg PO Q12H 90 days amlodipine 5 mg PO DAILY 90 days aspirin (Adult Low Dose Aspirin) 81 mg PO DAILY atorvastatin 40 mg PO DAILY blood sugar diagnostic (FilterSure Verio test strips) As directed to check blood glucose blood sugar diagnostic (LiveMusicMachine.ComTouch Verio test strips) Use as directed to check blood glucose three times daily. blood-glucose sensor (FreeStyle Mayra 3 Plus Sensor device) As directed every 15 days chlorthalidone 12.5 mg PO DAILY cyanocobalamin (vitamin B-12) 1,000 mcg PO DAILY [Diabetic insert (pair) 3 pairs] [Diabetic shoes 1 pair diabetic shoes] gabapentin 300 mg PO TID glucose (Dex4 Glucose Quick Dissolve) 16 grams (4 x 4 gram) PO Q15M PRN insulin lispro protamin-lispro 100 unit/mL (75-25) (Humalog Mix 75-25 KwikPen) 15 units subcut BID Jardiance (empagliflozin) 25 mg PO DAILY NS lisinopril 40 mg PO DAILY 90 days metformin 500 mg PO BID metoprolol succinate ER 50 mg PO DAILY OneTouch Delica Plus Lancet (lancets) 3 times daily NS pen needle, diabetic As directed bid NS tirzepatide (Mounjaro) 5 mg (0.5 mL) subcut QWEEK triamcinolone acetonide 40 mg IM DAILY HPI Comments Details: This is a 69-year-old male with a past medical history of type 2 diabetes, hypertension, coronary artery disease, CVA with residual deficits, CKD stage II and obesity presenting for diabetic management. He is accompanied by his daughter. Declined district representative. Daughter interpreted. He was diagnosed with type 2 diabetes in his youth. Lab work September 2024 C-peptide 2.7, LALA less than 5, islet cell antibodies negative. There is a family history of type 2 diabetes in his mother and siblings. Hemoglobin A1c 8.9% 04/02/2025. Reviewed Mayra 3 report CGM active 84% Average glucose 209 G WA 8.3% Glucose variability 29.8% Very high 26% High 32% Target range 42% 0% hypoglycemia His blood sugars have improved and are mostly in target range overnight now, but he has hyperglycemia during the day and evening. He was off Mounjaro for 1 week due to traveling to [place]. He started it after his last visit. He has 2 doses left. He denies side effects. Current regimen: Humulin 75/25 15 twice daily Metformin 500 mg twice daily Jardiance 25 mg daily Mounjaro 2.5 mg weekly Past medication: Ozempic discontinued due to nausea and vomiting Complications: He has retinopathy followed by [facility] and [facility] and a retinal specialist. He receives intravitreal injections. He has neuropathy. He has a history of nephropathy, but his recent test for microalbumin is negative, and his creatinine and GFR were normal. Prior history of CVA and CAD. Denies symptoms of hypoglycemia and hyperglycemia. Hypertension is treated with amlodipine, chlorthalidone, lisinopril, and metoprolol succinate ER. His last 3 blood pressure readings on file are soft. He fell in [place] and broke his right wrist. He is in a cast and following up with Orthopedics. ROS: Constitutional: No unexplained weight loss, fever, chills, fatigue or night sweats. Respiratory: No shortness of breath Cardiovascular: No chest pain, chest Gastrointestinal: No anorexia, nausea, vomiting or diarrhea. No abdominal pain or blood in stool. Neurologic: No headache, dizziness, syncope Endocrine: No cold or heat intolerance. No polyuria or polydipsia. Physical exam: Constitutional: Alert, in no distress. Head: Normocephalic. Neck: Supple, Full range of motion. No lymphadenopathy. No palpable thyroid enlargement or masses. Respiratory: Clear to auscultation. Cardiovascular: S1 S2 regular. No murmur. Psychiatric: Normal mood and affect [facility] Medical History (Updated 01/29/25 @ 10:59 by Laxmi Christianson MD) Uncontrolled type 2 diabetes mellitus with hyperglycemia CKD (chronic kidney disease) stage 2, GFR 60-89 ml/min CVA (cerebral vascular accident) Swelling, mass, or lump in chest Blurry vision, bilateral Blurry vision Surgical History S/P excision of lipoma (09/24/24) Hx of hernia repair Hx of arthroscopy of left knee Family History Mother Diabetes Heart problem History of hypertension Father History of hypertension Heart attack Social History Household Members: None Housing: Apartment Alcohol intake: never Patient Tobacco Use Status: Never used Tobacco e-Cigarette/Vaping Use: Never Used Current occupational status: retired Cognitive needs: No Hearing needs: No Vision needs: Yes Physical Exam Vital Signs: Last Vital Signs Pulse 72 04/02/25 09:06 BP 102/58 L 04/02/25 09:06 Pulse Ox 96 04/02/25 09:06 Oxygen Delivery Method Room Air 04/02/25 09:06 BMI result Body Mass Index 35.2 Office Procedures Glucose Monitoring Details Details: See HPI 51979 - Glucose monitoring, continuous-physician I&R Procedure code (CPT) selection complete Results AMB Hemoglobin A1c AMB Hemoglobin A1c 8.9 % Last Edit by ALEJANDRA Olivo on 04/02/25 09:28 Results Reviewed Results Reviewed: Laboratory Last Values Glucose (Clinic) 193 mg/dL (60-115) H 04/02/25 09:13 Hgb A1c (Clinic) 8.9 % (4.0-6.0) H 04/02/25 09:17 Laboratory Tests 07/23/24 09/17/24 10/16/24 16:35 10: 09:23 Creatinine Estimated GFR Hgb A1c (Clinic) C-Peptide 2.17 AST 27 ALT 33 Triglycerides Cholesterol LDL Cholesterol, Calc HDL Cholesterol Urine Creatinine 107.57 Urine Microalbumin 27.0 Microalb/Creat Ratio 25.0 Islet Cell Ab Screen NEGATIVE LALA Antibody <5 11/12/24 12/22/24 01/04/25 09:45 08:50 10:54 Creatinine 1.03 Estimated GFR > 60 Hgb A1c (Clinic) 8.6 H C-Peptide AST ALT Triglycerides 79 Cholesterol 116 LDL Cholesterol, Calc 57 HDL Cholesterol 44 Urine Creatinine Urine Microalbumin Microalb/Creat Ratio Islet Cell Ab Screen LALA Antibody Assessment & Plan Assessment & Plan (1) Uncontrolled type 2 diabetes mellitus with hyperglycemia: Code(s): E11.65 - Type 2 diabetes mellitus with hyperglycemia Category: Medical Plan: In summary this is a 69-year-old male with a past medical history of uncontrolled type 2 diabetes. We reviewed lifestyle modifications and reinforced a diabetic diet. Reviewed complications of type 2 diabetes. Congratulated on weight loss. Increase Mounjaro to 5 mg weekly after you complete the 1st month of 2.5 mg weekly. Continue Humulin 75/25 15 twice daily Continue Metformin 500 mg twice daily Continue Jardiance 25 mg daily If you experience low blood sugar, treat this by eating a chewable fruit candy like skittles or jelly beans (about 8 pieces), 4 ounces (1/2 cup) of fruit juice (not diet), 1 tablespoon of honey or 4 glucose tablets. If your blood sugar is under 50, take double the amount of one of the above. Recheck your blood sugar in 15 minutes. (2) CKD (chronic kidney disease) stage 2, GFR 60-89 ml/min: Code(s): N18.2 - Chronic kidney disease, stage 2 (mild) Category: Medical Plan: Soft blood pressures. Reduce chlorthalidone to half a tablet daily. Continue other blood pressure medications. Continue KAIT inhibitor. Avoid nephrotoxic medications. Plan Follow up in 6 weeks for type 2 diabetes. 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 Increase Mounjaro to 5 mg weekly. Continue your other medications. Coding Level of Care Code Est Pt Level 4 (40926) Diagnoses Uncontrolled type 2 diabetes mellitus with hyperglycemia E11.65 CKD (chronic kidney disease) stage 2, GFR 60-89 ml/min N18.2 CPT Codes Details - CPT: 07500 - Glucose monitoring, continuous-physician I&R ([id number])
[2025-04-02 09:06] VITALS: BP 102/58; PULSE 72; O2SAT 96; BMI 35.2
[2025-04-02 09:17] LABS: Glucose, Whole Blood 193 mg/dL (60-115)
--- OUTSIDE RECORDS SUMMARY | 2025-04-02 09:21 | XMS_ITS | Clinical Summary ---
Author Organization [facility] Address [address] [place] [address] Phone Care Team Providers Care Print Operator Name Role Phone Laxmi Christianson MD Primary Care Provider [phone] Allergies Active Allergy Reactions Criticality Noted Date [...] 400 g 2 5 01/29/20 26 Active HumaLOG Mix 75-25 KwikPen 100 unit/mL (75-25) injection pen ADMINISTER 10 UNITS UNDER THE SKIN TWICE DAILY BEFORE BREAKFAST AND SUPPER 5 Active Mounjaro 2.5 mg/0.5 mL injection 5 Active Active Problems Problem Noted Date Diagnosed [...] Type 2 diabetes mellitus wit hout complications ([facility] V24, [facility] V28) 04/02/2023 Encounters Date Type Department Care Team Description 03/08/2025 3:45 PM EDT Office Visit [facility] Hematology Oncology [address] [place] [phone] Nohemi Ann MD Myeloproliferative neoplasm ([facility] V24, [facility] V28) (Primary Dx) 01/28/2025 9:00 AM EDT Consult [facility] - [place] [address] [facility] [address] [place] [phone] Tariq Wilson DPM Controlled type 2 diabetes with neuropathy ([facility] V24, [facility] V28) (Primary Dx); Arthritis of both feet; Foot drop, left; PVD (peripheral vascular disease) ([facility] V24); Xerosis cutis; Dermatophytosis, nail from Last 3 Months Immunizations Immunization Administration Dates Next Due Influenza trivalent, 0.5mL ( Fluad) 65yo and older 06/28/2023 Moderna SARS-CoV-2 COVID-19, mRNA, LNP-S, preservative free 10/20/2021,05/18/2021,10/10/2020,2020 Surgical History Surgery Date Site/Laterality Comments CARDIAC CATHETERIZATION Left PROCEDURE: HISTORICAL CARDIAC CATH; COMMENT: 2008 Medical History Medical History Date Comments Essential (primary) hypertension DX:Essential (primary) hypertension Type 2 diabetes mellitus wit hout complications ([facility] V24, [facility] V28) DX:Type 2 carolyn betes mellitus without complications (HCC) CAD (coronary artery disease) DX :CAD (coronary artery disease); COMMENT: Stents 2006 and 2008. LAD, RCA, LCX Mixed hyperlipidemia DX:Mixed hy perlipidemia Osteoarthritis, knee DX:Osteoart hritis, knee Polycythemia vera ([facility] V 24, [facility] V28) DX:Polycythemia vera ([facility]) CVA (cerebral vascular accid ent) ([facility] V24, [facility] V28) 2021 DX:CVA (cerebral vascular a ccident) [...] Sign Reading Time Taken Comments Blood Pressure 136/59 03/08/2025 3:47 PM EDT Pulse 65 03/08/2025 3:47 PM EDT Temperature 36.2 C (97.2 F) 03/08/2025 3:47 PM EDT Respiratory Rate - - Oxygen Saturation 100% 03/08/2025 3:47 PM EDT Inhaled Oxygen Concentration - - Weight 94.8 kg (209 lb) 03/08/2025 3:47 PM EDT Height 162.6 cm (5' 4 ) 08/05/2024 2:40 PM EST Body Mass Index 35.87 08/05/2024 2:40 PM EST Plan of Treatment Upcoming Encounters Date Type Department Care Team (Late st Contact Info) Description 04/05/2025 9:00 AM EDT Office Visit [facility] [place] [address] [phone] Tariq Wilson DPM [address] [address] 07/13/2025 3:15 PM EST Office Visit [facility] Hematology Oncology [address] [place] [phone] Nohemi Ann MD [address] [place] [address] Health Maintenance Due Date Last Done Comments Colorectal Cancer Screening: Colonoscopy 1954 DTaP,Tdap,and Td Vaccines (1 - Tdap) 1973 Pneumococcal Vaccine: 50+ Years (1 of 2 - PCV) 1973 Zoster Vaccines (1 of 2) 1973 RSV Immunization Adult Patients (1 - Risk 60-74 years 1-dose series) 2014 Falls Risk Assessment 07/25/2023 Medicare Annual Wellness [...] 06/28/2023 Diabetes: Annual GFR (Glomerular Filtration Rate) 03/02/2026 03/02/2025, 08/13/2024, 04/04/2023 Hypertension/CHF/CAD Annual BMP Blood Test 03/02/2026 03/02/2025, 08/13/2024, 04/04/2023 Cholesterol Screening (Lipid Panel) 04/04/2028 [...] Procedure Name Priority Date/Time Associated Diagnosis Comments CBC WITH AUTO DIFFERENTIAL Routine 03/02/2025 9:27 AM EDT Polycythemia Myeloproliferative neoplasm (CMS/HCC V24, CMS/HCC V28) COMPREHENSIVE METABOLIC PANEL Routine 03/02/2025 9:27 AM EDT Polycythemia Myeloproliferative neoplasm (CMS/HCC V24, CMS/HCC V28) CBC AND DIFFERENTIAL Routine 03/02/2025 9:27 AM EDT Polycythemia Myeloproliferative neoplasm (CMS/HCC V24, CMS/HCC V28) HEMOGLOBIN A1C Routine 09/19/2023 HEPATITIS C SCREENING Routine 06/28/2023 DIABETES EYE EXAM Routine 06/25/2023 URINE ALBUMIN CREATININE RATIO Routine 06/06/2023 DIABETES FOOT EXAM Routine 06/06/2023 LIPID PANEL Routine 04/04/2023 from Last 3 Months or Most Recently Relevant to Health Maintenance Results * (ABNORMAL) CBC auto differential (03/02/2025 9:27 AM EDT) [facility] WBC 9.5 4.8 - 10.8 K/mcL LAB HEMETOLOGY METHOD 03/02/2025 11:50 AM EDT [facility] RBC 5.90(H) 4.50 - 5.50 M/mcL LAB HEMETOLOGY METHOD 03/02/2025 11:50 AM [facility] Hemoglobin 14.3 13.5 - 17.5 g/dL LAB HEMETOLOGY METHOD 03/02/2025 11:50 AM [facility] Hematocrit 47.5 42.0 - 54.0 % LAB HEMETOLOGY METHOD 03/02/2025 11:50 AM [facility] MCV 80.0 79.0 - 98.0 FL LAB HEMETOLOGY METHOD 03/02/2025 11:50 AM [facility] MCH 24.1(L) 27.0 - 32.0 pcg LAB HEMETOLOGY METHOD 03/02/2025 11:50 AM [facility] MCHC 30.1(L) 32.0 - 37.0 g/dL LAB HEMETOLOGY METHOD 03/02/2025 11:50 AM [facility] RDW 16.8(H) 11.0 - 15.0 % LAB HEMETOLOGY METHOD 03/02/2025 11:50 AM [facility] Platelets 299 130 - 400 K/mcL LAB HEMETOLOGY METHOD 03/02/2025 11:50 AM [facility] MPV 11.3(H) 7.0 - 11.0 FL LAB HEMETOLOGY METHOD 03/02/2025 11:50 AM [facility] NRBC 0.0 <1.0 % LAB HEMETOLOGY METHOD 03/02/2025 11:50 AM [facility] NRBC Absolute 0.00 <0.10 K/mcL LAB HEMETOLOGY METHOD 03/02/2025 11:50 AM [facility] Neutrophils Relative 61.0 % LAB HEMETOLOGY METHOD 03/02/2025 11:50 AM [facility] Lymphocytes Relative 23.5 % LAB HEMETOLOGY METHOD 03/02/2025 11:50 AM [facility] Monocytes Relative 10.8 % LAB HEMETOLOGY METHOD 03/02/2025 11:50 AM [facility] Eosinophils Relative 3.3 % LAB HEMETOLOGY METHOD 03/02/2025 11:50 AM [facility] Basophils Relative 1.1 % LAB HEMETOLOGY METHOD 03/02/2025 11:50 AM [facility] Immature Granulocytes Relative 0.3 % LAB HEMETOLOGY METHOD 03/02/2025 11:50 AM [facility] Neutrophils Absolute 5.78 1.50 - 7.00 K/mcL LAB HEMETOLOGY METHOD 03/02/2025 11:50 AM [facility] Lymphocytes Absolute 2.23 1.00 - 5.00 K/mcL LAB HEMETOLOGY METHOD 03/02/2025 11:50 AM [facility] Monocytes Absolute 1.02(H) 0.20 - 1.00 K/mcL LAB HEMETOLOGY METHOD 03/02/2025 11:50 AM [facility] Eosinophils Absolute 0.31 0.00 - 0.50 K/mcL LAB HEMETOLOGY METHOD 03/02/2025 11:50 AM EDT [facility] Basophils Absolute 0.10 0.00 - 0.20 K/[facility] LAB HEMETOLOGY METHOD 03/02/2025 11:50 AM EDT [facility] Immature Granulocytes Absolute 0.03 0.00 - 0.03 [facility] 03/02/2025 11:50 AM EDT [facility] Blood Venous blood specimen / Unknown Venipuncture / Unknown 03/02/2025 9:27 AM EDT 03/02/2025 11:29 AM EDT Nohemi Ann MD LAB BLOOD ORDERABLES Final R esult [facility] [address] [place] [address], * (ABNORMAL) Comprehensive metabolic panel (03/02/2025 9:27 AM EDT) Sodium 137 133 - 145 mmol/L LAB CHEMISTRY METHOD 03/02/2025 4:34 PM [facility] Potassium 4.4 3.5 - 5.5 mmol/L LAB CHEMISTRY METHOD 03/02/2025 4:34 PM [facility] Chloride 101 96 - 110 mmol/L LAB CHEMISTRY METHOD 03/02/2025 4:34 PM [facility] CO2 30 21 - 32 mmol/L LAB CHEMISTRY METHOD 03/02/2025 4:34 PM [facility] Anion Gap 6 3 - 11 LAB CHEMISTRY METHOD 03/02/2025 4:34 PM [facility] Glucose 131(H) 70 - 100 mg/dL LAB CHEMISTRY METHOD 03/02/2025 4:34 PM [facility] BUN 28(H) 5 - 25 mg/dL LAB CHEMISTRY METHOD 03/02/2025 4:34 PM [facility] Creatinine 1.42(H) 0.70 - 1.30 mg/dL LAB CHEMISTRY METHOD 03/02/2025 4:34 PM [facility] eGFR 53(L) >=60 mL/min/1. 73m2 LAB CHEMISTRY METHOD 03/02/2025 4:34 PM [facility] Comment:Calculation based on the Chronic Kidney Disease Epidemiology Collaboration (CKD-EPI) equation refit without adjustment for race. BUN/Creatinine Ratio 19.7 LAB CHEMISTRY METHOD 03/02/2025 4:34 PM [facility] Calcium 9.5 8.5 - 10.5 mg/dL LAB CHEMISTRY METHOD 03/02/2025 4:34 PM [facility] AST (SGOT) 17 10 - 42 unit/L LAB CHEMISTRY METHOD 03/02/2025 4:34 PM [facility] ALT (SGPT) 33 10 - 60 unit/L LAB CHEMISTRY METHOD 03/02/2025 4:34 PM [facility] Alkaline Phosphatase 90 42 - 121 unit/L LAB CHEMISTRY METHOD 03/02/2025 4:34 PM [facility] Total Protein 7.3 6.0 - 8.0 g/dL LAB CHEMISTRY METHOD 03/02/2025 4:34 PM [facility] Albumin 4.0 3.2 - 5.0 g/dL LAB CHEMISTRY METHOD 03/02/2025 4:34 PM [facility] Total Bilirubin 0.4 0.0 - 1.4 mg/dL LAB CHEMISTRY METHOD 03/02/2025 4:34 PM [facility] Blood Venous blood specimen / Unknown Venipuncture / Unknown 03/02/2025 9:27 AM EDT 03/02/2025 11:30 AM EDT us Nohemi Ann MD LAB BLOOD ORDERABLES Final R esult [facility] [address] [place] [address], * Hemoglobin A1c (09/19/2023) [facility] Hemoglobin A1C 6.3 <=6.5 % Blood Venous blood specimen / Unknown Result [facility] Provider LAB BLOOD ORDERABLES Love l Result * Hepatitis C Screening (06/28/2023) [facility] Hepatitis C Screening Abstracted Result [facility] Provider HEALTH MAINTENANCE Final Result * Diabetes Eye Exam (06/25/2023) [facility] Diabetes: Annual Retina Eye Exam Abstracted Result [facility] Provider HEALTH MAINTENANCE Final Result * Urine Albumin Creatinine Ratio (06/06/2023) [facility] Urine Albumin Creatinine Ratio Abstracted Result [facility] Provider HEALTH MAINTENANCE Final Result * Diabetes Foot Exam (06/06/2023) [facility] Diabetes: Annual Foot Exam Abstracted Result [facility] Provider HEALTH MAINTENANCE Final Result * Lipid panel (04/04/2023) [facility] LDL/HDL Ratio 2 0 - 4 Triglycerides 63 0 - 150 mg/dL Cholesterol 104 0 - 200 mg/dL HDL 43 >=40 mg/dL LDL Cholesterol 49 0 - 100 mg/dL Blood Venous blood specimen / Unknown Result [facility] Provider LAB BLOOD ORDERABLES Love l Result from Last 3 Months or Most Recently Relevant to Health Maintenance Insurance MEDICAID - [place] [employer] MEDICARE Care Teams Print Operator Relationship Specialty Start Date End Date Laxmi Christianson MD [address] [place] [phone] PCP - General Endocrinology 08/05/24
--- OUTSIDE RECORDS SUMMARY | 2025-04-02 09:21 | XMS_ITS | Clinical Summary ---
Author Organization [facility] Address [address] [place] [address] Care Team Providers Care Contracts Director Name Role Phone Marie Luke MD Primary [...] age to complete this topic Care Teams Contracts Director Relationship Specialty Start Date End Date Marie Luke MD [address] [place] [address] PCP - General Internal Medicine 10/31/23
--- OUTSIDE RECORDS SUMMARY | 2025-04-02 09:21 | XMS_ITS | Clinical Summary ---
Author Organization [facility] Address [address] [facility] [address] [place] [address] Care Team Providers Care Credit Officer Name Role Phone Unavailable Primary Care [...] 2004 Zoster Vaccines (1 of 2) 2004 Dental Oral Exam 03/27/2024 09/24/2023 Dental X-Ray: Bitewings 09/24/2024 09/24/2023 COVID-19 Vaccine ( - season) 2025 10/20/2021, 05/18/2021, 10/10/2020, Additional history exists Influenza Vaccine (#1) 2025 06/28/2023 Tobacco Screening [...] Recently Relevant to Health Maintenance Insurance [facility] (MEDICAID)
== END 2025-04-02 09:38 | disposition home or self-care (01) ==
LOC: HO.ENCR 08:54
PROVIDERS: PCP Internal Medicine; Visit Provider Physician Assistant Medical
DX: E11.65 Type 2 diabetes mellitus with hyperglycemia (principal); N18.2 Chronic kidney disease, stage 2 (mild); E11.49 Type 2 diabetes mellitus with other diabetic neurological complication; Z79.4 Long term (current) use of insulin

== ENCOUNTER 2025-04-02 08:53 | Outpatient (REF) | payer OTHER, MEDICAID, SELFPAY ==
--- NOTE | ~2025-04-02 | XR_ITS ---
Exam: XR HAND 3 OR MORE VIEWS RIGHT, TECHNIQUE: AP, lateral, and oblique views upper extremity, right hand INDICATION: M79.641 - Pain in right hand COMPARISON: None available. FINDINGS: RIGHT HAND: There is diffuse osteopenia. There is an oblique fracture line through the middle diaphysis of the fourth metacarpal. There are oblique intra-articular fractures involving the radial base of the second and third proximal phalanges. There are degenerative changes with joint space narrowing and osteophytes involving the IP joints greater than PIP joints. There is also involvement of the MCP joints as well as the first CMC, MCP, and IP joints. Faint chondrocalcinosis is visible in the triangular fiber cartilage. XR/XR hand RT min 3V IMPRESSION: Right hand: Diffuse osteopenia. Intra-articular fractures: radial side at the base of the second and third proximal phalanges. Oblique fracture: middle diaphysis fourth metacarpal. 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 Electronically signed by: Franklyn Pérez MD 04/02/2025 01:24 PM EDT
== END 2025-04-02 08:54 | disposition home or self-care (01) ==
LOC: HO.HOSX 08:53
PROVIDERS: PCP Internal Medicine; Visit Provider Physician Assistant Medical
DX: E11.22 Type 2 diabetes mellitus with diabetic chronic kidney disease (principal); E11.65 Type 2 diabetes mellitus with hyperglycemia; N18.2 Chronic kidney disease, stage 2 (mild); Z79.899 Other long term (current) drug therapy; Z79.4 Long term (current) use of insulin; Z79.84 Long term (current) use of oral hypoglycemic drugs
CPT/HCPCS: 26600; 26740; 73130; 82947; 83036

== ENCOUNTER 2025-04-02 12:52 | Outpatient (AMB) | payer OTHER, MEDICAID, SELFPAY ==
[2025-04-02 13:00] VITALS: BMI 35.2
--- NOTE | 2025-04-02 13:00 | A.OFFVIS_ITS ---
Vital Signs 04/02/25 13:00 Height 5 ft 4 in Weight 205 lb BMI 35.2 Intake Visit Reasons: FC-Nondisplaced RT 4th Metacarpal FxDOI 03/22/25 Intake Note: Karsten is a 69 year old left hand dominant male who presents today for a Fracture Care visit for evaluation of a Right Hand Fracture, DOI: 03/22/25. Patient's son reports patient fell while in [place]. He was evaluated at [facility] and splinted. A referral note was provided in Zimbabwean requesting evaluation of a Nondisplaced Right 4th Metacarpal Fracture. The diagnosis included was S62.355A. Patient came in with a supervisor assembly stock that was placed on 03/24, which was removed to obtain xrays in office. Patient states he feels better since removing his cast. He does have swelling and bruising. He is accompanied by his daughter Shakila who is [employer]. Last A1C was done this morning *8.9. Allergies shrimp Allergy (Unknown, Verified 04/02/25 13:20) Vomiting HPI HPI FC-Nondisplaced RT 4th Metacarpal FxDOI 03/22/25: Details: Karsten is a 69 year old left hand dominant male who presents today for a Fracture Care visit for evaluation of a Right Hand Fracture, DOI: 03/22/25. Patient's son reports patient fell while in [place]. He was evaluated at [facility] and splinted. A referral note was provided in Zimbabwean requesting evaluation of a Nondisplaced Right 4th Metacarpal Fracture. The diagnosis included was S62.355A. Patient came in with a supervisor assembly stock that was placed on 03/24, which was removed to obtain xrays in office. Patient states he feels better since removing his cast. He does have swelling and bruising. He is accompanied by his daughter Shakila who is [employer]. Last A1C was done this morning *8.9. [facility] Medical History (Updated 04/02/25 @ 23:00 by SAMINA Mejía) Uncontrolled type 2 diabetes mellitus with hyperglycemia CKD (chronic kidney disease) stage 2, GFR 60-89 ml/min CVA (cerebral vascular accident) Swelling, mass, or lump in chest Blurry vision, bilateral Blurry vision Surgical History S/P excision of lipoma (09/24/24) Hx of hernia repair Hx of arthroscopy of left knee Family History Mother Diabetes Heart problem History of hypertension Father History of hypertension Heart attack Social History Household Members: None Housing: Apartment Alcohol intake: never Patient Tobacco Use Status: Never used Tobacco e-Cigarette/Vaping Use: Never Used Current occupational status: retired Cognitive needs: No Hearing needs: No Vision needs: Yes Physical Exam Vital Signs: BMI result Body Mass Index 35.2 Extrem Other: Patient is alert, oriented, and in no acute distress. Neuro: Normal sensation of the tips of all digits of the right hand at this time Vascular: Cap refill brisk Pain: Tenderness to palpation of the right 4th metacarpal shaft, as well as the base of the right middle finger No tenderness to palpation of the base of the right index finger No other tenderness to palpation noted Skin: No lacerations or abrasions. General: Healing ecchymosis in the volar aspect of the right hand No erythema or evidence of infection Psych: Appears grossly normal Affect normal Attitude cooperative Office Procedures Casting/Splints 65760-Tvje/Wrist Cast Application Procedure code (CPT) selection complete Results AMB Hemoglobin A1c AMB Hemoglobin A1c 8.9 % Last Edit by ALEJANDRA Olivo on 04/02/25 09:28 Results Reviewed Results Reviewed: X-rays obtained in the office today and independently reviewed by , Yash Jalloh PA-C, demonstrate nondisplaced fracture of the right 4th metacarpal shaft, minimally displaced fracture of the right 3rd proximal phalanx base, as well as a questionable area of lucency on the 2nd proximal phalanx of the right hand concerning for nondisplaced fracture. Assessment & Plan Assessment & Plan (1) Fracture of proximal phalanx of right middle finger: Code(s): S62.612A - Displaced fracture of proximal phalanx of right middle finger, initial encounter for closed fracture Category: Medical (2) Fracture of shaft of fourth metacarpal bone of right hand: Code(s): S62.324A - Displaced fracture of shaft of fourth metacarpal bone, right hand, initial encounter for closed fracture Category: Medical (3) Fracture of proximal phalanx of right index finger: Code(s): S62.610A - Displaced fracture of proximal phalanx of right index finger, initial encounter for closed fracture Category: Medical Plan 1. Right index finger proximal phalanx fracture 2. Right middle finger proximal phalanx fracture 3. Right 4th metacarpal shaft fracture Date of injury 03/22/2025 Patient is educated about these injury Patient is educated about the typical recovery course At this time, patient is placed into a supervisor assembly stock cast for immobilization of all 3 fractures Patient is educated that at this time, due to the minimally displaced or nondisplaced nature suffers fractures, I do not feel that surgery is acutely indicated now, however it is important that we keep a close eye on his fractures to ensure that no further surgical intervention is indicated Therefore, patient was placed into this clamp day or splint and will follow-up with Dr. Oliver in 1 week Patient is educated on proper cast care and precautions Nonweightbearing in right upper extremity Patient understands this is amenable to this plan Follow-up in [address] Oliver for reassessment with repeat x-rays, sooner with any acute concerns Orders: Orders XR hand RT min 3V Today M79.641 - Pain in right hand Coding Level of Care Code New Pt Level 3 (75138) Diagnoses Fracture of proximal phalanx of right middle finger S62.612A Fracture of shaft of fourth metacarpal bone of right hand S62.324A Fracture of proximal phalanx of right index finger S62.610A CPT Codes Casting - CPT: 02799-Nejn/Wrist Cast Application ([id number])
== END 2025-04-02 14:15 | disposition home or self-care (01) ==
LOC: HO.HOS 12:53
PROVIDERS: PCP Internal Medicine
DX: S62.612A Displaced fracture of proximal phalanx of right middle finger, initial encounter for closed fracture (principal); S62.610A Displaced fracture of proximal phalanx of right index finger, initial encounter for closed fracture; S62.324A Displaced fracture of shaft of fourth metacarpal bone, right hand, initial encounter for closed fracture
CPT/HCPCS: 26600; 26740; 99203

== ENCOUNTER → 2025-04-02 13:05 | Outpatient (BNV) | payer OTHER, MEDICAID, SELFPAY | PROVIDERS: PCP Internal Medicine; Visit Provider Radiology Diagnostic Radiology | DX: S62.610D Displaced fracture of proximal phalanx of right index finger, subsequent encounter for fracture with routine healing (principal); M11.241 Other chondrocalcinosis, right hand | CPT/HCPCS: 73130 ==

== ENCOUNTER 2025-04-06 11:21 | Outpatient (REF) | payer MEDICARE, MEDICAID, SELFPAY ==
--- NOTE | ~2025-04-06 | XR_ITS ---
EXAMINATION: XR HAND, right CLINICAL INFORMATION: M79.642 - Pain in right hand COMPARISON: X-ray performed 4 days ago TECHNIQUE: PA, lateral, and oblique views of the left hand. FINDINGS: Again seen is an oblique fracture of the middle diaphysis of the fourth metacarpal and the radial base of the second and third proximal phalanges involving the articular surface. There is diffuse osteopenia. There is narrowing of DIP, IP, and IP joints with small marginal osteophytes. There is mild narrowing of the third MCP joint. There are marginal osteophytes involving the second, third, and fifth metacarpal heads. There is narrowing and sclerosis with osteophytes involving the first CMC joint. XR/XR hand RT min 3V IMPRESSION: Stable fractures the radial base of the second and third proximal phalanges and central diaphysis of the fourth metacarpal. Osteopenia. 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 Electronically signed by: Franklyn Pérez MD 04/06/2025 02:26 PM EDT
== END 2025-04-06 11:22 | disposition home or self-care (01) ==
LOC: HO.HOSX 11:21
PROVIDERS: Visit Provider Orthopaedic Surgery
DX: S62.612D Displaced fracture of proximal phalanx of right middle finger, subsequent encounter for fracture with routine healing (principal); S62.324D Displaced fracture of shaft of fourth metacarpal bone, right hand, subsequent encounter for fracture with routine healing; S62.610D Displaced fracture of proximal phalanx of right index finger, subsequent encounter for fracture with routine healing; E11.65 Type 2 diabetes mellitus with hyperglycemia; X58.XXXD Exposure to other specified factors, subsequent encounter
CPT/HCPCS: 29125; 73130

== ENCOUNTER 2025-04-06 13:35 | Outpatient (AMB) | payer OTHER, MEDICAID, SELFPAY ==
--- OUTSIDE RECORDS SUMMARY | 2006-03-27 20:00 | XMS_ITS | Continuity of Care Document ---
Author Organization sa[facility] Nelson [facility] Address [address] [place] [address] Phone Care Team Providers Care Fixture Repairer Fabricator Name Role Phone Z-Converted, Provider Unavailable Unavailabl e Advance Directives Directive Yes / No Effective Date File Name No Information Encounters Encounter Description Practice Location Reason(s) For Visit Diagnoses Date Provider Providers Copied on Encounter Blade Nelson [facility], [address] [place] [address] 2,[address], [place], [place], [id number], [place] tel:[phone] [facility] Unspecified chest pain Sep-2 8200 6 Z-Convert ed Provider. . Family History Family Member Type Diagnosis Age At Onset No Information Payers Payer name Insurance type Covered libertarian ID Authoriza tion(s) No Information Social History [...]
--- OUTSIDE RECORDS SUMMARY | 2025-04-05 09:00 | XMS_ITS | Encounter Summary ---
Author Organization [facility] Address [address] [place] [address] Care Team Providers Care Computer Help Desk Specialist Name Role Phone Laxmi Christianson MD Primary Care Provider [phone] Reason for Visit * Reason Comments Foot Pain Controlled type 2 di abetes with neuropathy (CMS/HCC V24, CMS/HCC V28)Arthritis of both feetFoot drop, leftPVD (peripheral vascular disease) (CMS/HCC V24)Xerosis cutisDermatophytosis, nail * Consultation (Routine) - Closed Specialty Diagnoses / Procedures Referred By Caio t Referred To Contact Podiatry / Orthopaedic Surgery Diagnoses Encounter for diabetic foot exam (CMS/HCC V24, CMS/[facility] V28) Maylin Chen NP [address] [place] [address] Phone: tel: Tariq Wilson DPM [address] [address] Phone: tel: fax: Referral ID Status Reason Start Date Expiration Date V isits Requested Visits Authorized [id number] Closed Specialty Services Required 11/07/2024 11/07/2025 1 1 Encounter Details Date Type Department Care Team ([facility] st Contact Info) Description 04/05/2025 9:00 AM EDT Office Visit Orthopedic Surgery - [place] [address] [address] Tariq Wilson DPM 175 [facility] [address] [place] [address] Controlled type 2 diabetes with neuropathy ([facility] V24, [facility] V28) (Primary Dx); Foot drop, left; PVD (peripheral vascular disease) ([facility] V24); Arthritis of both feet; Xerosis cutis; Dermatophytosis, nail Social History Tobacco [...] on file documented as of this encounter Progress Notes * Tariq Wilson DPM - 04/05/2025 9:00 AM EDT Referring MD: Maylin Chen NP Last PCP visit: 11/22/2024 IDENTIFIER: Jamaal Estes is a 69 y.o. year old male who presents for consultation. CC: Pain in feet HPI: Patient returns office for multiple forefoot deformities Patient states that they have been diabetic for the past few years and has some continued tingling in his feet bilaterally Patient had a history of stroke in 2010 and has resulting dropfoot from this Patient notes no recent infections of the feet Patient relates his nails continue to be thickened and misshapened Patient is wearing good supportive shoes at this time. Patient reports mild calluses that are becoming bothersome. Patient with minimal other pedal complaints at this time. Patient's FBS this AM was 181 Recent A1C is %. 8.6 ROS: GENERAL: [...] knee Type 2 diabetes mellitus without complications ([facility] V24, [facility] V28) Class 2 severe obesity due to excess calories with serious comorbidity and body mass index (BMI) of35.0 to 35.9 in adult SOCIAL HISTORY: Social History Tobacco Use Smoking status: Never Smokeless tobacco: Never Substance Use Topics Alcohol use: Not Currently Comment: NO ACTIVE MEDICATIONS: No outpatient medications have been marked as taking for the 04/05/25 encounter (Office Visit) with Tariq Wilson DPM. ALLERGIES: Shrimp PHYSICAL EXAM: There were no [...] Sharp/dull sensation intact, protective sensation intact On [place]. Peripheral neuropathy throughout the feet bilaterally ORTHOPEDIC: [...] 1. Controlled type 2 diabetes with neuropathy ([facility] V24, [facility] V28) 2. Foot drop, left 3. PVD (peripheral vascular disease) ([facility] V24) 4. Arthritis of both feet 5. Xerosis cutis 6. Dermatophytosis, nail PLAN: Pt was seen and examined, history reviewed. Patient encouraged to continue with tight glucose control or limit chance for ulceration infection in the future Patient understands the importance of wearing proper shoe gear in order to limit breakdown midtarsal joint arthritic flare Patient was educated on decreased pulses bilateral feet. Patient was encouraged to ambulate as often as possible to limit complications associated with decreased blood flow Patient continues to suffer with left foot drop foot with equinus varus rotation increasing callus to the outside of the left foot. Patient instructed to wear brace as often as possible to limit plantarflexion inversion of the foot Patient with diffuse Xerosis to bilateral [...] Care Team (Late st Contact Info) Description 06/08/2025 9:30 AM EST Office Visit Orthopedic Surgery - [place] [address] [address] Tariq Wilson DPM [address] [address] 07/13/2025 3:15 PM EST Office Visit [facility] H[facility]ology On[facility] [address] [place] [id number] Nohemi Ann MD [address] [place] [address] documented as of this encounter Visit Diagnoses Diagnosis Controlled type 2 diabetes with neuropathy (CMS/HCC V24, CMS/HCC V28)- Primary Type II or unspecified type diabetes mellitus with neurological manifestations, not stated as uncontrolled Foot drop, left Other acquired deformity of ankle and foot PVD (peripheral vascular disease) ([facility] V24) Unspecified peripheral vascular disease Arthritis of both feet Xerosis cutis Other specified disease of sebaceous glands Dermatophytosis, nail Dermatophytosis of nail documented in this encounter Care Teams Computer Help Desk Specialist Relationship Specialty Start Date End Date Laxmi Christianson MD [address] [place] [address] PCP - General Endocrinology 08/05/24 documented as of this encounter
[2025-04-06 13:56] VITALS: BMI 35.2
--- NOTE | 2025-04-06 13:56 | MHC.OFFVIS ---
Vital Signs 04/06/25 13:56 Height 5 ft 4 in Weight 205 lb BMI 35.2 Intake Visit Reasons: Nondisplaced RT 4th Metacarpal FxDOI 03/22/25 Intake Note: Karsten is a 69 year old left hand dominant male who presents today for a follow up visit to be re-evaluated for his Right Hand Fracture, DOI: 03/22/25. Patient reports he fell while in [place]. He was evaluated at [facility] and splinted. A referral note was provided in Nepali requesting evaluation of a Nondisplaced Right 4th Metacarpal Fracture. Patient came in with a roll mechanic that was placed on 03/24. Patient seen with Gail Berrios, cast was removed to obtain xrays in office. Today cast was removed and xrays have been updated in office. Patient states he has no pain since removing his cast, he is limited ROM when making a fist. Allergies shrimp Allergy (Unknown, Verified 04/06/25 13:58) Vomiting HPI HPI Nondisplaced RT 4th Metacarpal FxDOI 03/22/25: Details: Karsten is a 69 year old right hand dominant Nepali speaking Diabetic man here for a right index & middle finger fractures, and 4th metacarpal fracture, S/P fall in [place], DOI: 03/22/25. He is here with his daughter. He says he is doing well and denies any pain. He says this improved once his cast was removed today. He has limited ROM. He is a Diabetic, his last HgA1c was 8.9% on 04/02/25. He has a Hx of a CVA in 2010, and has had difficulty moving or using his right hand for daily activities since. [facility] Medical History (Updated 04/06/25 @ 14:31 by Kimani Adler) Uncontrolled type 2 diabetes mellitus with hyperglycemia CKD (chronic kidney disease) stage 2, GFR 60-89 ml/min CVA (cerebral vascular accident) Swelling, mass, or lump in chest Blurry vision, bilateral Blurry vision Surgical History S/P excision of lipoma (09/24/24) Hx of hernia repair Hx of arthroscopy of left knee Family History Mother Diabetes Heart problem History of hypertension Father History of hypertension Heart attack Social History Household Members: None Housing: Apartment Alcohol intake: never Patient Tobacco Use Status: Never used Tobacco e-Cigarette/Vaping Use: Never Used Current occupational status: retired Cognitive needs: No Hearing needs: No Vision needs: Yes Review of Systems Const All systems reviewed & are unremarkable except as noted in HPI and below Physical Exam Vital Signs: BMI result Body Mass Index 35.2 Const General: cooperative, healthy appearing and no acute distress Orientation/consciousness: patient oriented x3 HEENT Head: Yes normocephalic and Yes atraumatic Eyes EOM: EOMs intact bilaterally Resp Effort & Inspection: normal respiratory effort and able to speak in complete sentences Cardio Jugular venous distension: no JVD Skin General skin exam: turgor normal Rashes: no rashes Neuro General: patient oriented x3 Extrem Other: Evaluation of Right Upper Extremity: The patient is alert, oriented, and in no acute distress Neuro: Median, Ulnar, Radial nerves motor and sensory intact and sensation is normal to the tips of all digits Vascular: Cap refill brisk ROM: He has stiffness & weakness in his right hand, which is expected after being in a roll mechanic cast. He also has a Hx of CVA in 2010 & has had weakness and poor function of his right hand since this occurred Skin: No lacerations or abrasions. General: No Ecchymosis. No Erythema or evidence of infection. No tenderness over the fracture site Radiographs: 3 views of the right hand were taken and viewed by me today in clinic. They show an index finger proximal phalanx radial base fracture, middle finger proximal phalanx radial base fracture, and a 4th metacarpal shaft fracture, spiral oblique, with satisfactory fracture alignment. The index finger fracture involving ~15% of the articular surface, & the middle finger fracture involving ~20% of the articular surface Psych Appearance: grossly normal Affect: normal affect Attitude: cooperative Office Procedures AMB Fracture Care Details: Fracture code 07758 Fracture Billing Code: Fracture Billing Code Assessment & Plan Assessment & Plan (1) Fracture of proximal phalanx of right middle finger: Code(s): S62.612A - Displaced fracture of proximal phalanx of right middle finger, initial encounter for closed fracture Category: Medical (2) Fracture of shaft of fourth metacarpal bone of right hand: Code(s): S62.324A - Displaced fracture of shaft of fourth metacarpal bone, right hand, initial encounter for closed fracture Category: Medical (3) Fracture of proximal phalanx of right index finger: Code(s): S62.610A - Displaced fracture of proximal phalanx of right index finger, initial encounter for closed fracture Category: Medical (4) Right hand weakness: Code(s): R29.898 - Other symptoms and signs involving the musculoskeletal system Category: Medical (5) Uncontrolled type 2 diabetes mellitus with hyperglycemia: Code(s): E11.65 - Type 2 diabetes mellitus with hyperglycemia Category: Medical Plan Assessment & Plan: 1. Right index finger proximal phalanx radial base fracture, 2. Right middle finger proximal phalanx radial base fracture, 3. Right 4th metacarpal shaft fracture, S/P fall, DOI: 03/22/25 4. Right hand weakness, Secondary to disuse following a CVA in 2010 I educated him about these conditions I discussed operative and non-operative treatment options We will manage this conservatively, and he is in agreement He was fitted for a velcro wrist splint, to be worn for the next 4 weeks. I discussed activity modifications, he is to lift nothing heavier than a cellphone for the next 4 weeks. They should also avoid any heavy impact activities, falls, or sports activities for the next 4-6 weeks He will perform gentle ROM exercises at home, out of his splint He has weakness in his right hand from disuse, secondary to a CVA. I ordered OT hand therapy to work on stretching, strengthening, and normalizing function He will follow up 3-4 weeks with SAMINA Berrios, with X-rays, 3V R hand, OOP Scribed for Bhumi Oliver MD by Kimani Adler, director of medical education, on 04/06/25 at 2:25 PM, EST. Orders: Orders OT Evaluation and Treatment Today R29.898 - Other symptoms and signs involving the musculoskeletal system, S62.324A - Displaced fracture of shaft of fourth metacarpal bone, right hand, initial encounter for closed fracture, S62.610A - Displaced fracture of proximal phalanx of right index finger, initial encounter for closed fracture, S62.612A - Displaced fracture of proximal phalanx of right middle finger, initial encounter for closed fracture Coding Level of Care Code Est Pt Level 3 (39520) Diagnoses Fracture of proximal phalanx of right middle finger S62.612A Fracture of shaft of fourth metacarpal bone of right hand S62.324A Fracture of proximal phalanx of right index finger S62.610A Right hand weakness R29.898 Uncontrolled type 2 diabetes mellitus with hyperglycemia E11.65 CPT Codes Fracture Care - Fracture Billing Code: Fracture Billing Code ([id number])
--- OUTSIDE RECORDS SUMMARY | 2025-04-06 16:44 | XMS_ITS | Clinical Summary ---
Author Organization [facility] Address [address] [place] [address] Care Team Providers Care Development Rep Name Role Phone Marie Luke MD Primary [...] age to complete this topic Care Teams Development Rep Relationship Specialty Start Date End Date Marie Luke MD [address] [place] [address] PCP - General Internal Medicine 10/31/23
--- OUTSIDE RECORDS SUMMARY | 2025-04-06 16:44 | XMS_ITS | Clinical Summary ---
Author Organization [employer] Address [address] [place] [address] Care Team Providers Care Chro Name Role Phone Unavailable Primary Care Provider [...] Recently Relevant to Health Maintenance Insurance [facility]AL [facility] D[facility] - N FULL (MEDICAID)
--- OUTSIDE RECORDS SUMMARY | 2025-04-06 16:44 | XMS_ITS | Clinical Summary ---
Author Organization [facility] Address [address] [place] [address] Phone Care Team Providers Care Registered Representative Name Role Phone Laxmi Christianson MD Primary Care Provider [phone] Allergies Active Allergy Reactions Criticality Noted Date [...] Type 2 diabetes mellitus wit hout complications ([facility] V24, [facility] V28) 04/02/2023 Encounters Date Type Department Care Team Description 04/05/2025 9:00 AM EDT Office Visit Orthopedic Surgery [place] [phone] [phone] Tariq Wilson DPM Controlled type 2 diabetes with neuropathy ([facility] V24, [facility] V28) (Primary Dx); Foot drop, left; PVD (peripheral vascular disease) ([facility] V24); Arthritis of both feet; Xerosis cutis; Dermatophytosis, nail 03/08/2025 3:45 PM EDT Office Visit [facility] Hematology Oncology [address] [place] [phone] Nohemi Ann MD Myeloproliferative neoplasm ([facility] V24, [facility] V28) (Primary Dx) 01/28/2025 9:00 AM EDT Consult Orthopedic Surgery [facility] [address] [phone] Tariq Wilson DPOmar Controlled type 2 diabetes with neuropathy ([facility] V24, [facility] V28) (Primary Dx); Arthritis of both feet; Foot drop, left; PVD (peripheral vascular disease) ([facility] V24); Xerosis cutis; Dermatophytosis, nail from Last [...] Type 2 diabetes mellitus wit hout complications ([facility] V24, [facility] V28) DX:Type 2 carolyn betes mellitus without complications ([facility]) CAD (coronary artery disease) DX :CAD (coronary artery disease); COMMENT: Stents 2006 and 2008. LAD, RCA, LCX Mixed hyperlipidemia DX:Mixed hy perlipidemia Osteoarthritis, knee DX:Osteoart hritis, knee Polycythemia vera ([facility] V 24, [facility] V28) DX:Polycythemia vera ([facility]) CVA (cerebral vascular accid ent) ([facility] V24, [facility] V28) 2021 DX:CVA (cerebral vascular a ccident) ([facility]) Family History Medical History Relation Name Comments [...] AM EST Office Visit Orthopedic Surgery [place] [address] [phone] Tariq Wilson DPM [address] [address] 07/13/2025 3:15 PM EST Office Visit [facility] Hematology Oncology [address] [place] [phone] Nohemi Ann MD [address] [place] [address] Health Maintenance Due Date Last Done Comments [...] 03/02/2025 9:27 AM EDT Polycythemia Myeloproliferative neoplasm ([facility] V24, [facility] V28) HEMOGLOBIN A1C Routine 09/19/2023 HEPATITIS C SCREENING Routine 06/28/2023 DIABETES EYE EXAM Routine 06/25/2023 URINE ALBUMIN CREATININE RATIO Routine 06/06/2023 DIABETES FOOT EXAM Routine 06/06/2023 LIPID PANEL Routine 04/04/2023 from Last 3 Months or Most Recently Relevant to Health Maintenance Results * (ABNORMAL) CBC auto differential (03/02/2025 9:27 AM EDT) [facility] WBC 9.5 4.8 - 10.8 K/mcL LAB HEMETOLOGY METHOD 03/02/2025 11:50 AM [facility] RBC 5.90(H) 4.50 - 5.50 M/mcL LAB HEMETOLOGY METHOD 03/02/2025 11:50 AM [facility] Hemoglobin 14.3 13.5 - 17.5 g/dL LAB HEMETOLOGY METHOD 03/02/2025 11:50 AM [facility] Hematocrit 47.5 42.0 - 54.0 % LAB HEMETOLOGY METHOD 03/02/2025 11:50 AM [facility] MCV 80.0 79.0 - 98.0 FL LAB HEMETOLOGY METHOD 03/02/2025 11:50 AM [facility] MCH 24.1(L) 27.0 - 32.0 pcg LAB HEMETOLOGY METHOD 03/02/2025 11:50 AM [facility] MCHC 30.1(L) 32.0 - 37.0 g/dL LAB HEMETOLOGY METHOD 03/02/2025 11:50 AM [facility] RDW 16.8(H) 11.0 - 15.0 % LAB HEMETOLOGY METHOD 03/02/2025 11:50 AM [facility] Platelets 299 130 - 400 K/mcL LAB HEMETOLOGY METHOD 03/02/2025 11:50 AM [facility] MPV 11.3(H) 7.0 - 11.0 FL LAB HEMETOLOGY METHOD 03/02/2025 11:50 AM [facility] NRBC 0.0 <1.0 % LAB HEMETOLOGY METHOD 03/02/2025 11:50 AM [facility] NRBC Absolute 0.00 <0.10 K/mcL LAB HEMETOLOGY METHOD 03/02/2025 11:50 AM [facility] Neutrophils Relative 61.0 % LAB HEMETOLOGY METHOD 03/02/2025 11:50 AM [facility] Lymphocytes Relative 23.5 % LAB HEMETOLOGY METHOD 03/02/2025 11:50 AM [facility] Monocytes Relative 10.8 % LAB HEMETOLOGY METHOD 03/02/2025 11:50 AM [facility] Eosinophils Relative 3.3 % LAB HEMETOLOGY METHOD 03/02/2025 11:50 AM [facility] Basophils Relative 1.1 % LAB HEMETOLOGY METHOD 03/02/2025 11:50 AM [facility] Immature Granulocytes Relative 0.3 % LAB HEMETOLOGY METHOD 03/02/2025 11:50 AM [facility] Neutrophils Absolute 5.78 1.50 - 7.00 K/mcL LAB HEMETOLOGY METHOD 03/02/2025 11:50 AM EDT [facility] Lymphocytes Absolute 2.23 1.00 - 5.00 K/[facility] LAB HEMETOLOGY METHOD 03/02/2025 11:50 AM [facility] Monocytes Absolute 1.02(H) 0.20 - 1.00 K/[facility] LAB HEMETOLOGY METHOD 03/02/2025 11:50 AM [facility] Eosinophils Absolute 0.31 0.00 - 0.50 K/[facility] LAB HEMETOLOGY METHOD 03/02/2025 11:50 AM [facility] Basophils Absolute 0.10 0.00 - 0.20 K/[facility] LAB HEMETOLOGY METHOD 03/02/2025 11:50 AM [facility] Immature Granulocytes Absolute 0.03 0.00 - 0.03 K/[facility] LAB HEMETOLOGY METHOD 03/02/2025 11:50 AM [facility] Blood Venous blood specimen / Unknown Venipuncture / Unknown 03/02/2025 9:27 AM EDT 03/02/2025 11:29 AM EDT Nohemi Ann MD LAB BLOOD ORDERABLES Final R esult [facility] [address] [place] [address], * (ABNORMAL) Comprehensive metabolic panel (03/02/2025 9:27 AM EDT) Sodium 137 133 - 145 mmol/L LAB CHEMISTRY METHOD 03/02/2025 4:34 PM [facility] Potassium 4.4 3.5 - 5.5 mmol/L LAB CHEMISTRY METHOD 03/02/2025 4:34 PM [facility] Chloride 101 96 - 110 mmol/L LAB CHEMISTRY METHOD 03/02/2025 4:34 PM [facility] CO2 30 21 - 32 mmol/L LAB CHEMISTRY METHOD 03/02/2025 4:34 PM [facility] Anion Gap 6 3 - 11 LAB CHEMISTRY METHOD 03/02/2025 4:34 PM [facility] Glucose 131(H) 70 - 100 mg/dL LAB CHEMISTRY METHOD 03/02/2025 4:34 PM [facility] BUN 28(H) 5 - 25 mg/dL LAB CHEMISTRY METHOD 03/02/2025 4:34 PM [facility] Creatinine 1.42(H) 0.70 - 1.30 mg/dL LAB CHEMISTRY METHOD 03/02/2025 4:34 PM [facility] eGFR 53(L) >=60 mL/min/1. 73m2 LAB CHEMISTRY METHOD 03/02/2025 4:34 PM [facility] Comment:Calculation based on the Chronic Kidney Disease Epidemiology Collaboration (CKD-EPI) equation refit without adjustment for race. BUN/Creatinine Ratio 19.7 LAB CHEMISTRY METHOD 03/02/2025 4:34 PM [facility] Calcium 9.5 8.5 - 10.5 mg/dL LAB CHEMISTRY METHOD 03/02/2025 4:34 PM [facility] AST (SGOT) 17 10 - 42 unit/L LAB CHEMISTRY METHOD 03/02/2025 4:34 PM [facility] ALT (SGPT) 33 10 - 60 unit/L LAB CHEMISTRY METHOD 03/02/2025 4:34 PM [facility] Alkaline Phosphatase 90 42 - 121 unit/L LAB CHEMISTRY METHOD 03/02/2025 4:34 PM [facility] Total Protein 7.3 6.0 - 8.0 g/dL LAB CHEMISTRY METHOD 03/02/2025 4:34 PM [facility] Albumin 4.0 3.2 - 5.0 g/dL LAB CHEMISTRY METHOD 03/02/2025 4:34 PM [facility] Total Bilirubin 0.4 0.0 - 1.4 mg/dL LAB CHEMISTRY METHOD 03/02/2025 4:34 PM EDT [facility] Blood Venous blood specimen / Unknown Venipuncture / Unknown 03/02/2025 9:27 AM EDT 03/02/2025 11:30 AM EDT Result [facility] Nohemi Ann MD LAB BLOOD ORDERABLES Final R esult [facility] [address] [place] [address], * Hemoglobin A1c (09/19/2023) [facility] Hemoglobin A1C 6.3 <=6.5 % Blood Venous blood specimen / Unknown Result [facility] LAB BLOOD ORDERABLES Love l Result * Hepatitis C Screening (06/28/2023) [facility] Hepatitis C Screening Abstracted Result [facility] Provider HEALTH MAINTENANCE Final Result * Diabetes Eye Exam (06/25/2023) [facility] Diabetes: Annual Retina Eye Exam Abstracted Result [facility] Provider HEALTH MAINTENANCE Final Result * Urine Albumin Creatinine Ratio (06/06/2023) [facility] Urine Albumin Creatinine Ratio Abstracted Result [facility] Provider HEALTH MAINTENANCE Final Result * Diabetes Foot Exam (06/06/2023) [facility] Diabetes: Annual Foot Exam Abstracted Result [facility] Provider HEALTH MAINTENANCE Final Result * Lipid panel (04/04/2023) [facility] LDL/HDL Ratio 2 0 - 4 Triglycerides 63 0 - 150 mg/dL Cholesterol 104 0 - 200 mg/dL HDL 43 >=40 mg/dL LDL Cholesterol 49 0 - 100 mg/dL Blood Venous blood specimen / Unknown us Historical Provider LAB BLOOD ORDERABLES Love l Result from Last 3 Months or Most Recently Relevant to Health Maintenance Insurance [id number] [place] [address] [place] Member Subscriber Plan / Payer (Ef fective 2024-Present) Name:KARSTEN LUNA Relation to Subscriber:Self Name:Karsten Luna Payer ID:[id number] Group ID:Not on file Type:Not on file [facility] ATTN:CLAIMS [address] [place] [id number] [place] [address] Care Teams Registered Representative Relationship Specialty Start Date End Date Laxmi Christianson MD [address] [place] [phone] PCP - General Endocrinology 08/05/24
== END 2025-04-06 14:40 | disposition home or self-care (01) ==
LOC: HO.HOS 13:36
PROVIDERS: PCP Internal Medicine; Visit Provider Orthopaedic Surgery
DX: S62.612A Displaced fracture of proximal phalanx of right middle finger, initial encounter for closed fracture (principal); S62.324A Displaced fracture of shaft of fourth metacarpal bone, right hand, initial encounter for closed fracture; S62.610A Displaced fracture of proximal phalanx of right index finger, initial encounter for closed fracture; R29.898 Other symptoms and signs involving the musculoskeletal system; E11.65 Type 2 diabetes mellitus with hyperglycemia
CPT/HCPCS: 29125; 99024

== ENCOUNTER → 2025-04-06 13:38 | Outpatient (BNV) | payer OTHER, MEDICAID, SELFPAY | PROVIDERS: Visit Provider Radiology Diagnostic Radiology | DX: M19.241 Secondary osteoarthritis, right hand (principal) | CPT/HCPCS: 73130 ==

== ENCOUNTER 2025-04-30 08:41 | Outpatient (AMB) | payer OTHER, MEDICAID, SELFPAY ==
--- OUTSIDE RECORDS SUMMARY | 2006-03-27 20:00 | XMS_ITS | Continuity of Care Document ---
Author Organization sapphire Nelson [facility] Address [address] [place] [address] Phone Care Team Providers Care Child Watch Attendant Name Role Phone Z-Converted, Provider Unavailable Unavailabl e Advance Directives Directive Yes / No Effective Date File Name No Information Encounters Encounter Description Practice Location Reason(s) For Visit Diagnoses Date Provider Providers Copied on Encounter Blade Nelson [facility], [address] [place] [address] 2,[address], [place], [place], [id number], [place] tel:[phone] [facility] Unspecified chest pain Sep-2 8200 6 [...]
--- OUTSIDE RECORDS SUMMARY | 2025-04-30 09:03 | XMS_ITS | Clinical Summary ---
Author Organization [employer] Address [address] [place] [address] Care Team Providers Care Chief Chemist Name Role Phone Unavailable Primary Care Provider [...] Recently Relevant to Health Maintenance Insurance [facility]ENTAL [facility] DENTAL - N FULL (MEDICAID)
--- OUTSIDE RECORDS SUMMARY | 2025-04-30 09:03 | XMS_ITS | Clinical Summary ---
Author Organization [facility] Address [address] [place] [address] Care Team Providers Care Bone Worker Name Role Phone Marie Luke MD Primary [...] Hepatitis C Screening 1955 COVID-19 Vaccine (#1) 06/06/1955 Depression Screening 1966 Preventative Health Evaluation 1972 DTap / Tdap / Td (1 - Tdap) 1973 Colon Cancer Screening (Colonoscopy) 12/06/1999 Shingrix-Zoster Vaccine (1 of 2) 2004 Fall Risk Assessment 12/06/2019 Pneumococcal Vaccine (1 of 1 - PCV) 12/06/2019 Influenza Vaccine (#1) 2025 06/28/2023 RSV Adult > 60+ Yrs or Pregn ant (1 - 1-dose 75+ series) 2029 Hepatitis B Vaccines Aged Out No long er eligible based on patient's age to complete this topic RSV Ped < 20 months Aged Out No longe r eligible based on patient's age to complete this topic Care Teams Bone Worker Relationship Specialty Start Date End Date Marie Luke MD [address] [place] [address] PCP - General Internal Medicine 10/31/23
--- OUTSIDE RECORDS SUMMARY | 2025-04-30 09:03 | XMS_ITS | Clinical Summary ---
Author Organization [facility] Address [address] [place] [address] Phone Care Team Providers Care Rigger Supervisor Name Role Phone Laxmi Christianson MD Primary Care Provider [phone] Allergies Active Allergy Reactions Criticality Noted Date [...] Type 2 diabetes mellitus wit hout complications ([facility] V24, [facility] V28) 04/02/2023 Encounters Date Type Department Care Team Description 04/05/2025 9:00 AM EDT Office Visit Orthopedic Surgery [place] [id number] [phone] Tariq Wilson DPM Controlled type 2 diabetes with neuropathy ([facility] V24, [facility] V28) (Primary Dx); Foot drop, left; PVD (peripheral vascular disease) ([facility] V24); Arthritis of both feet; Xerosis cutis; Dermatophytosis, nail 03/08/2025 3:45 PM EDT Office Visit [facility] Hematology Oncology [address] [place] [phone] Nohemi Ann MD Myeloproliferative neoplasm ([facility] V24, [facility] V28) (Primary Dx) 01/28/2025 9:00 AM EDT Consult Orthopedic Surgery [facility] [address] [phone] Tariq Wilson DPOmar Controlled type 2 diabetes with neuropathy ([facility] V24, [facility] V28) (Primary Dx); Arthritis of both feet; Foot drop, left; PVD (peripheral vascular disease) ([facility] V24); Xerosis cutis; Dermatophytosis, nail from Last [...] Type 2 diabetes mellitus wit hout complications ([facility] V24, [facility] V28) DX:Type 2 carolyn betes mellitus without complications ([facility]) CAD (coronary artery disease) DX :CAD (coronary artery disease); COMMENT: Stents 2006 and 2008. LAD, RCA, LCX Mixed hyperlipidemia DX:Mixed hy perlipidemia Osteoarthritis, knee DX:Osteoart hritis, knee Polycythemia vera ([facility] V 24, [facility] V28) DX:Polycythemia vera ([facility]) CVA (cerebral vascular accid ent) ([facility] V24, [facility] V28) 2021 DX:CVA (cerebral vascular a ccident) ([facility]) Family History Medical History Relation Name Comments [...] 9:30 AM EST Office Visit Orthopedic Surgery [address] [phone] Tariq Wilson DPM [address] [place] [phone] 07/13/2025 3:15 PM EST Office Visit [facility] Hematology Oncology [address] [place] [phone] Nohemi Ann MD [address] [place] [address] Health Maintenance Due Date Last Done Comments Colorectal Cancer Screening: Colonoscopy 1954 DTaP,Tdap,and Td Vaccines (1 - Tdap) 1973 Pneumococcal Vaccine: 50+ Years (1 of 2 - PCV) 1973 Zoster Vaccines (1 of 2) 1973 RSV Immunization Adult Patients (1 - Risk 50-74 years 1-dose series) 2004 Falls Risk Assessment 07/25/2023 Medicare Annual Wellness [...] 03/02/2025 9:27 AM EDT Polycythemia Myeloproliferative neoplasm ([facility] V24, [facility] V28) HEMOGLOBIN A1C Routine 09/19/2023 HEPATITIS C SCREENING Routine 06/28/2023 DIABETES EYE EXAM Routine 06/25/2023 URINE ALBUMIN CREATININE RATIO Routine 06/06/2023 DIABETES FOOT EXAM Routine 06/06/2023 LIPID PANEL Routine 04/04/2023 from Last 3 Months or Most Recently Relevant to Health Maintenance Results * (ABNORMAL) CBC auto differential (03/02/2025 9:27 AM EDT) [facility] WBC 9.5 4.8 - 10.8 K/mcL LAB HEMETOLOGY METHOD 03/02/2025 11:50 AM [facility] RBC 5.90(H) 4.50 - 5.50 M/mcL LAB HEMETOLOGY METHOD 03/02/2025 11:50 AM [facility] Hemoglobin 14.3 13.5 - 17.5 g/dL LAB HEMETOLOGY METHOD 03/02/2025 11:50 AM [facility] Hematocrit 47.5 42.0 - 54.0 % LAB HEMETOLOGY METHOD 03/02/2025 11:50 AM [facility] MCV 80.0 79.0 - 98.0 FL LAB HEMETOLOGY METHOD 03/02/2025 11:50 AM [facility] LAB MCH 24.1(L) 27.0 - 32.0 pcg LAB HEMETOLOGY METHOD 03/02/2025 11:50 AM [facility] LAB MCHC 30.1(L) 32.0 - 37.0 g/dL LAB HEMETOLOGY METHOD 03/02/2025 11:50 AM [facility] RDW 16.8(H) 11.0 - 15.0 % LAB HEMETOLOGY METHOD 03/02/2025 11:50 AM [facility] Platelets 299 130 - 400 K/mcL LAB HEMETOLOGY METHOD 03/02/2025 11:50 AM [facility] MPV 11.3(H) 7.0 - 11.0 FL LAB HEMETOLOGY METHOD 03/02/2025 11:50 AM [facility] NRBC 0.0 <1.0 % LAB HEMETOLOGY METHOD 03/02/2025 11:50 AM [facility] NRBC Absolute 0.00 <0.10 K/mcL LAB HEMETOLOGY METHOD 03/02/2025 11:50 AM [facility] Neutrophils Relative 61.0 % LAB HEMETOLOGY METHOD 03/02/2025 11:50 AM [facility] Lymphocytes Relative 23.5 % LAB HEMETOLOGY METHOD 03/02/2025 11:50 AM [facility] Monocytes Relative 10.8 % LAB HEMETOLOGY METHOD 03/02/2025 11:50 AM [facility] Eosinophils Relative 3.3 % LAB HEMETOLOGY METHOD 03/02/2025 11:50 AM [facility] Basophils Relative 1.1 % LAB HEMETOLOGY METHOD 03/02/2025 11:50 AM [facility] Immature Granulocytes Relative 0.3 % LAB HEMETOLOGY METHOD 03/02/2025 11:50 AM [facility] Neutrophils Absolute 5.78 1.50 - 7.00 K/mcL LAB HEMETOLOGY METHOD 03/02/2025 11:50 AM EDT [facility] Lymphocytes Absolute 2.23 1.00 - 5.00 K/[facility] LAB HEMETOLOGY METHOD 03/02/2025 11:50 AM [facility] Monocytes Absolute 1.02(H) 0.20 - 1.00 K/[facility] LAB HEMETOLOGY METHOD 03/02/2025 11:50 AM [facility] Eosinophils Absolute 0.31 0.00 - 0.50 K/[facility] LAB HEMETOLOGY METHOD 03/02/2025 11:50 AM [facility] Basophils Absolute 0.10 0.00 - 0.20 K/[facility] LAB HEMETOLOGY METHOD 03/02/2025 11:50 AM [facility] Immature Granulocytes Absolute 0.03 0.00 - 0.03 K/[facility] LAB HEMETOLOGY METHOD 03/02/2025 11:50 AM [facility] Blood Venous blood specimen / Unknown Venipuncture / Unknown 03/02/2025 9:27 AM EDT 03/02/2025 11:29 AM EDT Nohemi Ann MD LAB BLOOD ORDERABLES Final R esult [facility] [address] [place] [address], * (ABNORMAL) Comprehensive metabolic panel (03/02/2025 9:27 AM EDT) Sodium 137 133 - 145 mmol/L LAB CHEMISTRY METHOD 03/02/2025 4:34 PM [facility] Potassium 4.4 3.5 - 5.5 mmol/L LAB CHEMISTRY METHOD 03/02/2025 4:34 PM [facility] Chloride 101 96 - 110 mmol/L LAB CHEMISTRY METHOD 03/02/2025 4:34 PM [facility] CO2 30 21 - 32 mmol/L LAB CHEMISTRY METHOD 03/02/2025 4:34 PM [facility] Anion Gap 6 3 - 11 LAB CHEMISTRY METHOD 03/02/2025 4:34 PM [facility] Glucose 131(H) 70 - 100 mg/dL LAB CHEMISTRY METHOD 03/02/2025 4:34 PM [facility] BUN 28(H) 5 - 25 mg/dL LAB CHEMISTRY METHOD 03/02/2025 4:34 PM [facility] Creatinine 1.42(H) 0.70 - 1.30 mg/dL LAB CHEMISTRY METHOD 03/02/2025 4:34 PM [facility] eGFR 53(L) >=60 mL/min/1. 73m2 LAB CHEMISTRY METHOD 03/02/2025 4:34 PM [facility] Comment:Calculation based on the Chronic Kidney Disease Epidemiology Collaboration (CKD-EPI) equation refit without adjustment for race. BUN/Creatinine Ratio 19.7 LAB CHEMISTRY METHOD 03/02/2025 4:34 PM [facility] Calcium 9.5 8.5 - 10.5 mg/dL LAB CHEMISTRY METHOD 03/02/2025 4:34 PM [facility] AST (SGOT) 17 10 - 42 unit/L LAB CHEMISTRY METHOD 03/02/2025 4:34 PM [facility] ALT (SGPT) 33 10 - 60 unit/L LAB CHEMISTRY METHOD 03/02/2025 4:34 PM [facility] Alkaline Phosphatase 90 42 - 121 unit/L LAB CHEMISTRY METHOD 03/02/2025 4:34 PM [facility] Total Protein 7.3 6.0 - 8.0 g/dL LAB CHEMISTRY METHOD 03/02/2025 4:34 PM [facility] Albumin 4.0 3.2 - 5.0 g/dL LAB CHEMISTRY METHOD 03/02/2025 4:34 PM [facility] Total Bilirubin 0.4 0.0 - 1.4 mg/dL LAB CHEMISTRY METHOD 03/02/2025 4:34 PM EDT [facility] Blood Venous blood specimen / Unknown Venipuncture / Unknown 03/02/2025 9:27 AM EDT 03/02/2025 11:30 AM EDT Result [facility] Nhoemi Ann MD LAB BLOOD ORDERABLES Final R esult [facility] [address] [place] [address], * Hemoglobin A1c (09/19/2023) [facility] Hemoglobin A1C 6.3 <=6.5 % Blood Venous blood specimen / Unknown Result [facility] LAB BLOOD ORDERABLES Love l Result * Hepatitis C Screening (06/28/2023) [facility] Hepatitis C Screening Abstracted Result [facility] Provider HEALTH MAINTENANCE Final Result * Diabetes Eye Exam (06/25/2023) [facility] Diabetes: Annual Retina Eye Exam Abstracted Result [facility] Provider HEALTH MAINTENANCE Final Result * Urine Albumin Creatinine Ratio (06/06/2023) [facility] Urine Albumin Creatinine Ratio Abstracted Result [facility] Provider HEALTH MAINTENANCE Final Result * Diabetes Foot Exam (06/06/2023) [facility] Diabetes: Annual Foot Exam Abstracted Result [facility] Provider HEALTH MAINTENANCE Final Result * Lipid panel (04/04/2023) [facility] LDL/HDL Ratio 2 0 - 4 Triglycerides 63 0 - 150 mg/dL Cholesterol 104 0 - 200 mg/dL HDL 43 >=40 mg/dL LDL Cholesterol 49 0 - 100 mg/dL Blood Venous blood specimen / Unknown us Historical Provider LAB BLOOD ORDERABLES Olve l Result from Last 3 Months or Most Recently Relevant to Health Maintenance Insurance [address] [place] [address] [place] Member Subscriber Plan / Payer (Ef fective 2024-Present) Name:KARSTEN LUNA Relation to Subscriber:Self Name:Karsten Luna Payer ID:[id number] Group ID:Not on file Type:Not on file [facility] ATTN:[employer] [address] [place] [id number] [employer] MEDICARE Care Teams Rigger Supervisor Relationship Specialty Start Date End Date Laxmi Christianson MD [address] [place] [phone] PCP - General Endocrinology 08/05/24
--- NOTE | 2025-04-30 09:17 | A.OFFPC_ITS ---
Vital Signs 04/30/25 09:23 Height 5 ft 4 in Weight 210 lb BMI 36.0 BP 122/68 Blood Pressure Location Lt brachial Position Sitting Respiration 14 Pulse 67 Pulse Source Pulse Oximeter Pulse Oximetry (%) 97 Oxygen Delivery Method Room Air Intake Visit Reasons: follow up Intake Note: Follow up. Pateint tried Mounjaro and is experiencing nausea and diarrhea. 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 Accompanied by daughter. 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 Patient has stopped GLP. He wants to restart acarbose. He has increased his insulin. Current regimen: Continue Humulin 75/25 30 twice daily (he increased from 15 bid when he stopped mounjaro) Continue Metformin 500 mg twice daily Continue Jardiance 25 mg daily GMI 8.1% Stopped mounjaro, ozempic-GI side effects, vomiting CV: On norvasc, chlorthalidone, lisinopril. metoprolol. Blood pressure is better with the decrease in chlorthalidone. Denies chest pain, dizziness. MSK: Following with ortho-Has had knee injections. Left sided rib pain improved after gen surgery lipoma removal. Recently fracture his right hand. Following with orthopedics. Neuro: History of CVA with residual right hemiplegia, aphasia. In August was having dizziness-CTA, MRI negative acute findings. Vestibular therapy resolved his dizziness Colonoscopy: [place] prior to move . Does not want further ROS see HPI PHYSICAL EXAM: GENERAL: Alert and oriented x 3. NAD EYES: EOMI. Anicteric. HENT: Moist mucous membranes. No scleral icterus. LUNGS: Clear to auscultation bilaterally. CARDIOVASCULAR: Regular rate and rhythm. No murmur ABDOMEN: Soft, non-tender +bs EXTREMITIES: No edema. Non-tender. SKIN: No rashes or lesions. Warm. NEUROLOGIC: No focal neurological deficits. CN II-XII grossly intact PSYCHIATRIC: Cooperative. Appropriate mood and affect [facility] Medical History Uncontrolled type 2 diabetes mellitus with hyperglycemia CKD (chronic kidney disease) stage 2, GFR 60-89 ml/min CVA (cerebral vascular accident) Swelling, mass, or lump in chest Blurry vision, bilateral Blurry vision Surgical History S/P excision of lipoma (09/24/24) Hx of hernia repair Hx of arthroscopy of left knee Family History Mother Diabetes Heart problem History of hypertension Father History of hypertension Heart attack Social History Household Members: None Housing: Apartment Alcohol intake: never Patient Tobacco Use Status: Never used Tobacco e-Cigarette/Vaping Use: Never Used Current occupational status: retired Cognitive needs: No Hearing needs: No Vision needs: Yes Questionnaire Thrive Questionnaire Date Thrive assessed: 08/04/24 I am a: Patient What is your living situation today?: I have a steady place to live Within the past 12 months, did the food you bought not last and you didn't have the money to get more?: Sometimes True Within the past 12 months, did you worry whether your food would run out before you got money to buy more?: Sometimes True Do you have trouble paying for medicines?: No Do you have trouble getting transportation to medical appointments?: No Do you have trouble paying your heating and electricity bill?: No Do you have trouble taking care of your child, family member or friend?: No Do you have trouble with day-to-day activities such as bathing, preparing meals, shopping, managing finances, etc.?: Yes Are you currently unemployed and looking for a job?: No Are you interested in more education?: No Please select the resources that you would like help with: Food Currently or been in a relationship where the following occur: No concerns reported THRIVE Score: 2 LALA-7 AMB Questionnaire LALA-7 Date LALA - 7 assessed: 02/10/24 Source: Developed by Drs. David Troncoso, Maria Elena Montaño, Silvestre Shields and colleagues, with an educational taran from [employer]. Physical exam (Primary Care) Vital Signs: Last Vital Signs Pulse 67 04/30/25 09:23 Resp 14 04/30/25 09:23 BP 122/68 04/30/25 09:23 Pulse Ox 97 04/30/25 09:23 Oxygen Delivery Method Room Air 04/30/25 09:23 BMI result Body Mass Index 36.0 Tobacco/Smoking Status: Tobacco use Status Tobacco use date assessed 12/28/24 04/30/25 09:18 Patient Tobacco Use Status Never used Tobacco 04/30/25 09:18 e-Cigarette/Vaping Use Never Used 04/30/25 09:18 Thrive Assessment: Date of Thrive Assessment Date Thrive assessed 08/04/24 04/30/25 09:18 Currently or been in a relationship where the following occur: No concerns reported Coding Level of Care Code Est Pt Level 4 (85252) Complex EM visit Add On G2211 Diagnoses Type 2 diabetes mellitus with other neurologic complication, with long-term current use of insulin E11.49; Z79.4 Diabetes mellitus senior living insulin use: with senior living use Diabetes mellitus complication status: with neurologic complications Diabetes mellitus complication detail: with other neurological complication Cerebrovascular accident (CVA), unspecified mechanism I63.9 CVA mechanism: unspecified Coronary artery disease involving [place] coronary artery of [place] heart, unspecified whether angina present I25.10 Coronary Disease-Associated Artery/Lesion type: [place] artery [place] vs. 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 transplanted heart: [place] heart Associated angina: unspecified whether angina present Qualified Code(s): I25.10 - Atherosclerotic heart disease of [place] coronary artery without angina pectoris Plan Diabetes-CGM reviewed. Increase humulin to 34 bid. Restart acarbose HTN-was running low. Improved on half dose of chlorthalidone He has follow up with endocrine scheduled. He can follow up here in six months or sooner as needed Orders: Orders Comprehensive Met. Panel 04/30/25 - Type 2 diabetes mellitus with other diabetic neurological complication, I10 - Essential (primary) hypertension, Z79.4 - USP (current) use of insulin Complete Blood Count Auto Diff 04/30/25 - Type 2 diabetes mellitus with other diabetic neurological complication, I10 - Essential (primary) hypertension, Z79.4 - USP (current) use of insulin Lipid Panel 04/30/25 - Type 2 diabetes mellitus with other diabetic neurological complication, I10 - Essential (primary) hypertension, Z79.4 - USP (current) use of insulin Prostate Specific Antigen 04/30/25 - Type 2 diabetes mellitus with other diabetic neurological complication, I10 - Essential (primary) hypertension, Z79.4 - 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
[2025-04-30 09:23] VITALS: BP 122/68; PULSE 67; RESP 14; O2SAT 97; BMI 36.0
== END 2025-04-30 09:53 | disposition home or self-care (01) ==
LOC: HO.HMCFM 08:41
PROVIDERS: PCP Internal Medicine; Visit Provider Internal Medicine
DX: E11.49 Type 2 diabetes mellitus with other diabetic neurological complication (principal); Z79.4 Long term (current) use of insulin; I63.9 Cerebral infarction, unspecified; I25.10 Atherosclerotic heart disease of native coronary artery without angina pectoris

== ENCOUNTER 2025-05-03 08:06 | Outpatient (REF) | payer OTHER, MEDICAID, SELFPAY ==
--- OUTSIDE RECORDS SUMMARY | 2006-03-27 19:00 | XMS_ITS | Continuity of Care Document ---
Author Organization sapphire Nelson [facility] Address [address] [place] [address] Phone Care Team Providers Care Material Coordinator Name Role Phone Z-Converted, Provider Unavailable Unavailabl e Advance Directives Directive Yes / No Effective Date File Name No Information Encounters Encounter Description Practice Location Reason(s) For Visit Diagnoses Date Provider Providers Copied on Encounter Blade Nelson [facility], [address] [place] [address] 2,[address], [place], [place], [id number], [place] tel:[phone] [facility] Unspecified chest pain Sep-2 8200 6 Z-Convert ed Provider. . Family History Family Member Type Diagnosis Age At Onset No Information Payers Payer name Insurance type Covered green party ID Authoriza tion(s) No Information Social History Type Description Quantity Date Captured Comments Sex Male Smoking Status No Information Chief Complaint And Reason For Visit No [...]
--- NOTE | ~2025-05-03 | XR_ITS ---
EXAMINATION: XR HAND, RIGHT CLINICAL INFORMATION: M79.641 - Pain in right hand COMPARISON: April 06 and April 02, 2025 TECHNIQUE: PA, lateral, and oblique views of the right hand. FINDINGS: There is diffuse osteopenia. Again seen is an intra-articular fracture the radial base of the proximal phalanx of second and third digit Subtle periosteal new bone formation is visible just distal to the fracture line. Fragment positioning is similar to the prior. Again seen is an oblique fracture through the middle diaphysis of the fourth metacarpal There is minimally increased ossification in the medullary space. Again seen are degenerative changes that are previously described and similar to the prior studies XR/XR hand RT min 3V IMPRESSION: Again seen are fractures of the radial base of the second and third proximal phalanx and middle diaphysis of the fourth metacarpal with early evidence of healing. Osteopenia Moderate degenerative change. Electronically signed by: Franklyn Pérez MD 05/03/2025 02:10 PM [facility]
--- OUTSIDE RECORDS SUMMARY | 2025-05-03 08:15 | XMS_ITS | Clinical Summary ---
Author Organization [facility] Address [address] [place] [address] Phone Care Team Providers Care Recreational Vehicle Resort Manager Name Role Phone Laxmi Christianson MD Primary Care Provider [phone] Allergies Active Allergy Reactions Criticality Noted Date [...] Type 2 diabetes mellitus wit hout complications ([facility] V24, [facility] V28) 04/02/2023 Encounters Date Type Department Care Team Description 04/05/2025 9:00 AM EDT Office Visit Orthopedic Surgery [facility] [address] [facility] [address] [place] [phone] Tariq Wilson DPM Controlled type 2 diabetes with neuropathy ([facility] V24, [facility] V28) (Primary Dx); Foot drop, left; PVD (peripheral vascular disease) ([facility] V24); Arthritis of both feet; Xerosis cutis; Dermatophytosis, nail 03/08/2025 3:45 PM EDT Office Visit [facility] Hematology Oncology [address] [place] [phone] Nohemi Ann MD Myeloproliferative neoplasm ([facility] V24, [facility] V28) (Primary Dx) from Last 3 Months Immunizations Immunization Administration [...] Osteoarthritis, knee DX:Osteoart hritis, knee Polycythemia vera ([facility] V 24, [facility] V28) DX:Polycythemia vera ([facility]) CVA (cerebral vascular accid ent) ([facility] V24, [facility] V28) 2021 DX:CVA (cerebral vascular a ccident) ([facility]) Family History Medical History Relation Name [...] AM EST Office Visit Orthopedic Surgery - [place] [address] [facility] [address] [place] [phone] Tariq Wilson DPM [address] [place] [phone] 07/13/2025 3:15 PM EST Office Visit [facility] Hematology Oncology [address] [place] [phone] Nohemi Ann MD [address] [place] [address] Health Maintenance Due Date Last Done Comments [...] CBC auto differential (03/02/2025 9:27 AM EDT) [facility] WBC 9.5 4.8 - 10.8 K/mcL LAB HEMETOLOGY METHOD 03/02/2025 11:50 AM EDT [facility] RBC 5.90(H) 4.50 - 5.50 M/mcL LAB HEMETOLOGY METHOD 03/02/2025 11:50 AM [facility] Hemoglobin 14.3 13.5 - 17.5 g/dL LAB HEMETOLOGY METHOD 03/02/2025 11:50 AM [facility] Hematocrit 47.5 42.0 - 54.0 % LAB HEMETOLOGY METHOD 03/02/2025 11:50 AM [facility] MCV 80.0 79.0 - 98.0 FL LAB HEMETOLOGY METHOD 03/02/2025 11:50 AM [facility] MCH 24.1(L) 27.0 - 32.0 pcg LAB HEMETOLOGY METHOD 03/02/2025 11:50 AM [facility] MCHC 30.1(L) 32.0 - 37.0 g/dL LAB HEMETOLOGY METHOD 03/02/2025 11:50 AM [facility] RDW 16.8(H) 11.0 - 15.0 % LAB HEMETOLOGY METHOD 03/02/2025 11:50 AM [facility] Platelets 299 130 - 400 K/mcL LAB HEMETOLOGY METHOD 03/02/2025 11:50 AM [facility] MPV 11.3(H) 7.0 - 11.0 FL LAB HEMETOLOGY METHOD 03/02/2025 11:50 AM [facility] NRBC 0.0 <1.0 % LAB HEMETOLOGY METHOD 03/02/2025 11:50 AM [facility] NRBC Absolute 0.00 <0.10 K/mcL LAB HEMETOLOGY METHOD 03/02/2025 11:50 AM [facility] Neutrophils Relative 61.0 % LAB HEMETOLOGY METHOD 03/02/2025 11:50 AM [facility] Lymphocytes Relative 23.5 % LAB HEMETOLOGY METHOD 03/02/2025 11:50 AM [facility] Monocytes Relative 10.8 % LAB HEMETOLOGY METHOD 03/02/2025 11:50 AM [facility] Eosinophils Relative 3.3 % LAB HEMETOLOGY METHOD 03/02/2025 11:50 AM [facility] Basophils Relative 1.1 % LAB HEMETOLOGY METHOD 03/02/2025 11:50 AM [facility] Immature Granulocytes Relative 0.3 % LAB HEMETOLOGY METHOD 03/02/2025 11:50 AM [facility] Neutrophils Absolute 5.78 1.50 - 7.00 K/mcL LAB HEMETOLOGY METHOD 03/02/2025 11:50 AM [facility] Lymphocytes Absolute 2.23 1.00 - 5.00 K/mcL LAB HEMETOLOGY METHOD 03/02/2025 11:50 AM [facility] Monocytes Absolute 1.02(H) 0.20 - 1.00 K/mcL LAB HEMETOLOGY METHOD 03/02/2025 11:50 AM [facility] Eosinophils Absolute 0.31 0.00 - 0.50 K/mcL LAB HEMETOLOGY METHOD 03/02/2025 11:50 AM EDT [facility] Basophils Absolute 0.10 0.00 - 0.20 K/[facility] LAB HEMETOLOGY METHOD 03/02/2025 11:50 AM EDT [facility] Immature Granulocytes Absolute 0.03 0.00 - 0.03 K[facility] 03/02/2025 11:50 AM EDT [facility] Blood Venous blood specimen / Unknown Venipuncture / Unknown 03/02/2025 9:27 AM EDT 03/02/2025 11:29 AM EDT Nohemi Ann MD LAB BLOOD ORDERABLES Final R esult [facility] [address] [place] [address], * (ABNORMAL) Comprehensive metabolic panel (03/02/2025 9:27 AM EDT) Sodium 137 133 - 145 mmol/L LAB CHEMISTRY METHOD 03/02/2025 4:34 PM [facility] Potassium 4.4 3.5 - 5.5 mmol/L LAB CHEMISTRY METHOD 03/02/2025 4:34 PM [facility] Chloride 101 96 - 110 mmol/L LAB CHEMISTRY METHOD 03/02/2025 4:34 PM [facility] CO2 30 21 - 32 mmol/L LAB CHEMISTRY METHOD 03/02/2025 4:34 PM [facility] Anion Gap 6 3 - 11 LAB CHEMISTRY METHOD 03/02/2025 4:34 PM [facility] Glucose 131(H) 70 - 100 mg/dL LAB CHEMISTRY METHOD 03/02/2025 4:34 PM [facility] BUN 28(H) 5 - 25 mg/dL LAB CHEMISTRY METHOD 03/02/2025 4:34 PM [facility] Creatinine 1.42(H) 0.70 - 1.30 mg/dL LAB CHEMISTRY METHOD 03/02/2025 4:34 PM [facility] eGFR 53(L) >=60 mL/min/1. 73m2 LAB CHEMISTRY METHOD 03/02/2025 4:34 PM [facility] Comment:Calculation based on the Chronic Kidney Disease Epidemiology Collaboration (CKD-EPI) equation refit without adjustment for race. BUN/Creatinine Ratio 19.7 LAB CHEMISTRY METHOD 03/02/2025 4:34 PM [facility] Calcium 9.5 8.5 - 10.5 mg/dL LAB CHEMISTRY METHOD 03/02/2025 4:34 PM [facility] AST (SGOT) 17 10 - 42 unit/L LAB CHEMISTRY METHOD 03/02/2025 4:34 PM [facility] ALT (SGPT) 33 10 - 60 unit/L LAB CHEMISTRY METHOD 03/02/2025 4:34 PM [facility] Alkaline Phosphatase 90 42 - 121 unit/L LAB CHEMISTRY METHOD 03/02/2025 4:34 PM [facility] Total Protein 7.3 6.0 - 8.0 g/dL LAB CHEMISTRY METHOD 03/02/2025 4:34 PM [facility] Albumin 4.0 3.2 - 5.0 g/dL LAB CHEMISTRY METHOD 03/02/2025 4:34 PM [facility] Total Bilirubin 0.4 0.0 - 1.4 mg/dL LAB CHEMISTRY METHOD 03/02/2025 4:34 PM [facility] Blood Venous blood specimen / Unknown Venipuncture / Unknown 03/02/2025 9:27 AM EDT 03/02/2025 11:30 AM EDT us Nohemi Ann MD LAB BLOOD ORDERABLES Final R esult [facility] [address] [place] [address], * Hemoglobin A1c (09/19/2023) [facility] Hemoglobin A1C 6.3 <=6.5 % Blood Venous blood specimen / Unknown Result [facility] Provider LAB BLOOD ORDERABLES Love l Result * Hepatitis C Screening (06/28/2023) [facility] Hepatitis C Screening Abstracted Result [facility] Provider HEALTH MAINTENANCE Final Result * Diabetes Eye Exam (06/25/2023) [facility] Diabetes: Annual Retina Eye Exam Abstracted Result [facility] Provider HEALTH MAINTENANCE Final Result * Urine Albumin Creatinine Ratio (06/06/2023) [facility] Urine Albumin Creatinine Ratio Abstracted Result [facility] Provider HEALTH MAINTENANCE Final Result * Diabetes Foot Exam (06/06/2023) [facility] Diabetes: Annual Foot Exam Abstracted Result [facility] Provider HEALTH MAINTENANCE Final Result * Lipid panel (04/04/2023) [facility] LDL/HDL Ratio 2 0 - 4 Triglycerides 63 0 - 150 mg/dL Cholesterol 104 0 - 200 mg/dL HDL 43 >=40 mg/dL LDL Cholesterol 49 0 - 100 mg/dL Blood Venous blood specimen / Unknown Result [facility] Provider LAB BLOOD ORDERABLES Love l Result from Last 3 Months or Most Recently Relevant to Health Maintenance Insurance MEDICAID - [place] [employer] MEDICARE Care Teams Recreational Vehicle Resort Manager Relationship Specialty Start Date End Date Laxmi Christianson MD [address] [place] [phone] PCP - General Endocrinology 08/05/24
--- OUTSIDE RECORDS SUMMARY | 2025-05-03 08:16 | XMS_ITS | Clinical Summary ---
Author Organization [facility] Address [address] [place] [address] Care Team Providers Care Supply Chain Tech Name Role Phone Marie Luke MD Primary [...] age to complete this topic Care Teams Supply Chain Tech Relationship Specialty Start Date End Date Marie Luke MD [address] [place] [address] PCP - General Internal Medicine 10/31/23
== END 2025-05-03 08:07 | disposition home or self-care (01) ==
LOC: HO.HOSX 08:06
DX: S62.612D Displaced fracture of proximal phalanx of right middle finger, subsequent encounter for fracture with routine healing (principal); S62.324D Displaced fracture of shaft of fourth metacarpal bone, right hand, subsequent encounter for fracture with routine healing; S62.610D Displaced fracture of proximal phalanx of right index finger, subsequent encounter for fracture with routine healing; R29.898 Other symptoms and signs involving the musculoskeletal system; M79.642 Pain in left hand; E11.65 Type 2 diabetes mellitus with hyperglycemia; W17.89XA Other fall from one level to another, initial encounter
CPT/HCPCS: 73130

== ENCOUNTER 2025-05-03 13:54 | Outpatient (AMB) | payer OTHER, MEDICAID, SELFPAY ==
--- NOTE | 2025-05-03 14:01 | A.OFFVIS_ITS ---
Intake Visit Reasons: Nondisplaced RT 4th Metacarpal FxDOI 03/22/25 Intake Note: Karsten is a 69 year old left hand dominant male who presents today for follow up status post Right 2nd & 3rd Proximal Phalanx Radial Base Fracture and Right 4th Metacarpal Shaft Fracture, DOI: 03/22/25. He was last evaluated by Dr. Oliver on 04/06/25. At that time he was given a Velcro wrist brace to be worn for 4 weeks. He was advised to work on gentle ROM out of the brace, to avoid lifting greater than 4 lb or high impact activities for 4-6 weeks. A referral to Occupational Therapy was placed due to weakness in his right hand from disuse, secondary to a CVA. Patient is going to [facility] rehab for occupational therapy tomorrow. Allergies shrimp Allergy (Unknown, Verified 05/03/25 14:03) Vomiting tirzepatide (From Mounjaro) Adverse Reaction (Unknown, Verified 05/03/25 14:03) Diarrhea HPI HPI Nondisplaced RT 4th Metacarpal FxDOI 03/22/25: Details: Karsten is a 69 year old left hand dominant male who presents today for follow up status post Right 2nd & 3rd Proximal Phalanx Base Fracture and Right 4th Metacarpal Shaft Fracture, DOI: 03/22/25. He was last evaluated by Dr. Oliver on 04/06/25. At that time he was given a Velcro wrist brace to be worn for 4 weeks. He was advised to work on gentle ROM out of the brace, to avoid lifting greater than 4 lb or high impact activities for 4-6 weeks. A referral to Occupational Therapy was placed due to weakness in his right hand from disuse, secondary to a CVA. Patient is going to [facility] rehab for occupational therapy tomorrow. At this time, patient states that he is feeling very well, and has no pain with range of motion of the right hand. Patient inquires whether he has fully healed at this time. No other acute complaints or concerns at this time. [facility] Medical History Uncontrolled type 2 diabetes mellitus with hyperglycemia CKD (chronic kidney disease) stage 2, GFR 60-89 ml/min CVA (cerebral vascular accident) Swelling, mass, or lump in chest Blurry vision, bilateral Blurry vision Surgical History S/P excision of lipoma (09/24/24) Hx of hernia repair Hx of arthroscopy of left knee Family History Mother Diabetes Heart problem History of hypertension Father History of hypertension Heart attack Social History Household Members: None Housing: Apartment Alcohol intake: never Patient Tobacco Use Status: Never used Tobacco e-Cigarette/Vaping Use: Never Used Current occupational status: retired Cognitive needs: No Hearing needs: No Vision needs: Yes Review of Systems Const All systems reviewed & are unremarkable except as noted in HPI and below Physical Exam Const General: cooperative, healthy appearing and no acute distress Orientation/consciousness: patient oriented x3 HEENT Head: Yes normocephalic and Yes atraumatic Eyes EOM: EOMs intact bilaterally Resp Effort & Inspection: normal respiratory effort and able to speak in complete sentences Cardio Jugular venous distension: no JVD Skin General skin exam: turgor normal Rashes: no rashes Neuro General: patient oriented x3 Extrem Other: Evaluation of Right Upper Extremity: The patient is alert, oriented, and in no acute distress Neuro: Median, Ulnar, Radial nerves motor and sensory intact and sensation is normal to the tips of all digits Vascular: Cap refill brisk ROM: He has stiffness & weakness in his right hand, 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 He also has a Hx of CVA in 2010 & has had weakness and poor function of his right hand since this occurred Skin: No lacerations or abrasions. General: No Ecchymosis. No Erythema or evidence of infection. No tenderness over the fracture site Radiographs: 3 views of the right hand were taken and viewed by me today in clinic. They show an index finger proximal phalanx radial base fracture, middle finger proximal phalanx radial base fracture, and a 4th metacarpal shaft fracture, spiral oblique, with satisfactory fracture alignment. The index finger fracture involving ~15% of the articular surface, & the middle finger fracture involving ~20% of the articular surface. All fractures demonstrate evidence of interval bony healing Psych Appearance: grossly normal Affect: normal affect Attitude: cooperative Assessment & Plan Assessment & Plan (1) Fracture of proximal phalanx of right middle finger: Code(s): S62.612A - Displaced fracture of proximal phalanx of right middle finger, initial encounter for closed fracture Category: Medical (2) Fracture of shaft of fourth metacarpal bone of right hand: Code(s): S62.324A - Displaced fracture of shaft of fourth metacarpal bone, right hand, initial encounter for closed fracture Category: Medical (3) Fracture of proximal phalanx of right index finger: Code(s): S62.610A - Displaced fracture of proximal phalanx of right index finger, initial encounter for closed fracture Category: Medical (4) Right hand weakness: Code(s): R29.898 - Other symptoms and signs involving the musculoskeletal system Category: Medical (5) Uncontrolled type 2 diabetes mellitus with hyperglycemia: Code(s): E11.65 - Type 2 diabetes mellitus with hyperglycemia Category: Medical Plan Assessment & Plan: 1. Right index finger proximal phalanx radial base fracture, 2. Right middle finger proximal phalanx radial base fracture, 3. Right 4th metacarpal shaft fracture, S/P fall, DOI: 03/22/25 4. Right hand weakness, Secondary to disuse following a CVA in 2010 I educated him about these conditions I discussed operative and non-operative treatment options We will manage this conservatively, and he is in agreement He was fitted for a velcro wrist splint, to be worn for the next 4 weeks with daytime activities 5 lb weight limit in the right hand until follow-up Patient should continue with occupational therapy to work on improving strengthening range of motion of the right hand He will follow up 3-4 weeks with X-rays, 3V R hand, OOP Orders: Orders XR hand RT min 3V 05/03/25 M79.641 - Pain in right hand Coding Level of Care Code Global (66681) Diagnoses Fracture of proximal phalanx of right middle finger S62.612A Fracture of shaft of fourth metacarpal bone of right hand S62.324A Fracture of proximal phalanx of right index finger S62.610A Right hand weakness R29.898 Uncontrolled type 2 diabetes mellitus with hyperglycemia E11.65
== END 2025-05-03 14:17 | disposition home or self-care (01) ==
LOC: HO.HOS 13:55
PROVIDERS: PCP Internal Medicine
DX: S62.612A Displaced fracture of proximal phalanx of right middle finger, initial encounter for closed fracture (principal); S62.324A Displaced fracture of shaft of fourth metacarpal bone, right hand, initial encounter for closed fracture; S62.610A Displaced fracture of proximal phalanx of right index finger, initial encounter for closed fracture; R29.898 Other symptoms and signs involving the musculoskeletal system; E11.65 Type 2 diabetes mellitus with hyperglycemia
CPT/HCPCS: 99024

== ENCOUNTER → 2025-05-03 13:56 | Outpatient (BNV) | payer OTHER, MEDICAID, SELFPAY | PROVIDERS: Visit Provider Radiology Diagnostic Radiology | DX: S62.614D Displaced fracture of proximal phalanx of right ring finger, subsequent encounter for fracture with routine healing (principal); S62.324D Displaced fracture of shaft of fourth metacarpal bone, right hand, subsequent encounter for fracture with routine healing; M19.041 Primary osteoarthritis, right hand; M85.841 Other specified disorders of bone density and structure, right hand | CPT/HCPCS: 73130 ==

== ENCOUNTER 2025-05-05 08:01 | Outpatient (REF) | payer OTHER, MEDICAID, SELFPAY ==
--- OUTSIDE RECORDS SUMMARY | 2006-03-27 19:00 | XMS_ITS | Continuity of Care Document ---
Author Organization sa[facility] Nelson [facility] Address [address] [place] [address] Phone Care Team Providers Care Lamp Shade Joiner Name Role Phone Z-Converted, Provider Unavailable Unavailabl e Advance Directives Directive Yes / No Effective Date File Name No Information Encounters Encounter Description Practice Location Reason(s) For Visit Diagnoses Date Provider Providers Copied on Encounter Blade Nelson [facility], [address] [place] [address] [address], [place], [place], [id number], [place] tel:[phone] [facility] Unspecified chest pain Sep-2 8200 6 [...]
--- OUTSIDE RECORDS SUMMARY | 2025-05-05 08:05 | XMS_ITS | Clinical Summary ---
Author Organization [facility] Address [address] [place] [address] Phone Care Team Providers Care Systems Design Engineer Name Role Phone Laxmi Christianson MD Primary Care Provider [phone] Allergies Active Allergy Reactions Criticality Noted Date [...] Type 2 diabetes mellitus wit hout complications ([facility] V24, [facility] V28) 04/02/2023 Encounters Date Type Department Care Team Description 04/05/2025 9:00 AM EDT Office Visit Orthopedic Surgery [facility] [address] 175 [facility] [address] [place] [phone] Tariq Wilson DPM Controlled type 2 diabetes with neuropathy ([facility] V24, [facility] V28) (Primary Dx); Foot drop, left; PVD (peripheral vascular disease) ([facility] V24); Arthritis of both feet; Xerosis cutis; Dermatophytosis, nail 03/08/2025 3:45 PM EDT Office Visit [facility] Hematology Oncology [address] [place] [phone] Nohemi Ann MD Myeloproliferative neoplasm ([facility] V24, [facility] V28) (Primary Dx) from Last 3 Months [...] Type 2 diabetes mellitus wit hout complications ([facility] V[facility], [facility] V28) DX:Type 2 carolyn betes mellitus without complications (HCC) CAD (coronary artery disease) DX :CAD (coronary artery disease); COMMENT: Stents 2006 and 2008. LAD, RCA, LCX Mixed hyperlipidemia DX:Mixed hy perlipidemia Osteoarthritis, knee DX:Osteoart hritis, knee Polycythemia vera ([facility] V 24, [facility] V28) DX:Polycythemia vera ([facility]) CVA (cerebral vascular accid ent) ([facility] V24, [facility] V28) 2021 DX:CVA (cerebral vascular a ccident) ([facility]) Family History Medical History Relation [...] AM EST Office Visit Orthopedic Surgery - [place] 250 175 [facility] [address] [place] [phone] Tariq Wilson DPM [address] [place] [phone] 07/13/2025 3:15 PM EST Office Visit [facility] Hematology Oncology [address] [place] [phone] Nohemi Ann MD [address] [place] [address] Health Maintenance Due Date Last Done Comments [...] CBC auto differential (03/02/2025 9:27 AM EDT) [facility] WBC 9.5 4.8 - 10.8 K/mcL LAB HEMETOLOGY METHOD 03/02/2025 11:50 AM EDT [facility] LAB RBC 5.90(H) 4.50 - 5.50 M/mcL LAB HEMETOLOGY METHOD 03/02/2025 11:50 AM [facility] LAB Hemoglobin 14.3 13.5 - 17.5 g/dL LAB HEMETOLOGY METHOD 03/02/2025 11:50 AM [facility] LAB Hematocrit 47.5 42.0 - 54.0 % LAB HEMETOLOGY METHOD 03/02/2025 11:50 AM [facility] MCV 80.0 79.0 - 98.0 FL LAB HEMETOLOGY METHOD 03/02/2025 11:50 AM [facility] LAB MCH 24.1(L) 27.0 - 32.0 pcg LAB HEMETOLOGY METHOD 03/02/2025 11:50 AM [facility] LAB MCHC 30.1(L) 32.0 - 37.0 g/dL LAB HEMETOLOGY METHOD 03/02/2025 11:50 AM [facility] RDW 16.8(H) 11.0 - 15.0 % LAB HEMETOLOGY METHOD 03/02/2025 11:50 AM [facility] LAB Platelets 299 130 - 400 K/mcL LAB HEMETOLOGY METHOD 03/02/2025 11:50 AM [facility] MPV 11.3(H) 7.0 - 11.0 FL LAB HEMETOLOGY METHOD 03/02/2025 11:50 AM [facility] NRBC 0.0 <1.0 % LAB HEMETOLOGY METHOD 03/02/2025 11:50 AM [facility] NRBC Absolute 0.00 <0.10 K/mcL LAB HEMETOLOGY METHOD 03/02/2025 11:50 AM [facility] Neutrophils Relative 61.0 % LAB HEMETOLOGY METHOD 03/02/2025 11:50 AM [facility] Lymphocytes Relative 23.5 % LAB HEMETOLOGY METHOD 03/02/2025 11:50 AM [facility] Monocytes Relative 10.8 % LAB HEMETOLOGY METHOD 03/02/2025 11:50 AM [facility] Eosinophils Relative 3.3 % LAB HEMETOLOGY METHOD 03/02/2025 11:50 AM [facility] Basophils Relative 1.1 % LAB HEMETOLOGY METHOD 03/02/2025 11:50 AM [facility] Immature Granulocytes Relative 0.3 % LAB HEMETOLOGY METHOD 03/02/2025 11:50 AM [facility] Neutrophils Absolute 5.78 1.50 - 7.00 K/mcL LAB HEMETOLOGY METHOD 03/02/2025 11:50 AM [facility] Lymphocytes Absolute 2.23 1.00 - 5.00 K/mcL LAB HEMETOLOGY METHOD 03/02/2025 11:50 AM [facility] Monocytes Absolute 1.02(H) 0.20 - 1.00 K/mcL LAB HEMETOLOGY METHOD 03/02/2025 11:50 AM [facility] LAB Eosinophils Absolute 0.31 0.00 - 0.50 K/mcL LAB HEMETOLOGY METHOD 03/02/2025 11:50 AM EDT [facility] LAB Basophils Absolute 0.10 0.00 - 0.20 K/[facility] LAB HEMETOLOGY METHOD 03/02/2025 11:50 AM EDT [facility] LAB Immature Granulocytes Absolute 0.03 0.00 - 0.03 K/[facility] 03/02/2025 11:50 AM EDT [facility] Blood Venous blood specimen / Unknown Venipuncture / Unknown 03/02/2025 9:27 AM EDT 03/02/2025 11:29 AM EDT Nohemi Ann MD LAB BLOOD ORDERABLES Final R esult [facility] LAB [address] [place] [address], * (ABNORMAL) Comprehensive metabolic panel (03/02/2025 9:27 AM EDT) Sodium 137 133 - 145 mmol/L LAB CHEMISTRY METHOD 03/02/2025 4:34 PM [facility] Potassium 4.4 3.5 - 5.5 mmol/L LAB CHEMISTRY METHOD 03/02/2025 4:34 PM [facility] Chloride 101 96 - 110 mmol/L LAB CHEMISTRY METHOD 03/02/2025 4:34 PM [facility] CO2 30 21 - 32 mmol/L LAB CHEMISTRY METHOD 03/02/2025 4:34 PM [facility] Anion Gap 6 3 - 11 LAB CHEMISTRY METHOD 03/02/2025 4:34 PM [facility] Glucose 131(H) 70 - 100 mg/dL LAB CHEMISTRY METHOD 03/02/2025 4:34 PM [facility] BUN 28(H) 5 - 25 mg/dL LAB CHEMISTRY METHOD 03/02/2025 4:34 PM [facility] Creatinine 1.42(H) 0.70 - 1.30 mg/dL LAB CHEMISTRY METHOD 03/02/2025 4:34 PM [facility] LAB eGFR 53(L) >=60 mL/min/1. 73m2 LAB CHEMISTRY METHOD 03/02/2025 4:34 PM [facility] LAB Comment:Calculation based on the Chronic Kidney Disease Epidemiology Collaboration (CKD-EPI) equation refit without adjustment for race. BUN/Creatinine Ratio 19.7 LAB CHEMISTRY METHOD 03/02/2025 4:34 PM [facility] Calcium 9.5 8.5 - 10.5 mg/dL LAB CHEMISTRY METHOD 03/02/2025 4:34 PM [facility] AST (SGOT) 17 10 - 42 unit/L LAB CHEMISTRY METHOD 03/02/2025 4:34 PM [facility] ALT (SGPT) 33 10 - 60 unit/L LAB CHEMISTRY METHOD 03/02/2025 4:34 PM [facility] Alkaline Phosphatase 90 42 - 121 unit/L LAB CHEMISTRY METHOD 03/02/2025 4:34 PM [facility] Total Protein 7.3 6.0 - 8.0 g/dL LAB CHEMISTRY METHOD 03/02/2025 4:34 PM [facility] Albumin 4.0 3.2 - 5.0 g/dL LAB CHEMISTRY METHOD 03/02/2025 4:34 PM [facility] Total Bilirubin 0.4 0.0 - 1.4 mg/dL LAB CHEMISTRY METHOD 03/02/2025 4:34 PM [facility] Blood Venous blood specimen / Unknown Venipuncture / Unknown 03/02/2025 9:27 AM EDT 03/02/2025 11:30 AM EDT us Nohemi Ann MD LAB BLOOD ORDERABLES Final R esult [facility] LAB [address] [place] [address], * Hemoglobin A1c (09/19/2023) [facility] Hemoglobin A1C 6.3 <=6.5 % Blood Venous blood specimen / Unknown Result [facility] Provider LAB BLOOD ORDERABLES Love l Result * Hepatitis C Screening (06/28/2023) [facility] Hepatitis C Screening Abstracted Result [facility] Provider HEALTH MAINTENANCE Final Result * Diabetes Eye Exam (06/25/2023) [facility] Diabetes: Annual Retina Eye Exam Abstracted Result [facility] Provider HEALTH MAINTENANCE Final Result * Urine Albumin Creatinine Ratio (06/06/2023) [facility] Urine Albumin Creatinine Ratio Abstracted Result [facility] Provider HEALTH MAINTENANCE Final Result * Diabetes Foot Exam (06/06/2023) [facility] Diabetes: Annual Foot Exam Abstracted Result [facility] Provider HEALTH MAINTENANCE Final Result * Lipid panel (04/04/2023) [facility] LDL/HDL Ratio 2 0 - 4 Triglycerides 63 0 - 150 mg/dL Cholesterol 104 0 - 200 mg/dL HDL 43 >=40 mg/dL LDL Cholesterol 49 0 - 100 mg/dL Blood Venous blood specimen / Unknown Result [facility] Provider LAB BLOOD ORDERABLES Love l Result from Last 3 Months or Most Recently Relevant to Health Maintenance Insurance [place]ICAID - [place] [employer] MEDICARE Care Teams Systems Design Engineer Relationship Specialty Start Date End Date Laxmi Christianson MD [address] [place] [address] PCP - General Endocrinology 08/05/24
--- OUTSIDE RECORDS SUMMARY | 2025-05-05 08:05 | XMS_ITS | Clinical Summary ---
Author Organization [facility] Address [address] [place] [address] Care Team Providers Care Investor Relations Specialist Name Role Phone Marie Luke MD [...] age to complete this topic Care Teams Investor Relations Specialist Relationship Specialty Start Date End Date Marie Luke MD [address] [place] [address] PCP - General Internal Medicine 10/31/23
--- OUTSIDE RECORDS SUMMARY | 2025-05-05 08:05 | XMS_ITS | Clinical Summary ---
Author Organization [employer] Address [address] [facility] [address] [place] [address] Care Team Providers Care Precise Winder Name Role Phone Unavailable Primary Care Provider [...] Recently Relevant to Health Maintenance Insurance DENTAL [facility] - N FULL (MEDICAID)
[2025-05-05 11:14] LABS: MANUAL DIFF FLAG NO
[2025-05-05 11:20] LABS: Hematocrit 46.9 % (42.0-52.0); Hemoglobin 14.3 g/dl (14.0-18.0); Imm Gran Abs Auto 0.03 X10*3/uL (0.00-0.03); Imm Gran Pct Auto 0.3 % (0.0-0.4); Lymphocytes Absolute Auto 1.8 X10*3/uL (1.2-4.9); Mean Corpuscular HGB Conc 30.5 g/dl (31.0-36.0); Mean Corpuscular Hemoglobin 23.8 pg (27.0-33.0); Mean Corpuscular Volume 77.9 fL (80.0-98.0); NRBC Abs Auto 0.000 X10*3/uL (0.0-0.012); NRBC Pct Auto 0.0 /100WBC (0.0-0.2); Platelet Count 298 X10*3/uL (160-400); Red Blood Count 6.02 X10*6/uL (4.60-5.80); White Blood Count 9.0 X10*3/uL (4.8-10.8)
[2025-05-05 11:37] LABS: Appearance Urine Clear; Glucose Urine UA >=1000 mg/dL (Negative); PH 5.0 (5.0-9.0); Specific Gravity - Urine >= 1.030 (1.005-1.025); UMIC TRIGGER UACC YES
[2025-05-05 11:48] LABS: Alanine Aminotransferase 23 U/L (0-40); Albumin Level 4.5 g/dL (3.5-5.0); Alkaline Phosphatase 84 U/L (39-117); Anion Gap 13 (12-20); Aspartate Amino Transferase 21 U/L (5-37); Blood Urea Nitrogen 22 mg/dL (9-16); Calcium 9.7 mg/dL (8.4-10.2); Carbon Dioxide 28 mmol/L (22-29); Chloride 102 mmol/L (96-108); Cholesterol 131 mg/dL (<200); Estimated Glomerular Filt Rate > 60; HDL Cholesterol 49 mg/dL (>40); Potassium 4.4 mmol/L (3.3-5.1); Sodium 139 mmol/L (135-145); Total Protein 7.2 g/dL (6.5-8.0); Triglycerides 84 mg/dL (<150)
[2025-05-05 12:35] LABS: Prostate Specific Antigen 0.50 ng/mL (<0.05-4.0)
== END 2025-05-05 08:02 | disposition home or self-care (01) ==
LOC: HO.WFDLDS 08:01
PROVIDERS: Visit Provider Internal Medicine
DX: Z12.5 Encounter for screening for malignant neoplasm of prostate (principal); E11.49 Type 2 diabetes mellitus with other diabetic neurological complication; I10 Essential (primary) hypertension; Z79.4 Long term (current) use of insulin
CPT/HCPCS: 36415; 80053; 80061; 81001; 84153; 85025; 85027

== ENCOUNTER 2025-05-25 13:50 | Outpatient (AMB) | payer OTHER, MEDICAID, SELFPAY ==
--- OUTSIDE RECORDS SUMMARY | 2006-03-27 19:00 | XMS_ITS | Continuity of Care Document ---
Author Organization sapphire Nelson [facility] Address [address] [place] [address] Phone Care Team Providers Care Wood Experimental Mechanic Name Role Phone Z-Converted, Provider Unavailable Unavailabl e Advance Directives Directive Yes / No Effective Date File Name No Information Encounters Encounter Description Practice Location Reason(s) For Visit Diagnoses Date Provider Providers Copied on Encounter Blade Nelson [facility], [address] [place] [address] 2,[address], [place], [place], [id number], [place] tel:[phone] 2 [facility] Unspecified chest pain Sep-2 8200 6 Z-Convert ed Provider. . Family History Family Member Type Diagnosis Age At Onset No Information Payers Payer name Insurance type Covered alliance party ID Authoriza tion(s) No Information Social History Type Description Quantity Date Captured Comments Sex Male Smoking Status No Information Sexual Orientation Straight or heterosexual Chief Complaint And Reason For Visit No Information Reason For Referral Reason For Referral No Information History Of Present Illness Encounter Date Complaint History Of Prese nt Illness No Information Functional Status Date Functional Assessmen t No Information Instructions Date Instruction Additional Infor mation No Information Assessments Type Assessment Date No Information Patient Care Teams Name Effective Dates (start - stop) Status Members No Information
--- NOTE | 2025-05-25 13:52 | MHC.OFFVIS ---
Vital Signs 05/25/25 13:53 Height 5 ft 4 in Weight 214 lb 11.684 oz BMI 36.9 BP 138/64 Blood Pressure Location Rt brachial Position Sitting Pulse 79 Pulse Source Pulse Oximeter Pulse Oximetry (%) 97 Oxygen Delivery Method Room Air Intake Visit Reasons: Type II Diabetes Intake Note: Patient present today to follow up on Type 2 Diabetes Mellitus. Patient receives DME supplies through: [employer] Last Diabetic Eye exam: 10/30/2024 [facility] Last Podiatry Visit: 01/27/2025 Random Glucose: 294 mg/dl HgA1C: 8.9% 04/02/2025 Reeling Machine Operator Required: No Accompanied by: Daughter Allergies shrimp Allergy (Unknown, Verified 05/25/25 13:59) Vomiting tirzepatide (From Mounjaro) Adverse Reaction (Unknown, Verified 05/25/25 13:59) Diarrhea HPI Comments Details: This is a 69-year-old male with a past medical history of type 2 diabetes, hypertension, coronary artery disease, CVA with residual deficits, CKD stage II and obesity presenting for diabetic management. He is accompanied by his daughter. Declined zoology teacher. Daughter interpreted. He was diagnosed with type 2 diabetes in his youth. Lab work September 2024 C-peptide 2.7, LALA less than 5, islet cell antibodies negative. There is a family history of type 2 diabetes in his mother and siblings. Hemoglobin A1c 8.9% 04/02/2025. Reviewed Mayra 3 data CGM active 48% Average glucose 186 G [place] 7.8% Glucose variability 26.4% Very high 12% High 38% Target range 50% 0% hypoglycemia My interpretation is Blood sugars overnight are within target, but he is experiencing hyperglycemia which worsens postprandially during the day, particularly after lunch. Eats light breakfast. Lunch and dinner are heavier. POC 294 today after having Thanksgiving style lunch. Current regimen: Humulin 75/25 30 units twice daily Metformin 500 mg twice daily Jardiance 25 mg daily Acarbose 25 mg daily (takes before dinner) Past medication: Ozempic discontinued due to nausea and vomiting, Mounjaro discontinued due to nausea and vomiting Complications: He has retinopathy followed by [facility] and a retinal specialist. He receives intravitreal injections. He has neuropathy. He has a history of nephropathy, but his recent test for microalbumin is negative, and his creatinine and GFR were normal. Prior history of CVA and CAD. Denies symptoms of hypoglycemia and hyperglycemia. Hypertension is treated with amlodipine, chlorthalidone, lisinopril, and metoprolol succinate ER. BP is mildly elevated today, but it was normal at his appointment in primary care on 04/30/2025. ROS: Constitutional: No unexplained weight loss, fever, chills, fatigue or night sweats. Respiratory: No shortness of breath Cardiovascular: No chest pain, chest Gastrointestinal: No anorexia, nausea, vomiting or diarrhea. No abdominal pain or blood in stool. GI symptoms resolved since stopping Mounjaro. Neurologic: No headache, dizziness, syncope Endocrine: No cold or heat intolerance. No polyuria or polydipsia. Physical exam: Constitutional: Alert, in no distress. Head: Normocephalic. Neck: Supple, Full range of motion. No lymphadenopathy. No palpable thyroid enlargement or masses. Respiratory: Clear to auscultation. Cardiovascular: S1 S2 regular. No murmur. Psychiatric: Normal mood and affect [facility] Medical History Uncontrolled type 2 diabetes mellitus with hyperglycemia CKD (chronic kidney disease) stage 2, GFR 60-89 ml/min CVA (cerebral vascular accident) Swelling, mass, or lump in chest Blurry vision, bilateral Blurry vision Surgical History S/P excision of lipoma (09/24/24) Hx of hernia repair Hx of arthroscopy of left knee Family History Mother Diabetes Heart problem History of hypertension Father History of hypertension Heart attack Social History Household Members: None Housing: Apartment Alcohol intake: never Patient Tobacco Use Status: Never used Tobacco e-Cigarette/Vaping Use: Never Used Current occupational status: retired Cognitive needs: No Hearing needs: No Vision needs: Yes Physical Exam Vital Signs: Last Vital Signs Pulse 79 05/25/25 13:53 BP 138/64 05/25/25 13:53 Pulse Ox 97 05/25/25 13:53 Oxygen Delivery Method Room Air 05/25/25 13:53 BMI result Body Mass Index 36.9 Office Procedures Glucose Monitoring Details Details: See [facility] [id number] - Glucose monitoring, continuous-physician I&R Procedure code (CPT) selection complete Results Reviewed Results Reviewed: Laboratory Tests 07/23/24 10/16/24 05/05/25 16:35 09:23 08:03 Creatinine 1.02 Estimated GFR > 60 AST 21 ALT 23 Triglycerides 84 Cholesterol 131 LDL Cholesterol, Calc 66 HDL Cholesterol 49 Urine Creatinine 107.57 Urine Microalbumin 27.0 Microalb/Creat Ratio 25.0 Islet Cell Ab Screen NEGATIVE Islet Cell Ab Titer TNP LALA Antibody <5 Assessment & Plan Assessment & Plan (1) Uncontrolled type 2 diabetes mellitus with hyperglycemia: Code(s): E11.65 - Type 2 diabetes mellitus with hyperglycemia Category: Medical Plan: In summary this is a 69-year-old male with a past medical history of uncontrolled type 2 diabetes. We reviewed lifestyle modifications and reinforced a diabetic diet. Reviewed complications of type 2 diabetes. Patient did not tolerate GLP 1 x 2. Continue Humulin 75/25 30 twice daily Continue Metformin 500 mg twice daily Continue Jardiance 25 mg daily Increase acarbose 25 mg with the 1st bite of lunch and dinner. If you experience low blood sugar, treat this by eating a chewable fruit candy like skittles or jelly beans (about 8 pieces), 4 ounces (1/2 cup) of fruit juice (not diet), 1 tablespoon of honey or 4 glucose tablets. If your blood sugar is under 50, take double the amount of one of the above. Recheck your blood sugar in 15 minutes. (2) CKD (chronic kidney disease) stage 2, GFR 60-89 ml/min: Code(s): N18.2 - Chronic kidney disease, stage 2 (mild) Category: Medical Plan: Continue KAIT inhibitor. Avoid nephrotoxic medications. (3) Hypertension: Code(s): I10 - Essential (primary) hypertension Category: Medical Qualifiers: Hypertension type: primary hypertension Qualified Code(s): I10 - Essential (primary) hypertension Plan: Recheck blood pressure at next visit. Continue current regimen. Avoid high sodium foods. Plan Follow up in 1 month for type 2 diabetes Orders: Orders AMB Glucose Monitoring Today E11.9 - Type 2 diabetes mellitus without complications Medications: Changed From Humalog Mix 75-25 KwikPen 100 unit/mL (75-25) (insulin lispro protamin-lispro) before breakfast and supper 34 units (0.34 mL) subcut BID 90 days 64 mL 3RF NS To Humalog Mix 75-25 KwikPen 100 unit/mL (75-25) (insulin lispro protamin-lispro) before breakfast and supper 30 units (0.3 mL) subcut BID 54 mL 3RF 90 days NS From acarbose at dinner time 25 mg PO DAILY 90 tabs 3RF To acarbose 25 mg PO with the first bite of lunch and dinner 25 mg PO BID 180 tabs 0RF Refilled lisinopril 40 mg PO DAILY 90 tabs 3RF 90 days Coding Level of Care Code Est Pt Level 4 (72654) Diagnoses Uncontrolled type 2 diabetes mellitus with hyperglycemia E11.65 CKD (chronic kidney disease) stage 2, GFR 60-89 ml/min N18.2 Primary hypertension I10 Hypertension type: primary hypertension CPT Codes Details - CPT: 15266 - Glucose monitoring, continuous-physician I&R ([id number])
[2025-05-25 13:53] VITALS: BP 138/64; PULSE 79; O2SAT 97; BMI 36.9
[2025-05-25 14:05] LABS: Glucose, Whole Blood 294 mg/dL (60-115)
--- OUTSIDE RECORDS SUMMARY | 2025-05-25 17:44 | XMS_ITS | Clinical Summary ---
Author Organization [employer] Address [address] [facility] [address] [place] [address] Care Team Providers Care Vending Machine Technician Name Role Phone Unavailable Primary Care Provider [...] Recently Relevant to Health Maintenance Insurance DENTAL [facility] DENT[facility] - N FULL (MEDICAID)
--- OUTSIDE RECORDS SUMMARY | 2025-05-25 17:44 | XMS_ITS | Clinical Summary ---
Author Organization [facility] Address [address] [place] [address] Phone Care Team Providers Care Floor Surfacer Name Role Phone Laxmi Christianson MD Primary Care Provider [phone] Allergies Active Allergy Reactions Criticality Noted Date [...] 2 diabetes mellitus wit hout complications ([facility] V24, [facility] V28) 04/02/2023 Encounters Date Type Department Care Team Description 04/05/2025 9:00 AM EDT Office Visit Orthopedic Surgery [facility] [address] [facility] [address] [place] [phone] Tariq Wilson DPM Controlled type 2 diabetes with neuropathy ([facility] V24, [facility] V28) (Primary Dx); Foot drop, left; PVD (peripheral vascular disease) ([facility] V24); Arthritis of both feet; Xerosis cutis; Dermatophytosis, nail 03/08/2025 3:45 PM EDT Office Visit [facility] Hematology Oncology [address] [place] [phone] Nohemi Ann MD Myeloproliferative neoplasm ([facility] V24, [facility] V28) (Primary Dx) from Last [...] Type 2 diabetes mellitus wit hout complications ([facility], [facility] V28) DX:Type 2 carolyn betes mellitus without complications (HCC) CAD (coronary artery disease) DX :CAD (coronary artery disease); COMMENT: Stents 2006 and 2008. LAD, RCA, LCX Mixed hyperlipidemia DX:Mixed hy perlipidemia Osteoarthritis, knee DX:Osteoart hritis, knee Polycythemia vera ([facility] V 24, [facility] V28) DX:Polycythemia vera ([facility]) CVA (cerebral vascular accid ent) ([facility] V24, [facility] V28) 2021 DX:CVA (cerebral vascular a ccident) [...] AM EST Office Visit Orthopedic Surgery - [place] [address] [phone] Tariq Wilson DPM [address] [address] 07/13/2025 3:15 PM EST Office Visit [facility] Hematology Oncology [address] [place] [phone] Nohemi Ann MD [address] [place] [address] Health Maintenance Due Date Last Done Comments [...] CBC auto differential (03/02/2025 9:27 AM EDT) [facility] WBC 9.5 4.8 - 10.8 K/mcL LAB HEMETOLOGY METHOD 03/02/2025 11:50 AM EDT [facility] LAB [...] AM [facility] LAB Lymphocytes Absolute 2.23 1.00 - 5.00 K/mcL LAB HEMETOLOGY METHOD 03/02/2025 11:50 AM [facility] LAB Monocytes Absolute 1.02(H) 0.20 - 1.00 K/mcL LAB HEMETOLOGY METHOD 03/02/2025 11:50 AM [facility] LAB Eosinophils Absolute 0.31 0.00 - 0.50 K/mcL LAB HEMETOLOGY METHOD 03/02/2025 11:50 AM EDT [facility] LAB Basophils Absolute 0.10 0.00 - 0.20 K/[facility] LAB HEMETOLOGY METHOD 03/02/2025 11:50 AM EDT [facility] LAB Immature Granulocytes Absolute 0.03 0.00 - 0.03 K/[facility] 03/02/2025 11:50 AM EDT [facility] LAB Blood Venous blood specimen / Unknown Venipuncture / Unknown 03/02/2025 9:27 AM EDT 03/02/2025 11:29 AM EDT Nohemi Ann MD LAB BLOOD ORDERABLES Final R esult [facility] LAB [address] [place] [address], * (ABNORMAL) Comprehensive metabolic panel (03/02/2025 9:27 [...] 4:34 PM [facility] LAB Blood Venous blood specimen / Unknown Venipuncture / Unknown 03/02/2025 9:27 AM EDT 03/02/2025 11:30 AM EDT us Nohemi Ann MD LAB BLOOD ORDERABLES Final R esult [facility] LAB [address] [place] [address], * Hemoglobin A1c (09/19/2023) [facility] Hemoglobin A1C 6.3 <=6.5 % Blood Venous blood specimen / Unknown Result [facility] Provider LAB BLOOD ORDERABLES Love l Result * Hepatitis C Screening (06/28/2023) [facility] Hepatitis C Screening Abstracted Result [facility] Provider HEALTH MAINTENANCE Final Result * Diabetes Eye Exam (06/25/2023) [facility] Diabetes: Annual Retina Eye Exam Abstracted Result [facility] Provider HEALTH MAINTENANCE Final Result * Urine Albumin Creatinine Ratio (06/06/2023) [facility] Urine Albumin Creatinine Ratio Abstracted Result [facility] Provider HEALTH MAINTENANCE Final Result * Diabetes Foot Exam (06/06/2023) [facility] Diabetes: Annual Foot Exam Abstracted Result [facility] Provider HEALTH MAINTENANCE Final Result * Lipid panel (04/04/2023) [facility] LDL/HDL Ratio 2 0 - 4 Triglycerides 63 0 - 150 mg/dL Cholesterol 104 0 - 200 mg/dL HDL 43 >=40 mg/dL LDL Cholesterol 49 0 - 100 mg/dL Blood Venous blood specimen / Unknown Result [facility] Provider LAB BLOOD ORDERABLES Love l Result from Last 3 Months or Most Recently Relevant to Health Maintenance Insurance [place]ICA[place] - [place] [employer] MEDICARE Care Teams Floor Surfacer Relationship Specialty Start Date End Date Laxmi Christianson MD [address] [place] [address] PCP - General Endocrinology 08/05/24
--- OUTSIDE RECORDS SUMMARY | 2025-05-25 17:44 | XMS_ITS | Clinical Summary ---
Author Organization [facility] Address [address] [place] [address] Care Team Providers Care Kosher Inspector Name Role Phone Marie Luke MD [...] age to complete this topic Care Teams Kosher Inspector Relationship Specialty Start Date End Date Marie Luke MD [address] [place] [address] PCP - General Internal Medicine 10/31/23
== END 2025-05-25 14:24 | disposition home or self-care (01) ==
LOC: HO.ENCR 13:52
PROVIDERS: PCP Internal Medicine; Visit Provider Physician Assistant Medical
DX: E11.65 Type 2 diabetes mellitus with hyperglycemia (principal); I12.9 Hypertensive chronic kidney disease with stage 1 through stage 4 chronic kidney disease, or unspecified chronic kidney disease; N18.2 Chronic kidney disease, stage 2 (mild)

== ENCOUNTER → 2025-05-25 13:50 | Outpatient (BNVA) | payer OTHER, MEDICAID, SELFPAY | PROVIDERS: PCP Internal Medicine; Visit Provider Physician Assistant Medical | DX: E11.65 Type 2 diabetes mellitus with hyperglycemia (principal) | CPT/HCPCS: 82947 ==

== ENCOUNTER 2025-05-31 08:39 | Outpatient (REF) | payer OTHER, MEDICAID, SELFPAY ==
--- OUTSIDE RECORDS SUMMARY | 2006-03-27 19:00 | XMS_ITS | Continuity of Care Document ---
Author Organization sapp[facility] Nelson [facility] Address [address] [place] [address] Phone Care Team Providers Care Registered Nurse Behavioral Health Name Role Phone Z-Converted, Provider Unavailable Unavailabl e Advance Directives Directive Yes / No Effective Date File Name No Information Encounters Encounter Description Practice Location Reason(s) For Visit Diagnoses Date Provider Providers Copied on Encounter Blade Nelson [facility], [address] [place] [address] 2,[address], [place], [place], [id number], [place] tel:[phone] [facility] Unspecified chest pain Sep-2 8200 6 [...]
--- NOTE | ~2025-05-31 | XR_ITS ---
EXAMINATION: XR HAND, RIGHT CLINICAL INFORMATION: M79.641 - Pain in right hand COMPARISON: May 03, 2025. TECHNIQUE: PA, lateral, and oblique views of the right hand. FINDINGS: Fractures at the radial base of the proximal phalanges in the second and third digits with persistent 1 mm lucency between the fracture site. No gross periosteal bone reaction or callus formation. Diagonally oriented fracture with a persistent 1 mm lucency in the mid diaphysis of the fourth metacarpal without gross callus formation. Degenerative changes in the radiocarpal joint, first and second carpometacarpal joints and the proximal and distal interphalangeal joints of the digits. Osteopenia versus osteoporosis. XR/XR hand RT min 3V IMPRESSION: No gross healing/nonhealing fractures proximal phalanges of the second and third digits and fourth metacarpal. Osteoarthrosis/osteoarthritis, moderate to severe. Electronically signed by: Trey Andrea MD 05/31/2025 11:15 AM [facility]
--- OUTSIDE RECORDS SUMMARY | 2025-05-31 09:12 | XMS_ITS | Clinical Summary ---
Author Organization [employer] Address [address] [facility] [address] [place] [address] Care Team Providers Care Sammying Machine Operator Name Role Phone Unavailable Primary Care [...] Recently Relevant to Health Maintenance Insurance [facility]ENTAL [facility] DENTAL - N FULL (MEDICAID)
--- OUTSIDE RECORDS SUMMARY | 2025-05-31 09:12 | XMS_ITS | Clinical Summary ---
Author Organization [facility] Address [address] [place] [address] Phone Care Team Providers Care Cloud Engineer Name Role Phone Laxmi Christianson MD Primary Care Provider [phone] Allergies Active Allergy Reactions Criticality Noted Date [...] mellitus wit hout complications ([facility] V24, [facility] V28) 04/02/2023 Encounters Date Type Department Care Team Description 04/05/2025 9:00 AM EDT Office Visit Orthopedic Surgery [facility] [address] [facility] [address] [place] [phone] Tariq Wilson DPM Controlled type 2 diabetes with neuropathy ([facility] V24, [facility] V28) (Primary Dx); Foot drop, left; PVD (peripheral vascular disease) ([facility] V24); Arthritis of both feet; Xerosis cutis; Dermatophytosis, nail 03/08/2025 3:45 PM EDT Office Visit [facility] Hematology Oncology [address] [place] [phone] Nohemi Ann MD Myeloproliferative neoplasm ([facility] V24, [facility] V28) (Primary Dx) from Last 3 [...] Type 2 diabetes mellitus wit hout complications ([facility] V24, [facility] V28) DX:Type 2 carolyn betes mellitus without complications (HCC) CAD (coronary artery disease) DX :CAD (coronary artery disease); COMMENT: Stents 2006 and 2008. LAD, RCA, LCX Mixed hyperlipidemia DX:Mixed hy perlipidemia Osteoarthritis, knee DX:Osteoart hritis, knee Polycythemia vera ([facility] V 24, [facility] V28) DX:Polycythemia vera ([facility]) CVA (cerebral vascular accid ent) ([facility] V24, [facility] V28) 2021 DX:CVA (cerebral vascular a ccident) ([facility]) Family History Medical History Relation [...] AM EST Office Visit Orthopedic Surgery - [place] [address] [phone] Tariq Wilson DPM [address] [address] 07/13/2025 3:15 PM EST Office Visit [facility] Hematology Oncology [address] [place] [phone] Nohemi Ann MD [address] [place] [address] Health Maintenance Due Date Last Done Comments [...] M/mcL LAB HEMETOLOGY METHOD 03/02/2025 11:[address] [facility] Hemoglobin 14.3 13.5 - 17.5 g/dL LAB HEMETOLOGY METHOD 03/02/2025 11:[address] [facility] Hematocrit 47.5 42.0 - 54.0 % LAB HEMETOLOGY METHOD 03/02/2025 11:[address] [facility] MCV 80.0 79.0 - 98.0 FL LAB HEMETOLOGY METHOD 03/02/2025 11:[address] [facility] MCH 24.1(L) 27.0 - 32.0 pcg LAB HEMETOLOGY METHOD 03/02/2025 11:[address] [facility] MCHC 30.1(L) 32.0 - 37.0 g/dL LAB HEMETOLOGY METHOD 03/02/2025 11:[address] [facility] RDW 16.8(H) 11.0 - 15.0 % LAB HEMETOLOGY METHOD 03/02/2025 11:[address] [facility] Platelets 299 130 - 400 K/mcL LAB HEMETOLOGY METHOD 03/02/2025 11:[address] [facility] MPV 11.3(H) 7.0 - 11.0 FL LAB HEMETOLOGY METHOD 03/02/2025 11:[address] [facility] NRBC 0.0 <1.0 % LAB HEMETOLOGY METHOD 03/02/2025 11:[address] [facility] NRBC Absolute 0.00 <0.10 K/mcL LAB HEMETOLOGY METHOD 03/02/2025 11:[address] [facility] Neutrophils Relative 61.0 % LAB HEMETOLOGY METHOD 03/02/2025 11:[address] [facility] Lymphocytes Relative 23.5 % LAB HEMETOLOGY METHOD 03/02/2025 11:[address] [facility] Monocytes Relative 10.8 % LAB HEMETOLOGY METHOD 03/02/2025 11:[address] [facility] Eosinophils Relative 3.3 % LAB HEMETOLOGY METHOD 03/02/2025 11:[address] [facility] Basophils Relative 1.1 % LAB HEMETOLOGY METHOD 03/02/2025 11:[address] [facility] Immature Granulocytes Relative 0.3 % LAB HEMETOLOGY METHOD 03/02/2025 11:[address] [facility] Neutrophils Absolute 5.78 1.50 - 7.00 K/mcL LAB HEMETOLOGY METHOD 03/02/2025 11:[address] [facility] Lymphocytes Absolute 2.23 1.00 - 5.00 K/mcL LAB HEMETOLOGY METHOD 03/02/2025 11:[address] [facility] Monocytes Absolute 1.02(H) 0.20 - 1.00 K/mcL LAB HEMETOLOGY METHOD 03/02/2025 11:[address] [facility] Eosinophils Absolute 0.31 0.00 - 0.50 K/mcL LAB HEMETOLOGY METHOD 03/02/2025 11:50 AM EDT [facility] Basophils Absolute 0.10 0.00 - 0.20 K/[facility] LAB HEMETOLOGY METHOD 03/02/2025 11:50 AM EDT [facility] Immature Granulocytes Absolute 0.03 0.00 - 0.03 K/[facility] 03/02/2025 11:50 AM EDT [facility] Blood Venous blood specimen / Unknown Venipuncture / Unknown 03/02/2025 9:27 AM EDT 03/02/2025 11:29 AM EDT Nohemi Ann MD LAB BLOOD ORDERABLES Final R esult [facility] [address] [place] [address], * (ABNORMAL) Comprehensive metabolic panel (03/02/2025 9:27 AM EDT) Sodium 137 133 - 145 mmol/L LAB CHEMISTRY METHOD 03/02/2025 4:[address] [facility] Potassium 4.4 3.5 - 5.5 mmol/L LAB CHEMISTRY METHOD 03/02/2025 4:[address] [facility] Chloride 101 96 - 110 mmol/L LAB CHEMISTRY METHOD 03/02/2025 4:[address] [facility] CO2 30 21 - 32 mmol/L LAB CHEMISTRY METHOD 03/02/2025 4:[address] [facility] Anion Gap 6 3 - 11 LAB CHEMISTRY METHOD 03/02/2025 4:[address] [facility] Glucose 131(H) 70 - 100 mg/dL LAB CHEMISTRY METHOD 03/02/2025 4:[address] [facility] BUN 28(H) 5 - 25 mg/dL LAB CHEMISTRY METHOD 03/02/2025 4:[address] [facility] Creatinine 1.42(H) 0.70 - 1.30 mg/dL LAB CHEMISTRY METHOD 03/02/2025 4:[address] [facility] eGFR 53(L) >=60 mL/min/1. 73m2 LAB CHEMISTRY METHOD 03/02/2025 4:[address] [facility] Comment:Calculation based on the Chronic Kidney Disease Epidemiology Collaboration (CKD-EPI) equation refit without adjustment for race. BUN/Creatinine Ratio 19.7 LAB CHEMISTRY METHOD 03/02/2025 4:[address] [facility] Calcium 9.5 8.5 - 10.5 mg/dL LAB CHEMISTRY METHOD 03/02/2025 4:[address] [facility] AST (SGOT) 17 10 - 42 unit/L LAB CHEMISTRY METHOD 03/02/2025 4:[address] [facility] ALT (SGPT) 33 10 - 60 unit/L LAB CHEMISTRY METHOD 03/02/2025 4:[address] [facility] Alkaline Phosphatase 90 42 - 121 unit/L LAB CHEMISTRY METHOD 03/02/2025 4:[address] [facility] Total Protein 7.3 6.0 - 8.0 g/dL LAB CHEMISTRY METHOD 03/02/2025 4:[address] [facility] Albumin 4.0 3.2 - 5.0 g/dL LAB CHEMISTRY METHOD 03/02/2025 4:[address] [facility] Total Bilirubin 0.4 0.0 - 1.4 mg/dL LAB CHEMISTRY METHOD 03/02/2025 4:[address] [facility] Blood Venous blood specimen / Unknown Venipuncture / Unknown 03/02/2025 9:27 AM EDT 03/02/2025 11:30 AM EDT us Nohemi Ann MD LAB BLOOD ORDERABLES Final R esult [facility] [address] [place] [address], * Hemoglobin A1c (09/19/2023) [facility] Hemoglobin A1C 6.3 <=6.5 % Blood Venous blood specimen / Unknown Result [facility] Provider LAB BLOOD ORDERABLES Love l Result * Hepatitis C Screening (06/28/2023) [facility] Hepatitis C Screening Abstracted Result [facility] Provider HEALTH MAINTENANCE Final Result * Diabetes Eye Exam (06/25/2023) [facility] Diabetes: Annual Retina Eye Exam Abstracted Result [facility] Provider HEALTH MAINTENANCE Final Result * Urine Albumin Creatinine Ratio (06/06/2023) [facility] Urine Albumin Creatinine Ratio Abstracted Result [facility] Provider HEALTH MAINTENANCE Final Result * Diabetes Foot Exam (06/06/2023) [facility] Diabetes: Annual Foot Exam Abstracted Result [facility] Provider HEALTH MAINTENANCE Final Result * Lipid panel (04/04/2023) [facility] LDL/HDL Ratio 2 0 - 4 Triglycerides 63 0 - 150 mg/dL Cholesterol 104 0 - 200 mg/dL HDL 43 >=40 mg/dL LDL Cholesterol 49 0 - 100 mg/dL Blood Venous blood specimen / Unknown Result [facility] Provider LAB BLOOD ORDERABLES Love l Result from Last 3 Months or Most Recently Relevant to Health Maintenance Insurance [place]ICA[place] - [place] [employer] MEDICARE Care Teams Cloud Engineer Relationship Specialty Start Date End Date Laxmi Christianson MD [address] [place] [phone] PCP - General Endocrinology 08/05/24
--- OUTSIDE RECORDS SUMMARY | 2025-05-31 09:12 | XMS_ITS | Clinical Summary ---
Author Organization [facility] Address [address] [place] [address] Care Team Providers Care Retail Commission Sales Associate Name Role Phone Marie Luke MD Primary [...] age to complete this topic Care Teams Retail Commission Sales Associate Relationship Specialty Start Date End Date Marie Luke MD [address] [place] [address] PCP - General Internal Medicine 10/31/23
== END 2025-05-31 08:40 | disposition home or self-care (01) ==
LOC: HO.HOSX 08:39
DX: S62.612D Displaced fracture of proximal phalanx of right middle finger, subsequent encounter for fracture with routine healing (principal); S62.324D Displaced fracture of shaft of fourth metacarpal bone, right hand, subsequent encounter for fracture with routine healing; S62.610D Displaced fracture of proximal phalanx of right index finger, subsequent encounter for fracture with routine healing; R29.898 Other symptoms and signs involving the musculoskeletal system; X58.XXXD Exposure to other specified factors, subsequent encounter
CPT/HCPCS: 73130

== ENCOUNTER 2025-05-31 10:54 | Outpatient (AMB) | payer OTHER, MEDICAID, SELFPAY ==
[2025-05-31 11:09] VITALS: BMI 36.7
--- NOTE | 2025-05-31 11:09 | A.OFFVIS_ITS ---
Vital Signs 05/31/25 11:09 Height 5 ft 4 in Weight 214 lb BMI 36.7 Intake Visit Reasons: OV-Nondisplaced RT 4th Metacarpal FxDOI 03/22/25 Intake Note: Karsten is a 69 year old left hand dominant male who presents today for follow up status post Right 2nd & 3rd Proximal Phalanx Radial Base Fracture and Right 4th Metacarpal Shaft Fracture, DOI: 03/22/25. At his last visit patient was fitted for a Velcro wrist brace to be worn for 4 weeks with daytime activities. He was also instructed to remain at a 5 lb weight limit until follow-up and to continue with occupational therapy. Today, patient reports today he only did 2 OT sessions. He denies pain, numbness, tingling. Water Conservationist Required: No Allergies shrimp Allergy (Unknown, Verified 05/31/25 11:12) Vomiting tirzepatide (From Mounjaro) Adverse Reaction (Unknown, Verified 05/31/25 11:12) Diarrhea HPI HPI OV-Nondisplaced RT 4th Metacarpal FxDOI 03/22/25: Details: Karsten is a 69 year old left hand dominant male who presents today for follow up status post Right 2nd & 3rd Proximal Phalanx Radial Base Fracture and Right 4th Metacarpal Shaft Fracture, DOI: 03/22/25. At his last visit patient was fitted for a Velcro wrist brace to be worn for 4 weeks with daytime activities. He was also instructed to remain at a 5 lb weight limit until follow-up and to continue with occupational therapy. Today, patient reports today he only did 2 OT sessions. Patient reports that his range of motion is back to where it was prior to injury. He denies pain, numbness, tingling. [facility] Medical History Uncontrolled type 2 diabetes mellitus with hyperglycemia CKD (chronic kidney disease) stage 2, GFR 60-89 ml/min CVA (cerebral vascular accident) Swelling, mass, or lump in chest Blurry vision, bilateral Blurry vision Surgical History S/P excision of lipoma (09/24/24) Hx of hernia repair Hx of arthroscopy of left knee Family History Mother Diabetes Heart problem History of hypertension Father History of hypertension Heart attack Social History Household Members: None Housing: Apartment Alcohol intake: never Patient Tobacco Use Status: Never used Tobacco e-Cigarette/Vaping Use: Never Used Current occupational status: retired Cognitive needs: No Hearing needs: No Vision needs: Yes Review of Systems Const All systems reviewed & are unremarkable except as noted in HPI and below Physical Exam Vital Signs: BMI result Body Mass Index 36.7 Const General: cooperative, healthy appearing and no acute distress Orientation/consciousness: patient oriented x3 HEENT Head: Yes normocephalic and Yes atraumatic Eyes EOM: EOMs intact bilaterally Resp Effort & Inspection: normal respiratory effort and able to speak in complete sentences Cardio Jugular venous distension: no JVD Skin General skin exam: turgor normal Rashes: no rashes Neuro General: patient oriented x3 Extrem Other: Evaluation of Right Upper Extremity: The patient is alert, oriented, and in no acute distress Neuro: Median, Ulnar, Radial nerves motor and sensory intact and sensation is normal to the tips of all digits Vascular: Cap refill brisk ROM: Patient is able to make a closed fist and extend all digits of the right hand fully and without difficulty in the office today He also has a Hx of CVA in 2011 & has had weakness and poor function of his right hand since this occurred Skin: No lacerations or abrasions. General: No Ecchymosis. No Erythema or evidence of infection. No tenderness over the fracture site Radiographs: 3 views of the right hand were taken and viewed by me today in clinic. They show an index finger proximal phalanx radial base fracture, middle finger proximal phalanx radial base fracture, and a 4th metacarpal shaft fracture, spiral oblique, with satisfactory fracture alignment. The index finger fracture involving ~15% of the articular surface, & the middle finger fracture involving ~20% of the articular surface. All fractures demonstrate evidence of interval bony healing Psych Appearance: grossly normal Affect: normal affect Attitude: cooperative Assessment & Plan Assessment & Plan (1) Fracture of proximal phalanx of right middle finger: Code(s): S62.612A - Displaced fracture of proximal phalanx of right middle finger, initial encounter for closed fracture Category: Medical (2) Fracture of shaft of fourth metacarpal bone of right hand: Code(s): S62.324A - Displaced fracture of shaft of fourth metacarpal bone, right hand, initial encounter for closed fracture Category: Medical (3) Fracture of proximal phalanx of right index finger: Code(s): S62.610A - Displaced fracture of proximal phalanx of right index finger, initial encounter for closed fracture Category: Medical (4) Right hand weakness: Code(s): R29.898 - Other symptoms and signs involving the musculoskeletal system Category: Medical Plan Assessment & Plan: 1. Right index finger proximal phalanx radial base fracture, 2. Right middle finger proximal phalanx radial base fracture, 3. Right 4th metacarpal shaft fracture, S/P fall, DOI: 03/22/25 4. Right hand weakness, Secondary to disuse following a CVA in 2010 I educated him about these conditions I discussed operative and non-operative treatment options Fractures appear to be healing very well, with good evidence of bony healing on x-rays Velcro wrist splint may continue to be worn for high-risk daytime activities Patient may increase to full normal lifting over the next 3-4 weeks No further routine needed, this patient has returned to baseline range of motion and strength Follow-up as needed with any acute concerns Orders: Orders XR hand RT min 3V Today M79.641 - Pain in right hand Coding Level of Care Code Global (45811) Diagnoses Fracture of proximal phalanx of right middle finger S62.612A Fracture of shaft of fourth metacarpal bone of right hand S62.324A Fracture of proximal phalanx of right index finger S62.610A Right hand weakness R29.898
== END 2025-05-31 11:23 | disposition home or self-care (01) ==
LOC: HO.HOS 10:55
PROVIDERS: PCP Internal Medicine
DX: S62.612A Displaced fracture of proximal phalanx of right middle finger, initial encounter for closed fracture (principal); S62.324A Displaced fracture of shaft of fourth metacarpal bone, right hand, initial encounter for closed fracture; S62.610A Displaced fracture of proximal phalanx of right index finger, initial encounter for closed fracture; R29.898 Other symptoms and signs involving the musculoskeletal system
CPT/HCPCS: 99024

== ENCOUNTER → 2025-05-31 11:00 | Outpatient (BNV) | payer OTHER, MEDICAID, SELFPAY | PROVIDERS: Visit Provider Radiology Diagnostic Radiology | DX: M19.041 Primary osteoarthritis, right hand (principal) | CPT/HCPCS: 73130 ==

== ENCOUNTER 2025-06-29 12:41 | Outpatient (AMB) | payer OTHER, MEDICAID, SELFPAY ==
--- NOTE | 2025-06-29 12:54 | A.OFFVIS_ITS ---
Vital Signs 06/29/25 12:55 Height 5 ft 4 in Weight 211 lb 3.245 oz BMI 36.2 BP 118/50 L Blood Pressure Location Lt brachial Position Sitting Pulse 72 Pulse Source Pulse Oximeter Pulse Oximetry (%) 95 Oxygen Delivery Method Room Air Intake Visit Reasons: Type II Diabetes Intake Note: Patient present today for Type 2 Diabetes Mellitus Last Diabetic eye exam: Last exam was on 10/26/24 at [facility]. Last Podiatry Visit: Last visit was in 03/2025 Random Glucose: 139 mg/dl HgA1C: 8.9% Boatswain'S Mate Required: Yes Boatswain'S Mate Language: Button Attaching Machine Operator Services: Boatswain'S Mate Offered & Declined Accompanied by: Daughter Allergies shrimp Allergy (Unknown, Verified 06/29/25 13:06) Vomiting tirzepatide (From Mounjaro) Adverse Reaction (Unknown, Verified 06/29/25 13:06) Diarrhea Medication List - Last Reconciled 06/29/25 by SAMINA Keating acarbose 25 mg PO BID acetaminophen ER (Arthritis Pain Relief (acetaminophen) ER) 650 mg PO Q12H 90 days amlodipine 5 mg PO DAILY 90 days aspirin (Adult Low Dose Aspirin) 81 mg PO DAILY atorvastatin 40 mg PO DAILY blood sugar diagnostic (Accu-Chek Guide test strips) As directed to monitor glucose three times daily blood-glucose meter (Accu-Chek Guide Glucose Meter) As directed to check blood sugar blood-glucose sensor (FreeStyle Mayra 3 Plus Sensor device) As directed every 15 days chlorthalidone 12.5 mg (1/2 x 25 mg) PO DAILY cyanocobalamin (vitamin B-12) 1,000 mcg PO DAILY [Diabetic insert (pair) 3 pairs] [Diabetic shoes 1 pair diabetic shoes] gabapentin 300 mg PO TID glucose (Dex4 Glucose Quick Dissolve) 16 grams (4 x 4 gram) PO Q15M PRN Humalog Mix 75-25 KwikPen 100 unit/mL (75-25) (insulin lispro protamin-lispro) 30 units (0.3 mL) subcut BID 90 days NS Jardiance (empagliflozin) 25 mg PO DAILY NS lancets (Accu-Chek Softclix Lancets) As directed to monitor glucose up to 3 ti mes daily lisinopril 40 mg PO DAILY 90 days metformin ER 1,000 mg (2 x 500 mg) PO BID 90 days metoprolol succinate ER 50 mg PO DAILY OneTouch Delica Plus Lancet (lancets) 3 times daily NS pen needle, diabetic As directed bid NS triamcinolone acetonide 40 mg IM DAILY HPI Comments Details: This is a 69-year-old male with a past medical history of type 2 diabetes, hypertension, coronary artery disease, CVA with residual deficits, CKD stage II and obesity presenting for diabetic management. He is accompanied by his daughter. Declined aerial photograph interpreter. Daughter interpreted. He was diagnosed with type 2 diabetes in his youth. Lab work September 2024 C- peptide 2.7, LALA less than 5, islet cell antibodies negative. There is a family history of type 2 diabetes in his mother and siblings. Hemoglobin A1c 8.9% today. Reviewed CGM data for the past 2 weeks G CO 8.4% Glucose variability 26.1% Very high 21% High 47% Target range 32% 0% hypoglycemia He has hyperglycemia throughout 24 hours which worsens during the day and evening. Eats light breakfast. Lunch and dinner are heavier. Current regimen: Humulin 75/25 30 units twice daily Metformin 500 mg twice daily Jardiance 25 mg daily Acarbose 25 mg daily with 1st bite of lunch and dinner. He is only taking acarbose with dinner. Patient says he does not tolerate higher doses of metformin due to stomach upset, but he is on the immediate release formula. Past medication: Ozempic discontinued due to nausea and vomiting, Mounjaro discontinued due to nausea and vomiting Complications: He has retinopathy followed by [facility] and a retinal specialist. He receives intravitreal injections. He has neuropathy. He has a history of nephropathy, but his recent test for microalbumin is negative, and his creatinine and GFR were normal. Prior history of CVA and CAD. Denies symptoms of hypoglycemia and hyperglycemia. Hypertension is treated with amlodipine, chlorthalidone, lisinopril, and metoprolol succinate ER. ROS: Constitutional: No unexplained weight loss, fever, chills, fatigue or night sweats. Respiratory: No shortness of breath Cardiovascular: No chest pain, chest Gastrointestinal: No anorexia, nausea, vomiting or diarrhea. No abdominal pain or blood in stool. Neurologic: No headache, dizziness, syncope Endocrine: No cold or heat intolerance. No polyuria or polydipsia. Physical exam: Constitutional: Alert, in no distress. Head: Normocephalic. Neck: Supple, Full range of motion. No lymphadenopathy. No palpable thyroid enlargement or masses. Respiratory: Clear to auscultation. Cardiovascular: S1 S2 regular. No murmur. Psychiatric: Normal mood and affect [facility] Medical History Uncontrolled type 2 diabetes mellitus with hyperglycemia CKD (chronic kidney disease) stage 2, GFR 60-89 ml/min CVA (cerebral vascular accident) Swelling, mass, or lump in chest Blurry vision, bilateral Blurry vision Surgical History S/P excision of lipoma (09/24/24) Hx of hernia repair Hx of arthroscopy of left knee Family History Mother Diabetes Heart problem History of hypertension Father History of hypertension Heart attack Social History Household Members: None Housing: Apartment Alcohol intake: never Patient Tobacco Use Status: Never used Tobacco e-Cigarette/Vaping Use: Never Used Current occupational status: retired Cognitive needs: No Hearing needs: No Vision needs: Yes Physical Exam Vital Signs: Last Vital Signs Pulse 72 06/29/25 12:55 BP 118/50 L 06/29/25 12:55 Pulse Ox 95 06/29/25 12:55 Oxygen Delivery Method Room Air 06/29/25 12:55 BMI result Body Mass Index 36.2 Office Procedures Glucose Monitoring Details Details: See [facility] [address] - Glucose monitoring, continuous-physician I&R Procedure code (CPT) selection complete Results AMB Hemoglobin A1c AMB Hemoglobin A1c 8.9 % Last Edit by ALEJANDRA Mendoza on 06/29/25 13:27 Results Reviewed Results Reviewed: Laboratory Last Values Glucose (Clinic) 139 mg/dL (60-115) H 06/29/25 13:08 Laboratory Tests 07/23/24 10/16/24 05/05/25 16:35 09:23 08:03 Creatinine 1.02 Estimated GFR > 60 AST 21 ALT 23 Triglycerides 84 Cholesterol 131 LDL Cholesterol, Calc 66 HDL Cholesterol 49 Urine Creatinine 107.57 Urine Microalbumin 27.0 Microalb/Creat Ratio 25.0 Islet Cell Ab Screen NEGATIVE Islet Cell Ab Titer TNP LALA Antibody <5 Assessment & Plan Assessment & Plan (1) Uncontrolled type 2 diabetes mellitus with hyperglycemia: Code(s): E11.65 - Type 2 diabetes mellitus with hyperglycemia Category: Medical Plan: In summary this is a 69-year-old male with a past medical history of uncontrolled type 2 diabetes. We reviewed lifestyle modifications and reinforced a diabetic diet. Reviewed complications of type 2 diabetes. Patient did not tolerate GLP 1 x 2. He does not want to try Victoza or Trulicity. Continue Humalog mix 30 units twice daily Stop Metformin immediate release. Start Metformin extended release 1000 mg in the morning and 500 mg in the evening for a week. If no side effects after the first week, increase to 1000 mg twice day and stop taking Acarbose with dinner. Continue Jardiance 25 mg daily If you experience low blood sugar, treat this by eating a chewable fruit candy like skittles or jelly beans (about 8 pieces), 4 ounces (1/2 cup) of fruit juice (not diet), 1 tablespoon of honey or 4 glucose tablets. If your blood sugar is under 50, take double the amount of one of the above. Recheck your blood sugar in 15 minutes. (2) CKD (chronic kidney disease) stage 2, GFR 60-89 ml/min: Code(s): N18.2 - Chronic kidney disease, stage 2 (mild) Category: Medical Plan: Continue KAIT inhibitor. Avoid nephrotoxic medications. Check creatinine after increasing dose of metformin in a couple of weeks. (3) Hypertension: Code(s): I10 - Essential (primary) hypertension Category: Medical Qualifiers: Hypertension type: primary hypertension Qualified Code(s): I10 - Essential (primary) hypertension Plan: Continue current regimen. Avoid high sodium foods. Plan Follow up in 4-6 weeks for type 2 diabetes. Orders: Orders AMB Hemoglobin A1c Today E11.49 - Type 2 diabetes mellitus with other diabetic neurological complication, Z13.9 - Encounter for screening, unspecified, Z79.4 - custodial (current) use of insulin Creatinine Today E11.9 - Type 2 diabetes mellitus without complications AMB Glucose Monitoring Today E11.9 - Type 2 diabetes mellitus without complications Medications: New metformin ER 1,000 mg (2 x 500 mg) PO BID 360 tabs 0RF 90 days Refilled amlodipine 5 mg PO DAILY 90 tabs 3RF 90 days gabapentin 300 mg PO TID 270 caps 3RF cyanocobalamin (vitamin B-12) 1,000 mcg PO DAILY 90 tabs 3RF Discontinued metformin Discontinued Reason: Doctor's Order 500 mg PO BID 180 tabs 3RF Patient Instructions: Continue Humalog mix insulin 30 units twice daily Stop Metformin immediate release. Start Metformin extended release 1000 mg in the morning and 500 mg in the evening for a week. If no side effects after the first week, increase to 1000 mg twice day and stop taking Acarbose with dinner. Continue Jardiance 25 mg daily If you experience low blood sugar (under 70), treat this by eating a chewable fruit candy like skittles or jelly beans (about 8 pieces), 4 ounces (1/2 cup) of fruit juice (not diet), 1 tablespoon of honey or 4 glucose tablets. If your blood sugar is under 50, take double the amount of one of the above. Recheck your blood sugar in 15 minutes. Contin?e con la insulina Humalog Mix, 30 unidades dos veces al d?a. Suspenda la metformina de liberaci?n inmediata. Comience con metformina de liberaci?n prolongada, 1000 mg por la ma?robyn y 500 mg por la noche kim angela semana. Si no presenta efectos secundarios despu?s de la primera semana, aumente la dosis a 1000 mg dos veces al d?a y deje de [place] acarbosa con la lab specialist. Contin?e con Jardiance 25 mg al d?a. Si experimenta hipoglucemia (nivel de az?car en jannie inferior a 70), tr?daniel consumiendo caramelos de frutas masticables (aproximadamente 8 unidades), 120 ml (1/2 taza) de jugo de frutas (no diet?zo), 1 cucharada de miel o 4 tabletas de glucosa. Si thacker nivel de az?car en jannie es inferior a 50, duplique la cantidad de cualquiera de las opciones anteriores. Vuelva a medir thacker nivel de az?car en jannie en 15 minutos. Coding Level of Care Code Est Pt Level 4 (74411) Diagnoses Uncontrolled type 2 diabetes mellitus with hyperglycemia E11.65 CKD (chronic kidney disease) stage 2, GFR 60-89 ml/min N18.2 Primary hypertension I10 Hypertension type: primary hypertension CPT Codes Details - CPT: 51708 - Glucose monitoring, continuous-physician I&R ([id number])
[2025-06-29 12:55] VITALS: BP 118/50; PULSE 72; O2SAT 95; BMI 36.2
[2025-06-29 13:12] LABS: Glucose, Whole Blood 139 mg/dL (60-115)
--- OUTSIDE RECORDS SUMMARY | 2025-06-29 16:36 | XMS_ITS | Clinical Summary ---
Author Organization [employer] Address [address] [place] [address] Care Team Providers Care Assembler Golf Wood Head Name Role Phone Unavailable Primary Care Provider [...] Recently Relevant to Health Maintenance Insurance [facility]AL [facility] D[facility] - N FULL (MEDICAID)
--- OUTSIDE RECORDS SUMMARY | 2025-06-29 16:36 | XMS_ITS | Clinical Summary ---
Author Organization [facility] [facility] Prior to 11/28/[address] [place] [id number] Care Team Providers Care Air Liaison And Special Staff Name Role Phone Marie Luke MD Primary [...] age to complete this topic Care Teams Air Liaison And Special Staff Relationship Specialty Start Date End Date Marie Luke MD [address] [place] [address] PCP - General Internal Medicine 10/31/23
--- OUTSIDE RECORDS SUMMARY | 2025-06-29 16:36 | XMS_ITS | Clinical Summary ---
Author Organization [facility] Address [address] [place] [address] Phone Care Team Providers Care Paraprofessional Education Assistant Name Role Phone Laxmi Christianson MD Primary Care Provider [phone] Allergies Active Allergy Reactions Criticality Noted Date [...] AM EDT Office Visit Orthopedic Surgery - [address] [phone] Tariq Wilson, JAVED Controlled type 2 diabetes with neuropathy ([facility] V24, [facility] V28) (Primary Dx); Foot drop, left; PVD (peripheral vascular disease) ([facility] V24); Arthritis of both feet; Xerosis cutis; Dermatophytosis, nail from Last 3 [...] Type 2 diabetes mellitus wit hout complications ([facility] V24, [facility] V28) DX:Type 2 carolyn betes mellitus without complications (HCC) CAD (coronary artery disease) DX :CAD (coronary artery disease); COMMENT: Stents 2006 and 2008. LAD, RCA, LCX Mixed hyperlipidemia DX:Mixed hy perlipidemia Osteoarthritis, knee DX:Osteoart hritis, knee Polycythemia vera ([facility] V 24, [facility] V28) DX:Polycythemia vera ([facility]) CVA (cerebral vascular accid ent) ([facility] V24, [facility] V28) 2021 DX:CVA (cerebral vascular a ccident) ([facility]) Family History Medical History Relation Name Comments [...] on file Sexual Orientation Not on file Last Filed Vital Signs [...] Care Team (Late st Contact Info) Description 08/10/2025 1:15 PM EST Office Visit [facility] Hematology Oncology [address] [place] [phone] Nohemi Ann MD [address] [place] [address] 08/17/2025 9:45 AM EST Office Visit Orthopedic Surgery - [place] [address] [phone] Tariq Wilson DPM [address] [address] Health Maintenance Due Date Last Done Comments [...] Associated Diagnosis Comments COMPREHENSIVE METABOLIC PANEL Routine 03/02/2025 9:27 AM EDT Polycythemia Myeloproliferative neoplasm ([facility] V24, [facility] V28) HEMOGLOBIN A1C Routine 09/19/2023 HEPATITIS C SCREENING Routine 06/28/2023 DIABETES EYE EXAM Routine 06/25/2023 URINE ALBUMIN CREATININE RATIO Routine 06/06/2023 DIABETES FOOT EXAM Routine 06/06/2023 LIPID PANEL Routine 04/04/2023 from Last 3 Months or Most Recently Relevant to Health Maintenance Results * (ABNORMAL) Comprehensive metabolic panel (03/02/2025 9:27 AM EDT) [facility] Signature Sodium 137 133 - 145 mmol/L LAB CHEMISTRY METHOD 03/02/2025 4:[address] [facility] Potassium 4.4 3.5 - 5.5 mmol/L LAB CHEMISTRY METHOD 03/02/2025 4:34 PM [facility] Chloride 101 96 - 110 mmol/L LAB CHEMISTRY METHOD 03/02/2025 4:34 PM [facility] CO2 30 21 - 32 mmol/L LAB CHEMISTRY METHOD 03/02/2025 4:34 PM [facility] Anion Gap 6 3 - 11 LAB CHEMISTRY METHOD 03/02/2025 4:34 PM [facility] Glucose 131(H) 70 - 100 mg/dL LAB CHEMISTRY METHOD 03/02/2025 4:34 PM [facility] BUN 28(H) 5 - 25 mg/dL LAB CHEMISTRY METHOD 03/02/2025 4:34 PM [facility] Creatinine 1.42(H) 0.70 - 1.30 mg/dL LAB CHEMISTRY METHOD 03/02/2025 4:34 PM [facility] eGFR 53(L) >=60 mL/min/1. 73m2 LAB CHEMISTRY METHOD 03/02/2025 4:34 PM [facility] Comment:Calculation based on the Chronic Kidney Disease Epidemiology Collaboration (CKD-EPI) equation refit without adjustment for race. BUN/Creatinine Ratio 19.7 LAB CHEMISTRY METHOD 03/02/2025 4:34 PM [facility] Calcium 9.5 8.5 - 10.5 mg/dL LAB CHEMISTRY METHOD 03/02/2025 4:34 PM [facility] AST (SGOT) 17 10 - 42 unit/L LAB CHEMISTRY METHOD 03/02/2025 4:34 PM [facility] ALT (SGPT) 33 10 - 60 unit/L LAB CHEMISTRY METHOD 03/02/2025 4:34 PM [facility] Alkaline Phosphatase 90 42 - 121 unit/L LAB CHEMISTRY METHOD 03/02/2025 4:34 PM [facility] Total Protein 7.3 6.0 - 8.0 g/dL LAB CHEMISTRY METHOD 03/02/2025 4:[address] [facility] Albumin 4.0 3.2 - 5.0 g/dL LAB CHEMISTRY METHOD 03/02/2025 4:[address] [facility] Total Bilirubin 0.4 0.0 - 1.4 mg/dL LAB CHEMISTRY METHOD 03/02/2025 4:[address] [facility] Blood Venous blood specimen / Unknown Venipuncture / Unknown 03/02/2025 9:27 AM EDT 03/02/2025 11:30 AM EDT Result [facility] Nohemi Ann MD LAB BLOOD ORDERABLES Final R esult [facility] [address] [place] [address], * Hemoglobin A1c (09/19/2023) [facility] Hemoglobin A1C 6.3 <=6.5 % Blood Venous blood specimen / Unknown Result [facility] Provider LAB BLOOD ORDERABLES Love l Result * Hepatitis C Screening (06/28/2023) [facility] Hepatitis C Screening Abstracted Result [facility]TE[employer]CE Final Result * Diabetes Eye Exam (06/25/2023) [facility] Diabetes: Annual Retina Eye Exam Abstracted Result [facility] Provider HEALTH MAINTENANCE Final Result * Urine Albumin Creatinine Ratio (06/06/2023) [facility] Urine Albumin Creatinine Ratio Abstracted Result [facility] Provider HEALTH MAINTENANCE Final Result * Diabetes Foot Exam (06/06/2023) [facility] Diabetes: Annual Foot Exam Abstracted Result [facility] Provider HEALTH MAINTENANCE Final Result * [...] Recently Relevant to Health Maintenance Insurance [address] [place] [address] MEDICAID - [place] [employer] MEDICARE Care Teams Paraprofessional Education Assistant Relationship Specialty Start Date End Date Laxmi Christianson MD [address] [place] [phone] PCP - General Endocrinology 08/05/24
== END 2025-06-29 13:35 | disposition home or self-care (01) ==
LOC: HO.ENCR 12:42
PROVIDERS: PCP Internal Medicine; Visit Provider Physician Assistant Medical
DX: E11.65 Type 2 diabetes mellitus with hyperglycemia (principal); I12.9 Hypertensive chronic kidney disease with stage 1 through stage 4 chronic kidney disease, or unspecified chronic kidney disease; N18.2 Chronic kidney disease, stage 2 (mild); Z13.9 Encounter for screening, unspecified; E11.49 Type 2 diabetes mellitus with other diabetic neurological complication; Z79.4 Long term (current) use of insulin

== ENCOUNTER → 2025-06-29 12:41 | Outpatient (BNVA) | payer OTHER, MEDICAID, SELFPAY | PROVIDERS: PCP Internal Medicine; Visit Provider Physician Assistant Medical | DX: E11.65 Type 2 diabetes mellitus with hyperglycemia (principal); Z79.4 Long term (current) use of insulin; Z79.84 Long term (current) use of oral hypoglycemic drugs; I12.9 Hypertensive chronic kidney disease with stage 1 through stage 4 chronic kidney disease, or unspecified chronic kidney disease; N18.2 Chronic kidney disease, stage 2 (mild); Z13.89 Encounter for screening for other disorder | CPT/HCPCS: 82947; 83036 ==